=== PATIENT | male | born 1965 | race Caucasian/White ===

== ENCOUNTER 2020-08-15 22:59 | Inpatient (IN) | payer MEDICARE, MEDICAID ==
[~2020-08-15] VITALS: Ht 177.8 cm; Wt 69.9 kg
--- NOTE | 2020-08-15 23:20 | NUR ---
ED Nurse Note:Patient brought in by EMS new onset of bradycardia, patient is moves all extremities, no verbal. follows commands, besides heart rate vitals stable
--- NOTE | 2020-08-15 23:25 | Emergency Room Report ---
History of Present Illness General Chief Complaint: General Complaint Source: Medical Record, EMS Present Illness HPI This is a 54-year-old male with a history respiratory failure with tracheostomy. Also has a feeding tube. He is a care home patient with paraplegia. He presents with chief complaint of low heart rate. According to care home note, all day his heart rate been running 45-55. He also had one episode of oxygenation dropping down to 90%. It responded with suctioning and bagging. Unable to get any other history from this patient. Now he is heart rate is in the low 60s. He is not taking a beta kristin. 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 COVID-19 Screening: Negative COVID-19 COVID-19 Testing Source: nasal Patient History Past Medical History: see triage record, old chart reviewed Past Surgical History: other Pertinent Family History: none Social History: Denies: smoking Immunizations: UTD Reviewed Nursing Documentation: PMH: Agreed; PSxH: Agreed Nursing Documentation-PMH Hx Gastrointestinal Problems: Yes - BPH / g-tUBE History Of Psychiatric Problem: Yes - SCHIZOAFFECTIVE D.O / PARANOID SCHIZOPHRENIA / BIPOLAR Hx Cerebrovascular Accident: Yes - PARAPLEGIA Review of Systems All Other Systems: limited - Patient is nonverbal Physical Exam Vital Signs Date Time Temp Pulse Resp B/P (MAP) Pulse Ox O2 Delivery O2 Flow Rate FiO2 08/15/20 23:07 98.1 58 16 111/68 (82) 99 Room Air Vitals unremarkable Sp02 EP Interpretation: reviewed, normal General Appearance: no apparent distress, alert, Chronically Ill Head: normocephalic, atraumatic Eyes: bilateral eye PERRL, bilateral eye EOMI ENT: hearing grossly normal, normal pharynx Neck: full range of motion, supple, no meningismus Respiratory: chest non-tender, lungs clear, normal breath sounds Cardiovascular #1: regular rate, rhythm, no murmur Gastrointestinal: normal bowel sounds, non tender, no mass, no organomegaly, no bruit, non-distended Musculoskeletal: back normal, other - contracted Psychiatric: mood/affect normal Medical Decision Making Diagnostic Impression: Primary Impression: Bradycardia Additional Impression: Hyponatremia ER Course This patient presents with bradycardia. Since he has been here his heart rate has been 55-65. I spoke with Dr. Aime Wylie, who said that his heart rate dropped down to 36 while he was awake. Will admit for monitoring. No evidence of ACS, PE, dissection Tamiflu. EKG Diagnostic Results Troponin ordered: Yes Rate: normal, bradycardiac ST Segments: no acute changes Rhythm Strip Diag. Results EP Interpretation: yes Rate: 63 Rhythm: NSR, no PVC's, no ectopy Chest X-Ray Diagnostic Results Chest X-Ray Diagnostic Results : Chest X-Ray Ordered: Yes # of Views/Limited/Complete: 1 View Indication: Other EP Interpretation: Yes Interpretation: no effusion, no pneumothorax, other - Atelectasis Impression: Other - Atelectasis Electronically Signed by: Chris Wood MD Last Vital Signs Date Time Temp Pulse Resp B/P (MAP) Pulse Ox O2 Delivery O2 Flow Rate FiO2 08/15/20 23:07 98.1 58 16 111/68 (82) 99 Room Air Status: improved Disposition: SHORT-TERM HOSP Condition: Serious Chris Wood MD Aug 15, 2020 23:25
--- NOTE | 2020-08-15 23:30 | NUR ---
Blood Specimen and Blood cultures sent to lab
[2020-08-15] MEDS ORDERED: ACETAMINOP160 MG/5 M ORAL (23:35)
[2020-08-15] MEDS ORDERED: ATIVAN2 MG/1 ML IV (23:38)
[2020-08-15] MEDS ORDERED: CENTRUM MU9 MG/15 ML GT (23:39)
[2020-08-15] MEDS ORDERED: CHLORHEXIDINE118 M1 PO (23:40)
[2020-08-15] MEDS ORDERED: COLACE100 MG GT (23:41)
[2020-08-15] MEDS ORDERED: DULCOLAX10 MG RC (23:41)
[2020-08-15] MEDS ORDERED: FLEET ENEMA133 ML RECTAL (23:42)
[2020-08-15] MEDS ORDERED: FLORINEF0.1 MG GT (23:43)
[2020-08-15] MEDS ORDERED: LAMICTAL150 MG ORAL (23:44)
[2020-08-15] MEDS ORDERED: IBUPROFEN600 M1 GT (23:44)
[2020-08-15] MEDS ORDERED: KEPPRA500 M3 ORAL (23:45)
--- NOTE | 2020-08-15 23:45 | NUR ---
ED Nurse Note: Attempted to staight cath patient for urine, pt became violent would not allow me to complete procedure notified
[2020-08-15] MEDS ORDERED: MILK OF MA400 MG/51 GT (23:46)
--- NOTE | 2020-08-15 23:46 | Diagnostic Imaging Report ---
EXAM: XR Chest, 1 View CLINICAL HISTORY: SOB TECHNIQUE: Frontal view of the chest. COMPARISON: No relevant prior studies available. FINDINGS: Lungs: Reduced lung volumes. Patchy atelectasis in the left lung base. Pleural space: Unremarkable. No pneumothorax. Heart: Unremarkable. No cardiomegaly. Mediastinum: Unremarkable. Bones/joints: No acute fracture. Tubes, lines and devices: Tracheostomy. IMPRESSION: Reduced lung volumes. Patchy atelectasis in the left lung base.
[2020-08-15] MEDS ORDERED: POTASSIUM CHLO20 ME1 ORAL (23:47)
[2020-08-15] MEDS ORDERED: MIRALAX17 G2 ORAL (23:47)
[2020-08-15] MEDS ORDERED: PROVENTIL HFA6.7 G1 IH (23:48)
[2020-08-15] MEDS ORDERED: SINEMET 25-1001 EAC1 GT (23:49)
[2020-08-15] MEDS ORDERED: SODIUM CHLORIDE3 ML IH (23:50)
[2020-08-15] MEDS ORDERED: UTI-STAT L3875 MG/31 GT (23:51)
[2020-08-15] MEDS ORDERED: OSTERA TABLET1 EACH PO (23:52)
[2020-08-16 00:16] LABS: ANION GAP 4 mmol/L (5-15); BASOPHILS % (AUTO) 0.8 % (0.0-2.0); BLOOD UREA NITROGEN 13 mg/dL (7-18); CALCIUM 9.4 MG/DL (8.5-10.1); CARBON DIOXIDE 31 MMOL/L (21-32); CHLORIDE 93 MMOL/L (98-107); CREATININE 0.8 MG/DL (0.55-1.30); EOSINOPHILS % (AUTO) 5.8 % (0.0-3.0); HEMOGLOBIN 13.4 G/DL (14.2-18.0); LYMPHOCYTES % (AUTO) 21.9 % (20.0-45.0); MEAN CORPUSCULAR VOLUME 94 FL (80-99); MONOCYTES % (AUTO) 5.3 % (1.0-10.0); NEUTROPHILS % (AUTO) 66.3 % (45.0-75.0); PLATELET COUNT 244 K/UL (150-450); POTASSIUM 4.5 MMOL/L (3.5-5.1); RED BLOOD COUNT 4.13 M/UL (4.70-6.10); RED CELL DISTRIBUTION WIDTH 13.2 % (11.6-14.8); SODIUM 128 MMOL/L (136-145); WHITE BLOOD COUNT 8.9 K/UL (4.8-10.8)
[2020-08-16 00:27] LABS: ALANINE AMINOTRANSFERASE 16 U/L (12-78); ALBUMIN/GLOBULIN RATIO 0.9 (1.0-2.7); ALKALINE PHOSPHATASE 125 U/L (46-116); ASPARTATE AMINO TRANSFERASE 22 U/L (15-37); BILIRUBIN,TOTAL 0.4 MG/DL (0.2-1.0)
[2020-08-16 00:52] VITALS: BP 119/77
--- NOTE | 2020-08-16 01:30 | NUR ---
TRANSFER TO FLOOR: Patient transferred to Telemetry as ordered, per MD. Report given to Joshua. Patient had no belongings
[2020-08-16 04:00] VITALS: BP 130/77
--- NOTE | 2020-08-16 04:00 | NUR ---
NURSE NOTES: Pt arrived via gurney from ED. Got report from Adriana CÁRDENAS. Pt is here for bradycardia and hyponatemia. Initial assessment done. Pt is nonverbal follows commands. No s/s of distress or discomfort noted. Pt has a capped Trach and gtube. Incontinent. No skin issues noted. Pt is a functional paraplegic. VS: T:97.2 HR:58 R:16 BP:130/77 O2:95% on room air. nuclear monitoring technician placed on pt running Sinus Bradycardia on the monitor 58. Pt has R AC 20g w/ NS@100ml/hr. Pt is from [facility]. Orders given and placed by Dr. Wylie. Bed in low and locked position, call light within reach, bedside table within reach. Continue to monitor.
[2020-08-16] MEDS ORDERED: Varibar Pudding 230ml MC PRN (06:30)
[2020-08-16] MEDS ORDERED: Varibar Thin Liquid powder 148gm MC PRN (06:30)
[2020-08-16] MEDS ORDERED: Varibar Nectar 240ml MC PRN (06:30)
[2020-08-16] MEDS ORDERED: Varibar Honey 250ml MC PRN (06:30)
--- NOTE | 2020-08-16 07:30 | NUR ---
NURSE HAND-OFF REPORT: Important Events on Shift:[] Patient Status: [STABLE] Diet: [NPO/TUBE FEEDING] Pending Orders: [] Pending Results/Labs:[] Pending MD notification:[] Latest Vital Signs: Temperature 97.2 , Pulse 58 , B/P 130 /77 , Respiratory Rate 16 , O2 SAT 95 , Room Air, O2 Flow Rate . Vital Sign Comment: [] EKG Rhythm: Sinus Bradycardia Rhythm change?: N MD Notified?: - MD Response: Latest Palm Fall Score: 55 Fall Risk: High Risk Safety Measures: Call light , Bed Alarm , Side Rails Side Rails x3, Bed position . Fall Precautions: Report given to [BRINDA CÁRDENAS].
--- NOTE | 2020-08-16 07:52 | NUR ---
NURSE NOTES: Patient received from MELIA Lewis. Patient seen in bed in low fowlers position with no acute signs of distress noted. The patient is nonverbal and on room air with oxygen saturation within normal limits. The patient has a Gtube that is clean patent and intact. The patient has seizure precautions in place with side rails padded. the patient has a R AC 20G that is clean, patent intact and running NS at 100cc/hr. Ther patients bed is in lowest position, locked, side rails x3 and call light within reach.
[2020-08-16 08:00] VITALS: BP 114/69
--- NOTE | 2020-08-16 08:07 | NUR ---
CASE MANAGEMENT:REVIEW 54 YR OLD MALE BIBA FROM [facility] CC; BRADYCARDIA PMH: TRACH/GTUBE SI: BRADYCARDIA. HYPONATREMIA 98.1 58 16 111/68 99% ON RA NA-128 IS: IVF NS@100/HR CHEST XRAY : TO TELEMETRY UNIT DCP: [facility]
[2020-08-16] MEDS: Ascorbic Acid 500mg tab GT SCH ×2 (09:30→17:07)
[2020-08-16] MEDS: levETIRAcetam 500mg/5ml Liquid GT SCH ×2 (09:30→20:28)
[2020-08-16] MEDS: Zinc Sulfate 220mg GT SCH (09:30)
[2020-08-16] MEDS: Heparin 5000 units/ml inj SUBQ SCH ×2 (09:32→20:28)
--- NOTE | 2020-08-16 09:55 | Consultation ---
History of Present Illness General Date patient seen: Aug 16, 2020 Reason for Hospitalization: General Complaint Present Illness HPI 54-year-old male with a history respiratory failure with tracheostomy. Also has a feeding tube. He is a long term patient with paraplegia. He presents with chief complaint of low heart rate. According to long term note, all day his heart rate been running 45-55. He also had one episode of oxygenation dropping down to 90%. It responded with suctioning and bagging. Unable to get any other history from this patient. Now he is heart rate is in the low 60s. He is not taking a beta kristin. on admission noted to have abnormal labs, decubitus skin ulcers, and trach concerns. surgery called to evaluate Allergies: Coded Allergies: No Known Allergies (Unverified , 08/15/20) COVID-19 Screening Contact w/high risk pt: No Experienced COVID-19 symptoms?: No Medication History Scheduled Albuterol Sulfate (Proventil Hfa), 6.7 GM IH Q4HR, (Reported) Carbidopa/Levodopa 25-100 Mg* (Sinemet 25-100 Mg Tablet*), 1 TAB ORAL THREE TIMES A DAY, (Reported) Cran/Vitc/Mannose/Inulin/Brom (Uti-Stat Liquid), 30 ML PO TWICE A DAY, (Reported) Docusate Sodium* (Colace*), 100 MG ORAL DAILY, (Reported) Fludrocortisone Acetate (Fludrocortisone Acetate), 0.1 MG ORAL DAILY, (Reported) Lamotrigine* (Lamictal*), 200 MG ORAL TWICE A DAY, (Reported) Levetiracetam (Levetiracetam), 100 MG ORAL TWICE A DAY, (Reported) Magnesium Hydroxide* (Milk Of Magnesia*), 30 ML ORAL DAILY, (Reported) Multivits W-Min/Ferrous Gluc (Centrum Multivit-Mineral Liq), 15 ML GT QPM, (Reported) Na Phos,M-B/Na Phos,Di-Ba* (Fleet Enema*), 133 ML RECTAL DAILY, (Reported) Polyethylene Glycol 3350* (Miralax*), 0.5 MG ORAL DAILY, (Reported) Potassium Chloride* (K-Dur*), 15 ML ORAL DAILY, (Reported) Sodium Chloride for inhalation* (Sodium Chloride Inhalation*), 1 GM IH TWICE A DAY, (Reported) Scheduled PRN Acetaminophen 160MG/5ML* (Acetaminophen*), 20 ML ORAL Q6HR PRN for Fever/Headache/Mild Pain, (Reported) Ibuprofen* (Motrin*), 600 MG ORAL Q6H PRN for FOR PAIN, (Reported) Lorazepam* (Ativan*), 2 MG IV Q2H PRN for sezure, (Reported) Miscellaneous Medications Bisacodyl (Dulcolax), 10 MG RC, (Reported) Chlorhexidine Gluconate (Chlorhexidine Gluconate), 15 ML TP, (Reported) Vit D3 & K/Berberine Hcl/Hops (Ostera Tablet), 1 EACH PO, (Reported) Patient History Limited by: medical condition History Provided By: Medical Record, PMD Healthcare decision maker Resuscitation status Advanced Directive on File Past Medical/Surgical History Past Medical/Surgical History: (1) Bradycardia (2) Hyponatremia (3) Elevated alkaline phosphatase level Review of Systems Review of Symptoms General ROS: no weight loss or fever Psychological ROS: no depression or mood changes, no memory loss Ophthalmic ROS: no visual changes or eye irritation ENT ROS: no nasal congestion, hearing loss, dizziness Allergy and Immunology ROS: no allergic symptoms or urticaria Hematological and Lymphatic ROS: no swollen glands, unusual bleeding or bruising Endocrine ROS: no polyuria, polydipsia, weight changes, temperature intolerance Respiratory ROS: no cough, shortness of breath, or wheezing Cardiovascular ROS: no chest pain or dyspnea on exertion Gastrointestinal ROS: denies abdominal pain, bright red blood in stool. Musculoskeletal ROS: no myalgias or arthralgias Neurological ROS: no TIA or stroke symptoms Dermatological ROS: no new or changing skin lesions, rashes or pruritis limited Physical Exam Physical Exam General appearance: alert, cooperative, no distress, appears stated age Head: Normocephalic, without obvious abnormality, atraumatic Eyes: conjunctivae/corneas clear. PERRL, EOM's intact. Fundi benign Throat: Lips, mucosa, and tongue normal. Teeth and gums normal Neck: supple, symmetrical, trachea midline, no adenopathy, thyroid: not enlarged, symmetric, no tenderness/mass/nodules, no carotid bruit and no JVD trach Lungs: clear to auscultation bilaterally Heart: regular rate and rhythm, S1, S2 normal, no murmur, click, rub or gallop Abdomen: soft, non-tender. Bowel sounds normal. No masses, no organomegaly Extremities: extremities normal, atraumatic, no cyanosis or edema Pulses: 2+ and symmetric Skin: Skin color, texture, turgor normal. No rashes or lesions Neurologic: Grossly normal Last 24 Hour Vital Signs Date Time Temp Pulse Resp B/P (MAP) Pulse Ox O2 Delivery O2 Flow Rate FiO2 08/16/20 04:00 97.2 58 16 130/77 (94) 95 08/16/20 04:00 56 08/16/20 03:37 Room Air 08/16/20 00:52 58 16 Room Air 08/16/20 00:52 98.1 58 15 119/77 99 Room Air 08/15/20 23:07 98.1 58 16 111/68 (82) 99 Room Air Intake and Output0 08/15/20 08/16/20 19:00 07:00 Intake Total 0 ml Balance 0 ml Intake Oral 0 ml # Voids 1 Laboratory Tests Test 08/15/20 23:39 White Blood Count 8.9 K/UL (4.8-10.8) Red Blood Count 4.13 M/UL (4.70-6.10) L Hemoglobin 13.4 G/DL (14.2-18.0) L Hematocrit 39.0 % (42.0-52.0) L Mean Corpuscular Volume 94 FL (80-99) Mean Corpuscular Hemoglobin 32.5 PG (27.0-31.0) H Mean Corpuscular Hemoglobin Concent 34.4 G/DL (32.0-36.0) Red Cell Distribution Width 13.2 % (11.6-14.8) Platelet Count 244 K/UL (150-450) Mean Platelet Volume 7.8 FL (6.5-10.1) Neutrophils (%) (Auto) 66.3 % (45.0-75.0) Lymphocytes (%) (Auto) 21.9 % (20.0-45.0) Monocytes (%) (Auto) 5.3 % (1.0-10.0) Eosinophils (%) (Auto) 5.8 % (0.0-3.0) H Basophils (%) (Auto) 0.8 % (0.0-2.0) Sodium Level 128 MMOL/L (136-145) L Potassium Level 4.5 MMOL/L (3.5-5.1) Chloride Level 93 MMOL/L (98-107) L Carbon Dioxide Level 31 MMOL/L (21-32) Anion Gap 4 mmol/L (5-15) L Blood Urea Nitrogen 13 mg/dL (7-18) Creatinine 0.8 MG/DL (0.55-1.30) Estimat Glomerular Filtration Rate > 60 mL/min (>60) Glucose Level 98 MG/DL (74-106) Calcium Level 9.4 MG/DL (8.5-10.1) Total Bilirubin 0.4 MG/DL (0.2-1.0) Aspartate Amino Transf (AST/SGOT) 22 U/L (15-37) Alanine Aminotransferase (ALT/SGPT) 16 U/L (12-78) Alkaline Phosphatase 125 U/L (46-116) H Troponin I 0.000 ng/mL (0.000-0.056) Pro-B-Type Natriuretic Peptide 63 pg/mL (0-125) Total Protein 8.7 G/DL (6.4-8.2) H Albumin 4.0 G/DL (3.4-5.0) Globulin 4.7 g/dL Albumin/Globulin Ratio 0.9 (1.0-2.7) L Height (Feet): 5 Height (Inches): 10.00 Weight (Pounds): 154 Medications Current Medications Medications (Trade) Dose Ordered Sig/Myesha Route PRN Reason Start Time Stop Time Status Last Admin Dose Admin Acetaminophen (Tylenol) 500 mg EVERY 4 HOURS PRN GT Temp >100.5 08/16/20 05:30 09/15/20 05:29 Ascorbic Acid (Vitamin C) 500 mg TWICE A DAY GT 08/16/20 09:00 09/15/20 08:59 08/16/20 09:30 Barium Sulfate (Varibar Honey) 250 ml NOW PRN MC RAD 08/16/20 06:30 08/19/20 06:16 Barium Sulfate (Varibar [place]) 240 ml NOW PRN MC RAD 08/16/20 06:30 08/19/20 06:16 Barium Sulfate (Varibar Pudding) 230 ml NOW PRN MC RAD 08/16/20 06:30 08/19/20 06:16 Barium Sulfate (Varibar Thin Liquid powder) 148 gm NOW PRN MC RAD 08/16/20 06:30 08/19/20 06:16 Clonidine HCl (Catapres Tab) 0.1 mg Q4H PRN GT For High Blood Pressure 08/16/20 05:30 11/14/20 05:29 Donepezil HCl (Aricept) 10 mg QHS GT 08/16/20 21:00 09/15/20 20:59 Famotidine (Pepcid) 20 mg BID GT 08/16/20 09:00 11/14/20 08:59 08/16/20 09:30 Fish Oil (Fish Oil) 1,000 mg BID ORAL 08/16/20 09:00 09/15/20 08:59 08/16/20 09:30 Heparin Sodium (Porcine) (Heparin 5000 units/ml) 5,000 units EVERY 12 HOURS SUBQ 08/16/20 09:00 09/30/20 08:59 08/16/20 09:32 Levetiracetam (Keppra) 1,000 mg Q12HR GT 08/16/20 09:00 09/30/20 08:59 08/16/20 09:30 Multivitamins (Multivitamins) 1 tab DAILY GT 08/16/20 09:00 09/15/20 08:59 08/16/20 09:29 Sodium Chloride 1,000 ml @ 100 mls/hr Q10H IV 08/16/20 04:00 09/15/20 03:59 08/16/20 04:48 Zinc Sulfate (Zinc Sulfate) 220 mg DAILY GT 08/16/20 09:00 11/14/20 08:59 08/16/20 09:30 Assessment/Plan Problem List: (1) Trachea displaced Assessment & Plan: Lungs: Reduced lung volumes. Patchy atelectasis in the l eft lung base. Pleural space: Unremarkable. No pneumothorax. Heart: Unremarkable. No cardiomegaly. Mediastinum: Unremarkable. Bones/joints: No acute fracture. Tubes, lines and devices: Tracheostomy. IMPRESSION: Reduced lung volumes. Patchy atelectasis in the left lung base. ICD Codes: J39.8 - Other specified diseases of upper respiratory tract SNOMED: 88863304 (2) Bradycardia ICD Codes: R00.1 - Bradycardia, unspecified SNOMED: 87029672 (3) Hyponatremia ICD Codes: E87.1 - Hypo-osmolality and hyponatremia SNOMED: 54931385 (4) Elevated alkaline phosphatase level Assessment & Plan: abd us noted labs okay exam benign okay for diet trend labs no acute surgical intervention planned Liver: The liver measures 17 cm. No intrahepatic bile duct dilation. Gallbladder: No definite cholelithiasis. Suspect a mild bladder sludge. No gallbladder wall thickening or pericholecystic fluid. Common bile duct: Unremarkable as visualized. No stones. No dilation . Pancreas: Unremarkable as visualized. Kidneys: The right kidney measures 12.1 cm. The left kidney measures 8.8 cm. No stones. No hydronephrosis. Spleen: Nonvisualized spleen. Aorta: The aorta is measured at 2.3 cm. This is slightly over measured by the technologist. Inferior vena cava: Unremarkable. IMPRESSION: Mild gallbladder sludge. No ultrasound evidence of acute cholecystitis. Evaluation limited due to patient limitations. Nonvisualized spleen. ICD Codes: R74.8 - Abnormal levels of other serum enzymes SNOMED: 384529034 Franky Carrizales Aug 16, 2020 09:55
[2020-08-16 10:29] LABS: BASOPHILS % (AUTO) 1.4 % (0.0-2.0); HEMOGLOBIN 13.1 G/DL (14.2-18.0); LYMPHOCYTES % (AUTO) 31.3 % (20.0-45.0); MEAN CORPUSCULAR VOLUME 93 FL (80-99); NEUTROPHILS % (AUTO) 55.3 % (45.0-75.0); PLATELET COUNT 185 K/UL (150-450); RED BLOOD COUNT 4.18 M/UL (4.70-6.10); RED CELL DISTRIBUTION WIDTH 11.8 % (11.6-14.8); WHITE BLOOD COUNT 8.2 K/UL (4.8-10.8)
[2020-08-16 10:35] LABS: ANION GAP 8 mmol/L (5-15); BLOOD UREA NITROGEN 11 mg/dL (7-18); CALCIUM 8.6 MG/DL (8.5-10.1); CARBON DIOXIDE 28 MMOL/L (21-32); CHLORIDE 96 MMOL/L (98-107); CREATININE 0.8 MG/DL (0.55-1.30); SODIUM 131 MMOL/L (136-145)
--- NOTE | 2020-08-16 10:45 | Diagnostic Imaging Report ---
EXAM: US Abdomen Complete CLINICAL HISTORY: ABN LABS TECHNIQUE: Real-time ultrasound of the abdomen with image documentation. COMPARISON: No relevant prior studies available. FINDINGS: Liver: The liver measures 17 cm. No intrahepatic bile duct dilation. Gallbladder: No definite cholelithiasis. Suspect a mild bladder sludge. No gallbladder wall thickening or pericholecystic fluid. Common bile duct: Unremarkable as visualized. No stones. No dilation . Pancreas: Unremarkable as visualized. Kidneys: The right kidney measures 12.1 cm. The left kidney measures 8.8 cm. No stones. No hydronephrosis. Spleen: Nonvisualized spleen. Aorta: The aorta is measured at 2.3 cm. This is slightly over measured by the technologist. Inferior vena cava: Unremarkable. IMPRESSION: Mild gallbladder sludge. No ultrasound evidence of acute cholecystitis. Evaluation limited due to patient limitations. Nonvisualized spleen.
[2020-08-16 12:00] VITALS: BP 134/78
--- NOTE | 2020-08-16 12:20 | NUR ---
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 ELIGIBILITY SPECIALIST, NPO at this time CURRENT TF: npo PO DIET RECOMMENDATIONS: IF SAFE FOR ORAL DIET -> liberalized regular/ texture per BROOM HANDLE DIPPER ENTERAL NUTRITION RECOMMENDATIONS: For continuous TF-> Osmolite 1.5 @ 50ml/hr x 24 hrs to provide 1200ml, 1800kcal, 94g prot, 914ml free water * For continuous TF, rec Osmolite 1.5 @ goal rate of 50ml/hr x 24 hrs -> initiate @ 20ml/hr x 6hrs, advance 10ml q 4-6 hrs as tolerated to goal -> HOB over 30 degrees/ H2O flush 250ml q 6hrs ------ * Monitor BROOM HANDLE DIPPER eval and rec, will provide nocturnal TF rec if appropriate ADDITIONAL RECOMMENDATIONS: * Per SNF: HT=65" and UC=262gog (08/05/20) * F/up w/ BROOM HANDLE DIPPER eval and rec: pt on pureed moist texture w/ HTL TID MEDICAID ELIGIBILITY SPECIALIST -> if not safe for oral diet, rec continuous TF rec as above * Monitor lytes, replete as needed * Rec WC eval: pt admitted w/ vit C + ZnSO4
--- NOTE | 2020-08-16 13:32 | Consultation ---
Consult Note Consult Note I am asked to evaluate the patient at the request of Dr. Wylie for hyponatremia fluid and electrolytes management This is a 54-year-old male with a history respiratory failure with tracheostomy. Also has a feeding tube. He is a long-term patient with paraplegia. He presents with chief complaint of low heart rate. According to long-term note, all day his heart rate been running 45-55. He also had one episode of ox ygenation dropping down to 90%. It responded with suctioning and bagging. Unable to get any other history from this patient. Now he is heart rate is in the low 60s. He is not taking a beta kristin. 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 Presently, blood pressure 114/69, heart rate 56, respiratory rate 18, temperature afebrile, oxygen saturation on room air 96%. HEAD AND NECK: Trach site with no bleeding. Thin secretions. LUNGS: Bilateral breath sounds. Few rhonchi. CARDIAC: Regular rhythm. Slow rate. Normal S1, S2. No murmur. ABDOMEN: Soft. No focal tenderness. G-tube intact. EXTREMITIES: No edema. Muscle atrophy noted. LABORATORY DATA: Sodium 131, potassium 5, bicarb 28, BUN 11, creatinine 0.8. Magnesium 2.2. White count 8.2, hemoglobin 13.1. . Assessment/Plan Hyponatremia: Etiology work-up ordered and in process Bradycardia Vent dependent PEG dependent BPH Urine studies, urine spot sodium, urine osmolality phototypesetting equipment monitor Check TSH, uric acid, serum osmolality, lipid panel Further comments after above results Fouladian,Chase MD Aug 16, 2020 13:32
[2020-08-16 16:00] VITALS: BP 116/79
--- NOTE | 2020-08-16 19:00 | NUR ---
NURSE HAND-OFF REPORT: Important Events on Shift:[Bilateral soft restraints, abd US] Patient Status: [Full code] Diet: [NPO] Pending Orders: [N/A] Pending Results/Labs:[N/A] Pending MD notification:[N/A] Latest Vital Signs: Temperature 96.8 , Pulse 54 , B/P 116 /79 , Respiratory Rate 18 , O2 SAT 97 , Room Air, O2 Flow Rate . Vital Sign Comment: [] EKG Rhythm: Sinus Bradycardia Rhythm change?: Y MD Notified?: N - MD Response: Latest Palm Fall Score: 55 Fall Risk: High Risk Safety Measures: Call light Within Reach, Bed Alarm Zone 1, Side Rails Side Rails x3, Bed position Low and Locked. Fall Precautions: Yellow Socks Patient Fall Education Report given to [MELIA Cortez].
--- NOTE | 2020-08-16 19:53 | NUR ---
NURSE NOTES: Received patient in bed, awake, alert oriented x 1 to his name, non verbal, patient is NPO, patient has a condom catheter, draining well. IV site is clean dry and intact, call light is within reach, bed is lowered locked, alarm is on, will continue to monitor for comfort and safety.
[2020-08-16 20:00] VITALS: BP 128/82
[2020-08-16] MEDS: Donepezil 10mg tab GT SCH (20:28)
--- NOTE | 2020-08-16 21:05 | History & Physical ---
History of Present Illness General Reason for Hospitalization: General Complaint Present Illness Allergies: Coded Allergies: No Known Allergies (Unverified , 08/15/20) COVID-19 Screening Contact w/high risk pt: No Experienced COVID-19 symptoms?: No Medication History Scheduled Albuterol Sulfate (Proventil Hfa), 6.7 GM IH Q4HR, (Reported) Carbidopa/Levodopa 25-100 Mg* (Sinemet 25-100 Mg Tablet*), 1 TAB ORAL THREE TIMES A DAY, (Reported) Cran/Vitc/Mannose/Inulin/Brom (Uti-Stat Liquid), 30 ML PO TWICE A DAY, (Reported) Docusate Sodium* (Colace*), 100 MG ORAL DAILY, (Reported) Fludrocortisone Acetate (Fludrocortisone Acetate), 0.1 MG ORAL DAILY, (Reported) Lamotrigine* (Lamictal*), 200 MG ORAL TWICE A DAY, (Reported) Levetiracetam (Levetiracetam), 100 MG ORAL TWICE A DAY, (Reported) Magnesium Hydroxide* (Milk Of Magnesia*), 30 ML ORAL DAILY, (Reported) Multivits W-Min/Ferrous Gluc (Centrum Multivit-Mineral Liq), 15 ML GT QPM, (Reported) Na Phos,M-B/Na Phos,Di-Ba* (Fleet Enema*), 133 ML RECTAL DAILY, (Reported) Polyethylene Glycol 3350* (Miralax*), 0.5 MG ORAL DAILY, (Reported) Potassium Chloride* (K-Dur*), 15 ML ORAL DAILY, (Reported) Sodium Chloride for inhalation* (Sodium Chloride Inhalation*), 1 GM IH TWICE A DAY, (Reported) Scheduled PRN Acetaminophen 160MG/5ML* (Acetaminophen*), 20 ML ORAL Q6HR PRN for Fever/Headache/Mild Pain, (Reported) Ibuprofen* (Motrin*), 600 MG ORAL Q6H PRN for FOR PAIN, (Reported) Lorazepam* (Ativan*), 2 MG IV Q2H PRN for sezure, (Reported) Miscellaneous Medications Bisacodyl (Dulcolax), 10 MG RC, (Reported) Chlorhexidine Gluconate (Chlorhexidine Gluconate), 15 ML TP, (Reported) Vit D3 & K/Berberine Hcl/Hops (Ostera Tablet), 1 EACH PO, (Reported) Patient History Healthcare decision maker Resuscitation status Advanced Directive on File Review of Systems Review of Symptoms General ROS: no weight loss or fever Psychological ROS: no depression or mood changes, no memory loss Ophthalmic ROS: no visual changes or eye irritation ENT ROS: no nasal congestion, hearing loss, dizziness Allergy and Immunology ROS: no allergic symptoms or urticaria Hematological and Lymphatic ROS: no swollen glands, unusual bleeding or bruising Endocrine ROS: no polyuria, polydipsia, weight changes, temperature intolerance Respiratory ROS: no cough, shortness of breath, or wheezing Cardiovascular ROS: no chest pain or dyspnea on exertion Gastrointestinal ROS: denies abdominal pain, bright red blood in stool. Musculoskeletal ROS: no myalgias or arthralgias Neurological ROS: no TIA or stroke symptoms Dermatological ROS: no new or changing skin lesions, rashes or pruritis Physical Exam Physical Exam General appearance: alert, cooperative, no distress, appears stated age Head: Normocephalic, without obvious abnormality, atraumatic Eyes: conjunctivae/corneas clear. PERRL, EOM's intact. Fundi benign Throat: Lips, mucosa, and tongue normal. Teeth and gums normal Neck: supple, symmetrical, trachea midline, no adenopathy, thyroid: not enlarged, symmetric, no tenderness/mass/nodules, no carotid bruit and no JVD Lungs: clear to auscultation bilaterally Heart: regular rate and rhythm, S1, S2 normal, no murmur, click, rub or gallop Abdomen: soft, non-tender. Bowel sounds normal. No masses, no organomegaly Extremities: extremities normal, atraumatic, no cyanosis or edema Pulses: 2+ and symmetric Skin: Skin color, texture, turgor normal. No rashes or lesions Neurologic: Grossly normal Last 24 Hour Vital Signs Date Time Temp Pulse Resp B/P (MAP) Pulse Ox O2 Delivery O2 Flow Rate FiO2 08/16/20 20:00 97.8 57 20 128/82 (97) 98 08/16/20 16:00 96.8 55 18 116/79 (91) 97 08/16/20 16:00 54 08/16/20 12:00 97.0 55 20 134/78 (96) 98 08/16/20 12:00 68 08/16/20 09:00 Room Air 08/16/20 08:00 56 08/16/20 08:00 96.8 65 18 114/69 (84) 96 08/16/20 04:00 97.2 58 16 130/77 (94) 95 08/16/20 04:00 56 08/16/20 03:37 Room Air 08/16/20 00:52 58 16 Room Air 08/16/20 00:52 98.1 58 15 119/77 99 Room Air 08/15/20 23:07 98.1 58 16 111/68 (82) 99 Room Air Intake and Output 08/15/20 08/16/20 19:00 07:00 Intake Total 100 ml Balance 100 ml Intake Oral 0 ml IV Total 100 ml # Voids 1 Laboratory Tests Test 08/15/20 23:39 08/16/20 10:00 White Blood Count 8.9 K/UL (4.8-10.8) 8.2 K/UL (4.8-10.8) Red Blood Count 4.13 M/UL (4.70-6.10) L 4.18 M/UL (4.70-6.10) L Hemoglobin 13.4 G/DL (14.2-18.0) L 13.1 G/DL (14.2-18.0) L Hematocrit 39.0 % (42.0-52.0) L 39.0 % (42.0-52.0) L Mean Corpuscular Volume 94 FL (80-99) 93 FL (80-99) Mean Corpuscular Hemoglobin 32.5 PG (27.0-31.0) H 31.3 PG (27.0-31.0) H Mean Corpuscular Hemoglobin Concent 34.4 G/DL (32.0-36.0) 33.5 G/DL (32.0-36.0) Red Cell Distribution Width 13.2 % (11.6-14.8) 11.8 % (11.6-14.8) Platelet Count 244 K/UL (150-450) 185 K/UL (150-450) Mean Platelet Volume 7.8 FL (6.5-10.1) 8.9 FL (6.5-10.1) Neutrophils (%) (Auto) 66.3 % (45.0-75.0) 55.3 % (45.0-75.0) Lymphocytes (%) (Auto) 21.9 % (20.0-45.0) 31.3 % (20.0-45.0) Monocytes (%) (Auto) 5.3 % (1.0-10.0) 6.0 % (1.0-10.0) Eosinophils (%) (Auto) 5.8 % (0.0-3.0) H 6.0 % (0.0-3.0) H Basophils (%) (Auto) 0.8 % (0.0-2.0) 1.4 % (0.0-2.0) Sodium Level 128 MMOL/L (136-145) L 131 MMOL/L (136-145) L Potassium Level 4.5 MMOL/L (3.5-5.1) 5.0 MMOL/L (3.5-5.1) Chloride Level 93 MMOL/L (98-107) L 96 MMOL/L (98-107) L Carbon Dioxide Level 31 MMOL/L (21-32) 28 MMOL/L (21-32) Anion Gap 4 mmol/L (5-15) L 8 mmol/L (5-15) Blood Urea Nitrogen 13 mg/dL (7-18) 11 mg/dL (7-18) Creatinine 0.8 MG/DL (0.55-1.30) 0.8 MG/DL (0.55-1.30) Estimat Glomerular Filtration Rate > 60 mL/min (>60) > 60 mL/min (>60) Glucose Level 98 MG/DL (74-106) 84 MG/DL (74-106) Calcium Level 9.4 MG/DL (8.5-10.1) 8.6 MG/DL (8.5-10.1) Total Bilirubin 0.4 MG/DL (0.2-1.0) Aspartate Amino Transf (AST/SGOT) 22 U/L (15-37) Alanine Aminotransferase (ALT/SGPT) 16 U/L (12-78) Alkaline Phosphatase 125 U/L (46-116) H Troponin I 0.000 ng/mL (0.000-0.056) Pro-B-Type Natriuretic Peptide 63 pg/mL (0-125) Total Protein 8.7 G/DL (6.4-8.2) H Albumin 4.0 G/DL (3.4-5.0) Globulin 4.7 g/dL Albumin/Globulin Ratio 0.9 (1.0-2.7) L Magnesium Level 2.2 MG/DL (1.8-2.4) Height (Feet): 5 Height (Inches): 10.00 Weight (Pounds): 154 Medications Current Medications Medications (Trade) Dose Ordered Sig/Myesha Route PRN Reason Start Time Stop Time Status Last Admin Dose Admin Acetaminophen (Tylenol) 500 mg EVERY 4 HOURS PRN GT Temp >100.5 08/16/20 05:30 09/15/20 05:29 Ascorbic Acid (Vitamin C) 500 mg TWICE A DAY GT 08/16/20 09:00 09/15/20 08:59 08/16/20 17:07 Barium Sulfate (Varibar Honey) 250 ml NOW PRN MC RAD 08/16/20 06:30 08/19/20 06:16 Barium Sulfate (Varibar [place]) 240 ml NOW PRN MC RAD 08/16/20 06:30 08/19/20 06:16 Barium Sulfate (Varibar Pudding) 230 ml NOW PRN MC RAD 08/16/20 06:30 08/19/20 06:16 Barium Sulfate (Varibar Thin Liquid powder) 148 gm NOW PRN MC RAD 08/16/20 06:30 08/19/20 06:16 Clonidine HCl (Catapres Tab) 0.1 mg Q4H PRN GT For High Blood Pressure 08/16/20 05:30 11/14/20 05:29 Donepezil HCl (Aricept) 10 mg QHS GT 08/16/20 21:00 09/15/20 20:59 08/16/20 20:28 Famotidine (Pepcid) 20 mg BID GT 08/16/20 09:00 11/14/20 08:59 08/16/20 17:07 Fish Oil (Fish Oil) 1,000 mg BID ORAL 08/16/20 09:00 09/15/20 08:59 08/16/20 17:07 Heparin Sodium (Porcine) (Heparin 5000 units/ml) 5,000 units EVERY 12 HOURS SUBQ 08/16/20 09:00 09/30/20 08:59 08/16/20 20:28 Levetiracetam (Keppra) 1,000 mg Q12HR GT 08/16/20 09:00 09/30/20 08:59 08/16/20 20:28 Multivitamins (Multivitamins) 1 tab DAILY GT 08/16/20 09:00 09/15/20 08:59 08/16/20 09:29 Sodium Chloride 1,000 ml @ 100 mls/hr Q10H IV 08/16/20 04:00 09/15/20 03:59 08/16/20 04:48 Zinc Sulfate (Zinc Sulfate) 220 mg DAILY GT 08/16/20 09:00 11/14/20 08:59 08/16/20 09:30 Assessment/Plan Assessment/Plan: INTERNAL MED H&P Covering for Dr. Wylie DOS: 08/16/2020 HPI This is a 54-year-old male with a history respiratory failure with tracheostomy. Also has a feeding tube. He is a residential patient with paraplegia. He presents with chief complaint of low heart rate. According to residential note, all day his heart rate been running 45-55. He also had one episode of oxygenation dropping down to 90%. It responded with suctioning and bagging. Unable to get any other history from this patient. Now he is heart rate is in the low 60s. He is not taking a beta kristin. 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 COVID-19 Screening: Negative COVID-19 COVID-19 Testing Source: nasal Patient History Past Medical History: see triage record, old chart reviewed Past Surgical History: other Pertinent Family History: none Social History: Denies: smoking Immunizations: UTD Reviewed Nursing Documentation: PMH: Agreed; PSxH: Agreed Nursing Documentation-PMH Hx Gastrointestinal Problems: Yes - BPH / g-tUBE History Of Psychiatric Problem: Yes - SCHIZOAFFECTIVE D.O / PARANOID SCHIZOPHRENIA / BIPOLAR Hx Cerebrovascular Accident: Yes - PARAPLEGIA Review of Systems All Other Systems: limited - Patient is nonverbal Physical Exam Vitals: noted General: no apparent distress, alert, Chronically Ill Head: normocephalic, atraumatic Eyes: bilateral eye PERRL, bilateral eye EOMI ENT: hearing grossly normal, normal pharynx Neck: full range of motion, supple, no meningismus Respiratory: chest non-tender, lungs clear, normal breath sounds Cardiovascular: regular rate, rhythm, no murmur Gastrointestinal: normal bowel sounds Musculoskeletal: back normal, other - contracted Psychiatric: mood/affect normal Labs: noted Imaging: reviewed Assessment and recs # Bradycardia -- meds reviewed --> ekg, tele monitoring --> as per cards recs --> meds noted --> atropine prn basis # Hyponatremia --> per renal care # Atelectasis # Resp failure/trach # Paraplegia # Dysphagia s/p peg # Dehydration DW Rn [facility] Hospital declaration INPATIENT level of care is warranted for this patient because patient is a 89 year old with who presents with suspicion of . I have a high level of concern because . Patient is at high risk for . Plan of care/treatment inc lude . Patient care is expected to be greater than 2 midnights. OBSERVATION level of care is warranted for this patient. Patient is a 89 year old with who presents with . Patient will be admitted for 1 midnight, but if additional night(s) is/are necessary, patient will be converted to inpatient status for the entire hospitalization Disposition: Once the patient is stable to leave the hospital, I anticipate the patient will likely be discharged to the following environment: Estimated discharge date: I spent 70 minutes on this patient's case, and minutes was dedicated to counseling and/or care coordination. MIPS (Merit-based Incentive Payment System) Applicable CPT: 97750, 75288 CHECK ALL THAT ARE MET: Measure #5 (CHF): All ages. Prescribe KEVIN/ARB upon discharge for patients with left ventricular systolic dysfunction. If not, the reason is clearly documented in the medical chart. Measure #8 (CHF): All ages. Prescribe a beta kristin upon discharge for patients with left ventricular systolic dysfunction. If not, the reason is clearly documented in the medical chart. Measure #47 Advance care plan or surrogate decision maker documented in the medical record. Measure #130 The provider has documented, updated, or reviewed the patients current medication list and has documented it in the patients note. Measure #374 (All): Send report to referring provider. Measure #407(Sepsis due to MSSA bacteremia): Age 18+ Patient treated with a beta-lactam antibiotic (Nafcillin, Oxacillin or Cefazolin) as definitive therapy. MEDICAL COMPLEXITY High complexity medical decision making (need 2/3 categories) Problem - need 4 points Acute/new problem with new plan for workup (4 points, 1 max) Acute/new problem without additional workup (3 points, 1 max) Unstable chronic problem actively being managed (2 point each, 2 max) Stable chronic problem actively being managed (1 point each, 2 max) Self-limited/transient process (constipation, muscle ache, etc) (1 point each, 2 max) Data - need 4 points Reviewed labs/imaging studies (1 points, 2 max) Independent review of imaging (EKG, xrays, etc) (2 points, 2 max) Discussed case with consult/other MD/RN (2 points, 2 max) High Risk - qualify if have one of the following: Severe exacerbation of acute problem, acute mental status change, IV narcotics, monitoring drug levels (vancomycin, INR, tacrolimus etc) Matthew Batista MD Aug 16, 2020 21:05
[2020-08-17] VITALS: BP 125/69
[2020-08-17 04:04] VITALS: BP 128/68
--- NOTE | 2020-08-17 06:23 | Hematology/Onc Progress Note ---
Assessment/Plan Assessment/Plan Assessment and recs # Bradycardia -- meds reviewed --> ekg, tele monitoring --> as per cards recs --> meds noted --> atropine prn basis # Hyponatremia --> per renal care # Atelectasis # Resp failure/trach -> surg aware # Paraplegia # Dysphagia s/p peg # Dehydration DW Rn Subjective HEENT: Denies: no symptoms, eye pain, blurred vision, tearing, double vision, ear pain, ear discharge, nose pain, nose congestion, throat pain, throat swelling, mouth pain, mouth swelling, other Cardiovascular: Denies: no symptoms, chest pain, edema, irregular heart rate, lightheadedness, palpitations, syncope, other Allergies: Coded Allergies: No Known Allergies (Unverified , 08/15/20) All Systems: reviewed and negative except above Subjective 08/17 nv, labs reviewed, meds noted, covering im Objective Objective Current Medications Medications (Trade) Dose Ordered Sig/Myesha Route PRN Reason Start Time Stop Time Status Last Admin Dose Admin Acetaminophen (Tylenol) 500 mg EVERY 4 HOURS PRN GT Temp >100.5 08/16/20 05:30 09/15/20 05:29 Ascorbic Acid (Vitamin C) 500 mg TWICE A DAY GT 08/16/20 09:00 09/15/20 08:59 08/16/20 17:07 Barium Sulfate (Varibar Honey) 250 ml NOW PRN MC RAD 08/16/20 06:30 08/19/20 06:16 Barium Sulfate (Varibar [place]) 240 ml NOW PRN MC RAD 08/16/20 06:30 08/19/20 06:16 Barium Sulfate (Varibar Pudding) 230 ml NOW PRN RAD 08/16/20 06:30 08/19/20 06:16 Barium Sulfate (Varibar Thin Liquid powder) 148 gm NOW PRN MC RAD 08/16/20 06:30 08/19/20 06:16 Clonidine HCl (Catapres Tab) 0.1 mg Q4H PRN GT For High Blood Pressure 08/16/20 05:30 11/14/20 05:29 Donepezil HCl (Aricept) 10 mg QHS GT 08/16/20 21:00 09/15/20 20:59 08/16/20 20:28 Famotidine (Pepcid) 20 mg BID GT 08/16/20 09:00 11/14/20 08:59 08/16/20 17:07 Fish Oil (Fish Oil) 1,000 mg BID ORAL 08/16/20 09:00 09/15/20 08:59 08/16/20 17:07 Heparin Sodium (Porcine) (Heparin 5000 units/ml) 5,000 units EVERY 12 HOURS SUBQ 08/16/20 09:00 09/30/20 08:59 08/16/20 20:28 Levetiracetam (Keppra) 1,000 mg Q12HR GT 08/16/20 09:00 09/30/20 08:59 08/16/20 20:28 Multivitamins (Multivitamins) 1 tab DAILY GT 08/16/20 09:00 09/15/20 08:59 08/16/20 09:29 Sodium Chloride 1,000 ml @ 100 mls/hr Q10H IV 08/16/20 04:00 09/15/20 03:59 08/16/20 23:23 Zinc Sulfate (Zinc Sulfate) 220 mg DAILY GT 08/16/20 09:00 11/14/20 08:59 08/16/20 09:30 Last 24 Hour Vital Signs Date Time Temp Pulse Resp B/P (MAP) Pulse Ox O2 Delivery O2 Flow Rate FiO2 08/17/20 04:04 98.4 55 20 128/68 (88) 97 08/17/20 04:00 64 08/17/20 00:00 97.7 58 20 125/69 (87) 95 08/16/20 21:14 Room Air 08/16/20 20:00 97.8 57 20 128/82 (97) 98 08/16/20 20:00 101 08/16/20 16:00 96.8 55 18 116/79 (91) 97 08/16/20 16:00 54 08/16/20 12:00 97.0 55 20 134/78 (96) 98 08/16/20 12:00 68 08/16/20 09:00 Room Air 08/16/20 08:00 56 08/16/20 08:00 96.8 65 18 114/69 (84) 96 08/16/20 04:00 97.2 58 16 130/77 (94) 95 08/16/20 04:00 56 08/16/20 03:37 Room Air 08/16/20 00:52 58 16 Room Air 08/16/20 00:52 98.1 58 15 119/77 99 Room Air 08/15/20 23:07 98.1 58 16 111/68 (82) 99 Room Air Intake and Output 08/16/20 08/17/20 19:00 07:00 Intake Total 900 ml Output Total 150 ml 1200 ml Balance 750 ml -1200 ml IV Total 900 ml Output Urine Total 150 ml 1200 ml Labs Test 08/15/20 23:39 08/16/20 10:00 White Blood Count 8.9 K/UL (4.8-10.8) 8.2 K/UL (4.8-10.8) Red Blood Count 4.13 M/UL (4.70-6.10) 4.18 M/UL (4.70-6.10) Hemoglobin 13.4 G/DL (14.2-18.0) 13.1 G/DL (14.2-18.0) Hematocrit 39.0 % (42.0-52.0) 39.0 % (42.0-52.0) Mean Corpuscular Volume 94 FL (80-99) 93 FL (80-99) Mean Corpuscular Hemoglobin 32.5 PG (27.0-31.0) 31.3 PG (27.0-31.0) Mean Corpuscular Hemoglobin Concent 34.4 G/DL (32.0-36.0) 33.5 G/DL (32.0-36.0) Red Cell Distribution Width 13.2 % (11.6-14.8) 11.8 % (11.6-14.8) Platelet Count 244 K/UL (150-450) 185 K/UL (150-450) Mean Platelet Volume 7.8 FL (6.5-10.1) 8.9 FL (6.5-10.1) Neutrophils (%) (Auto) 66.3 % (45.0-75.0) 55.3 % (45.0-75.0) Lymphocytes (%) (Auto) 21.9 % (20.0-45.0) 31.3 % (20.0-45.0) Monocytes (%) (Auto) 5.3 % (1.0-10.0) 6.0 % (1.0-10.0) Eosinophils (%) (Auto) 5.8 % (0.0-3.0) 6.0 % (0.0-3.0) Basophils (%) (Auto) 0.8 % (0.0-2.0) 1.4 % (0.0-2.0) Sodium Level 128 MMOL/L (136-145) 131 MMOL/L (136-145) Potassium Level 4.5 MMOL/L (3.5-5.1) 5.0 MMOL/L (3.5-5.1) Chloride Level 93 MMOL/L (98-107) 96 MMOL/L (98-107) Carbon Dioxide Level 31 MMOL/L (21-32) 28 MMOL/L (21-32) Anion Gap 4 mmol/L (5-15) 8 mmol/L (5-15) Blood Urea Nitrogen 13 mg/dL (7-18) 11 mg/dL (7-18) Creatinine 0.8 MG/DL (0.55-1.30) 0.8 MG/DL (0.55-1.30) Estimat Glomerular Filtration Rate > 60 mL/min (>60) > 60 mL/min (>60) Glucose Level 98 MG/DL (74-106) 84 MG/DL (74-106) Calcium Level 9.4 MG/DL (8.5-10.1) 8.6 MG/DL (8.5-10.1) Total Bilirubin 0.4 MG/DL (0.2-1.0) Aspartate Amino Transf (AST/SGOT) 22 U/L (15-37) Alanine Aminotransferase (ALT/SGPT) 16 U/L (12-78) Alkaline Phosphatase 125 U/L (46-116) Troponin I 0.000 ng/mL (0.000-0.056) Pro-B-Type Natriuretic Peptide 63 pg/mL (0-125) Total Protein 8.7 G/DL (6.4-8.2) Albumin 4.0 G/DL (3.4-5.0) Globulin 4.7 g/dL Albumin/Globulin Ratio 0.9 (1.0-2.7) Magnesium Level 2.2 MG/DL (1.8-2.4) Height (Feet): 5 Height (Inches): 10.00 Weight (Pounds): 154 Objective Physical Exam Vitals: noted General: no apparent distress, alert, Chronically Ill HEENT: bilateral eye PERRL, bilateral eye EOMI Respiratory: chest non-tender, lungs clear, normal breath sounds Cardiovascular: regular rate, rhythm, no murmur Gastrointestinal: normal bowel sounds Musculoskeletal: back normal, other - contracted Psychiatric: mood/affect normal Matthew Batista MD Aug 17, 2020 06:23
[2020-08-17 06:42] LABS: APPEARANCE,URINE CLEAR; BILIRUBIN, URINE NEGATIVE (NEGATIVE); COLOR,URINE PALE YELLOW; GLUCOSE, URINE (UA) NEGATIVE (NEGATIVE); KETONES,URINE NEGATIVE (NEGATIVE); LEUKOCYTE ESTERASE ,URINE NEGATIVE (NEGATIVE); NITRITE,URINE NEGATIVE (NEGATIVE); PH,URINE 7 (4.5-8.0); PROTEIN,URINE NEGATIVE (NEGATIVE); UROBILINOGEN,URINE NORMAL MG/DL (0.0-1.0)
--- NOTE | 2020-08-17 06:58 | NUR ---
NURSE HAND-OFF REPORT: Important Events on Shift: uneventful Patient Status: full code Diet: NPO Pending Orders: Pending Results/Labs: Pending MD notification: Latest Vital Signs: Temperature 98.4 , Pulse 55 , B/P 128 /68 , Respiratory Rate 20 , O2 SAT 97 , Room Air, O2 Flow Rate . Vital Sign Comment: EKG Rhythm: Sinus Rhythm Rhythm change?: N MD Notified?: N - MD Response: Latest Palm Fall Score: 55 Fall Risk: High Risk Safety Measures: Call light Within Reach, Bed Alarm Zone 1, Side Rails Side Rails x3, Bed position Low and Locked. Fall Precautions: Yellow Socks Patient Fall Education Report given to MELIA Norris
--- NOTE | 2020-08-17 07:39 | NUR ---
NURSE NOTES: Patient received from MELIA Cortez. Patient seen in bed in semi fowlers position, patient is AAOx1 to own name. Patient is under no acute signs of distress. The patient is on room air with oxygen saturation within normal limits. The patient has a R AC 20G IV that is running NS@ 100cc/hr and is clean, patent and intact. the patient has a condom catheter that is draining well and intact with no kinks. the patients side rails are padded for seizure precautions. The patients bed is in lowest position, locked, side rails x3, bed alarm in zone 1 and call light within reach.
[2020-08-17 08:00] VITALS: BP 118/81
[2020-08-17] MEDS: levETIRAcetam 500mg/5ml Liquid GT SCH ×2 (08:47→21:03)
[2020-08-17] MEDS: Zinc Sulfate 220mg GT SCH (08:48)
[2020-08-17] MEDS: Ascorbic Acid 500mg tab GT SCH ×2 (08:48→17:18)
[2020-08-17] MEDS: Heparin 5000 units/ml inj SUBQ SCH ×2 (08:49→21:05)
[2020-08-17 11:12] LABS: PHOSPHORUS 3.6 MG/DL (2.5-4.9)
[2020-08-17 11:21] LABS: BASOPHILS % (AUTO) 1.1 % (0.0-2.0); EOSINOPHILS % (AUTO) 3.9 % (0.0-3.0); HEMATOCRIT 38.2 % (42.0-52.0); HEMOGLOBIN 12.8 G/DL (14.2-18.0); LYMPHOCYTES % (AUTO) 25.7 % (20.0-45.0); MEAN CORPUSCULAR VOLUME 92 FL (80-99); MONOCYTES % (AUTO) 6.6 % (1.0-10.0); NEUTROPHILS % (AUTO) 62.7 % (45.0-75.0); PLATELET COUNT 213 K/UL (150-450); RED BLOOD COUNT 4.13 M/UL (4.70-6.10); RED CELL DISTRIBUTION WIDTH 11.6 % (11.6-14.8); WHITE BLOOD COUNT 8.7 K/UL (4.8-10.8)
[2020-08-17 11:23] LABS: ALANINE AMINOTRANSFERASE 25 U/L (12-78); ALBUMIN 3.7 G/DL (3.4-5.0); ALBUMIN/GLOBULIN RATIO 0.9 (1.0-2.7); ALKALINE PHOSPHATASE 114 U/L (46-116); AMYLASE 45 U/L (25-115); ANION GAP 8 mmol/L (5-15); ASPARTATE AMINO TRANSFERASE 21 U/L (15-37); BILIRUBIN,TOTAL 0.7 MG/DL (0.2-1.0); BLOOD UREA NITROGEN 8 mg/dL (7-18); CALCIUM 8.6 MG/DL (8.5-10.1); CARBON DIOXIDE 29 MMOL/L (21-32); CHLORIDE 95 MMOL/L (98-107); CHOLESTEROL 190 MG/DL (< 200); CREATININE 0.8 MG/DL (0.55-1.30); HDL CHOLESTEROL 48 MG/DL (40-60); POTASSIUM 4.1 MMOL/L (3.5-5.1); SODIUM 131 MMOL/L (136-145); TRIGLYCERIDES 117 MG/DL (30-150)
[2020-08-17 12:00] VITALS: BP 119/91
--- NOTE | 2020-08-17 12:54 | Surgery Progress Note ---
Surgery Progress Note Subjective Symptoms: improved, tolerating diet, passing flatus Objective Last 24 Hour Vital Signs Date Time Temp Pulse Resp B/P (MAP) Pulse Ox O2 Delivery O2 Flow Rate FiO2 08/17/20 12:00 60 08/17/20 12:00 98.1 87 20 119/91 (100) 94 08/17/20 09:00 Room Air 08/17/20 08:00 96.4 68 19 118/81 (93) 95 08/17/20 08:00 56 08/17/20 04:04 98.4 55 20 128/68 (88) 97 08/17/20 04:00 64 08/17/20 00:00 97.7 58 20 125/69 (87) 95 08/16/20 21:14 Room Air 08/16/20 20:00 97.8 57 20 128/82 (97) 98 08/16/20 20:00 101 08/16/20 16:00 96.8 55 18 116/79 (91) 97 08/16/20 16:00 54 I&O Intake and Output 08/16/20 08/17/20 19:00 07:00 Intake Total 900 ml Output Total 150 ml 1200 ml Balance 750 ml -1200 ml IV Total 900 ml Output Urine Total 150 ml 1200 ml Dressing: saturated Cardiovascular: RSR Respiratory: decreased breath sounds Abdomen: soft, non-tender, present bowel sounds, non-distended Extremities: no tenderness, no cyanosis Laboratory Tests Test 08/17/20 06:30 08/17/20 10:40 Urine Color Pale yellow Urine Appearance Clear Urine pH 7 (4.5-8.0) Urine Specific [place] 1.010 (1.005-1.035) Urine Protein Negative (NEGATIVE) Urine Glucose (UA) Negative (NEGATIVE) Urine Ketones Negative (NEGATIVE) Urine Blood Negative (NEGATIVE) Urine Nitrite Negative (NEGATIVE) Urine Bilirubin Negative (NEGATIVE) Urine Urobilinogen Normal MG/DL (0.0-1.0) Urine Leukocyte Esterase Negative (NEGATIVE) Urine RBC 0 /HPF (0 - 0) Urine WBC 0 /HPF (0 - 0) Urine Squamous Epithelial Cells Occasional /LPF Urine Bacteria Occasional /HPF (NONE) Urine Osmolality 656 mOsm/kg (429-449) H Urine Random Sodium 132 mmol/L (20-110) H White Blood Count 8.7 K/UL (4.8-10.8) Red Blood Count 4.13 M/UL (4.70-6.10) L Hemoglobin 12.8 G/DL (14.2-18.0) L Hematocrit 38.2 % (42.0-52.0) L Mean Corpuscular Volume 92 FL (80-99) Mean Corpuscular Hemoglobin 31.0 PG (27.0-31.0) Mean Corpuscular Hemoglobin Concent 33.6 G/DL (32.0-36.0) Red Cell Distribution Width 11.6 % (11.6-14.8) Platelet Count 213 K/UL (150-450) Mean Platelet Volume 7.5 FL (6.5-10.1) Neutrophils (%) (Auto) 62.7 % (45.0-75.0) Lymphocytes (%) (Auto) 25.7 % (20.0-45.0) Monocytes (%) (Auto) 6.6 % (1.0-10.0) Eosinophils (%) (Auto) 3.9 % (0.0-3.0) H Basophils (%) (Auto) 1.1 % (0.0-2.0) Prothrombin Time 11.3 SEC (9.30-11.50) Prothromb Time International Ratio 1.0 (0.9-1.1) Activated Partial Thromboplast Time 30 SEC (23-33) Sodium Level 131 MMOL/L (136-145) L Potassium Level 4.1 MMOL/L (3.5-5.1) Chloride Level 95 MMOL/L (98-107) L Carbon Dioxide Level 29 MMOL/L (21-32) Anion Gap 8 mmol/L (5-15) Blood Urea Nitrogen 8 mg/dL (7-18) Creatinine 0.8 MG/DL (0.55-1.30) Estimat Glomerular Filtration Rate > 60 mL/min (>60) Glucose Level 81 MG/DL (74-106) Osmolality 271 mOsm/kg (297-317) L Lactic Acid Level 1.30 mmol/L (0.4-2.0) Uric Acid 3.7 MG/DL (2.6-7.2) Calcium Level 8.6 MG/DL (8.5-10.1) Phosphorus Level 3.6 MG/DL (2.5-4.9) Magnesium Level 2.0 MG/DL (1.8-2.4) Total Bilirubin 0.7 MG/DL (0.2-1.0) Aspartate Amino Transf (AST/SGOT) 21 U/L (15-37) Alanine Aminotransferase (ALT/SGPT) 25 U/L (12-78) Alkaline Phosphatase 114 U/L (46-116) C-Reactive Protein, Quantitative 1.5 mg/dL (0.00-0.90) H Total Protein 7.9 G/DL (6.4-8.2) Albumin 3.7 G/DL (3.4-5.0) Globulin 4.2 g/dL Albumin/Globulin Ratio 0.9 (1.0-2.7) L Triglycerides Level 117 MG/DL (30-150) Cholesterol Level 190 MG/DL (< 200) LDL Cholesterol 120 mg/dL (<100) H HDL Cholesterol 48 MG/DL (40-60) Cholesterol/HDL Ratio 4.0 (3.3-4.4) Amylase Level 45 U/L (25-115) Lipase 157 U/L (73-393) Thyroid Stimulating Hormone (TSH) 3.767 uiU/mL (0.358-3.740) Plan Problems: (1) Trachea displaced Assessment & Plan: repositioned monitor (2) Bradycardia (3) Hyponatremia (4) Elevated alkaline phosphatase level Assessment & Plan: abd us noted labs okay exam benign okay for diet trend labs no acute surgical intervention planned Liver: The liver measures 17 cm. No intrahepatic bile duct dilation. Gallbladder: No definite cholelithiasis. Suspect a mild bladder sludge. No gallbladder wall thickening or pericholecystic fluid. Common bile duct: Unremarkable as visualized. No stones. No dilation . Pancreas: Unremarkable as visualized. Kidneys: The right kidney measures 12.1 cm. The left kidney measures 8.8 cm. No stones. No hydronephrosis. Spleen: Nonvisualized spleen. Aorta: The aorta is measured at 2.3 cm. This is slightly over measured by the technologist. Inferior vena cava: Unremarkable. IMPRESSION: Mild gallbladder sludge. No ultrasound evidence of acute cholecystitis. Evaluation limited due to patient limitations. Nonvisualized spleen. Franky Carrizales Aug 17, 2020 12:54
--- NOTE | 2020-08-17 14:22 | Nephrology Progress Note ---
Assessment/Plan Problem List: (1) Hyponatremia (2) Bradycardia (3) Trachea displaced Assessment Hyponatremia: Etiology work-up ordered and in process Bradycardia Vent dependent PEG dependent BPH Plan August 17: Trial of 3% saline and Lasix. Monitor serum sodium and electrolytes. Continue per consultants. Urine studies, urine spot sodium, urine osmolality security monitor Check TSH, uric acid, serum osmolality, lipid panel Further comments after above results Subjective ROS Limited/Unobtainable: Yes Objective Objective Last 24 Hour Vital Signs Date Time Temp Pulse Resp B/P (MAP) Pulse Ox O2 Delivery O2 Flow Rate FiO2 08/17/20 12:00 60 08/17/20 12:00 98.1 87 20 119/91 (100) 94 08/17/20 09:00 Room Air 08/17/20 08:00 96.4 68 19 118/81 (93) 95 08/17/20 08:00 56 08/17/20 04:04 98.4 55 20 128/68 (88) 97 08/17/20 04:00 64 08/17/20 00:00 97.7 58 20 125/69 (87) 95 08/16/20 21:14 Room Air 08/16/20 20:00 97.8 57 20 128/82 (97) 98 08/16/20 20:00 101 08/16/20 16:00 96.8 55 18 116/79 (91) 97 08/16/20 16:00 54 Intake and Output 08/16/20 08/17/20 19:00 07:00 Intake Total 900 ml Output Total 150 ml 1200 ml Balance 750 ml -1200 ml IV Total 900 ml Output Urine Total 150 ml 1200 ml Current Medications Medications (Trade) Dose Ordered Sig/Myesha Route PRN Reason Start Time Stop Time Status Last Admin Dose Admin Acetaminophen (Tylenol) 500 mg EVERY 4 HOURS PRN GT Temp >100.5 08/16/20 05:30 09/15/20 05:29 Ascorbic Acid (Vitamin C) 500 mg TWICE A DAY GT 08/16/20 09:00 09/15/20 08:59 08/17/20 08:48 Barium Sulfate (Varibar Honey) 250 ml NOW PRN MC RAD 08/16/20 06:30 08/19/20 06:16 Barium Sulfate (Varibar [place]) 240 ml NOW PRN MC RAD 08/16/20 06:30 08/19/20 06:16 Barium Sulfate (Varibar Pudding) 230 ml NOW PRN RAD 08/16/20 06:30 08/19/20 06:16 Barium Sulfate (Varibar Thin Liquid powder) 148 gm NOW PRN RAD 08/16/20 06:30 08/19/20 06:16 Clonidine HCl (Catapres Tab) 0.1 mg Q4H PRN GT For High Blood Pressure 08/16/20 05:30 11/14/20 05:29 Donepezil HCl (Aricept) 10 mg QHS GT 08/16/20 21:00 09/15/20 20:59 08/16/20 20:28 Famotidine (Pepcid) 20 mg BID GT 08/16/20 09:00 11/14/20 08:59 08/17/20 08:47 Fish Oil (Fish Oil) 1,000 mg BID ORAL 08/16/20 09:00 09/15/20 08:59 08/17/20 08:48 Heparin Sodium (Porcine) (Heparin 5000 units/ml) 5,000 units EVERY 12 HOURS SUBQ 08/16/20 09:00 09/30/20 08:59 08/17/20 08:49 Levetiracetam (Keppra) 1,000 mg Q12HR GT 08/16/20 09:00 09/30/20 08:59 08/17/20 08:47 Multivitamins (Multivitamins) 1 tab DAILY GT 08/16/20 09:00 09/15/20 08:59 08/17/20 08:47 Zinc Sulfate (Zinc Sulfate) 220 mg DAILY GT 08/16/20 09:00 11/14/20 08:59 08/17/20 08:48 Laboratory Tests 08/17/20 06:30: Urine Color Pale yellow, Urine Appearance Clear, Urine pH 7, Urine Specific [place] 1.010, Urine Protein Negative, Urine Glucose (UA) Negative, Urine Ketones Negative, Urine Blood Negative, Urine Nitrite Negative, Urine Bilirubin Negative, Urine Urobilinogen Normal, Urine Leukocyte Esterase Negative, Urine RBC 0, Urine WBC 0, Urine Squamous Epithelial Cells Occasional, Urine Bacteria Occasional, Urine Osmolality 656H, Urine Random Sodium 132H 08/17/20 10:40: White Blood Count 8.7, Red Blood Count 4.13L, Hemoglobin 12.8L, Hematocrit 38.2L , Mean Corpuscular Volume 92, Mean Corpuscular Hemoglobin 31.0, Mean Corpuscular Hemoglobin Concent 33.6, Red Cell Distribution Width 11.6, Platelet Count 213, Mean Platelet Volume 7.5, Neutrophils (%) (Auto) 62.7, Lymphocytes (%) (Auto) 25.7, Monocytes (%) (Auto) 6.6, Eosinophils (%) (Auto) 3.9H, Basophils (%) (Auto) 1.1, Prothrombin Time 11.3, Prothromb Time International Ratio 1.0, Activated Partial Thromboplast Time 30, Sodium Level 131L, Potassium Level 4.1, Chloride Level 95L, Carbon Dioxide Level 29, Anion Gap 8, Blood Urea Nitrogen 8, Creatinine 0.8, Estimat Glomerular Filtration Rate > 60, Glucose Level 81, Osmolality 271L, Lactic Acid Level 1.30, Uric Acid 3.7, Calcium Level 8.6, Phosphorus Level 3.6, Magnesium Level 2.0, Total Bilirubin 0.7, Aspartate Amino Transf (AST/SGOT) 21, Alanine Aminotransferase (ALT/SGPT) 25, Alkaline Phosphatase 114, C-Reactive Protein, Quantitative 1.5H, Total Protein 7.9, Albumin 3.7, Globulin 4.2, Albumin/Globulin Ratio 0.9L, Triglycerides Level 117, Cholesterol Level 190, LDL Cholesterol 120H, HDL Cholesterol 48, Cholesterol/HDL Ratio 4.0, Amylase Level 45, Lipase 157, Thyroid Stimulating Hormone (TSH) 3.767H Height (Feet): 5 Height (Inches): 10.00 Weight (Pounds): 154 General Appearance: no apparent distress Neck: other - Trach in place Cardiovascular: arrhythmia, other - Variable Respiratory/Chest: decreased breath sounds Abdomen: distended Chase Haynes MD Aug 17, 2020 14:22
[2020-08-17] MEDS ORDERED: NaCl 3% 500ml 500 ML IV SCH (15:00)
[2020-08-17 16:00] VITALS: BP 120/94
--- NOTE | 2020-08-17 19:31 | NUR ---
NURSE HAND-OFF REPORT: Important Events on Shift:[Initiated tube feeding] Patient Status: [full code] Diet: [Osmolite 1.5 at 50cc goal] Pending Orders: [N/A] Pending Results/Labs:[N/A] Pending MD notification:[N/A] Latest Vital Signs: Temperature 98.7 , Pulse 59 , B/P 120 /94 , Respiratory Rate 21 , O2 SAT 95 , Room Air, O2 Flow Rate . Vital Sign Comment: [] EKG Rhythm: Sinus Bradycardia Rhythm change?: N MD Notified?: N - MD Response: Latest Palm Fall Score: 55 Fall Risk: High Risk Safety Measures: Call light Within Reach, Bed Alarm Zone 1, Side Rails Side Rails x3, Bed position Low and Locked. Fall Precautions: Yellow Socks Patient Fall Education Report given to [MELIA Castillo].
--- NOTE | 2020-08-17 19:35 | NUR ---
NURSE NOTES: Patient received from MELIA Norris. Patient is A/O x 1. Patient is on room air with no signs of acute respiratory distress noted. Patient has a GT with an osmolyte 1.5 running at 25 ml/hr with no signs of residual noted. Patient has a condom catheter on. Patient has a right 20 gauge on his AC. Bilateral restraints noted, no signs of injury. Bed is in the lowest position and locked, call light within reach. Will continue to monitor.
[2020-08-17 20:00] VITALS: BP 128/65
[2020-08-17] MEDS: Donepezil 10mg tab GT SCH (21:03)
[2020-08-18 04:00] VITALS: BP 136/76
--- NOTE | 2020-08-18 06:22 | Hematology/Onc Progress Note ---
Assessment/Plan Assessment/Plan Assessment and recs # Bradycardia -- meds reviewed --> ekg, tele monitoring --> as per cards recs --> meds noted --> atropine prn basis # Hyponatremia --> per renal care # Atelectasis # Resp failure/trach -> surg aware # Paraplegia # Dysphagia s/p peg # Dehydration DW Rn Subjective Allergies: Coded Allergies: No Known Allergies (Unverified , 08/15/20) All Systems: reviewed and negative except above Subjective 08/17 nv, labs reviewed, meds noted, covering im 08/18 nv, with gt, osmolite, no bleeding, labs reviewed Objective Objective Current Medications Medications (Trade) Dose Ordered Sig/Myesha Route PRN Reason Start Time Stop Time Status Last Admin Dose Admin Acetaminophen (Tylenol) 500 mg EVERY 4 HOURS PRN GT Temp >100.5 08/16/20 05:30 09/15/20 05:29 Ascorbic Acid (Vitamin C) 500 mg TWICE A DAY GT 08/16/20 09:00 09/15/20 08:59 08/17/20 17:18 Barium Sulfate (Varibar Honey) 250 ml NOW PRN MC RAD 08/16/20 06:30 08/19/20 06:16 Barium Sulfate (Varibar [place]) 240 ml NOW PRN MC RAD 08/16/20 06:30 08/19/20 06:16 Barium Sulfate (Varibar Pudding) 230 ml NOW PRN MC RAD 08/16/20 06:30 08/19/20 06:16 Barium Sulfate (Varibar Thin Liquid powder) 148 gm NOW PRN MC RAD 08/16/20 06:30 08/19/20 06:16 Clonidine HCl (Catapres Tab) 0.1 mg Q4H PRN GT For High Blood Pressure 08/16/20 05:30 11/14/20 05:29 Donepezil HCl (Aricept) 10 mg QHS GT 08/16/20 21:00 09/15/20 20:59 08/17/20 21:03 Famotidine (Pepcid) 20 mg BID GT 08/16/20 09:00 11/14/20 08:59 08/17/20 17:18 Fish Oil (Fish Oil) 1,000 mg BID ORAL 08/16/20 09:00 09/15/20 08:59 08/17/20 17:18 Furosemide (Lasix) 20 mg EVERY 12 HOURS IV 08/17/20 21:00 08/18/20 21:01 08/17/20 21:03 Heparin Sodium (Porcine) (Heparin 5000 units/ml) 5,000 units EVERY 12 HOURS SUBQ 08/16/20 09:00 09/30/20 08:59 08/17/20 21:05 Levetiracetam (Keppra) 1,000 mg Q12HR GT 08/16/20 09:00 09/30/20 08:59 08/17/20 21:03 Multivitamins (Multivitamins) 1 tab DAILY GT 08/16/20 09:00 09/15/20 08:59 08/17/20 08:47 Sodium Chloride 500 ml @ 30 mls/hr ONCE IV 08/17/20 15:00 08/18/20 07:39 08/17/20 14:41 Zinc Sulfate (Zinc Sulfate) 220 mg DAILY GT 08/16/20 09:00 11/14/20 08:59 08/17/20 08:48 Last 24 Hour Vital Signs Date Time Temp Pulse Resp B/P (MAP) Pulse Ox O2 Delivery O2 Flow Rate FiO2 08/18/20 04:00 96.4 76 20 136/76 (96) 97 08/18/20 04:00 65 08/17/20 21:00 Room Air 08/17/20 20:00 69 08/17/20 20:00 98.0 70 20 128/65 (86) 97 08/17/20 16:00 59 08/17/20 16:00 98.7 78 21 120/94 (103) 95 08/17/20 12:00 60 08/17/20 12:00 98.1 87 20 119/91 (100) 94 08/17/20 09:00 Room Air 08/17/20 08:00 96.4 68 19 118/81 (93) 95 08/17/20 08:00 56 08/17/20 04:04 98.4 55 20 128/68 (88) 97 08/17/20 04:00 64 08/17/20 00:00 97.7 58 20 125/69 (87) 95 08/16/20 21:14 Room Air 08/16/20 20:00 97.8 57 20 128/82 (97) 98 2/20/21 20:00 101 08/16/20 16:00 96.8 55 18 116/79 (91) 97 08/16/20 16:00 54 08/16/20 12:00 97.0 55 20 134/78 (96) 98 08/16/20 12:00 68 08/16/20 09:00 Room Air 08/16/20 08:00 56 08/16/20 08:00 96.8 65 18 114/69 (84) 96 Intake and Output 08/17/20 08/18/20 19:00 07:00 Intake Total 175 ml Balance 175 ml Free Water 150 ml Tube Feeding 25 ml # Voids 3 Labs Test 08/15/20 23:39 08/16/20 10:00 08/17/20 06:30 08/17/20 10:40 White Blood Count 8.9 K/UL (4.8-10.8) 8.2 K/UL (4.8-10.8) 8.7 K/UL (4.8-10.8) Red Blood Count 4.13 M/UL (4.70-6.10) 4.18 M/UL (4.70-6.10) 4.13 M/UL (4.70-6.10) Hemoglobin 13.4 G/DL (14.2-18.0) 13.1 G/DL (14.2-18.0) 12.8 G/DL (14.2-18.0) Hematocrit 39.0 % (42.0-52.0) 39.0 % (42.0-52.0) 38.2 % (42.0-52.0) Mean Corpuscular Volume 94 FL (80-99) 93 FL (80-99) 92 FL (80-99) Mean Corpuscular Hemoglobin 32.5 PG (27.0-31.0) 31.3 PG (27.0-31.0) 31.0 PG (27.0-31.0) Mean Corpuscular Hemoglobin Concent 34.4 G/DL (32.0-36.0) 33.5 G/DL (32.0-36.0) 33.6 G/DL (32.0-36.0) Red Cell Distribution Width 13.2 % (11.6-14.8) 11.8 % (11.6-14.8) 11.6 % (11.6-14.8) Platelet Count 244 K/UL (150-450) 185 K/UL (150-450) 213 K/UL (150-450) Mean Platelet Volume 7.8 FL (6.5-10.1) 8.9 FL (6.5-10.1) 7.5 FL (6.5-10.1) Neutrophils (%) (Auto) 66.3 % (45.0-75.0) 55.3 % (45.0-75.0) 62.7 % (45.0-75.0) Lymphocytes (%) (Auto) 21.9 % (20.0-45.0) 31.3 % (20.0-45.0) 25.7 % (20.0-45.0) Monocytes (%) (Auto) 5.3 % (1.0-10.0) 6.0 % (1.0-10.0) 6.6 % (1.0-10.0) Eosinophils (%) (Auto) 5.8 % (0.0-3.0) 6.0 % (0.0-3.0) 3.9 % (0.0-3.0) Basophils (%) (Auto) 0.8 % (0.0-2.0) 1.4 % (0.0-2.0) 1.1 % (0.0-2.0) Sodium Level 128 MMOL/L (136-145) 131 MMOL/L (136-145) 131 MMOL/L (136-145) Potassium Level 4.5 MMOL/L (3.5-5.1) 5.0 MMOL/L (3.5-5.1) 4.1 MMOL/L (3.5-5.1) Chloride Level 93 MMOL/L (98-107) 96 MMOL/L (98-107) 95 MMOL/L (98-107) Carbon Dioxide Level 31 MMOL/L (21-32) 28 MMOL/L (21-32) 29 MMOL/L (21-32) Anion Gap 4 mmol/L (5-15) 8 mmol/L (5-15) 8 mmol/L (5-15) Blood Urea Nitrogen 13 mg/dL (7-18) 11 mg/dL (7-18) 8 mg/dL (7-18) Creatinine 0.8 MG/DL (0.55-1.30) 0.8 MG/DL (0.55-1.30) 0.8 MG/DL (0.55-1.30) Estimat Glomerular Filtration Rate > 60 mL/min (>60) > 60 mL/min (>60) > 60 mL/min (>60) Glucose Level 98 MG/DL (74-106) 84 MG/DL (74-106) 81 MG/DL (74-106) Calcium Level 9.4 MG/DL (8.5-10.1) 8.6 MG/DL (8.5-10.1) 8.6 MG/DL (8.5-10.1) Total Bilirubin 0.4 MG/DL (0.2-1.0) 0.7 MG/DL (0.2-1.0) Aspartate Amino Transf (AST/SGOT) 22 U/L (15-37) 21 U/L (15-37) Alanine Aminotransferase (ALT/SGPT) 16 U/L (12-78) 25 U/L (12-78) Alkaline Phosphatase 125 U/L (46-116) 114 U/L (46-116) Troponin I 0.000 ng/mL (0.000-0.056) Pro-B-Type Natriuretic Peptide 63 pg/mL (0-125) Total Protein 8.7 G/DL (6.4-8.2) 7.9 G/DL (6.4-8.2) Albumin 4.0 G/DL (3.4-5.0) 3.7 G/DL (3.4-5.0) Globulin 4.7 g/dL 4.2 g/dL Albumin/Globulin Ratio 0.9 (1.0-2.7) 0.9 (1.0-2.7) Magnesium Level 2.2 MG/DL (1.8-2.4) 2.0 MG/DL (1.8-2.4) Urine Color Pale yellow Urine Appearance Clear Urine pH 7 (4.5-8.0) Urine Specific [place] 1.010 (1.005-1.035) Urine Protein Negative (NEGATIVE) Urine Glucose (UA) Negative (NEGATIVE) Urine Ketones Negative (NEGATIVE) Urine Blood Negative (NEGATIVE) Urine Nitrite Negative (NEGATIVE) Urine Bilirubin Negative (NEGATIVE) Urine Urobilinogen Normal MG/DL (0.0-1.0) Urine Leukocyte Esterase Negative (NEGATIVE) Urine RBC 0 /HPF (0 - 0) Urine WBC 0 /HPF (0 - 0) Urine Squamous Epithelial Cells Occasional /LPF Urine Bacteria Occasional /HPF (NONE) Urine Osmolality 656 mOsm/kg (429-449) Urine Random Sodium 132 mmol/L (20-110) Prothrombin Time 11.3 SEC (9.30-11.50) Prothromb Time International Ratio 1.0 (0.9-1.1) Activated Partial Thromboplast Time 30 SEC (23-33) Osmolality 271 mOsm/kg (297-317) Lactic Acid Level 1.30 mmol/L (0.4-2.0) Uric Acid 3.7 MG/DL (2.6-7.2) Phosphorus Level 3.6 MG/DL (2.5-4.9) C-Reactive Protein, Quantitative 1.5 mg/dL (0.00-0.90) Triglycerides Level 117 MG/DL (30-150) Cholesterol Level 190 MG/DL (< 200) LDL Cholesterol 120 mg/dL (<100) HDL Cholesterol 48 MG/DL (40-60) Cholesterol/HDL Ratio 4.0 (3.3-4.4) Amylase Level 45 U/L (25-115) Lipase 157 U/L (73-393) Thyroid Stimulating Hormone (TSH) 3.767 uiU/mL (0.358-3.740) Height (Feet): 5 Height (Inches): 10.00 Weight (Pounds): 154 Objective Physical Exam Vitals: noted General: no apparent distress, alert, Chronically Ill HEENT: bilateral eye PERRL, bilateral eye EOMI Respiratory: chest non-tender, lungs clear, normal breath sounds Cardiovascular: regular rate, rhythm, no murmur Gastrointestinal: normal bowel sounds ++gt Musculoskeletal: back normal, other - contracted Psychiatric: mood/affect normal Matthew Batista MD Aug 18, 2020 06:22
--- NOTE | 2020-08-18 07:41 | NUR ---
NURSE NOTES: Patient received from MELIA Castillo. Patient seen in bed in semifowlers position with no acute signs of distress. the patient has a R Ac 20G Iv that is infusing 3%NS at 30cc/hr and IV is clean, patent and intact. The patient has a Gtube that is currently receiving osmolite 1.5 at 35cc/hr and will be increased to reach the goal of 50cc/hr per protocol. The patient is on room air with oxygen saturation within normal limits. The patients bed is in lowest position, locked, side rails x3, bed alarm in zone 1 and call light within reach.
--- NOTE | 2020-08-18 07:42 | NUR ---
NURSE HAND-OFF REPORT: Important Events on Shift:[Increased feeding from 25 to 35 ml/hr. Patient refused vital signs, educated him the importance of it.] Patient Status: [Stable] Diet: [Osmolyte 1.5 @ 35 ml/hr] Pending Orders: [] Pending Results/Labs:[] Pending MD notification:[] Latest Vital Signs: Temperature 96.4 , Pulse 76 , B/P 136 /76 , Respiratory Rate 20 , O2 SAT 97 , Room Air, O2 Flow Rate . Vital Sign Comment: [] EKG Rhythm: Sinus Rhythm Rhythm change?: N MD Notified?: N - MD Response: Latest Palm Fall Score: 55 Fall Risk: High Risk Safety Measures: Call light Within Reach, Bed Alarm Zone 1, Side Rails Side Rails x3, Bed position Low and Locked. Fall Precautions: Yellow Socks Patient Fall Education Report given to [MELIA Norris].
[2020-08-18 07:59] LABS: BASOPHILS % (AUTO) 0.8 % (0.0-2.0); HEMATOCRIT 40.1 % (42.0-52.0); HEMOGLOBIN 13.8 G/DL (14.2-18.0); LYMPHOCYTES % (AUTO) 20.2 % (20.0-45.0); MEAN CORPUSCULAR VOLUME 92 FL (80-99); MONOCYTES % (AUTO) 6.7 % (1.0-10.0); NEUTROPHILS % (AUTO) 69.3 % (45.0-75.0); PLATELET COUNT 238 K/UL (150-450); RED BLOOD COUNT 4.37 M/UL (4.70-6.10)
[2020-08-18 08:00] VITALS: BP 132/64
[2020-08-18 08:27] LABS: ALANINE AMINOTRANSFERASE 30 U/L (12-78); ALBUMIN/GLOBULIN RATIO 0.9 (1.0-2.7); ALKALINE PHOSPHATASE 130 U/L (46-116); ANION GAP 8 mmol/L (5-15); ASPARTATE AMINO TRANSFERASE 25 U/L (15-37); BILIRUBIN,TOTAL 0.6 MG/DL (0.2-1.0); BLOOD UREA NITROGEN 10 mg/dL (7-18); CALCIUM 8.9 MG/DL (8.5-10.1); CARBON DIOXIDE 28 MMOL/L (21-32); CHLORIDE 97 MMOL/L (98-107); CREATININE 0.8 MG/DL (0.55-1.30); PHOSPHORUS 3.7 MG/DL (2.5-4.9); POTASSIUM 3.1 MMOL/L (3.5-5.1); SODIUM 133 MMOL/L (136-145)
[2020-08-18] MEDS: levETIRAcetam 500mg/5ml Liquid GT SCH ×2 (09:02→21:24)
[2020-08-18] MEDS: Zinc Sulfate 220mg GT SCH (09:02)
[2020-08-18] MEDS: Ascorbic Acid 500mg tab GT SCH ×2 (09:02→17:14)
[2020-08-18] MEDS: Heparin 5000 units/ml inj SUBQ SCH ×2 (09:04→21:25)
--- NOTE | 2020-08-18 10:31 | Nephrology Progress Note ---
Assessment/Plan Problem List: (1) Hyponatremia (2) Bradycardia (3) Trachea displaced Assessment Hyponatremia: Etiology work-up ordered and in process Bradycardia Vent dependent PEG dependent BPH Plan August 18: Labs reviewed. Serum sodium slightly higher. Potassium supplement given. Lasix and 3% saline to be continued aim to keep output more than intake. August 17: Trial of 3% saline and Lasix. Monitor serum sodium and deep ctrolytes. Continue per consultants. Urine studies, urine spot sodium, urine osmolality compliance monitor Check TSH, uric acid, serum osmolality, lipid panel Further comments after above results Subjective ROS Limited/Unobtainable: No Constitutional: Reports: malaise Objective Objective Last 24 Hour Vital Signs Date Time Temp Pulse Resp B/P (MAP) Pulse Ox O2 Delivery O2 Flow Rate FiO2 08/18/20 09:00 Room Air 08/18/20 08:00 66 08/18/20 08:00 97.5 63 20 132/64 (86) 97 08/18/20 04:00 96.4 76 20 136/76 (96) 97 08/18/20 04:00 65 08/17/20 21:00 Room Air 08/17/20 20:00 69 08/17/20 20:00 98.0 70 20 128/65 (86) 97 08/17/20 16:00 59 08/17/20 16:00 98.7 78 21 120/94 (103) 95 08/17/20 12:00 60 08/17/20 12:00 98.1 87 20 119/91 (100) 94 Intake and Output 08/17/20 08/18/20 19:00 07:00 Intake Total 200 ml 665 ml Balance 200 ml 665 ml Free Water 150 ml 300 ml Tube Feeding 50 ml 365 ml # Voids 3 Current Medications Medications (Trade) Dose Ordered Sig/Myesha Route PRN Reason Start Time Stop Time Status Last Admin Dose Admin Acetaminophen (Tylenol) 500 mg EVERY 4 HOURS PRN GT Temp >100.5 08/16/20 05:30 09/15/20 05:29 Ascorbic Acid (Vitamin C) 500 mg TWICE A DAY GT 08/16/20 09:00 09/15/20 08:59 08/18/20 09:02 Barium Sulfate (Varibar Honey) 250 ml NOW PRN MC RAD 08/16/20 06:30 08/19/20 06:16 Barium Sulfate (Varibar [place]) 240 ml NOW PRN MC RAD 08/16/20 06:30 08/19/20 06:16 Barium Sulfate (Varibar Pudding) 230 ml NOW PRN RAD 08/16/20 06:30 08/19/20 06:16 Barium Sulfate (Varibar Thin Liquid powder) 148 gm NOW PRN MC RAD 08/16/20 06:30 08/19/20 06:16 Clonidine HCl (Catapres Tab) 0.1 mg Q4H PRN GT For High Blood Pressure 08/16/20 05:30 11/14/20 05:29 Donepezil HCl (Aricept) 10 mg QHS GT 08/16/20 21:00 09/15/20 20:59 08/17/20 21:03 Famotidine (Pepcid) 20 mg BID GT 08/16/20 09:00 11/14/20 08:59 08/18/20 09:02 Fish Oil (Fish Oil) 1,000 mg BID ORAL 08/16/20 09:00 09/15/20 08:59 08/18/20 09:02 Furosemide (Lasix) 20 mg EVERY 8 HOURS IV 08/18/20 14:00 09/17/20 13:59 UNV Heparin Sodium (Porcine) (Heparin 5000 units/ml) 5,000 units EVERY 12 HOURS SUBQ 08/16/20 09:00 09/30/20 08:59 08/18/20 09:04 Levetiracetam (Keppra) 1,000 mg Q12HR GT 08/16/20 09:00 09/30/20 08:59 08/18/20 09:02 Multivitamins (Multivitamins) 1 tab DAILY GT 08/16/20 09:00 09/15/20 08:59 08/18/20 09:02 Potassium Chloride (K-Dur) 40 meq TWICE A DAY GT 08/18/20 10:30 11/16/20 10:29 UNV Sodium Chloride 500 ml @ 30 mls/hr ONCE ONCE IV 08/18/20 10:30 08/19/20 03:09 UNV Zinc Sulfate (Zinc Sulfate) 220 mg DAILY GT 08/16/20 09:00 11/14/20 08:59 08/18/20 09:02 Laboratory Tests 08/17/20 10:40: White Blood Count 8.7, Red Blood Count 4.13L, Hemoglobin 12.8L, Hematocrit 38.2L , Mean Corpuscular Volume 92, Mean Corpuscular Hemoglobin 31.0, Mean Corpuscular Hemoglobin Concent 33.6, Red Cell Distribution Width 11.6, Platelet Count 213, Mean Platelet Volume 7.5, Neutrophils (%) (Auto) 62.7, Lymphocytes (%) (Auto) 25.7, Monocytes (%) (Auto) 6.6, Eosinophils (%) (Auto) 3.9H, Basophils (%) (Auto) 1.1, Prothrombin Time 11.3, Prothromb Time International Ratio 1.0, Activated Partial Thromboplast Time 30, Sodium Level 131L, Potassium Level 4.1, Chloride Level 95L, Carbon Dioxide Level 29, Anion Gap 8, Blood Urea Nitrogen 8, Creatinine 0.8, Estimat Glomerular Filtration Rate > 60, Glucose Level 81, Osmolality 271L, Lactic Acid Level 1.30, Uric Acid 3.7, Calcium Level 8.6, Phosphorus Level 3.6, Magnesium Level 2.0, Total Bilirubin 0.7, Aspartate Amino Transf (AST/SGOT) 21, Alanine Aminotransferase (ALT/SGPT) 25, Alkaline Phosphatase 114, C-Reactive Protein, Quantitative 1.5H, Total Protein 7.9, Albumin 3.7, Globulin 4.2, Albumin/Globulin Ratio 0.9L, Triglycerides Level 117, Cholesterol Level 190, LDL Cholesterol 120H, HDL Cholesterol 48, Cholesterol/HDL Ratio 4.0, Amylase Level 45, Lipase 157, Thyroid Stimulating Hormone (TSH) 3.767H 08/18/20 06:57: White Blood Count 8.0, Red Blood Count 4.37L, Hemoglobin 13.8L, Hematocrit 40.1L , Mean Corpuscular Volume 92, Mean Corpuscular Hemoglobin 31.5H, Mean Corpuscular Hemoglobin Concent 34.4, Red Cell Distribution Width 12.0, Platelet Count 238, Mean Platelet Volume 8.3, Neutrophils (%) (Auto) 69.3, Lymphocytes (%) (Auto) 20.2, Monocytes (%) (Auto) 6.7, Eosinophils (%) (Auto) 3.0, Basophils (%) (Auto) 0.8, Sodium Level 133L, Potassium Level 3.1L, Chloride Level 97L, Carbon Dioxide Level 28, Anion Gap 8, Blood Urea Nitrogen 10, Creatinine 0.8, Estimat Glomerular Filtration Rate > 60, Glucose Level 98, Uric Acid 3.5, Calcium Level 8.9, Phosphorus Level 3.7, Magnesium Level 2.2, Total Bilirubin 0.6, Aspartate Amino Transf (AST/SGOT) 25, Alanine Aminotransferase (ALT/SGPT) 30, Alkaline Phosphatase 130H, Total Protein 8.7H, Albumin 4.0, Globulin 4.7, Albumin/Globulin Ratio 0.9L Height (Feet): 5 Height (Inches): 10.00 Weight (Pounds): 154 General Appearance: no apparent distress Cardiovascular: tachycardia Respiratory/Chest: decreased breath sounds Abdomen: distended Chase Haynes MD Aug 18, 2020 10:31
--- NOTE | 2020-08-18 10:38 | Surgery Progress Note ---
Surgery Progress Note Subjective Additional Comments labs okay exam stable no n/v comfortable appearing Objective Last 24 Hour Vital Signs Date Time Temp Pulse Resp B/P (MAP) Pulse Ox O2 Delivery O2 Flow Rate FiO2 08/18/20 09:00 Room Air 08/18/20 08:00 66 08/18/20 08:00 97.5 63 20 132/64 (86) 97 08/18/20 04:00 96.4 76 20 136/76 (96) 97 08/18/20 04:00 65 08/17/20 21:00 Room Air 08/17/20 20:00 69 08/17/20 20:00 98.0 70 20 128/65 (86) 97 08/17/20 16:00 59 08/17/20 16:00 98.7 78 21 120/94 (103) 95 08/17/20 12:00 60 08/17/20 12:00 98.1 87 20 119/91 (100) 94 I&O Intake and Output 08/17/20 08/18/20 19:00 07:00 Intake Total 200 ml 665 ml Balance 200 ml 665 ml Free Water 150 ml 300 ml Tube Feeding 50 ml 365 ml # Voids 3 Dressing: saturated Cardiovascular: RSR Respiratory: decreased breath sounds Abdomen: soft, non-tender, present bowel sounds Extremities: no edema, no tenderness, no cyanosis Laboratory Tests Test 08/17/20 10:40 08/18/20 06:57 White Blood Count 8.7 K/UL (4.8-10.8) 8.0 K/UL (4.8-10.8) Red Blood Count 4.13 M/UL (4.70-6.10) L 4.37 M/UL (4.70-6.10) L Hemoglobin 12.8 G/DL (14.2-18.0) L 13.8 G/DL (14.2-18.0) L Hematocrit 38.2 % (42.0-52.0) L 40.1 % (42.0-52.0) L Mean Corpuscular Volume 92 FL (80-99) 92 FL (80-99) Mean Corpuscular Hemoglobin 31.0 PG (27.0-31.0) 31.5 PG (27.0-31.0) H Mean Corpuscular Hemoglobin Concent 33.6 G/DL (32.0-36.0) 34.4 G/DL (32.0-36.0) Red Cell Distribution Width 11.6 % (11.6-14.8) 12.0 % (11.6-14.8) Platelet Count 213 K/UL (150-450) 238 K/UL (150-450) Mean Platelet Volume 7.5 FL (6.5-10.1) 8.3 FL (6.5-10.1) Neutrophils (%) (Auto) 62.7 % (45.0-75.0) 69.3 % (45.0-75.0) Lymphocytes (%) (Auto) 25.7 % (20.0-45.0) 20.2 % (20.0-45.0) Monocytes (%) (Auto) 6.6 % (1.0-10.0) 6.7 % (1.0-10.0) Eosinophils (%) (Auto) 3.9 % (0.0-3.0) H 3.0 % (0.0-3.0) Basophils (%) (Auto) 1.1 % (0.0-2.0) 0.8 % (0.0-2.0) Prothrombin Time 11.3 SEC (9.30-11.50) Prothromb Time International Ratio 1.0 (0.9-1.1) Activated Partial Thromboplast Time 30 SEC (23-33) Sodium Level 131 MMOL/L (136-145) L 133 MMOL/L (136-145) L Potassium Level 4.1 MMOL/L (3.5-5.1) 3.1 MMOL/L (3.5-5.1) L Chloride Level 95 MMOL/L (98-107) L 97 MMOL/L (98-107) L Carbon Dioxide Level 29 MMOL/L (21-32) 28 MMOL/L (21-32) Anion Gap 8 mmol/L (5-15) 8 mmol/L (5-15) Blood Urea Nitrogen 8 mg/dL (7-18) 10 mg/dL (7-18) Creatinine 0.8 MG/DL (0.55-1.30) 0.8 MG/DL (0.55-1.30) Estimat Glomerular Filtration Rate > 60 mL/min (>60) > 60 mL/min (>60) Glucose Level 81 MG/DL (74-106) 98 MG/DL (74-106) Osmolality 271 mOsm/kg (297-317) L Lactic Acid Level 1.30 mmol/L (0.4-2.0) Uric Acid 3.7 MG/DL (2.6-7.2) 3.5 MG/DL (2.6-7.2) Calcium Level 8.6 MG/DL (8.5-10.1) 8.9 MG/DL (8.5-10.1) Phosphorus Level 3.6 MG/DL (2.5-4.9) 3.7 MG/DL (2.5-4.9) Magnesium Level 2.0 MG/DL (1.8-2.4) 2.2 MG/DL (1.8-2.4) Total Bilirubin 0.7 MG/DL (0.2-1.0) 0.6 MG/DL (0.2-1.0) Aspartate Amino Transf (AST/SGOT) 21 U/L (15-37) 25 U/L (15-37) Alanine Aminotransferase (ALT/SGPT) 25 U/L (12-78) 30 U/L (12-78) Alkaline Phosphatase 114 U/L (46-116) 130 U/L (46-116) H C-Reactive Protein, Quantitative 1.5 mg/dL (0.00-0.90) H Total Protein 7.9 G/DL (6.4-8.2) 8.7 G/DL (6.4-8.2) H Albumin 3.7 G/DL (3.4-5.0) 4.0 G/DL (3.4-5.0) Globulin 4.2 g/dL 4.7 g/dL Albumin/Globulin Ratio 0.9 (1.0-2.7) L 0.9 (1.0-2.7) L Triglycerides Level 117 MG/DL (30-150) Cholesterol Level 190 MG/DL (< 200) LDL Cholesterol 120 mg/dL (<100) H HDL Cholesterol 48 MG/DL (40-60) Cholesterol/HDL Ratio 4.0 (3.3-4.4) Amylase Level 45 U/L (25-115) Lipase 157 U/L (73-393) Thyroid Stimulating Hormone (TSH) 3.767 uiU/mL (0.358-3.740) Plan Problems: (1) Trachea displaced Assessment & Plan: Lungs: Reduced lung volumes. Patchy atelectasis in the left lung base. Pleural space: Unremarkable. No pneumothorax. Heart: Unremarkable. No cardiomegaly. Mediastinum: Unremarkable. Bones/joints: No acute fracture. Tubes, lines and devices: Tracheostomy. IMPRESSION: Reduced lung volumes. Patchy atelectasis in the left lung base. (2) Bradycardia (3) Hyponatremia (4) Elevated alkaline phosphatase level Assessment & Plan: abd us noted labs okay exam benign okay for diet trend labs no acute surgical intervention planned Liver: The liver measures 17 cm. No intrahepatic bile duct dilation. Gallbladder: No definite cholelithiasis. Suspect a mild bladder sludge. No gallbladder wall thickening or pericholecystic fluid. Common bile duct: Unremarkable as visualized. No stones. No dilation . Pancreas: Unremarkable as visualized. Kidneys: The right kidney measures 12.1 cm. The left kidney measures 8.8 cm. No stones. No hydronephrosis. Spleen: Nonvisualized spleen. Aorta: The aorta is measured at 2.3 cm. This is slightly over measured by the technologist. Inferior vena cava: Unremarkable. IMPRESSION: Mild gallbladder sludge. No ultrasound evidence of acute cholecystitis. Evaluation limited due to patient limitations. Nonvisualized spleen. Franky Carrizales Aug 18, 2020 10:38
[2020-08-18 12:00] VITALS: BP 115/74
[2020-08-18] MEDS ORDERED: NaCl 3% 500ml 500 ML IV ONE (12:00)
--- NOTE | 2020-08-18 14:33 | NUR ---
NURSE NOTES: Patients 1400 Lasix held due to low potassium of 3.1. 0900 dose of Lasix given before MD order changed from BID to TID. 1400 dose of Lasix would be given before 8 hours as now ordered by MD. MD aware of hypokalemia and Kdur ordered for replacement.
[2020-08-18 16:00] VITALS: BP 111/75
--- NOTE | 2020-08-18 16:37 | NUR ---
Speech Pathology Note (Bedside Dysphagia Evaluation) Residency: [facility] Original Admission: 05/24/2007 Current Admission: 01/31/2019 Brief note: Mr. Gonzalez is a 54 year old male who presents with tracheostomy, gastrostomy tube feeding insetting of paraplegia admitted [facility] for episode of bradycardia 30's on 08/15/2020. Pt reportedly was on both PO diet (Pureed and honey thick liquid) and bolus deeding via gastrostomy tube. The labs are grossly unremarkable on arrival, as well as on current labs. The vital signs are stable. Findings of swallow evaluation: Mr. Gonzalez is alert. He presents with restraints bilaterally. He presents with tracheostomy Portex 8 it is capped. He has gastrostomy tube and feeding is ongoing 85cc/hr. He was able to squeeze both hands and able to spontaneously wiggle his feet bilaterally. He was able to state his name. His speech is adequately clear and voice is intact. He was somewhat non-compliance for swallow evaluation. When I asked to try pureed (apple sauce), He declined by stating "I don't need that." He refused to take any PO at this time. He has G tube for now for nutrition, hydration and medication. I discussed with RN at his bedside that he will resume NPO status with gastrostomy feeding at this time. Interpretation: 1. Probable Oropharyngeal Dysphagia 2. Aspiration risk with paraplegia 3. History of Trach and PEG at some point 4. History of craniotomy based on scar Plan: 1. NPO, G tube feeding -Repeat Bedside Dysphagia evaluation at [facility] 2. Aspiration precaution for now Marnie Patino
--- NOTE | 2020-08-18 18:56 | NUR ---
NURSE HAND-OFF REPORT: Important Events on Shift:[3%NS ORDERED, 40 MEQ POTTASSIUM BID ORDERED, OSMOLITE 45CC/HR TO GOAL OF 50CC ] Patient Status: [FULL CODE] Diet: [OSMOLITE 1.5 CONTINUOUS 45CC/ HR] Pending Orders: [N/A] Pending Results/Labs:[N/A] Pending MD notification:[N/A] Latest Vital Signs: Temperature 96.8 , Pulse 79 , B/P 111 /75 , Respiratory Rate 20 , O2 SAT 94 , Room Air, O2 Flow Rate . Vital Sign Comment: [] EKG Rhythm: Sinus Rhythm Rhythm change?: N MD Notified?: N - MD Response: Latest Palm Fall Score: 55 Fall Risk: High Risk Safety Measures: Call light Within Reach, Bed Alarm Zone 1, Side Rails Side Rails x3, Bed position Low and Locked. Fall Precautions: Yellow Socks Patient Fall Education Report given to [MELIA PINA].
--- NOTE | 2020-08-18 19:20 | NUR ---
NURSE NOTES: Received pt and report from MELIA Norris. Observed pt resting in bed with both eyes open. Pt is A/Ox1. secured entrance monitor is in placed; pt is NSR. IV site intact, asymptomatic, and patent; running NaCl 3% @30ml/hr. Pt has a G-tube; running Osmolite 1.5 @45ml/hr (goal 50ml/hr). Pt tolerating feeding well; no residual noted. Aspiration precaution noted; HOB at 30 degrees, suction and oxygen at bedside. Sz precaution noted; side rails are padded. Bed is in the lowest position and locked. Call light and bedside table is within reach. No signs/symptoms of acute distress noted. Will continue plan of care.
[2020-08-18 20:00] VITALS: BP 109/61
[2020-08-18] MEDS: Donepezil 10mg tab GT SCH (21:24)
--- NOTE | 2020-08-18 23:25 | General Progress Note ---
Subjective Constitutional: Reports: no symptoms HEENT: Reports: no symptoms Cardiovascular: Reports: no symptoms Respiratory: Reports: no symptoms Gastrointestinal/Abdominal: Reports: no symptoms Genitourinary: Reports: no symptoms Neurologic/Psychiatric: Reports: no symptoms Endocrine: Reports: no symptoms Hematologic/Lymphatic: Reports: no symptoms Allergies: Coded Allergies: No Known Allergies (Unverified , 08/15/20) Objective Last 24 Hour Vital Signs Date Time Temp Pulse Resp B/P (MAP) Pulse Ox O2 Delivery O2 Flow Rate FiO2 08/18/20 21:00 Room Air 08/18/20 20:00 98.2 76 19 109/61 (77) 95 08/18/20 20:00 77 08/18/20 16:00 96.8 78 20 111/75 (87) 94 08/18/20 16:00 79 08/18/20 12:00 72 08/18/20 12:00 96.1 69 20 115/74 (88) 95 08/18/20 09:00 Room Air 08/18/20 08:00 66 08/18/20 08:00 97.5 63 20 132/64 (86) 97 08/18/20 04:00 96.4 76 20 136/76 (96) 97 08/18/20 04:00 65 Intake and Output 08/17/20 08/18/20 19:00 07:00 Intake Total 200 ml 665 ml Balance 200 ml 665 ml Free Water 150 ml 300 ml Tube Feeding 50 ml 365 ml # Voids 3 Laboratory Tests 08/18/20 06:57: White Blood Count 8.0, Red Blood Count 4.37L, Hemoglobin 13.8L, Hematocrit 40.1L , Mean Corpuscular Volume 92, Mean Corpuscular Hemoglobin 31.5H, Mean Corpuscular Hemoglobin Concent 34.4, Red Cell Distribution Width 12.0, Platelet Count 238, Mean Platelet Volume 8.3, Neutrophils (%) (Auto) 69.3, Lymphocytes (%) (Auto) 20.2, Monocytes (%) (Auto) 6.7, Eosinophils (%) (Auto) 3.0, Basophils (%) (Auto) 0.8, Sodium Level 133L, Potassium Level 3.1L, Chloride Level 97L, Carbon Dioxide Level 28, Anion Gap 8, Blood Urea Nitrogen 10, Creatinine 0.8, Estimat Glomerular Filtration Rate > 60, Glucose Level 98, Uric Acid 3.5, Calcium Level 8.9, Phosphorus Level 3.7, Magnesium Level 2.2, Total Bilirubin 0.6, Aspartate Amino Transf (AST/SGOT) 25, Alanine Aminotransferase (ALT/SGPT) 3 0, Alkaline Phosphatase 130H, Total Protein 8.7H, Albumin 4.0, Globulin 4.7, Albumin/Globulin Ratio 0.9L Height (Feet): 5 Height (Inches): 10.00 Weight (Pounds): 154 General Appearance: no apparent distress, alert, confused EENT: normal ENT inspection Neck: normal alignment, supple Cardiovascular: normal rate, regular rhythm, no gallop/murmur, no JVD Respiratory/Chest: lungs clear, normal breath sounds, no respiratory distress, respiratory distress Abdomen: normal bowel sounds, non tender, soft, no organomegaly, no mass Neurologic: alert, unresponsive, aphasia Assessment/Plan Status Narrative Awake alert afebrile hemodynamically stable contact normal attention span no verbal response physical examination blood pressure 112/76 his pulse was 64 respiration of 20 temperature 97.9 Aime Wylie MD Aug 18, 2020 23:25
--- NOTE | 2020-08-18 23:51 | NUR ---
NURSE NOTES: Observed pt attempting to pull on IV line. Pt currently receiving IV NaCl 3% @30ml/hr. Reordered bilateral soft wrist restraints per Dr. Wylie. Skin is intact, pulses and sensations present, no swelling noted. Will continue to monitor pt closely.
[2020-08-19] VITALS (7 sets, daily range): BP systolic 99–135; BP diastolic 59–93
--- NOTE | 2020-08-19 01:15 | NUR ---
NURSE NOTES: Observed pt resting in bed with both eyes open. Pt asked to lower the HOB. Educated pt that he is on G-tube feeding and he is at risk of aspiration if RN lowers HOB bed. Told pt that HOB must be at least 30 degrees. Reinforcement needed. No signs/symptoms of acute distress noted. Will continue plan of care.
--- NOTE | 2020-08-19 01:54 | Cardiology Progress Note ---
Subjective DATE OF SERVICE: Aug 17, 2020 Low heart rates noted; sinus bradycardia. No pauses. Temp down to 96.4 earlier No hypotensive episodes. Objective Last 24 Hour Vital Signs reviewed HEENT: Thin Trach secretions RHYTHM: NSR, SB LUNGS: lungs clear bilaterally CARDIAC: regular rhythm, normal S1 and S2, bradycardia ABDOMEN: normal bowel sounds, non tender, soft, G-Tube intact EXTREMITIES: normal range of motion, non-tender, no calf tenderness, No edema Laboratory Tests Test 08/18/20 06:57 White Blood Count 8.0 K/UL (4.8-10.8) Red Blood Count 4.37 M/UL (4.70-6.10) L Hemoglobin 13.8 G/DL (14.2-18.0) L Hematocrit 40.1 % (42.0-52.0) L Mean Corpuscular Volume 92 FL (80-99) Mean Corpuscular Hemoglobin 31.5 PG (27.0-31.0) H Mean Corpuscular Hemoglobin Concent 34.4 G/DL (32.0-36.0) Red Cell Distribution Width 12.0 % (11.6-14.8) Platelet Count 238 K/UL (150-450) Mean Platelet Volume 8.3 FL (6.5-10.1) Neutrophils (%) (Auto) 69.3 % (45.0-75.0) Lymphocytes (%) (Auto) 20.2 % (20.0-45.0) Monocytes (%) (Auto) 6.7 % (1.0-10.0) Eosinophils (%) (Auto) 3.0 % (0.0-3.0) Basophils (%) (Auto) 0.8 % (0.0-2.0) Sodium Level 133 MMOL/L (136-145) L Potassium Level 3.1 MMOL/L (3.5-5.1) L Chloride Level 97 MMOL/L (98-107) L Carbon Dioxide Level 28 MMOL/L (21-32) Anion Gap 8 mmol/L (5-15) Blood Urea Nitrogen 10 mg/dL (7-18) Creatinine 0.8 MG/DL (0.55-1.30) Estimat Glomerular Filtration Rate > 60 mL/min (>60) Glucose Level 98 MG/DL (74-106) Uric Acid 3.5 MG/DL (2.6-7.2) Calcium Level 8.9 MG/DL (8.5-10.1) Phosphorus Level 3.7 MG/DL (2.5-4.9) Magnesium Level 2.2 MG/DL (1.8-2.4) Total Bilirubin 0.6 MG/DL (0.2-1.0) Aspartate Amino Transf (AST/SGOT) 25 U/L (15-37) Alanine Aminotransferase (ALT/SGPT) 30 U/L (12-78) Alkaline Phosphatase 130 U/L (46-116) H Total Protein 8.7 G/DL (6.4-8.2) H Albumin 4.0 G/DL (3.4-5.0) Globulin 4.7 g/dL Albumin/Globulin Ratio 0.9 (1.0-2.7) L Assessment/Plan Assessment/Plan Bradycardia Trach displacement Hypovolemia, mild Hyponatremia Mild hypothermia Warming measures if temp drops Resp rx Cardiac monitoring Check ABG Atropine at bedside Check thyroid fxn Saline hydration Reassess antiSz regimen Sin Zuniga MD Aug 19, 2020 01:54
--- NOTE | 2020-08-19 01:56 | Cardiology Progress Note ---
Subjective DATE OF SERVICE: Aug 18, 2020 No recurring bradycardic episodes 24hr telemetry reviewed Objective Last 24 Hour Vital Signs Date Time Temp Pulse Resp B/P (MAP) Pulse Ox O2 Delivery O2 Flow Rate FiO2 08/19/20 00:00 77 08/19/20 00:00 97.5 75 17 116/73 (87) 94 08/18/20 21:00 Room Air 08/18/20 20:00 98.2 76 19 109/61 (77) 95 08/18/20 20:00 77 08/18/20 16:00 96.8 78 20 111/75 (87) 94 08/18/20 16:00 79 08/18/20 12:00 72 08/18/20 12:00 96.1 69 20 115/74 (88) 95 08/18/20 09:00 Room Air 08/18/20 08:00 66 08/18/20 08:00 97.5 63 20 132/64 (86) 97 08/18/20 04:00 96.4 76 20 136/76 (96) 97 08/18/20 04:00 65 HEENT: Thin Trach secretions RHYTHM: NSR LUNGS: lungs clear bilaterally CARDIAC: normal rate, regular rhythm, normal S1 and S2 ABDOMEN: normal bowel sounds, non tender, soft, G-Tube intact EXTREMITIES: other - Non communicative Laboratory Tests Test 08/18/20 06:57 White Blood Count 8.0 K/UL (4.8-10.8) Red Blood Count 4.37 M/UL (4.70-6.10) L Hemoglobin 13.8 G/DL (14.2-18.0) L Hematocrit 40.1 % (42.0-52.0) L Mean Corpuscular Volume 92 FL (80-99) Mean Corpuscular Hemoglobin 31.5 PG (27.0-31.0) H Mean Corpuscular Hemoglobin Concent 34.4 G/DL (32.0-36.0) Red Cell Distribution Width 12.0 % (11.6-14.8) Platelet Count 238 K/UL (150-450) Mean Platelet Volume 8.3 FL (6.5-10.1) Neutrophils (%) (Auto) 69.3 % (45.0-75.0) Lymphocytes (%) (Auto) 20.2 % (20.0-45.0) Monocytes (%) (Auto) 6.7 % (1.0-10.0) Eosinophils (%) (Auto) 3.0 % (0.0-3.0) Basophils (%) (Auto) 0.8 % (0.0-2.0) Sodium Level 133 MMOL/L (136-145) L Potassium Level 3.1 MMOL/L (3.5-5.1) L Chloride Level 97 MMOL/L (98-107) L Carbon Dioxide Level 28 MMOL/L (21-32) Anion Gap 8 mmol/L (5-15) Blood Urea Nitrogen 10 mg/dL (7-18) Creatinine 0.8 MG/DL (0.55-1.30) Estimat Glomerular Filtration Rate > 60 mL/min (>60) Glucose Level 98 MG/DL (74-106) Uric Acid 3.5 MG/DL (2.6-7.2) Calcium Level 8.9 MG/DL (8.5-10.1) Phosphorus Level 3.7 MG/DL (2.5-4.9) Magnesium Level 2.2 MG/DL (1.8-2.4) Total Bilirubin 0.6 MG/DL (0.2-1.0) Aspartate Amino Transf (AST/SGOT) 25 U/L (15-37) Alanine Aminotransferase (ALT/SGPT) 30 U/L (12-78) Alkaline Phosphatase 130 U/L (46-116) H Total Protein 8.7 G/DL (6.4-8.2) H Albumin 4.0 G/DL (3.4-5.0) Globulin 4.7 g/dL Albumin/Globulin Ratio 0.9 (1.0-2.7) L Assessment/Plan Assessment/Plan Sinus bradycardia resolved Hypertension Hyponatremia Hypokalemia Dementia Borderline TSH level Telemetry Saline with diuresis per renal Replace K+ Check Mg++ Consider low dose thyroid replacement Sin Zuniga MD Aug 19, 2020 01:56
--- NOTE | 2020-08-19 06:11 | NUR ---
NURSE NOTES: Pt refused 0600 Lasix IVP. Pt became combative and shouted, "Leave me alone lady!" RN educated pt on the importance of receiving Lasix ordered by MD and the benefits and risks of refusing. Pt continued to shout, "I said leave me alone!" Will continue to monitor pt closely.
--- NOTE | 2020-08-19 06:26 | Hematology/Onc Progress Note ---
Assessment/Plan Assessment/Plan Assessment and recs # Anemia likely related to chronic disease --> hgb currently stable --> anemia panel prn # Bradycardia -- meds reviewed --> ekg, tele monitoring --> as per cards recs --> meds noted --> atropine prn basis # Hyponatremia --> per renal care # Atelectasis # Resp failure/trach -> surg aware # Paraplegia # Dysphagia s/p peg # Dehydration DW Rn Subjective Constitutional: Denies: no symptoms, chills, fever, malaise, weakness, other HEENT: Denies: no symptoms, eye pain, blurred vision, tearing, double vision, ear pain, ear discharge, nose pain, nose congestion, throat pain, throat swelling, mouth pain, mouth swelling, other Cardiovascular: Denies: no symptoms, chest pain, edema, irregular heart rate, lightheadedness, palpitations, syncope, other Respiratory: Denies: no symptoms, cough, shortness of breath, SOB with excertion, SOB at rest, sputum, wheezing, other Neurologic/Psychiatric: Denies: no symptoms, anxiety, depressed, emotional problems, headache, numbness, paresthesia, pre-existing deficit, seizure, tingling, tremors, weakness, other Endocrine: Denies: no symptoms, excessive sweating, flushing, intolerance to cold, intolerance to heat, increased hunger, increased thirst, increased urine, unexplained weight gain, unexplained weight loss, other Allergies: Coded Allergies: No Known Allergies (Unverified , 08/15/20) Subjective 08/17 nv, labs reviewed, meds noted, covering im 08/18 nv, with gt, osmolite, no bleeding, labs reviewed 08/19 refusing medications, combative, no bleeding Objective Objective Current Medications Medications (Trade) Dose Ordered Sig/Myesha Route PRN Reason Start Time Stop Time Status Last Admin Dose Admin Acetaminophen (Tylenol) 500 mg EVERY 4 HOURS PRN GT Temp >100.5 08/16/20 05:30 09/15/20 05:29 Ascorbic Acid (Vitamin C) 500 mg TWICE A DAY GT 08/16/20 09:00 09/15/20 08:59 08/18/20 17:14 Clonidine HCl (Catapres Tab) 0.1 mg Q4H PRN GT For High Blood Pressure 08/16/20 05:30 11/14/20 05:29 Donepezil HCl (Aricept) 10 mg QHS GT 08/16/20 21:00 09/15/20 20:59 08/18/20 21:24 Famotidine (Pepcid) 20 mg BID GT 08/16/20 09:00 11/14/20 08:59 08/18/20 17:14 Fish Oil (Fish Oil) 1,000 mg BID ORAL 08/16/20 09:00 09/15/20 08:59 08/18/20 17:13 Furosemide (Lasix) 20 mg EVERY 8 HOURS IV 08/18/20 14:00 09/17/20 13:59 08/18/20 21:24 Heparin Sodium (Porcine) (Heparin 5000 units/ml) 5,000 units EVERY 12 HOURS SUBQ 08/16/20 09:00 09/30/20 08:59 08/18/20 21:25 Levetiracetam (Keppra) 1,000 mg Q12HR GT 08/16/20 09:00 09/30/20 08:59 08/18/20 21:24 Multivitamins (Multivitamins) 1 tab DAILY GT 08/16/20 09:00 09/15/20 08:59 08/18/20 09:02 Potassium Chloride (K-Dur) 40 meq TWICE A DAY GT 08/18/20 10:30 11/16/20 10:29 08/18/20 17:14 Zinc Sulfate (Zinc Sulfate) 220 mg DAILY GT 08/16/20 09:00 11/14/20 08:59 08/18/20 09:02 Last 24 Hour Vital Signs Date Time Temp Pulse Resp B/P (MAP) Pulse Ox O2 Delivery O2 Flow Rate FiO2 08/19/20 04:00 97.5 96 17 114/67 (83) 95 08/19/20 04:00 87 08/19/20 00:00 77 08/19/20 00:00 97.5 75 17 116/73 (87) 94 08/18/20 21:00 Room Air 08/18/20 20:00 98.2 76 19 109/61 (77) 95 08/18/20 20:00 77 08/18/20 16:00 96.8 78 20 111/75 (87) 94 08/18/20 16:00 79 08/18/20 12:00 72 08/18/20 12:00 96.1 69 20 115/74 (88) 95 08/18/20 09:00 Room Air 08/18/20 08:00 66 08/18/20 08:00 97.5 63 20 132/64 (86) 97 08/18/20 04:00 96.4 76 20 136/76 (96) 97 08/18/20 04:00 65 08/17/20 21:00 Room Air 08/17/20 20:00 69 08/17/20 20:00 98.0 70 20 128/65 (86) 97 08/17/20 16:00 59 08/17/20 16:00 98.7 78 21 120/94 (103) 95 08/17/20 12:00 60 08/17/20 12:00 98.1 87 20 119/91 (100) 94 08/17/20 09:00 Room Air 08/17/20 08:00 96.4 68 19 118/81 (93) 95 08/17/20 08:00 56 Intake and Output 08/18/20 08/19/20 19:00 07:00 Intake Total 240 ml 725 ml Output Total 850 ml Balance -610 ml 725 ml Free Water 150 ml IV Total 195 ml 240 ml Tube Feeding 45 ml 335 ml Output Urine Total 850 ml # Voids 1 4 # Bowel Movements 1 2 Labs Test 08/16/20 10:00 08/17/20 06:30 08/17/20 10:40 08/18/20 06:57 White Blood Count 8.2 K/UL (4.8-10.8) 8.7 K/UL (4.8-10.8) 8.0 K/UL (4.8-10.8) Red Blood Count 4.18 M/UL (4.70-6.10) 4.13 M/UL (4.70-6.10) 4.37 M/UL (4.70-6.10) Hemoglobin 13.1 G/DL (14.2-18.0) 12.8 G/DL (14.2-18.0) 13.8 G/DL (14.2-18.0) Hematocrit 39.0 % (42.0-52.0) 38.2 % (42.0-52.0) 40.1 % (42.0-52.0) Mean Corpuscular Volume 93 FL (80-99) 92 FL (80-99) 92 FL (80-99) Mean Corpuscular Hemoglobin 31.3 PG (27.0-31.0) 31.0 PG (27.0-31.0) 31.5 PG (27.0-31.0) Mean Corpuscular Hemoglobin Concent 33.5 G/DL (32.0-36.0) 33.6 G/DL (32.0-36.0) 34.4 G/DL (32.0-36.0) Red Cell Distribution Width 11.8 % (11.6-14.8) 11.6 % (11.6-14.8) 12.0 % (11.6-14.8) Platelet Count 185 K/UL (150-450) 213 K/UL (150-450) 238 K/UL (150-450) Mean Platelet Volume 8.9 FL (6.5-10.1) 7.5 FL (6.5-10.1) 8.3 FL (6.5-10.1) Neutrophils (%) (Auto) 55.3 % (45.0-75.0) 62.7 % (45.0-75.0) 69.3 % (45.0-75.0) Lymphocytes (%) (Auto) 31.3 % (20.0-45.0) 25.7 % (20.0-45.0) 20.2 % (20.0-45.0) Monocytes (%) (Auto) 6.0 % (1.0-10.0) 6.6 % (1.0-10.0) 6.7 % (1.0-10.0) Eosinophils (%) (Auto) 6.0 % (0.0-3.0) 3.9 % (0.0-3.0) 3.0 % (0.0-3.0) Basophils (%) (Auto) 1.4 % (0.0-2.0) 1.1 % (0.0-2.0) 0.8 % (0.0-2.0) Sodium Level 131 MMOL/L (136-145) 131 MMOL/L (136-145) 133 MMOL/L (136-145) Potassium Level 5.0 MMOL/L (3.5-5.1) 4.1 MMOL/L (3.5-5.1) 3.1 MMOL/L (3.5-5.1) Chloride Level 96 MMOL/L (98-107) 95 MMOL/L (98-107) 97 MMOL/L (98-107) Carbon Dioxide Level 28 MMOL/L (21-32) 29 MMOL/L (21-32) 28 MMOL/L (21-32) Anion Gap 8 mmol/L (5-15) 8 mmol/L (5-15) 8 mmol/L (5-15) Blood Urea Nitrogen 11 mg/dL (7-18) 8 mg/dL (7-18) 10 mg/dL (7-18) Creatinine 0.8 MG/DL (0.55-1.30) 0.8 MG/DL (0.55-1.30) 0.8 MG/DL (0.55-1.30) Estimat Glomerular Filtration Rate > 60 mL/min (>60) > 60 mL/min (>60) > 60 mL/min (>60) Glucose Level 84 MG/DL (74-106) 81 MG/DL (74-106) 98 MG/DL (74-106) Calcium Level 8.6 MG/DL (8.5-10.1) 8.6 MG/DL (8.5-10.1) 8.9 MG/DL (8.5-10.1) Magnesium Level 2.2 MG/DL (1.8-2.4) 2.0 MG/DL (1.8-2.4) 2.2 MG/DL (1.8-2.4) Urine Color Pale yellow Urine Appearance Clear Urine pH 7 (4.5-8.0) Urine Specific [place] 1.010 (1.005-1.035) Urine Protein Negative (NEGATIVE) Urine Glucose (UA) Negative (NEGATIVE) Urine Ketones Negative (NEGATIVE) Urine Blood Negative (NEGATIVE) Urine Nitrite Negative (NEGATIVE) Urine Bilirubin Negative (NEGATIVE) Urine Urobilinogen Normal MG/DL (0.0-1.0) Urine Leukocyte Esterase Negative (NEGATIVE) Urine RBC 0 /HPF (0 - 0) Urine WBC 0 /HPF (0 - 0) Urine Squamous Epithelial Cells Occasional /LPF Urine Bacteria Occasional /HPF (NONE) Urine Osmolality 656 mOsm/kg (429-449) Urine Random Sodium 132 mmol/L (20-110) Prothrombin Time 11.3 SEC (9.30-11.50) Prothromb Time International Ratio 1.0 (0.9-1.1) Activated Partial Thromboplast Time 30 SEC (23-33) Osmolality 271 mOsm/kg (297-317) Lactic Acid Level 1.30 mmol/L (0.4-2.0) Uric Acid 3.7 MG/DL (2.6-7.2) 3.5 MG/DL (2.6-7.2) Phosphorus Level 3.6 MG/DL (2.5-4.9) 3.7 MG/DL (2.5-4.9) Total Bilirubin 0.7 MG/DL (0.2-1.0) 0.6 MG/DL (0.2-1.0) Aspartate Amino Transf (AST/SGOT) 21 U/L (15-37) 25 U/L (15-37) Alanine Aminotransferase (ALT/SGPT) 25 U/L (12-78) 30 U/L (12-78) Alkaline Phosphatase 114 U/L (46-116) 130 U/L (46-116) C-Reactive Protein, Quantitative 1.5 mg/dL (0.00-0.90) Total Protein 7.9 G/DL (6.4-8.2) 8.7 G/DL (6.4-8.2) Albumin 3.7 G/DL (3.4-5.0) 4.0 G/DL (3.4-5.0) Globulin 4.2 g/dL 4.7 g/dL Albumin/Globulin Ratio 0.9 (1.0-2.7) 0.9 (1.0-2.7) Triglycerides Level 117 MG/DL (30-150) Cholesterol Level 190 MG/DL (< 200) LDL Cholesterol 120 mg/dL (<100) HDL Cholesterol 48 MG/DL (40-60) Cholesterol/HDL Ratio 4.0 (3.3-4.4) Amylase Level 45 U/L (25-115) Lipase 157 U/L (73-393) Thyroid Stimulating Hormone (TSH) 3.767 uiU/mL (0.358-3.740) Height (Feet): 5 Height (Inches): 10.00 Weight (Pounds): 154 Objective Physical Exam Vitals: noted General: no apparent distress, alert, Chronically Ill HEENT: bilateral eye PERRL, bilateral eye EOMI Respiratory: chest non-tender, lungs clear, normal breath sounds Cardiovascular: regular rate, rhythm, no murmur Gastrointestinal: normal bowel sounds ++gt Musculoskeletal: back normal, other - contracted Psychiatric: mood/affect normal Matthew Batista MD Aug 19, 2020 06:26
--- NOTE | 2020-08-19 07:30 | NUR ---
NURSE NOTES: Received pt from RN Risa, pt is awake and anxious, pt is in RA, no SOB or acute respiratory distress noted, pt is on continues heart monitoring. Pt has intact iv access RAC 20G SL. Pt has g tube in place is working well. all needs attended, bed is locked and is in the lowest position, call light within easy reach. will continue to monitor.
--- NOTE | 2020-08-19 07:47 | NUR ---
NURSE HAND-OFF REPORT: Important Events on Shift: No significant changes during fast food shift lead. Pt continues to be combative and aggressive with dayshift RN and HAY BALER. Patient Status: Stable Diet: Osmolite 1.5 @50ml/hr Pending Orders: N Pending Results/Labs: AM Labs Pending MD notification: N Latest Vital Signs: Temperature 97.5 , Pulse 87 , B/P 114 /67 , Respiratory Rate 17 , O2 SAT 95 , Room Air, O2 Flow Rate . EKG Rhythm: Sinus Rhythm Rhythm change?: N Latest Palm Fall Score: 70 Fall Risk: High Risk Safety Measures: Call light Within Reach, Bed Alarm Zone 1, Side Rails Side Rails x3, Bed position Low and Locked. Fall Precautions: Yellow Socks Yellow Gown Door Sign Patient Fall Education Report given to MELIA Teran..
[2020-08-19] MEDS: Zinc Sulfate 220mg GT SCH (09:10)
[2020-08-19] MEDS: levETIRAcetam 500mg/5ml Liquid GT SCH ×2 (09:10→21:28)
[2020-08-19] MEDS: Ascorbic Acid 500mg tab GT SCH ×2 (09:10→17:31)
[2020-08-19] MEDS: Heparin 5000 units/ml inj SUBQ SCH ×2 (09:12→21:30)
--- NOTE | 2020-08-19 09:44 | NUR ---
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 CURRENT TF:Osmolite 1.5 @ 50ml/hr x 24 hrs PO DIET RECOMMENDATIONS: IF SAFE FOR ORAL DIET -> liberalized regular/ texture per ARTS MANAGER ENTERAL NUTRITION RECOMMENDATIONS: For continuous TF-> Osmolite 1.5 @ 50ml/hr x 24 hrs to provide 1200ml, 1800kcal, 94g prot, 914ml free water * For continuous TF, rec continue Osmolite 1.5 @ 50ml/hr x 24 hrs -> HOB over 30 degrees/ H2O flush 250ml q 6hrs ------ * Monitor ARTS MANAGER eval and rec, will provide nocturnal TF rec if appropriate ADDITIONAL RECOMMENDATIONS: * Per SNF: HT=65" and OU=814llp (08/05/20) * Monitor ARTS MANAGER rec: pt on pureed moist texture w/ HTL TID TRANSMISSION CALIBRATION ENGINEER -> if not safe for oral diet, rec continuous TF rec as above * Monitor lytes, replete as needed * DC Vit C + ZnSO4 if without wounds
[2020-08-19 10:15] LABS: HEMOGLOBIN 13.7 G/DL (14.2-18.0); MEAN CORPUSCULAR VOLUME 93 FL (80-99); PLATELET COUNT 236 K/UL (150-450); RED BLOOD COUNT 4.29 M/UL (4.70-6.10); RED CELL DISTRIBUTION WIDTH 12.1 % (11.6-14.8); WHITE BLOOD COUNT 20.6 K/UL (4.8-10.8)
[2020-08-19 10:25] LABS: ANION GAP 11 mmol/L (5-15); BLOOD UREA NITROGEN 15 mg/dL (7-18); CALCIUM 9.1 MG/DL (8.5-10.1); CARBON DIOXIDE 25 MMOL/L (21-32); CHLORIDE 104 MMOL/L (98-107); POTASSIUM 3.5 MMOL/L (3.5-5.1); SODIUM 140 MMOL/L (136-145)
--- NOTE | 2020-08-19 10:29 | NUR ---
NURSE NOTES: Dr Zuniga called back regarding tachycardia, ordered ECG, ECG done and sent to Dr Zuniga, waiting to call back. will continue to close monitoring.
--- NOTE | 2020-08-19 11:06 | NUR ---
NURSE NOTES: Dr Zuniga called back and ordered metoprolol 50mg once, noted and carried out. will continue to monitor.
[2020-08-19] MEDS ORDERED: Metoprolol Tartrate 50mg tab GT SCH (11:07)
--- NOTE | 2020-08-19 11:44 | NUR ---
NURSE NOTES: RN called Dr Wylie and left massage at 0900 regarding WBC 8.6 and fever, no call back yet, Dr Carrizales visited pt and is aware, no new order received. will continue to monitor.
--- NOTE | 2020-08-19 12:14 | Nephrology Progress Note ---
Assessment/Plan Problem List: (1) Hyponatremia (2) Bradycardia (3) Trachea displaced Assessment Hyponatremia: Etiology work-up ordered and in process Bradycardia Vent dependent PEG dependent BPH Plan August 19: Labs reviewed. Electrolytes improved. Will discontinue Lasix. Continue to monitor electrolytes. August 18: Labs reviewed. Serum sodium slightly higher. Potassium supplement given. Lasix and 3% saline to be continued aim to keep output more than intake. August 17: Trial of 3% saline and Lasix. Monitor serum sodium and electrolytes. Continue per consultants. 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 Check TSH, uric acid, serum osmolality, lipid panel Further comments after above results Subjective ROS Limited/Unobtainable: Yes Objective Objective Last 24 Hour Vital Signs Date Time Temp Pulse Resp B/P (MAP) Pulse Ox O2 Delivery O2 Flow Rate FiO2 08/19/20 11:57 100.0 89 20 115/83 (94) 96 08/19/20 11:22 125 120/94 08/19/20 08:00 98.2 130 20 135/59 (84) 97 08/19/20 07:49 148 08/19/20 04:00 97.5 96 17 114/67 (83) 95 08/19/20 04:00 87 08/19/20 00:00 77 08/19/20 00:00 97.5 75 17 116/73 (87) 94 08/18/20 21:00 Room Air 08/18/20 20:00 98.2 76 19 109/61 (77) 95 08/18/20 20:00 77 08/18/20 16:00 96.8 78 20 111/75 (87) 94 08/18/20 16:00 79 Intake and Output 08/18/20 08/19/20 19:00 07:00 Intake Total 240 ml 725 ml Output Total 850 ml Balance -610 ml 725 ml Free Water 150 ml IV Total 195 ml 240 ml Tube Feeding 45 ml 335 ml Output Urine Total 850 ml # Voids 1 4 # Bowel Movements 1 2 Current Medications Medications (Trade) Dose Ordered Sig/Myesha Route PRN Reason Start Time Stop Time Status Last Admin Dose Admin Acetaminophen (Tylenol) 500 mg EVERY 4 HOURS PRN GT Temp >100.5 08/16/20 05:30 09/15/20 05:29 Ascorbic Acid (Vitamin C) 500 mg TWICE A DAY GT 08/16/20 09:00 09/15/20 08:59 08/19/20 09:10 Clonidine HCl (Catapres Tab) 0.1 mg Q4H PRN GT For High Blood Pressure 08/16/20 05:30 11/14/20 05:29 Donepezil HCl (Aricept) 10 mg QHS GT 08/16/20 21:00 09/15/20 20:59 08/18/20 21:24 Famotidine (Pepcid) 20 mg BID GT 08/16/20 09:00 11/14/20 08:59 08/19/20 09:10 Fish Oil (Fish Oil) 1,000 mg BID ORAL 08/16/20 09:00 09/15/20 08:59 08/19/20 09:09 Furosemide (Lasix) 20 mg EVERY 8 HOURS IV 08/18/20 14:00 09/17/20 13:59 08/18/20 21:24 Heparin Sodium (Porcine) (Heparin 5000 units/ml) 5,000 units EVERY 12 HOURS SUBQ 08/16/20 09:00 09/30/20 08:59 08/19/20 09:12 Levetiracetam (Keppra) 1,000 mg Q12HR GT 08/16/20 09:00 09/30/20 08:59 08/19/20 09:10 Metoprolol Tartrate (Lopressor) 50 mg ONCE GT 08/19/20 11:07 08/19/20 15:00 08/19/20 11:22 Multivitamins (Multivitamins) 1 tab DAILY GT 08/16/20 09:00 09/15/20 08:59 08/19/20 09:09 Potassium Chloride (K-Dur) 40 meq TWICE A DAY GT 08/18/20 10:30 11/16/20 10:29 08/19/20 09:10 Zinc Sulfate (Zinc Sulfate) 220 mg DAILY GT 08/16/20 09:00 11/14/20 08:59 08/19/20 09:10 Laboratory Tests 08/19/20 10:00: White Blood Count 20.6#H, Red Blood Count 4.29L, Hemoglobin 13.7L, Hematocrit 40.0L, Mean Corpuscular Volume 93, Mean Corpuscular Hemoglobin 32.0H, Mean Corpuscular Hemoglobin Concent 34.4, Red Cell Distribution Width 12.1, Platelet Count 236, Mean Platelet Volume 7.6, Neutrophils (%) (Auto) , Lymphocytes (%) (Auto) , Monocytes (%) (Auto) , Eosinophils (%) (Auto) , Basophils (%) (Auto) , Differential Total Cells Counted 100, Neutrophils % (Manual) 91H, Lymphocytes % (Manual) 2L, Monocytes % (Manual) 4, Eosinophils % (Manual) 0, Basophils % (Ma nual) 0, Band Neutrophils 3, Platelet Estimate Adequate, Platelet Morphology Normal, Red Blood Cell Morphology Normal, Sodium Level 140, Potassium Level 3.5, Chloride Level 104, Carbon Dioxide Level 25, Anion Gap 11, Blood Urea Nitrogen 15, Creatinine 1.0, Estimat Glomerular Filtration Rate > 60, Glucose Level 142H, Calcium Level 9.1 Height (Feet): 5 Height (Inches): 10.00 Weight (Pounds): 154 General Appearance: no apparent distress Cardiovascular: tachycardia Respiratory/Chest: decreased breath sounds Abdomen: soft Objective No change Chase Haynes MD Aug 19, 2020 12:14
[2020-08-19] MEDS: Acetaminophen 650mg/20.3ml GT PRN ×2 (16:17→23:41)
--- NOTE | 2020-08-19 17:00 | NUR ---
NURSE NOTES: Dr Wylie is aware about T 102, WBC 20.6 and other lab results and V/S, Waiting to call back. will continue to close monitoring.
--- NOTE | 2020-08-19 17:44 | Cardiology Report ---
APPROVED REPORT EKG Measurement Heart [id number] <Conclusion> * Pediatric ECG analysis * Sinus bradycardia with 1st degree AV block
--- NOTE | 2020-08-19 18:26 | NUR ---
NURSE NOTES: Dr Wylie called back and ordered ZOSYN 3.375 q6HR, noted and carried out.
--- NOTE | 2020-08-19 18:51 | Surgery Progress Note ---
Surgery Progress Note Subjective Additional Comments acute leukocytosis afebrile exam stable am labs repeat Objective Last 24 Hour Vital Signs Date Time Temp Pulse Resp B/P (MAP) Pulse Ox O2 Delivery O2 Flow Rate FiO2 08/19/20 16:47 99.7 08/19/20 16:00 102.3 92 20 125/93 (104) 95 08/19/20 16:00 100 08/19/20 11:58 91 08/19/20 11:57 100.0 89 20 115/83 (94) 96 08/19/20 11:22 125 120/94 08/19/20 09:00 Room Air 08/19/20 08:00 98.2 130 20 135/59 (84) 97 08/19/20 07:49 148 08/19/20 04:00 97.5 96 17 114/67 (83) 95 08/19/20 04:00 87 08/19/20 00:00 77 08/19/20 00:00 97.5 75 17 116/73 (87) 94 08/18/20 21:00 Room Air 08/18/20 20:00 98.2 76 19 109/61 (77) 95 08/18/20 20:00 77 I&O Intake and Output 08/18/20 08/19/20 19:00 07:00 Intake Total 240 ml 925 ml Output Total 850 ml Balance -610 ml 925 ml Free Water 300 ml IV Total 195 ml 240 ml Tube Feeding 45 ml 385 ml Output Urine Total 850 ml # Voids 1 4 # Bowel Movements 1 2 Cardiovascular: RSR Respiratory: decreased breath sounds Abdomen: soft, non-tender, present bowel sounds, non-distended Extremities: no tenderness, no cyanosis Laboratory Tests Test 08/19/20 10:00 White Blood Count 20.6 K/UL (4.8-10.8) #H Red Blood Count 4.29 M/UL (4.70-6.10) L Hemoglobin 13.7 G/DL (14.2-18.0) L Hematocrit 40.0 % (42.0-52.0) L Mean Corpuscular Volume 93 FL (80-99) Mean Corpuscular Hemoglobin 32.0 PG (27.0-31.0) H Mean Corpuscular Hemoglobin Concent 34.4 G/DL (32.0-36.0) Red Cell Distribution Width 12.1 % (11.6-14.8) Platelet Count 236 K/UL (150-450) Mean Platelet Volume 7.6 FL (6.5-10.1) Neutrophils (%) (Auto) % (45.0-75.0) Lymphocytes (%) (Auto) % (20.0-45.0) Monocytes (%) (Auto) % (1.0-10.0) Eosinophils (%) (Auto) % (0.0-3.0) Basophils (%) (Auto) % (0.0-2.0) Differential Total Cells Counted 100 Neutrophils % (Manual) 91 % (45-75) H Lymphocytes % (Manual) 2 % (20-45) L Monocytes % (Manual) 4 % (1-10) Eosinophils % (Manual) 0 % (0-3) Basophils % (Manual) 0 % (0-2) Band Neutrophils 3 % (0-8) Platelet Estimate Adequate Platelet Morphology Normal Red Blood Cell Morphology Normal Sodium Level 140 MMOL/L (136-145) Potassium Level 3.5 MMOL/L (3.5-5.1) Chloride Level 104 MMOL/L (98-107) Carbon Dioxide Level 25 MMOL/L (21-32) Anion Gap 11 mmol/L (5-15) Blood Urea Nitrogen 15 mg/dL (7-18) Creatinine 1.0 MG/DL (0.55-1.30) Estimat Glomerular Filtration Rate > 60 mL/min (>60) Glucose Level 142 MG/DL (74-106) H Calcium Level 9.1 MG/DL (8.5-10.1) Plan Problems: (1) Trachea displaced Assessment & Plan: Lungs: Reduced lung volumes. Patchy atelectasis in the left lung base. Pleural space: Unremarkable. No pneumothorax. Heart: Unremarkable. No cardiomegaly. Mediastinum: Unremarkable. Bones/joints: No acute fracture. Tubes, lines and devices: Tracheostomy. IMPRESSION: Reduced lung volumes. Patchy atelectasis in the left lung base. (2) Bradycardia (3) Hyponatremia (4) Elevated alkaline phosphatase level Assessment & Plan: abd us noted labs okay exam benign okay for diet trend labs no acute surgical intervention planned Liver: The liver measures 17 cm. No intrahepatic bile duct dilation. Gallbladder: No definite cholelithiasis. Suspect a mild bladder sludge. No gallbladder wall thickening or pericholecystic fluid. Common bile duct: Unremarkable as visualized. No stones. No dilation . Pancreas: Unremarkable as visualized. Kidneys: The right kidney measures 12.1 cm. The left kidney measures 8.8 cm. No stones. No hydronephrosis. Spleen: Nonvisualized spleen. Aorta: The aorta is measured at 2.3 cm. This is slightly over measured by the technologist. Inferior vena cava: Unremarkable. IMPRESSION: Mild gallbladder sludge. No ultrasound evidence of acute cholecystitis. Evaluation limited due to patient limitations. Nonvisualized spleen. 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 CURRENT TF:Osmolite 1.5 @ 50ml/hr x 24 hrs PO DIET RECOMMENDATIONS: IF SAFE FOR ORAL DIET -> liberalized regular/ texture per SHIP'S PILOT ENTERAL NUTRITION RECOMMENDATIONS: For continuous TF-> Osmolite 1.5 @ 50ml/hr x 24 hrs to provide 1200ml, 1800kcal, 94g prot, 914ml free water * For continuous TF, rec continue Osmolite 1.5 @ 50ml/hr x 24 hrs -> HOB over 30 degrees/ H2O flush 250ml q 6hrs ------ * Monitor SHIP'S PILOT eval and rec, will provide nocturnal TF rec if appropriate ADDITIONAL RECOMMENDATIONS: * Per SNF: HT=65" and GN=481rml (08/05/20) * Monitor SHIP'S PILOT rec: pt on pureed moist texture w/ HTL TID 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
--- NOTE | 2020-08-19 19:23 | General Progress Note ---
Subjective Constitutional: Reports: chills, fever, malaise HEENT: Reports: no symptoms Cardiovascular: Reports: no symptoms Respiratory: Reports: no symptoms Gastrointestinal/Abdominal: Reports: no symptoms Genitourinary: Reports: no symptoms Neurologic/Psychiatric: Reports: no symptoms Endocrine: Reports: no symptoms Hematologic/Lymphatic: Reports: no symptoms Allergies: Coded Allergies: No Known Allergies (Unverified , 08/15/20) Objective Last 24 Hour Vital Signs Date Time Temp Pulse Resp B/P (MAP) Pulse Ox O2 Delivery O2 Flow Rate FiO2 08/19/20 16:47 99.7 08/19/20 16:00 102.3 92 20 125/93 (104) 95 08/19/20 16:00 100 08/19/20 11:58 91 08/19/20 11:57 100.0 89 20 115/83 (94) 96 08/19/20 11:22 125 120/94 08/19/20 09:00 Room Air 08/19/20 08:00 98.2 130 20 135/59 (84) 97 08/19/20 07:49 148 08/19/20 04:00 97.5 96 17 114/67 (83) 95 08/19/20 04:00 87 08/19/20 00:00 77 08/19/20 00:00 97.5 75 17 116/73 (87) 94 08/18/20 21:00 Room Air 08/18/20 20:00 98.2 76 19 109/61 (77) 95 08/18/20 20:00 77 Intake and Output 08/18/20 08/19/20 19:00 07:00 Intake Total 240 ml 925 ml Output Total 850 ml Balance -610 ml 925 ml Free Water 300 ml IV Total 195 ml 240 ml Tube Feeding 45 ml 385 ml Output Urine Total 850 ml # Voids 1 4 # Bowel Movements 1 2 Laboratory Tests 08/19/20 10:00: White Blood Count 20.6#H, Red Blood Count 4.29L, Hemoglobin 13.7L, Hematocrit 40.0L, Mean Corpuscular Volume 93, Mean Corpuscular Hemoglobin 32.0H, Mean Corpuscular Hemoglobin Concent 34.4, Red Cell Distribution Width 12.1, Platelet Count 236, Mean Platelet Volume 7.6, Neutrophils (%) (Auto) , Lymphocytes (%) (Auto) , Monocytes (%) (Auto) , Eosinophils (%) (Auto) , Basophils (%) (Auto) , Differential Total Cells Counted 100, Neutrophils % (Manual) 91H, Lymphocytes % (Manual) 2L, Monocytes % (Manual) 4, Eosinophils % (Manual) 0, Basophils % (Manual) 0, Band Neutrophils 3, Platelet Estimate Adequate, Platelet Morphology Normal, Red Blood Cell Morphology Normal, Sodium Level 140, Potassium Level 3.5, Chloride Level 104, Carbon Dioxide Level 25, Anion Gap 11, Blood Urea Nitrogen 15, Creatinine 1.0, Estimat Glomerular Filtration Rate > 60, Glucose Level 142H, Calcium Level 9.1 Height (Feet): 5 Height (Inches): 10.00 Weight (Pounds): 154 General Appearance: alert, lethargic EENT: normal ENT inspection Neck: supple Cardiovascular: tachycardia Respiratory/Chest: lungs clear, normal breath sounds, no respiratory distress, no accessory muscle use Abdomen: normal bowel sounds, non tender, soft, no organomegaly, no mass Extremities: non-tender Assessment/Plan Status Narrative Awake alert nonverbal spiked fever to low today to 1-1.2 with tachycardia to 140 cooling measures been applied and patient started on piperacillin tazobactam 3.375 g IV piggyback every 6 patient was admitted for severe bradycardia was planned to be discharged today work-up to find the source of the infection has been initiated chest x-ray and urinalysis are pending during the infusion of Zosyn patient condition improved support semiretired the progress note of today's visit yesterday the [facility] dictation system of this hospital did not functional late last night laboratory tests will be done in a.m. chest x-ray will be done in a.m. Aime De Leon MD, MD Aug 19, 2020 19:22
--- NOTE | 2020-08-19 19:29 | NUR ---
NURSE HAND-OFF REPORT: Important Events on Shift:pt was tachycardia and had fever today, Dr Wylie is aware. Patient Status: Diet: Pending Orders: Pending Results/Labs: Pending MD notification: Latest Vital Signs: Temperature 99.7 , Pulse 100 , B/P 125 /93 , Respiratory Rate 20 , O2 SAT 95 , Room Air, O2 Flow Rate . Vital Sign Comment: EKG Rhythm: Sinus Rhythm Rhythm change?: N MD Notified?: Y -Dr Nadia JOSHI Response: Message left await call Latest Palm Fall Score: 70 Fall Risk: High Risk Safety Measures: Call light Within Reach, Bed Alarm Zone 1, Side Rails Side Rails x3, Bed position Low and Locked. Fall Precautions: Yellow Socks Yellow Gown Door Sign Patient Fall Education Report given to . pt is sleeping, HR 90, Endorsed plan of care, endorsed to monitor HR and fever.
--- NOTE | 2020-08-19 20:00 | NUR ---
Assumed care of pt. Received report from lyndsay CÁRDENAS. Pt is from [facility] and is her for occasional bradycardia and hyponatremia. Pt has extensive PMH. NKA, Full code, COVID (-) since 08/16/20. Pt is bed bound. Seizure, aspiration, and Fall precautions in place. pt has a G-tube running feeding @ 50cc/Hr. Pt is incontinent w/ a condom catheter in place draining to gravity. Skin intact. special precautions are taken w/ HR and temperature. Pt has Bilateral soft wrist restraints in place. order started at 08/18/19 [id number]. pt is in bed awake, AAOx1, in NAD. nonverbal, pt has a tracheostomy but is on RA. NSR and on RA. R AC 20g IV intact, no s/sx of infiltration. All needs met and attended. bed locked in lowest position w/ call light w/in reach. side rails up x2. WCTM.
[2020-08-19] MEDS: Donepezil 10mg tab GT SCH (21:00)
[2020-08-19] MEDS: Piperacillin/Tazobactam 3.375 GM in NS 110 ML IVPB SCH (22:18)
[2020-08-20 00:03] LABS: APPEARANCE,URINE CLEAR; BILIRUBIN, URINE NEGATIVE (NEGATIVE); GLUCOSE, URINE (UA) NEGATIVE (NEGATIVE); KETONES,URINE NEGATIVE (NEGATIVE); LEUKOCYTE ESTERASE ,URINE 1+ (NEGATIVE); NITRITE,URINE POSITIVE (NEGATIVE); PH,URINE 7 (4.5-8.0); PROTEIN,URINE 2+ (NEGATIVE); UROBILINOGEN,URINE NORMAL MG/DL (0.0-1.0)
[2020-08-20 00:05] LABS: COLOR,URINE YELLOW
[2020-08-20 00:18] VITALS: BP 108/61
--- NOTE | 2020-08-20 01:04 | NUR ---
NURSE NOTES: Pt is in bed resting w/ eyes closed. VSS are stable w/ WC=150 and Temp is trending down @ 101.6F. Tylenol previously given. Urine was collected and sent to lab. All needs met and attended. WCTM.
--- NOTE | 2020-08-20 01:29 | Cardiology Progress Note ---
Subjective DATE OF SERVICE: Aug 19, 2020 Developed rapid atrial fibrillation today. Febrile above 102F, with concomitant increase in WBC to 20K Objective Last 24 Hour Vital Signs Date Time Temp Pulse Resp B/P (MAP) Pulse Ox O2 Delivery O2 Flow Rate FiO2 08/20/20 00:21 113 08/20/20 00:18 102.3 117 22 108/61 (77) 98 08/19/20 22:30 102.3 92 24 104/63 (77) 98 08/19/20 21:00 Room Air 08/19/20 20:00 99.6 72 22 99/59 (72) 96 08/19/20 20:00 70 08/19/20 16:47 99.7 08/19/20 16:00 102.3 92 20 125/93 (104) 95 08/19/20 16:00 100 08/19/20 11:58 91 08/19/20 11:57 100.0 89 20 115/83 (94) 96 08/19/20 11:22 125 120/94 08/19/20 09:00 Room Air 08/19/20 08:00 98.2 130 20 135/59 (84) 97 08/19/20 07:49 148 08/19/20 04:00 97.5 96 17 114/67 (83) 95 08/19/20 04:00 87 HEENT: Thin Trach secretions RHYTHM: NSR, Afib LUNGS: bilateral rhonchi CARDIAC: normal rate, regular rhythm, normal S1 and S2, irregularly irregular, tachycardia ABDOMEN: normal bowel sounds, non tender, soft, G-Tube intact EXTREMITIES: No edema, other - Non-communicative Laboratory Tests Test 08/19/20 10:00 08/19/20 23:50 White Blood Count 20.6 K/UL (4.8-10.8) #H Red Blood Count 4.29 M/UL (4.70-6.10) L Hemoglobin 13.7 G/DL (14.2-18.0) L Hematocrit 40.0 % (42.0-52.0) L Mean Corpuscular Volume 93 FL (80-99) Mean Corpuscular Hemoglobin 32.0 PG (27.0-31.0) H Mean Corpuscular Hemoglobin Concent 34.4 G/DL (32.0-36.0) Red Cell Distribution Width 12.1 % (11.6-14.8) Platelet Count 236 K/UL (150-450) Mean Platelet Volume 7.6 FL (6.5-10.1) Neutrophils (%) (Auto) % (45.0-75.0) Lymphocytes (%) (Auto) % (20.0-45.0) Monocytes (%) (Auto) % (1.0-10.0) Eosinophils (%) (Auto) % (0.0-3.0) Basophils (%) (Auto) % (0.0-2.0) Differential Total Cells Counted 100 Neutrophils % (Manual) 91 % (45-75) H Lymphocytes % (Manual) 2 % (20-45) L Monocytes % (Manual) 4 % (1-10) Eosinophils % (Manual) 0 % (0-3) Basophils % (Manual) 0 % (0-2) Band Neutrophils 3 % (0-8) Platelet Estimate Adequate Platelet Morphology Normal Red Blood Cell Morphology Normal Sodium Level 140 MMOL/L (136-145) Potassium Level 3.5 MMOL/L (3.5-5.1) Chloride Level 104 MMOL/L (98-107) Carbon Dioxide Level 25 MMOL/L (21-32) Anion Gap 11 mmol/L (5-15) Blood Urea Nitrogen 15 mg/dL (7-18) Creatinine 1.0 MG/DL (0.55-1.30) Estimat Glomerular Filtration Rate > 60 mL/min (>60) Glucose Level 142 MG/DL (74-106) H Calcium Level 9.1 MG/DL (8.5-10.1) Urine Color Yellow Urine Appearance Clear Urine pH 7 (4.5-8.0) Urine Specific [place] 1.005 (1.005-1.035) Urine Protein 2+ (NEGATIVE) H Urine Glucose (UA) Negative (NEGATIVE) Urine Ketones Negative (NEGATIVE) Urine Blood Negative (NEGATIVE) Urine Nitrite Positive (NEGATIVE) H Urine Bilirubin Negative (NEGATIVE) Urine Urobilinogen Normal MG/DL (0.0-1.0) Urine Leukocyte Esterase 1+ (NEGATIVE) H Urine RBC 0-2 /HPF (0 - 0) H Urine WBC 0-2 /HPF (0 - 0) Urine Squamous Epithelial Cells None /LPF (NONE/OCC) Urine Bacteria None /HPF (NONE) Assessment/Plan Assessment/Plan Sepsis PAFibrillation with RVR Sinus bradycardia resolved Hypertension Hyponatremia Hypokalemia Dementia Borderline TSH level Empiric antimicrobials Anti-pyretics Beta kristin x 1, and reassess. Telemetry Saline with diuresis Replace K+ Check Mg++ Consider low dose thyroid replacement in future Sin Zuniga MD Aug 20, 2020 01:29
[2020-08-20 04:07] VITALS: BP 94/54
--- NOTE | 2020-08-20 05:25 | NUR ---
Pt is in bed resting w/ eyes closed, in NAD. NSR and on RA. Iv intact, no s/sx of infiltration. All needs met and attended. bed locked in lowest position w/ call light w/in reach. side rails up x2. WCTM.
[2020-08-20] MEDS: Piperacillin/Tazobactam 3.375 GM in NS 110 ML IVPB SCH ×3 (05:51→21:51)
--- NOTE | 2020-08-20 06:07 | Hematology/Onc Progress Note ---
Assessment/Plan Assessment/Plan Assessment and recs # Anemia likely related to chronic disease --> hgb currently stable --> anemia panel prn --> hgb 13.7 # Leukocytosis with a wbc 21 --> on abx zosyn --> smear is noted # Bradycardia -- meds reviewed --> ekg, tele monitoring --> as per cards recs --> meds noted --> atropine prn basis # Hyponatremia --> per renal care # Atelectasis # Resp failure/trach -> surg aware # Paraplegia # Dysphagia s/p peg # Dehydration DW Rn Subjective HEENT: Denies: no symptoms, eye pain, blurred vision, tearing, double vision, ear pain, ear discharge, nose pain, nose congestion, throat pain, throat swelling, mouth pain, mouth swelling, other Cardiovascular: Denies: no symptoms, chest pain, edema, irregular heart rate, lightheadedness, palpitations, syncope, other Respiratory: Denies: no symptoms, cough, shortness of breath, SOB with excertion, SOB at rest, sputum, wheezing, other Gastrointestinal/Abdominal: Denies: no symptoms, abdomen distended, abdominal pain, black stools, tarry stools, blood in stool, constipated, diarrhea, difficulty swallowing, nausea, poor appetite, poor fluid intake, rectal b leeding, vomiting, other Genitourinary: Denies: no symptoms, burning, discharge, frequency, flank pain, hematuria, incontinence, pain, urgency, other Endocrine: Denies: no symptoms, excessive sweating, flushing, intolerance to cold, intolerance to heat, increased hunger, increased thirst, increased urine, unexplained weight gain, unexplained weight loss, other Allergies: Coded Allergies: No Known Allergies (Unverified , 08/15/20) Subjective 08/17 nv, labs reviewed, meds noted, covering im 08/18 nv, with gt, osmolite, no bleeding, labs reviewed 08/19 refusing medications, combative, no bleeding 08/20 on zosyn, is continuing, wbc is higher at 23k Objective Objective Current Medications Medications (Trade) Dose Ordered Sig/Myesha Route PRN Reason Start Time Stop Time Status Last Admin Dose Admin Acetaminophen (Tylenol) 500 mg EVERY 4 HOURS PRN GT Temp >100.5 08/16/20 05:30 09/15/20 05:29 08/19/20 23:41 Clonidine HCl (Catapres Tab) 0.1 mg Q4H PRN GT For High Blood Pressure 08/16/20 05:30 11/14/20 05:29 Donepezil HCl (Aricept) 10 mg QHS GT 08/16/20 21:00 09/15/20 20:59 08/18/20 21:24 Famotidine (Pepcid) 20 mg BID GT 08/16/20 09:00 11/14/20 08:59 08/19/20 17:31 Fish Oil (Fish Oil) 1,000 mg BID ORAL 08/16/20 09:00 09/15/20 08:59 08/19/20 17:31 Heparin Sodium (Porcine) (Heparin 5000 units/ml) 5,000 units EVERY 12 HOURS SUBQ 08/16/20 09:00 09/30/20 08:59 08/19/20 21:30 Levetiracetam (Keppra) 1,000 mg Q12HR GT 08/16/20 09:00 09/30/20 08:59 08/19/20 21:28 Multivitamins (Multivitamins) 1 tab DAILY GT 08/16/20 09:00 09/15/20 08:59 08/19/20 09:09 Piperacillin Sod/ Tazobactam Sod 3.375 gm/Sodium Chloride 110 ml @ 27.5 mls/hr Q8HR IVPB 08/19/20 22:00 08/26/20 21:59 08/20/20 05:51 Potassium Chloride (K-Dur) 40 meq DAILY GT 08/20/20 09:00 11/16/20 10:29 Last 24 Hour Vital Signs Date Time Temp Pulse Resp B/P (MAP) Pulse Ox O2 Delivery O2 Flow Rate FiO2 08/20/20 04:07 99.4 74 20 94/54 (67) 98 08/20/20 04:07 73 08/20/20 00:21 113 08/20/20 00:20 101.6 08/20/20 00:18 102.3 117 22 108/61 (77) 98 08/19/20 22:30 102.3 92 24 104/63 (77) 98 08/19/20 21:00 Room Air 08/19/20 20:00 99.6 72 22 99/59 (72) 96 08/19/20 20:00 70 08/19/20 16:47 99.7 08/19/20 16:00 102.3 92 20 125/93 (104) 95 08/19/20 16:00 100 08/19/20 11:58 91 08/19/20 11:57 100.0 89 20 115/83 (94) 96 08/19/20 11:22 125 120/94 08/19/20 09:00 Room Air 08/19/20 08:00 98.2 130 20 135/59 (84) 97 08/19/20 07:49 148 08/19/20 04:00 97.5 96 17 114/67 (83) 95 08/19/20 04:00 87 08/19/20 00:00 77 08/19/20 00:00 97.5 75 17 116/73 (87) 94 08/18/20 21:00 Room Air 08/18/20 20:00 98.2 76 19 109/61 (77) 95 08/18/20 20:00 77 08/18/20 16:00 96.8 78 20 111/75 (87) 94 08/18/20 16:00 79 08/18/20 12:00 72 08/18/20 12:00 96.1 69 20 115/74 (88) 95 08/18/20 09:00 Room Air 08/18/20 08:00 66 08/18/20 08:00 97.5 63 20 132/64 (86) 97 Intake and Output 08/19/20 08/20/20 19:00 07:00 Intake Total 700 ml Balance 700 ml Free Water 150 ml Tube Feeding 550 ml # Voids 3 # Bowel Movements 1 1 Labs Test 08/17/20 06:30 08/17/20 10:40 08/18/20 06:57 08/19/20 10:00 Urine Color Pale yellow Urine Appearance Clear Urine pH 7 (4.5-8.0) Urine Specific [place] 1.010 (1.005-1.035) Urine Protein Negative (NEGATIVE) Urine Glucose (UA) Negative (NEGATIVE) Urine Ketones Negative (NEGATIVE) Urine Blood Negative (NEGATIVE) Urine Nitrite Negative (NEGATIVE) Urine Bilirubin Negative (NEGATIVE) Urine Urobilinogen Normal MG/DL (0.0-1.0) Urine Leukocyte Esterase Negative (NEGATIVE) Urine RBC 0 /HPF (0 - 0) Urine WBC 0 /HPF (0 - 0) Urine Squamous Epithelial Cells Occasional /LPF Urine Bacteria Occasional /HPF (NONE) Urine Osmolality 656 mOsm/kg (429-449) Urine Random Sodium 132 mmol/L (20-110) White Blood Count 8.7 K/UL (4.8-10.8) 8.0 K/UL (4.8-10.8) 20.6 K/UL (4.8-10.8) Red Blood Count 4.13 M/UL (4.70-6.10) 4.37 M/UL (4.70-6.10) 4.29 M/UL (4.70-6.10) Hemoglobin 12.8 G/DL (14.2-18.0) 13.8 G/DL (14.2-18.0) 13.7 G/DL (14.2-18.0) Hematocrit 38.2 % (42.0-52.0) 40.1 % (42.0-52.0) 40.0 % (42.0-52.0) Mean Corpuscular Volume 92 FL (80-99) 92 FL (80-99) 93 FL (80-99) Mean Corpuscular Hemoglobin 31.0 PG (27.0-31.0) 31.5 PG (27.0-31.0) 32.0 PG (27.0-31.0) Mean Corpuscular Hemoglobin Concent 33.6 G/DL (32.0-36.0) 34.4 G/DL (32.0-36.0) 34.4 G/DL (32.0-36.0) Red Cell Distribution Width 11.6 % (11.6-14.8) 12.0 % (11.6-14.8) 12.1 % (11.6-14.8) Platelet Count 213 K/UL (150-450) 238 K/UL (150-450) 236 K/UL (150-450) Mean Platelet Volume 7.5 FL (6.5-10.1) 8.3 FL (6.5-10.1) 7.6 FL (6.5-10.1) Neutrophils (%) (Auto) 62.7 % (45.0-75.0) 69.3 % (45.0-75.0) % (45.0-75.0) Lymphocytes (%) (Auto) 25.7 % (20.0-45.0) 20.2 % (20.0-45.0) % (20.0-45.0) Monocytes (%) (Auto) 6.6 % (1.0-10.0) 6.7 % (1.0-10.0) % (1.0-10.0) Eosinophils (%) (Auto) 3.9 % (0.0-3.0) 3.0 % (0.0-3.0) % (0.0-3.0) Basophils (%) (Auto) 1.1 % (0.0-2.0) 0.8 % (0.0-2.0) % (0.0-2.0) Prothrombin Time 11.3 SEC (9.30-11.50) Prothromb Time International Ratio 1.0 (0.9-1.1) Activated Partial Thromboplast Time 30 SEC (23-33) Sodium Level 131 MMOL/L (136-145) 133 MMOL/L (136-145) 140 MMOL/L (136-145) Potassium Level 4.1 MMOL/L (3.5-5.1) 3.1 MMOL/L (3.5-5.1) 3.5 MMOL/L (3.5-5.1) Chloride Level 95 MMOL/L (98-107) 97 MMOL/L (98-107) 104 MMOL/L (98-107) Carbon Dioxide Level 29 MMOL/L (21-32) 28 MMOL/L (21-32) 25 MMOL/L (21-32) Anion Gap 8 mmol/L (5-15) 8 mmol/L (5-15) 11 mmol/L (5-15) Blood Urea Nitrogen 8 mg/dL (7-18) 10 mg/dL (7-18) 15 mg/dL (7-18) Creatinine 0.8 MG/DL (0.55-1.30) 0.8 MG/DL (0.55-1.30) 1.0 MG/DL (0.55-1.30) Estimat Glomerular Filtration Rate > 60 mL/min (>60) > 60 mL/min (>60) > 60 mL/min (>60) Glucose Level 81 MG/DL (74-106) 98 MG/DL (74-106) 142 MG/DL (74-106) Osmolality 271 mOsm/kg (297-317) Lactic Acid Level 1.30 mmol/L (0.4-2.0) Uric Acid 3.7 MG/DL (2.6-7.2) 3.5 MG/DL (2.6-7.2) Calcium Level 8.6 MG/DL (8.5-10.1) 8.9 MG/DL (8.5-10.1) 9.1 MG/DL (8.5-10.1) Phosphorus Level 3.6 MG/DL (2.5-4.9) 3.7 MG/DL (2.5-4.9) Magnesium Level 2.0 MG/DL (1.8-2.4) 2.2 MG/DL (1.8-2.4) Total Bilirubin 0.7 MG/DL (0.2-1.0) 0.6 MG/DL (0.2-1.0) Aspartate Amino Transf (AST/SGOT) 21 U/L (15-37) 25 U/L (15-37) Alanine Aminotransferase (ALT/SGPT) 25 U/L (12-78) 30 U/L (12-78) Alkaline Phosphatase 114 U/L (46-116) 130 U/L (46-116) C-Reactive Protein, Quantitative 1.5 mg/dL (0.00-0.90) Total Protein 7.9 G/DL (6.4-8.2) 8.7 G/DL (6.4-8.2) Albumin 3.7 G/DL (3.4-5.0) 4.0 G/DL (3.4-5.0) Globulin 4.2 g/dL 4.7 g/dL Albumin/Globulin Ratio 0.9 (1.0-2.7) 0.9 (1.0-2.7) Triglycerides Level 117 MG/DL (30-150) Cholesterol Level 190 MG/DL (< 200) LDL Cholesterol 120 mg/dL (<100) HDL Cholesterol 48 MG/DL (40-60) Cholesterol/HDL Ratio 4.0 (3.3-4.4) Amylase Level 45 U/L (25-115) Lipase 157 U/L (73-393) Thyroid Stimulating Hormone (TSH) 3.767 uiU/mL (0.358-3.740) Differential Total Cells Counted 100 Neutrophils % (Manual) 91 % (45-75) Lymphocytes % (Manual) 2 % (20-45) Monocytes % (Manual) 4 % (1-10) Eosinophils % (Manual) 0 % (0-3) Basophils % (Manual) 0 % (0-2) Band Neutrophils 3 % (0-8) Platelet Estimate Adequate Platelet Morphology Normal Red Blood Cell Morphology Normal Test 08/19/20 23:50 Urine Color Yellow Urine Appearance Clear Urine pH 7 (4.5-8.0) Urine Specific [place] 1.005 (1.005-1.035) Urine Protein 2+ (NEGATIVE) Urine Glucose (UA) Negative (NEGATIVE) Urine Ketones Negative (NEGATIVE) Urine Blood Negative (NEGATIVE) Urine Nitrite Positive (NEGATIVE) Urine Bilirubin Negative (NEGATIVE) Urine Urobilinogen Normal MG/DL (0.0-1.0) Urine Leukocyte Esterase 1+ (NEGATIVE) Urine RBC 0-2 /HPF (0 - 0) Urine WBC 0-2 /HPF (0 - 0) Urine Squamous Epithelial Cells None /LPF (NONE/OCC) Urine Bacteria None /HPF (NONE) Height (Feet): 5 Height (Inches): 10.00 Weight (Pounds): 154 Objective Physical Exam Vitals: noted General: no apparent distress, alert, Chronically Ill HEENT: bilateral eye PERRL, bilateral eye EOMI Respiratory: chest non-tender, lungs clear, normal breath sounds Cardiovascular: regular rate, rhythm, no murmur Gastrointestinal: normal bowel sounds ++gt Musculoskeletal: back normal, other - contracted Psychiatric: mood/affect normal Matthew Batista MD Aug 20, 2020 06:07
--- NOTE | 2020-08-20 06:51 | NUR ---
NURSE NOTES: Pt's R AC 20g was DC and a new R FA 20g Iv started.
--- NOTE | 2020-08-20 07:30 | NUR ---
NURSE NOTES: Received pt from MELIA Martins, pt is awake and anxious, pt is in RA, no SOB or acute respiratory distress noted, pt is on continues heart monitoring. Pt has intact iv access RFA 20G Zosyn is running. Pt has g tube in place is working well. all needs attended, bed is locked and is in the lowest position, call light within easy reach. will continue to monitor.
[2020-08-20 07:32] LABS: HEMOGLOBIN 13.8 G/DL (14.2-18.0); MEAN CORPUSCULAR VOLUME 95 FL (80-99); PLATELET COUNT 212 K/UL (150-450); RED BLOOD COUNT 4.42 M/UL (4.70-6.10); RED CELL DISTRIBUTION WIDTH 12.9 % (11.6-14.8); WHITE BLOOD COUNT 16.4 K/UL (4.8-10.8)
[2020-08-20 07:42] LABS: CREATININE 1.7 MG/DL (0.55-1.30); POTASSIUM 3.6 MMOL/L (3.5-5.1)
[2020-08-20 08:00] VITALS: BP 94/50
[2020-08-20] MEDS: levETIRAcetam 500mg/5ml Liquid GT SCH ×2 (08:15→21:49)
[2020-08-20] MEDS: Acetaminophen 650mg/20.3ml GT PRN ×2 (08:15→16:37)
[2020-08-20] MEDS: Heparin 5000 units/ml inj SUBQ SCH ×2 (08:17→21:50)
--- NOTE | 2020-08-20 09:37 | Diagnostic Imaging Report ---
Indication: Reason For Exam: SOB Technique: XRAY Chest 1v Comparison: 08/15/2020. Findings: Poor inspiration. Heart is normal in size. Tracheostomy is again noted. Linear density is noted in the left lung base. Lungs are otherwise clear. No pleural fluid. Impression: Left basilar atelectasis or scarring. Tracheostomy tube. No significant change from previous study.
--- NOTE | 2020-08-20 10:40 | NUR ---
RADIOLOGY DEPT. CHEST X-RAY DONE.-P.DYE
[2020-08-20 11:55] VITALS: BP 91/45
[2020-08-20] MEDS ORDERED: PRAMIPEXOLE DI0.5 MG GT (12:48)
[2020-08-20] MEDS ORDERED: LAMOTRIGINE200 MG GT (12:48)
[2020-08-20] MEDS ORDERED: LEVETIRACE500 MG/51 GT (12:48)
--- NOTE | 2020-08-20 12:59 | Surgery Progress Note ---
Surgery Progress Note Subjective Additional Comments wbc trending down trach stable lungs okay cxr noted Objective Last 24 Hour Vital Signs Date Time Temp Pulse Resp B/P (MAP) Pulse Ox O2 Delivery O2 Flow Rate FiO2 08/20/20 11:55 99.7 93 18 91/45 (60) 98 08/20/20 11:34 87 08/20/20 09:00 Room Air 08/20/20 08:45 100.6 08/20/20 08:05 116 08/20/20 08:00 100.8 116 20 94/50 (65) 96 08/20/20 04:07 99.4 74 20 94/54 (67) 98 08/20/20 04:07 73 08/20/20 00:21 113 08/20/20 00:20 101.6 08/20/20 00:18 102.3 117 22 108/61 (77) 98 08/19/20 22:30 102.3 92 24 104/63 (77) 98 08/19/20 21:00 Room Air 08/19/20 20:00 99.6 72 22 99/59 (72) 96 08/19/20 20:00 70 08/19/20 16:47 99.7 08/19/20 16:00 102.3 92 20 125/93 (104) 95 08/19/20 16:00 100 I&O Intake and Output 08/19/20 08/20/20 19:00 07:00 Intake Total 700 ml 27.5 ml Balance 700 ml 27.5 ml Free Water 150 ml IV Total 27.5 ml Tube Feeding 550 ml # Voids 3 3 # Bowel Movements 1 3 Dressing: saturated Cardiovascular: RSR Respiratory: decreased breath sounds Abdomen: soft, non-tender, present bowel sounds Extremities: no tenderness, no cyanosis Laboratory Tests Test 08/19/20 23:50 08/20/20 06:13 Urine Color Yellow Urine Appearance Clear Urine pH 7 (4.5-8.0) Urine Specific [place] 1.005 (1.005-1.035) Urine Protein 2+ (NEGATIVE) H Urine Glucose (UA) Negative (NEGATIVE) Urine Ketones Negative (NEGATIVE) Urine Blood Negative (NEGATIVE) Urine Nitrite Positive (NEGATIVE) H Urine Bilirubin Negative (NEGATIVE) Urine Urobilinogen Normal MG/DL (0.0-1.0) Urine Leukocyte Esterase 1+ (NEGATIVE) H Urine RBC 0-2 /HPF (0 - 0) H Urine WBC 0-2 /HPF (0 - 0) Urine Squamous Epithelial Cells None /LPF (NONE/OCC) Urine Bacteria None /HPF (NONE) White Blood Count 16.4 K/UL (4.8-10.8) H Red Blood Count 4.42 M/UL (4.70-6.10) L Hemoglobin 13.8 G/DL (14.2-18.0) L Hematocrit 42.0 % (42.0-52.0) Mean Corpuscular Volume 95 FL (80-99) Mean Corpuscular Hemoglobin 31.3 PG (27.0-31.0) H Mean Corpuscular Hemoglobin Concent 32.9 G/DL (32.0-36.0) Red Cell Distribution Width 12.9 % (11.6-14.8) Platelet Count 212 K/UL (150-450) Mean Platelet Volume 8.1 FL (6.5-10.1) Neutrophils (%) (Auto) % (45.0-75.0) Lymphocytes (%) (Auto) % (20.0-45.0) Monocytes (%) (Auto) % (1.0-10.0) Eosinophils (%) (Auto) % (0.0-3.0) Basophils (%) (Auto) % (0.0-2.0) Differential Total Cells Counted 100 Neutrophils % (Manual) 94 % (45-75) H Lymphocytes % (Manual) 3 % (20-45) L Monocytes % (Manual) 3 % (1-10) Eosinophils % (Manual) 0 % (0-3) Basophils % (Manual) 0 % (0-2) Band Neutrophils 0 % (0-8) Platelet Estimate Adequate Platelet Morphology Normal Red Blood Cell Morphology Normal Sodium Level 137 MMOL/L (136-145) Potassium Level 3.6 MMOL/L (3.5-5.1) Chloride Level 101 MMOL/L (98-107) Carbon Dioxide Level 27 MMOL/L (21-32) Anion Gap 9 mmol/L (5-15) Blood Urea Nitrogen 31 mg/dL (7-18) H Creatinine 1.7 MG/DL (0.55-1.30) #H Estimat Glomerular Filtration Rate 41.9 mL/min (>60) Glucose Level 107 MG/DL (74-106) H Calcium Level 9.0 MG/DL (8.5-10.1) Plan Problems: (1) Trachea displaced Assessment & Plan: Lungs: Reduced lung volumes. Patchy atelectasis in the left lung base. Pleural space: Unremarkable. No pneumothorax. Heart: Unremarkable. No cardiomegaly. Mediastinum: Unremarkable. Bones/joints: No acute fracture. Tubes, lines and devices: Tracheostomy. IMPRESSION: Reduced lung volumes. Patchy atelectasis in the left lung base. (2) Bradycardia (3) Hyponatremia (4) Elevated alkaline phosphatase level Assessment & Plan: abd us noted labs okay exam benign okay for diet trend labs no acute surgical intervention planned Liver: The liver measures 17 cm. No intrahepatic bile duct dilation. Gallbladder: No definite cholelithiasis. Suspect a mild bladder sludge. No gallbladder wall thickening or pericholecystic fluid. Common bile duct: Unremarkable as visualized. No stones. No dilation . Pancreas: Unremarkable as visualized. Kidneys: The right kidney measures 12.1 cm. The left kidney measures 8.8 cm. No stones. No hydronephrosis. Spleen: Nonvisualized spleen. Aorta: The aorta is measured at 2.3 cm. This is slightly over measured by the technologist. Inferior vena cava: Unremarkable. IMPRESSION: Mild gallbladder sludge. No ultrasound evidence of acute cholecystitis. Evaluation limited due to patient limitations. Nonvisualized spleen. DAILY ESTIMATED NEEDS: Needs based on pulmonary, 70kg 25-30 kcals/kg 1006-1950 total kcals 1-1.5 g protein/kg 70-105 g total protein 25-30 mL/kg 5220-8771 total fluid mLs NUTRITION DIAGNOSIS: Swallowing difficulty R/T respiratory status and dysphagia as evidenced by h/o trach and GT placement, pt on pureed texture diet w/ HTL and nocturnal GT feeds JOURNEY LINEMAN, NPO at this time CURRENT TF:Osmolite 1.5 @ 50ml/hr x 24 hrs PO DIET RECOMMENDATIONS: IF SAFE FOR ORAL DIET -> liberalized regular/ texture per AUTOMOBILE INSPECTOR ENTERAL NUTRITION RECOMMENDATIONS: For continuous TF-> Osmolite 1.5 @ 50ml/hr x 24 hrs to provide 1200ml, 1800kcal, 94g prot, 914ml free water * For continuous TF, rec continue Osmolite 1.5 @ 50ml/hr x 24 hrs -> HOB over 30 degrees/ H2O flush 250ml q 6hrs ------ * Monitor AUTOMOBILE INSPECTOR eval and rec, will provide nocturnal TF rec if appropriate ADDITIONAL RECOMMENDATIONS: * Per SNF: HT=65" and OV=255shv (08/05/20) * Monitor AUTOMOBILE INSPECTOR rec: pt on pureed moist texture w/ HTL TID JOURNEY LINEMAN -> if not safe for oral diet, rec continuous TF rec as above * Monitor lytes, replete as needed Franky Carrizales Aug 20, 2020 12:59
[2020-08-20] MEDS ORDERED: NACL GT (13:05)
[2020-08-20] MEDS ORDERED: POTASSIUM40 MEQ/11 GT (13:05)
[2020-08-20] MEDS ORDERED: VITAMIN D3125 MCG GT (13:05)
--- NOTE | 2020-08-20 14:39 | NUR ---
CASE MANAGEMENT: REVIEW 08/20/2020 SI: BRADYCARDIA. HYPONATREMIA VS: T 99.7 HR 93 RR 18 B/P 91/45 SATS 98% ON RA LABS: WBC 16.4 BUN 31 CR 1.7 GLU 107 IS: PEPCID GT BID KDUR GT QD KEPPRA GT Q12H ZOSYN IV Q8H ARICEPT GT QHS : TO TELEMETRY UNIT [facility]
--- NOTE | 2020-08-20 15:25 | Nephrology Progress Note ---
Assessment/Plan Problem List: (1) Hyponatremia (2) Bradycardia (3) Trachea displaced Assessment Hyponatremia: Etiology work-up ordered and in process Bradycardia Vent dependent PEG dependent BPH Plan August 20: Patient febrile. Serum creatinine keith to 1.7. Blood pressure 90 systolic. Will give albumin and saline bolus and will start on IV hydration. Continue to monitor renal parameters. Per orders. August 19: Labs reviewed. Electrolytes improved. Will discontinue Lasix. Continue to monitor electrolytes. August 18: Labs reviewed. Serum sodium slightly higher. Potassium supplement given. Lasix and 3% saline to be continued aim to keep output more than intake. August 17: Trial of 3% saline and Lasix. Monitor serum sodium and electrolytes. Continue per consultants. Urine studies, urine spot sodium, urine osmolality rehab spec Check TSH, uric acid, serum osmolality, lipid panel Further comments after above results Subjective ROS Limited/Unobtainable: No Constitutional: Reports: malaise, weakness Objective Objective Last 24 Hour Vital Signs Date Time Temp Pulse Resp B/P (MAP) Pulse Ox O2 Delivery O2 Flow Rate FiO2 08/20/20 11:55 99.7 93 18 91/45 (60) 98 08/20/20 11:34 87 08/20/20 09:00 Room Air 08/20/20 08:45 100.6 08/20/20 08:05 116 08/20/20 08:00 100.8 116 20 94/50 (65) 96 08/20/20 04:07 99.4 74 20 94/54 (67) 98 08/20/20 04:07 73 08/20/20 00:21 113 08/20/20 00:20 101.6 08/20/20 00:18 102.3 117 22 108/61 (77) 98 08/19/20 22:30 102.3 92 24 104/63 (77) 98 08/19/20 21:00 Room Air 08/19/20 20:00 99.6 72 22 99/59 (72) 96 08/19/20 20:00 70 08/19/20 16:47 99.7 08/19/20 16:00 102.3 92 20 125/93 (104) 95 08/19/20 16:00 100 Intake and Output 08/19/20 08/20/20 19:00 07:00 Intake Total 700 ml 27.5 ml Balance 700 ml 27.5 ml Free Water 150 ml IV Total 27.5 ml Tube Feeding 550 ml # Voids 3 3 # Bowel Movements 1 3 Current Medications Medications (Trade) Dose Ordered Sig/Myesha Route PRN Reason Start Time Stop Time Status Last Admin Dose Admin Acetaminophen (Tylenol) 500 mg EVERY 4 HOURS PRN GT Temp >100.5 08/16/20 05:30 09/15/20 05:29 08/20/20 08:15 Clonidine HCl (Catapres Tab) 0.1 mg Q4H PRN GT For High Blood Pressure 08/16/20 05:30 11/14/20 05:29 Donepezil HCl (Aricept) 10 mg QHS GT 08/16/20 21:00 09/15/20 20:59 08/18/20 21:24 Famotidine (Pepcid) 20 mg BID GT 08/16/20 09:00 11/14/20 08:59 08/20/20 08:15 Fish Oil (Fish Oil) 1,000 mg BID ORAL 08/16/20 09:00 09/15/20 08:59 08/20/20 09:05 Heparin Sodium (Porcine) (Heparin 5000 units/ml) 5,000 units EVERY 12 HOURS SUBQ 08/16/20 09:00 09/30/20 08:59 08/20/20 08:17 Levetiracetam (Keppra) 1,000 mg Q12HR GT 08/16/20 09:00 09/30/20 08:59 08/20/20 08:15 Multivitamins (Multivitamins) 1 tab DAILY GT 08/16/20 09:00 09/15/20 08:59 08/20/20 08:15 Piperacillin Sod/ Tazobactam Sod 3.375 gm/Sodium Chloride 110 ml @ 27.5 mls/hr Q8HR IVPB 08/19/20 22:00 08/26/20 21:59 08/20/20 13:52 Potassium Chloride (K-Dur) 40 meq DAILY GT 08/20/20 09:00 11/16/20 10:29 08/20/20 08:16 Laboratory Tests 08/19/20 23:50: Urine Color Yellow, Urine Appearance Clear, Urine pH 7, Urine Specific [place] 1.005, Urine Protein 2+H, Urine Glucose (UA) Negative, Urine Ketones Negative, Urine Blood Negative, Urine Nitrite PositiveH, Urine Bilirubin Negative, Urine Urobilinogen Normal, Urine Leukocyte Esterase 1+H, Urine RBC 0-2H, Urine WBC 0- 2, Urine Squamous Epithelial Cells None, Urine Bacteria None 08/20/20 06:13: White Blood Count 16.4H, Red Blood Count 4.42L, Hemoglobin 13.8L, Hematocrit 42.0, Mean Corpuscular Volume 95, Mean Corpuscular Hemoglobin 31.3H, Mean Corpuscular Hemoglobin Concent 32.9, Red Cell Distribution Width 12.9, Platelet Count 212, Mean Platelet Volume 8.1, Neutrophils (%) (Auto) , Lymphocytes (%) (Auto) , Monocytes (%) (Auto) , Eosinophils (%) (Auto) , Basophils (%) (Auto) , Differential Total Cells Counted 100, Neutrophils % (Manual) 94H, Lymphocytes % (Manual) 3L, Monocytes % (Manual) 3, Eosinophils % (Manual) 0, Basophils % (Manual) 0, Band Neutrophils 0, Platelet Estimate Adequate, Platelet Morphology Normal, Red Blood Cell Morphology Normal, Sodium Level 137, Potassium Level 3.6, Chloride Level 101, Carbon Dioxide Level 27, Anion Gap 9, Blood Urea Nitrogen 31H, Creatinine 1.7#H, Estimat Glomerular Filtration Rate 41.9, Glucose Level 107H, Calcium Level 9.0 Height (Feet): 5 Height (Inches): 10.00 Weight (Pounds): 154 General Appearance: no apparent distress Cardiovascular: tachycardia Respiratory/Chest: decreased breath sounds Abdomen: distended Objective No change Chase Haynes MD Aug 20, 2020 15:25
[2020-08-20 16:00] VITALS: BP 100/55
[2020-08-20] MEDS: D5NS 1,000 ML IV SCH (17:09)
--- NOTE | 2020-08-20 18:37 | NUR ---
NURSE NOTES: RN called Dr Wylie and left massage regarding MRSA Nares, Md called now and ordered Bactoban 2% daily apply both nares 14 days, noted and carried out.
--- NOTE | 2020-08-20 19:45 | NUR ---
NURSE NOTES: Assumed pt's care at 1900 from day shift nurse Afsson. Pt is aox1-2, responsive. No acute distress noted. Respirations even and unlabored. Feeding tube cont, tolerating well. Safety and comfort measures maintained, call light within reach.
--- NOTE | 2020-08-20 19:50 | NUR ---
NURSE HAND-OFF REPORT: Important Events on Shift:pt still have fever and is tachycardia. Patient Status: Diet: Pending Orders: Pending Results/Labs: Pending MD notification: Latest Vital Signs: Temperature 100.0 , Pulse 103 , B/P 100 /55 , Respiratory Rate 20 , O2 SAT 98 , Room Air, O2 Flow Rate . Vital Sign Comment: EKG Rhythm: Sinus Tachycardia Rhythm change?: N MD Notified?: Y -Dr Nadia JOSHI Response: Message left await call Latest Palm Fall Score: 70 Fall Risk: High Risk Safety Measures: Call light Within Reach, Bed Alarm Zone 1, Side Rails Side Rails x3, Bed position Low and Locked. Fall Precautions: Yellow Socks Yellow Gown Door Sign Patient Fall Education Report given to .pt is awake HR 88 endorsed plan of care, endorsed to monitor fever and tachycardia.
[2020-08-20 20:00] VITALS: BP 99/59
[2020-08-20] MEDS: Donepezil 5mg Tab GT SCH (21:54)
--- NOTE | 2020-08-20 22:58 | General Progress Note ---
Subjective Constitutional: Reports: no symptoms HEENT: Reports: no symptoms Cardiovascular: Reports: no symptoms Respiratory: Reports: no symptoms Gastrointestinal/Abdominal: Reports: no symptoms Genitourinary: Reports: no symptoms Neurologic/Psychiatric: Reports: no symptoms Endocrine: Reports: no symptoms Hematologic/Lymphatic: Reports: no symptoms Allergies: Coded Allergies: No Known Allergies (Unverified , 08/15/20) Objective Last 24 Hour Vital Signs Date Time Temp Pulse Resp B/P (MAP) Pulse Ox O2 Delivery O2 Flow Rate FiO2 08/20/20 17:07 100.0 08/20/20 16:00 100.6 103 20 100/55 (70) 98 08/20/20 15:22 103 08/20/20 11:55 99.7 93 18 91/45 (60) 98 08/20/20 11:34 87 08/20/20 09:00 Room Air 08/20/20 08:45 100.6 08/20/20 08:05 116 08/20/20 08:00 100.8 116 20 94/50 (65) 96 08/20/20 04:07 99.4 74 20 94/54 (67) 98 08/20/20 04:07 73 08/20/20 00:21 113 08/20/20 00:20 101.6 08/20/20 00:18 102.3 117 22 108/61 (77) 98 Intake and Output 08/19/20 08/20/20 19:00 07:00 Intake Total 700 ml 77.5 ml Balance 700 ml 77.5 ml Free Water 150 ml IV Total 27.5 ml Tube Feeding 550 ml 50 ml # Voids 3 3 # Bowel Movements 1 3 Laboratory Tests 08/19/20 23:50: Urine Color Yellow, Urine Appearance Clear, Urine pH 7, Urine Specific [place] 1.005, Urine Protein 2+H, Urine Glucose (UA) Negative, Urine Ketones Negative, Urine Blood Negative, Urine Nitrite PositiveH, Urine Bilirubin Negative, Urine Urobilinogen Normal, Urine Leukocyte Esterase 1+H, Urine RBC 0-2H, Urine WBC 0- 2, Urine Squamous Epithelial Cells None, Urine Bacteria None 08/20/20 06:13: White Blood Count 16.4H, Red Blood Count 4.42L, Hemoglobin 13.8L, Hematocrit 42.0, Mean Corpuscular Volume 95, Mean Corpuscular Hemoglobin 31.3H, Mean Corpuscular Hemoglobin Concent 32.9, Red Cell Distribution Width 12.9, Platelet Count 212, Mean Platelet Volume 8.1, Neutrophils (%) (Auto) , Lymphocytes (%) (Auto) , Monocytes (%) (Auto) , Eosinophils (%) (Auto) , Basophils (%) (Auto) , Differential Total Cells Counted 100, Neutrophils % (Manual) 94H, Lymphocytes % (Manual) 3L, Monocytes % (Manual) 3, Eosinophils % (Manual) 0, Basophils % (Manual) 0, Band Neutrophils 0, Platelet Estimate Adequate, Platelet Morphology Normal, Red Blood Cell Morphology Normal, Sodium Level 137, Potassium Level 3.6, Chloride Level 101, Carbon Dioxide Level 27, Anion Gap 9, Blood Urea Nitrogen 31H, Creatinine 1.7#H, Estimat Glomerular Filtration Rate 41.9, Glucose Level 107H, Calcium Level 9.0 Height (Feet): 5 Height (Inches): 10.00 Weight (Pounds): 154 General Appearance: WD/WN, alert EENT: normal ENT inspection Neck: supple Cardiovascular: normal rate, regular rhythm, no gallop/murmur, no JVD Respiratory/Chest: lungs clear, normal breath sounds, no respiratory distress, no accessory muscle use Abdomen: normal bowel sounds, non tender, soft, no organomegaly, no mass Extremities: non-tender, normal inspection Assessment/Plan Status Narrative Patient developed severe bradycardia yesterday has required the use of epinephrine however patient is more stable today stable his lungs are clear is no pleural effusion and he has no new report review of the available report revealed the patient has minimal leukocytosis is still remains tachycardic with low-grade fever better than in the previous few days laboratory tests will be done in a.Aime Sewell MD, MD Aug 20, 2020 22:58
--- NOTE | 2020-08-20 23:36 | Cardiology Progress Note ---
Subjective DATE OF SERVICE: Aug 20, 2020 Developed rapid atrial fibrillation yesterday. Now remains with sinus rhythm and sinus tachycardia. Febrile above 102F yesterday, with concomitant increase in WBC to 20K; both improved slightly today. Objective Last 24 Hour Vital Signs Date Time Temp Pulse Resp B/P (MAP) Pulse Ox O2 Delivery O2 Flow Rate FiO2 08/20/20 17:07 100.0 08/20/20 16:00 100.6 103 20 100/55 (70) 98 08/20/20 15:22 103 08/20/20 11:55 99.7 93 18 91/45 (60) 98 08/20/20 11:34 87 08/20/20 09:00 Room Air 08/20/20 08:45 100.6 08/20/20 08:05 116 08/20/20 08:00 100.8 116 20 94/50 (65) 96 08/20/20 04:07 99.4 74 20 94/54 (67) 98 08/20/20 04:07 73 08/20/20 00:21 113 08/20/20 00:20 101.6 08/20/20 00:18 102.3 117 22 108/61 (77) 98 HEENT: Thin Trach secretions RHYTHM: NSR, ST LUNGS: bilateral rhonchi CARDIAC: normal rate, regular rhythm, normal S1 and S2, irregularly irregular, tachycardia ABDOMEN: normal bowel sounds, non tender, soft, G-Tube intact EXTREMITIES: other - Non communicative Laboratory Tests Test 08/19/20 23:50 08/20/20 06:13 Urine Color Yellow Urine Appearance Clear Urine pH 7 (4.5-8.0) Urine Specific [place] 1.005 (1.005-1.035) Urine Protein 2+ (NEGATIVE) H Urine Glucose (UA) Negative (NEGATIVE) Urine Ketones Negative (NEGATIVE) Urine Blood Negative (NEGATIVE) Urine Nitrite Positive (NEGATIVE) H Urine Bilirubin Negative (NEGATIVE) Urine Urobilinogen Normal MG/DL (0.0-1.0) Urine Leukocyte Esterase 1+ (NEGATIVE) H Urine RBC 0-2 /HPF (0 - 0) H Urine WBC 0-2 /HPF (0 - 0) Urine Squamous Epithelial Cells None /LPF (NONE/OCC) Urine Bacteria None /HPF (NONE) White Blood Count 16.4 K/UL (4.8-10.8) H Red Blood Count 4.42 M/UL (4.70-6.10) L Hemoglobin 13.8 G/DL (14.2-18.0) L Hematocrit 42.0 % (42.0-52.0) Mean Corpuscular Volume 95 FL (80-99) Mean Corpuscular Hemoglobin 31.3 PG (27.0-31.0) H Mean Corpuscular Hemoglobin Concent 32.9 G/DL (32.0-36.0) Red Cell Distribution Width 12.9 % (11.6-14.8) Platelet Count 212 K/UL (150-450) Mean Platelet Volume 8.1 FL (6.5-10.1) Neutrophils (%) (Auto) % (45.0-75.0) Lymphocytes (%) (Auto) % (20.0-45.0) Monocytes (%) (Auto) % (1.0-10.0) Eosinophils (%) (Auto) % (0.0-3.0) Basophils (%) (Auto) % (0.0-2.0) Differential Total Cells Counted 100 Neutrophils % (Manual) 94 % (45-75) H Lymphocytes % (Manual) 3 % (20-45) L Monocytes % (Manual) 3 % (1-10) Eosinophils % (Manual) 0 % (0-3) Basophils % (Manual) 0 % (0-2) Band Neutrophils 0 % (0-8) Platelet Estimate Adequate Platelet Morphology Normal Red Blood Cell Morphology Normal Sodium Level 137 MMOL/L (136-145) Potassium Level 3.6 MMOL/L (3.5-5.1) Chloride Level 101 MMOL/L (98-107) Carbon Dioxide Level 27 MMOL/L (21-32) Anion Gap 9 mmol/L (5-15) Blood Urea Nitrogen 31 mg/dL (7-18) H Creatinine 1.7 MG/DL (0.55-1.30) #H Estimat Glomerular Filtration Rate 41.9 mL/min (>60) Glucose Level 107 MG/DL (74-106) H Calcium Level 9.0 MG/DL (8.5-10.1) Assessment/Plan Assessment/Plan Sepsis with shock PAFibrillation with RVR Sinus bradycardia resolved Hypertension Hyponatremia Hypokalemia Dementia Borderline TSH level Acute renal failure Empiric antimicrobials Anti-pyretics Hold additional Beta kristin rx at present Telemetry Saline hydration Replace K+ Monitor Mg++ Consider low dose thyroid replacement in future Sin Zuniga MD Aug 20, 2020 23:36
[2020-08-21] VITALS: BP 137/84
[2020-08-21] MEDS: Vancomycin 1 GM in D5W 275 ML IVPB SCH ×3 (00:05→21:00)
--- NOTE | 2020-08-21 00:29 | Consultation ---
DATE OF CONSULTATION: 08/16/2020 CARDIOLOGY CONSULTATION CONSULTING PHYSICIAN: Sin Zuniga MD REQUESTING PHYSICIAN: Aime Wylie MD REASON FOR CONSULTATION: Bradycardia. HISTORY OF PRESENT ILLNESS: This 54-year-old paraplegic with a tracheostomy and respiratory failure, was brought into the emergency room from his senior living facility with low heart rate. He was hypoxic on occasion. He was seen by surgeon and his trach site was repositioned. I have been asked to address his slow heart rate. Records are reviewed. The patient is unable to give reliable history. There is no prior history of underlying cardiac disease. PAST MEDICAL HISTORY: Includes paraplegia, respiratory failure with tracheostomy, seizure disorder, schizophrenia, prostatic hypertrophy, dysphagia with G-tube. SOCIAL HISTORY: Negative for smoking or alcohol abuse. ALLERGIES: None known. MEDICATIONS: Reviewed. REVIEW OF SYSTEMS: Unable to obtain review of systems. PHYSICAL EXAMINATION: VITAL SIGNS: Temperature afebrile, blood pressure 111/68, heart rate 58, respiratory rate 16 last night. Presently, blood pressure 114/69, heart rate 56, respiratory rate 18, temperature afebrile, oxygen saturation on room air 96%. HEAD AND NECK: Trach site with no bleeding. Thin secretions. LUNGS: Bilateral breath sounds. Few rhonchi. CARDIAC: Regular rhythm. Slow rate. Normal S1, S2. No murmur. ABDOMEN: Soft. No focal tenderness. G-tube intact. EXTREMITIES: No edema. Muscle atrophy noted. LABORATORY DATA: Sodium 131, potassium 5, bicarb 28, BUN 11, creatinine 0.8. Magnesium 2.2. White count 8.2, hemoglobin 13.1. IMPRESSION: Bradycardia, asymptomatic, possibly due to acute respiratory compromise; hyponatremia; hypochloremia; hypovolemia; and dehydration. Troponin is negative. PLAN: Continue cardiac monitoring. IV saline hydration. Reassess antiseizure medications. Atropine at bedside. DVT prophylaxis. Check thyroid panel. Sin Zuniga M.D. : Priscila JOB#: [id number] CC:
--- NOTE | 2020-08-21 02:30 | NUR ---
NURSE NOTES: Pt is alert, cont feeding as ordered. HOB elevated as tolerated. Remains afebrile at this time. Cont ABT IV zosyn, initiated ABT vanco per order for septic shock, tolerated well. Peg tube patent & in placed, No residual noted. Trach in placed, no bleeding, scant, thin secretion noted. Foul, liquid stool noted, sent specimen for stool for c-diff toxin. Safety and comfort measures, contact precautions for MRSA in nares maintained, call light within reach.
[2020-08-21 04:00] VITALS: BP 125/72
[2020-08-21] MEDS: D5NS 1,000 ML IV SCH ×2 (04:33→21:09)
[2020-08-21] MEDS: Piperacillin/Tazobactam 3.375 GM in NS 110 ML IVPB SCH ×3 (05:25→22:30)
[2020-08-21 06:19] LABS: HEMATOCRIT 33.4 % (42.0-52.0); HEMOGLOBIN 11.2 G/DL (14.2-18.0); MEAN CORPUSCULAR VOLUME 95 FL (80-99); PLATELET COUNT 140 K/UL (150-450); RED BLOOD COUNT 3.52 M/UL (4.70-6.10); RED CELL DISTRIBUTION WIDTH 12.9 % (11.6-14.8); WHITE BLOOD COUNT 8.6 K/UL (4.8-10.8)
--- NOTE | 2020-08-21 06:38 | Hematology/Onc Progress Note ---
Assessment/Plan Assessment/Plan Assessment and recs # Anemia likely related to chronic disease --> hgb currently stable --> anemia panel prn --> hgb 13.7-->11.2 # Leukocytosis with a wbc 21 --> on abx zosyn-->zosyn/vanc --> smear is noted # Thrombocytopenia -> r/o infection -> plt 140 --> trend as needed # Bradycardia -- meds reviewed --> ekg, tele monitoring --> as per cards recs --> meds noted --> atropine prn basis # Hyponatremia --> per renal care # Atelectasis # Resp failure/trach -> surg aware # Paraplegia # Dysphagia s/p peg # Dehydration DW Rn Subjective HEENT: Denies: no symptoms, eye pain, blurred vision, tearing, double vision, ear pain, ear discharge, nose pain, nose congestion, throat pain, throat swelling, mouth pain, mouth swelling, other Cardiovascular: Denies: no symptoms, chest pain, edema, irregular heart rate, lightheadedness, palpitations, syncope, other Gastrointestinal/Abdominal: Denies: no symptoms, abdomen distended, abdominal pain, black stools, tarry stools, blood in stool, constipated, diarrhea, difficulty swallowing, nausea, poor appetite, poor fluid intake, rectal bleeding, vomiting, other Genitourinary: Denies: no symptoms, burning, discharge, frequency, flank pain, hematuria, incontinence, pain, urgency, other Allergies: Coded Allergies: No Known Allergies (Unverified , 08/15/20) All Systems: reviewed and negative except above Subjective 08/17 nv, labs reviewed, meds noted, covering im 08/18 nv, with gt, osmolite, no bleeding, labs reviewed 08/19 refusing medications, combative, no bleeding 08/20 on zosyn, is continuing, wbc is higher at 23k 08/21 on vanc/zosyn, labs noted, no bleeding Objective Objective Current Medications Medications (Trade) Dose Ordered Sig/Myesha Route PRN Reason Start Time Stop Time Status Last Admin Dose Admin Acetaminophen (Tylenol) 500 mg EVERY 4 HOURS PRN GT Temp >100.5 08/16/20 05:30 09/15/20 05:29 08/20/20 16:37 Clonidine HCl (Catapres Tab) 0.1 mg Q4H PRN GT For High Blood Pressure 08/16/20 05:30 11/14/20 05:29 Dextrose/Sodium Chloride 1,000 ml @ 75 mls/hr [id number] IV 08/20/20 15:30 09/19/20 15:29 08/20/20 17:09 Donepezil HCl (Aricept) 10 mg QHS GT 08/20/20 22:00 09/19/20 21:59 08/20/20 21:54 Famotidine (Pepcid) 20 mg BID GT 08/16/20 09:00 11/14/20 08:59 08/20/20 17:09 Fish Oil (Fish Oil) 1,000 mg BID ORAL 08/16/20 09:00 09/15/20 08:59 08/20/20 17:09 Heparin Sodium (Porcine) (Heparin 5000 units/ml) 5,000 units EVERY 12 HOURS SUBQ 08/16/20 09:00 09/30/20 08:59 08/20/20 21:50 Levetiracetam (Keppra) 1,000 mg Q12HR GT 08/16/20 09:00 09/30/20 08:59 08/20/20 21:49 Multivitamins (Multivitamins) 1 tab DAILY GT 08/16/20 09:00 09/15/20 08:59 08/20/20 08:15 Mupirocin (Bactroban Oint) 1 applic DAILY TOPIC 08/21/20 09:00 08/27/20 09:01 Piperacillin Sod/ Tazobactam Sod 3.375 gm/Sodium Chloride 110 ml @ 27.5 mls/hr Q8HR IVPB 08/19/20 22:00 08/26/20 21:59 08/21/20 05:25 Potassium Chloride (K-Dur) 40 meq DAILY GT 08/20/20 09:00 11/16/20 10:29 08/20/20 08:16 Vancomycin HCl 1 gm/Dextrose 275 ml @ 184 mls/hr Q12HR IVPB 08/20/20 23:00 08/25/20 22:59 08/21/20 00:05 Last 24 Hour Vital Signs Date Time Temp Pulse Resp B/P (MAP) Pulse Ox O2 Delivery O2 Flow Rate FiO2 08/21/20 04:00 100 08/21/20 04:00 99.7 100 21 125/72 (89) 96 08/21/20 00:00 99.5 94 20 137/84 (101) 95 08/21/20 00:00 94 08/20/20 21:00 Room Air 08/20/20 20:15 87 08/20/20 20:00 99.6 72 20 99/59 (72) 96 08/20/20 17:07 100.0 08/20/20 16:00 100.6 103 20 100/55 (70) 98 08/20/20 15:22 103 08/20/20 11:55 99.7 93 18 91/45 (60) 98 08/20/20 11:34 87 08/20/20 09:00 Room Air 08/20/20 08:45 100.6 08/20/20 08:05 116 08/20/20 08:00 100.8 116 20 94/50 (65) 96 08/20/20 04:07 99.4 74 20 94/54 (67) 98 08/20/20 04:07 73 08/20/20 00:21 113 08/20/20 00:20 101.6 08/20/20 00:18 102.3 117 22 108/61 (77) 98 08/19/20 22:30 102.3 92 24 104/63 (77) 98 08/19/20 21:00 Room Air 08/19/20 20:00 99.6 72 22 99/59 (72) 96 08/19/20 20:00 70 08/19/20 16:47 99.7 08/19/20 16:00 102.3 92 20 125/93 (104) 95 08/19/20 16:00 100 08/19/20 11:58 91 08/19/20 11:57 100.0 89 20 115/83 (94) 96 08/19/20 11:22 125 120/94 08/19/20 09:00 Room Air 08/19/20 08:00 98.2 130 20 135/59 (84) 97 08/19/20 07:49 148 Intake and Output 08/20/20 08/21/20 19:00 07:00 Intake Total 2117.5 ml Output Total 350 ml Balance 1767.5 ml Free Water 300 ml IV Total 1267.5 ml Tube Feeding 550 ml Output Urine Total 350 ml # Voids 2 # Bowel Movements 1 Labs Test 08/18/20 06:57 08/19/20 10:00 08/19/20 23:50 08/20/20 06:13 White Blood Count 8.0 K/UL (4.8-10.8) 20.6 K/UL (4.8-10.8) 16.4 K/UL (4.8-10.8) Red Blood Count 4.37 M/UL (4.70-6.10) 4.29 M/UL (4.70-6.10) 4.42 M/UL (4.70-6.10) Hemoglobin 13.8 G/DL (14.2-18.0) 13.7 G/DL (14.2-18.0) 13.8 G/DL (14.2-18.0) Hematocrit 40.1 % (42.0-52.0) 40.0 % (42.0-52.0) 42.0 % (42.0-52.0) Mean Corpuscular Volume 92 FL (80-99) 93 FL (80-99) 95 FL (80-99) Mean Corpuscular Hemoglobin 31.5 PG (27.0-31.0) 32.0 PG (27.0-31.0) 31.3 PG (27.0-31.0) Mean Corpuscular Hemoglobin Concent 34.4 G/DL (32.0-36.0) 34.4 G/DL (32.0-36.0) 32.9 G/DL (32.0-36.0) Red Cell Distribution Width 12.0 % (11.6-14.8) 12.1 % (11.6-14.8) 12.9 % (11.6-14.8) Platelet Count 238 K/UL (150-450) 236 K/UL (150-450) 212 K/UL (150-450) Mean Platelet Volume 8.3 FL (6.5-10.1) 7.6 FL (6.5-10.1) 8.1 FL (6.5-10.1) Neutrophils (%) (Auto) 69.3 % (45.0-75.0) % (45.0-75.0) % (45.0-75.0) Lymphocytes (%) (Auto) 20.2 % (20.0-45.0) % (20.0-45.0) % (20.0-45.0) Monocytes (%) (Auto) 6.7 % (1.0-10.0) % (1.0-10.0) % (1.0-10.0) Eosinophils (%) (Auto) 3.0 % (0.0-3.0) % (0.0-3.0) % (0.0-3.0) Basophils (%) (Auto) 0.8 % (0.0-2.0) % (0.0-2.0) % (0.0-2.0) Sodium Level 133 MMOL/L (136-145) 140 MMOL/L (136-145) 137 MMOL/L (136-145) Potassium Level 3.1 MMOL/L (3.5-5.1) 3.5 MMOL/L (3.5-5.1) 3.6 MMOL/L (3.5-5.1) Chloride Level 97 MMOL/L (98-107) 104 MMOL/L (98-107) 101 MMOL/L (98-107) Carbon Dioxide Level 28 MMOL/L (21-32) 25 MMOL/L (21-32) 27 MMOL/L (21-32) Anion Gap 8 mmol/L (5-15) 11 mmol/L (5-15) 9 mmol/L (5-15) Blood Urea Nitrogen 10 mg/dL (7-18) 15 mg/dL (7-18) 31 mg/dL (7-18) Creatinine 0.8 MG/DL (0.55-1.30) 1.0 MG/DL (0.55-1.30) 1.7 MG/DL (0.55-1.30) Estimat Glomerular Filtration Rate > 60 mL/min (>60) > 60 mL/min (>60) 41.9 mL/min (>60) Glucose Level 98 MG/DL (74-106) 142 MG/DL (74-106) 107 MG/DL (74-106) Uric Acid 3.5 MG/DL (2.6-7.2) Calcium Level 8.9 MG/DL (8.5-10.1) 9.1 MG/DL (8.5-10.1) 9.0 MG/DL (8.5-10.1) Phosphorus Level 3.7 MG/DL (2.5-4.9) Magnesium Level 2.2 MG/DL (1.8-2.4) Total Bilirubin 0.6 MG/DL (0.2-1.0) Aspartate Amino Transf (AST/SGOT) 25 U/L (15-37) Alanine Aminotransferase (ALT/SGPT) 30 U/L (12-78) Alkaline Phosphatase 130 U/L (46-116) Total Protein 8.7 G/DL (6.4-8.2) Albumin 4.0 G/DL (3.4-5.0) Globulin 4.7 g/dL Albumin/Globulin Ratio 0.9 (1.0-2.7) Differential Total Cells Counted 100 100 Neutrophils % (Manual) 91 % (45-75) 94 % (45-75) Lymphocytes % (Manual) 2 % (20-45) 3 % (20-45) Monocytes % (Manual) 4 % (1-10) 3 % (1-10) Eosinophils % (Manual) 0 % (0-3) 0 % (0-3) Basophils % (Manual) 0 % (0-2) 0 % (0-2) Band Neutrophils 3 % (0-8) 0 % (0-8) Platelet Estimate Adequate Adequate Platelet Morphology Normal Normal Red Blood Cell Morphology Normal Normal Urine Color Yellow Urine Appearance Clear Urine pH 7 (4.5-8.0) Urine Specific Thomas 1.005 (1.005-1.035) Urine Protein 2+ (NEGATIVE) Urine Glucose (UA) Negative (NEGATIVE) Urine Ketones Negative (NEGATIVE) Urine Blood Negative (NEGATIVE) Urine Nitrite Positive (NEGATIVE) Urine Bilirubin Negative (NEGATIVE) Urine Urobilinogen Normal MG/DL (0.0-1.0) Urine Leukocyte Esterase 1+ (NEGATIVE) Urine RBC 0-2 /HPF (0 - 0) Urine WBC 0-2 /HPF (0 - 0) Urine Squamous Epithelial Cells None /LPF (NONE/OCC) Urine Bacteria None /HPF (NONE) Test 08/21/20 05:39 White Blood Count 8.6 K/UL (4.8-10.8) Red Blood Count 3.52 M/UL (4.70-6.10) Hemoglobin 11.2 G/DL (14.2-18.0) Hematocrit 33.4 % (42.0-52.0) Mean Corpuscular Volume 95 FL (80-99) Mean Corpuscular Hemoglobin 31.8 PG (27.0-31.0) Mean Corpuscular Hemoglobin Concent 33.6 G/DL (32.0-36.0) Red Cell Distribution Width 12.9 % (11.6-14.8) Platelet Count 140 K/UL (150-450) Mean Platelet Volume 8.3 FL (6.5-10.1) Neutrophils (%) (Auto) % (45.0-75.0) Lymphocytes (%) (Auto) % (20.0-45.0) Monocytes (%) (Auto) % (1.0-10.0) Eosinophils (%) (Auto) % (0.0-3.0) Basophils (%) (Auto) % (0.0-2.0) Micro Microbiology Date/Time Source Procedure Growth Status 08/21/20 00:10 Stool Clostridium difficile Toxin Assay - Final Complete Height (Feet): 5 Height (Inches): 10.00 Weight (Pounds): 154 Objective Physical Exam Vitals: noted General: no apparent distress, alert, Chronically Ill HEENT: bilateral eye PERRL, bilateral eye EOMI Respiratory: chest non-tender, lungs clear, normal breath sounds Cardiovascular: regular rate, rhythm, no murmur Gastrointestinal: normal bowel sounds ++gt Musculoskeletal: back normal, other - contracted Psychiatric: mood/affect normal Matthew Batista MD Aug 21, 2020 06:38
[2020-08-21 06:55] LABS: ALANINE AMINOTRANSFERASE 106 U/L (12-78); ALBUMIN 3.3 G/DL (3.4-5.0); ALBUMIN/GLOBULIN RATIO 0.8 (1.0-2.7); ALKALINE PHOSPHATASE 93 U/L (46-116); ANION GAP 8 mmol/L (5-15); ASPARTATE AMINO TRANSFERASE 82 U/L (15-37); BILIRUBIN,TOTAL 0.4 MG/DL (0.2-1.0); BLOOD UREA NITROGEN 15 mg/dL (7-18); CARBON DIOXIDE 27 MMOL/L (21-32); CHLORIDE 103 MMOL/L (98-107); CREATININE 0.9 MG/DL (0.55-1.30); PHOSPHORUS 1.4 MG/DL (2.5-4.9); POTASSIUM 3.7 MMOL/L (3.5-5.1); SODIUM 138 MMOL/L (136-145)
--- NOTE | 2020-08-21 07:42 | NUR ---
NURSE HAND-OFF REPORT: Important Events on Shift: Pt had 3 episodes of foul diarrhea, 3rd one was soft, c-diff stool sent; negative. Started on vanco for septic shock, cont zosyn. Patient Status: Diet: OSmolite 1.5@50cc/hr Pending Orders: Pending Results/Labs: Pending notification: Latest Vital Signs: Temperature 99.7 , Pulse 100 , B/P 125 /72 , Respiratory Rate 21 , O2 SAT 96 , Room Air, O2 Flow Rate . Vital Sign Comment: EKG Rhythm: Sinus Rhythm Rhythm change?: N Notified?: Y -Dr Nadia JOSHI Response: Message left await call Latest Palm Fall Score: 70 Fall Risk: High Risk Safety Measures: Call light Within Reach, Bed Alarm Zone 1, Side Rails Side Rails x3, Bed position Low and Locked. Fall Precautions: Yellow Socks Report given to .
[2020-08-21 08:00] VITALS: BP 142/66
[2020-08-21] MEDS: levETIRAcetam 500mg/5ml Liquid GT SCH ×2 (10:16→21:00)
[2020-08-21] MEDS: Heparin 5000 units/ml inj SUBQ SCH ×2 (10:18→21:02)
[2020-08-21] MEDS: Potassium Phosphate 15mm/250ml 250 ML IVPB SCH ×2 (10:23→15:29)
--- NOTE | 2020-08-21 11:12 | Surgery Progress Note ---
Surgery Progress Note Subjective Additional Comments febrile, wbc resolved tolerating diet trach capped and respiratory stable Objective Last 24 Hour Vital Signs Date Time Temp Pulse Resp B/P (MAP) Pulse Ox O2 Delivery O2 Flow Rate FiO2 08/21/20 08:00 101.7 83 20 142/66 (91) 94 08/21/20 04:00 100 08/21/20 04:00 99.7 100 21 125/72 (89) 96 08/21/20 00:00 99.5 94 20 137/84 (101) 95 08/21/20 00:00 94 08/20/20 21:00 Room Air 08/20/20 20:15 87 08/20/20 20:00 99.6 72 20 99/59 (72) 96 08/20/20 17:07 100.0 08/20/20 16:00 100.6 103 20 100/55 (70) 98 08/20/20 15:22 103 08/20/20 11:55 99.7 93 18 91/45 (60) 98 08/20/20 11:34 87 I&O Intake and Output 08/20/20 08/21/20 19:00 07:00 Intake Total 2117.5 ml 50 ml Output Total 350 ml 600 ml Balance 1767.5 ml -550 ml Free Water 300 ml IV Total 1267.5 ml Tube Feeding 550 ml 50 ml Output Urine Total 350 ml 600 ml # Voids 2 # Bowel Movements 1 3 Dressing: saturated Cardiovascular: RSR Respiratory: decreased breath sounds Abdomen: soft, flat, non-tender, present bowel sounds, non-distended Extremities: no edema, no tenderness, no cyanosis Laboratory Tests Test 08/21/20 05:39 White Blood Count 8.6 K/UL (4.8-10.8) Red Blood Count 3.52 M/UL (4.70-6.10) L Hemoglobin 11.2 G/DL (14.2-18.0) L Hematocrit 33.4 % (42.0-52.0) L Mean Corpuscular Volume 95 FL (80-99) Mean Corpuscular Hemoglobin 31.8 PG (27.0-31.0) H Mean Corpuscular Hemoglobin Concent 33.6 G/DL (32.0-36.0) Red Cell Distribution Width 12.9 % (11.6-14.8) Platelet Count 140 K/UL (150-450) L Mean Platelet Volume 8.3 FL (6.5-10.1) Neutrophils (%) (Auto) % (45.0-75.0) Lymphocytes (%) (Auto) % (20.0-45.0) Monocytes (%) (Auto) % (1.0-10.0) Eosinophils (%) (Auto) % (0.0-3.0) Basophils (%) (Auto) % (0.0-2.0) Differential Total Cells Counted 100 Neutrophils % (Manual) 84 % (45-75) H Lymphocytes % (Manual) 14 % (20-45) L Monocytes % (Manual) 2 % (1-10) Eosinophils % (Manual) 0 % (0-3) Basophils % (Manual) 0 % (0-2) Band Neutrophils 0 % (0-8) Platelet Estimate Decreased L Platelet Morphology Normal Red Blood Cell Morphology Normal Sodium Level 138 MMOL/L (136-145) Potassium Level 3.7 MMOL/L (3.5-5.1) Chloride Level 103 MMOL/L (98-107) Carbon Dioxide Level 27 MMOL/L (21-32) Anion Gap 8 mmol/L (5-15) Blood Urea Nitrogen 15 mg/dL (7-18) Creatinine 0.9 MG/DL (0.55-1.30) Estimat Glomerular Filtration Rate > 60 mL/min (>60) Glucose Level 137 MG/DL (74-106) H Uric Acid 1.4 MG/DL (2.6-7.2) L Calcium Level 9.0 MG/DL (8.5-10.1) Phosphorus Level 1.4 MG/DL (2.5-4.9) L Magnesium Level 2.3 MG/DL (1.8-2.4) Total Bilirubin 0.4 MG/DL (0.2-1.0) Aspartate Amino Transf (AST/SGOT) 82 U/L (15-37) H Alanine Aminotransferase (ALT/SGPT) 106 U/L (12-78) H Alkaline Phosphatase 93 U/L (46-116) Total Protein 7.3 G/DL (6.4-8.2) Albumin 3.3 G/DL (3.4-5.0) L Globulin 4.0 g/dL Albumin/Globulin Ratio 0.8 (1.0-2.7) L Plan Problems: (1) Trachea displaced Assessment & Plan: Lungs: Reduced lung volumes. Patchy atelectasis in the left lung base. Pleural space: Unremarkable. No pneumothorax. Heart: Unremarkable. No cardiomegaly. Mediastinum: Unremarkable. Bones/joints: No acute fracture. Tubes, lines and devices: Tracheostomy. IMPRESSION: Reduced lung volumes. Patchy atelectasis in the left lung base. trach remains stable cont cap as respiratory trial stable (2) Bradycardia (3) Hyponatremia (4) Elevated alkaline phosphatase level Assessment & Plan: abd us noted labs okay exam benign okay for diet trend labs no acute surgical intervention planned Liver: The liver measures 17 cm. No intrahepatic bile duct dilation. Gallbladder: No definite cholelithiasis. Suspect a mild bladder sludge. No gallbladder wall thickening or pericholecystic fluid. Common bile duct: Unremarkable as visualized. No stones. No dilation . Pancreas: Unremarkable as visualized. Kidneys: The right kidney measures 12.1 cm. The left kidney measures 8.8 cm. No stones. No hydronephrosis. Spleen: Nonvisualized spleen. Aorta: The aorta is measured at 2.3 cm. This is slightly over measured by the technologist. Inferior vena cava: Unremarkable. IMPRESSION: Mild gallbladder sludge. No ultrasound evidence of acute cholecystitis. Evaluation limited due to patient limitations. Nonvisualized spleen. DAILY ESTIMATED NEEDS: Needs based on pulmonary, 70kg 25-30 kcals/kg 2140-4035 total kcals 1-1.5 g protein/kg 70-105 g total protein 25-30 mL/kg 3798-9661 total fluid mLs NUTRITION DIAGNOSIS: Swallowing difficulty R/T respiratory status and dysphagia as evidenced by h/o trach and GT placement, pt on pureed texture diet w/ HTL and nocturnal GT feeds CONSTRUCTION CODE ADMINISTRATOR, NPO at this time CURRENT TF:Osmolite 1.5 @ 50ml/hr x 24 hrs PO DIET RECOMMENDATIONS: IF SAFE FOR ORAL DIET -> liberalized regular/ texture per IT ASSISTANT ENTERAL NUTRITION RECOMMENDATIONS: For continuous TF-> Osmolite 1.5 @ 50ml/hr x 24 hrs to provide 1200ml, 1800kcal, 94g prot, 914ml free water * For continuous TF, rec continue Osmolite 1.5 @ 50ml/hr x 24 hrs -> HOB over 30 degrees/ H2O flush 250ml q 6hrs ------ * Monitor IT ASSISTANT eval and rec, will provide nocturnal TF rec if appropriate ADDITIONAL RECOMMENDATIONS: * Per [facility]: HT=65" and QX=[id number] (08/05/20) * Monitor IT ASSISTANT rec: pt on pureed moist texture w/ HTL TID CONSTRUCTION CODE ADMINISTRATOR -> if not safe for oral diet, rec continuous TF rec as above * Monitor lytes, replete as needed Franky Carrizales Aug 21, 2020 11:12
[2020-08-21 12:00] VITALS: BP 92/51
--- NOTE | 2020-08-21 12:11 | Nephrology Progress Note ---
Assessment/Plan Problem List: (1) Hyponatremia (2) Bradycardia (3) Trachea displaced (4) TERRENCE (acute kidney injury) Assessment Hyponatremia: Etiology work-up ordered and in process Bradycardia Vent dependent PEG dependent BPH Plan August 21: Remains febrile. Serum creatinine normalized. Low phosphorus addressed. Continue to monitor renal parameters and electrolytes. Blood pressure improved. August 20: Patient febrile. Serum creatinine keith to 1.7. Blood pressure 90 systolic. Will give albumin and saline bolus and will start on IV hydration. Continue to monitor renal parameters. Per orders. August 19: Labs reviewed. Electrolytes improved. Will discontinue Lasix. Continue to monitor electrolytes. August 18: Labs reviewed. Serum sodium slightly higher. Potassium supplement given. Lasix and 3% saline to be continued aim to keep output more than intake. August 17: Trial of 3% saline and Lasix. Monitor serum sodium and electrolytes. Continue per consultants. Urine studies, urine spot sodium, urine osmolality shelter monitor Check TSH, uric acid, serum osmolality, lipid panel Further comments after above results Subjective ROS Limited/Unobtainable: No Constitutional: Reports: malaise Objective Objective Last 24 Hour Vital Signs Date Time Temp Pulse Resp B/P (MAP) Pulse Ox O2 Delivery O2 Flow Rate FiO2 08/21/20 09:00 Room Air 08/21/20 08:00 92 08/21/20 08:00 101.7 83 20 142/66 (91) 94 08/21/20 04:00 100 08/21/20 04:00 99.7 100 21 125/72 (89) 96 08/21/20 00:00 99.5 94 20 137/84 (101) 95 08/21/20 00:00 94 08/20/20 21:00 Room Air 08/20/20 20:15 87 08/20/20 20:00 99.6 72 20 99/59 (72) 96 08/20/20 17:07 100.0 08/20/20 16:00 100.6 103 20 100/55 (70) 98 08/20/20 15:22 103 Intake and Output 08/20/20 08/21/20 19:00 07:00 Intake Total 2117.5 ml 50 ml Output Total 350 ml 600 ml Balance 1767.5 ml -550 ml Free Water 300 ml IV Total 1267.5 ml Tube Feeding 550 ml 50 ml Output Urine Total 350 ml 600 ml # Voids 2 # Bowel Movements 1 3 Current Medications Medications (Trade) Dose Ordered Sig/Myesha Route PRN Reason Start Time Stop Time Status Last Admin Dose Admin Acetaminophen (Tylenol) 500 mg EVERY 4 HOURS PRN GT Temp >100.5 08/16/20 05:30 09/15/20 05:29 08/20/20 16:37 Clonidine HCl (Catapres Tab) 0.1 mg Q4H PRN GT For High Blood Pressure 08/16/20 05:30 11/14/20 05:29 Dextrose/Sodium Chloride 1,000 ml @ 75 mls/hr [id number] IV 08/20/20 15:30 09/19/20 15:29 08/20/20 17:09 Donepezil HCl (Aricept) 10 mg QHS GT 08/20/20 22:00 09/19/20 21:59 08/20/20 21:54 Famotidine (Pepcid) 20 mg BID GT 08/16/20 09:00 11/14/20 08:59 08/21/20 10:15 Fish Oil (Fish Oil) 1,000 mg BID ORAL 08/16/20 09:00 09/15/20 08:59 08/21/20 10:15 Heparin Sodium (Porcine) (Heparin 5000 units/ml) 5,000 units EVERY 12 HOURS SUBQ 08/16/20 09:00 09/30/20 08:59 08/21/20 10:18 Levetiracetam (Keppra) 1,000 mg Q12HR GT 08/16/20 09:00 09/30/20 08:59 08/21/20 10:16 Multivitamins (Multivitamins) 1 tab DAILY GT 08/16/20 09:00 09/15/20 08:59 08/21/20 10:15 Mupirocin (Bactroban Oint) 1 applic DAILY TOPIC 08/21/20 09:00 08/27/20 09:01 08/21/20 10:23 Piperacillin Sod/ Tazobactam Sod 3.375 gm/Sodium Chloride 110 ml @ 27.5 mls/hr Q8HR IVPB 08/19/20 22:00 08/26/20 21:59 08/21/20 05:25 Potassium Phosphate 250 ml @ 62.5 mls/hr Q4H IVPB 08/21/20 10:00 08/21/20 17:59 08/21/20 10:23 Potassium Chloride (K-Dur) 40 meq DAILY GT 08/20/20 09:00 11/16/20 10:29 08/21/20 10:15 Vancomycin HCl 1 gm/Dextrose 275 ml @ 184 mls/hr Q12HR IVPB 08/20/20 23:00 08/25/20 22:59 08/21/20 10:20 Laboratory Tests 08/21/20 05:39: White Blood Count 8.6, Red Blood Count 3.52L, Hemoglobin 11.2L, Hematocrit 33.4L , Mean Corpuscular Volume 95, Mean Corpuscular Hemoglobin 31.8H, Mean Corpuscular Hemoglobin Concent 33.6, Red Cell Distribution Width 12.9, Platelet Count 140L, Mean Platelet Volume 8.3, Neutrophils (%) (Auto) , Lymphocytes (%) (Auto) , Monocytes (%) (Auto) , Eosinophils (%) (Auto) , Basophils (%) (Auto) , Differential Total Cells Counted 100, Neutrophils % (Manual) 84H, Lymphocytes % (Manual) 14L, Monocytes % (Manual) 2, Eosinophils % (Manual) 0, Basophils % (Manual) 0, Band Neutrophils 0, Platelet Estimate DecreasedL, Platelet M orphology Normal, Red Blood Cell Morphology Normal, Sodium Level 138, Potassium Level 3.7, Chloride Level 103, Carbon Dioxide Level 27, Anion Gap 8, Blood Urea Nitrogen 15, Creatinine 0.9, Estimat Glomerular Filtration Rate > 60, Glucose Level 137H, Uric Acid 1.4L, Calcium Level 9.0, Phosphorus Level 1.4L, Magnesium Level 2.3, Total Bilirubin 0.4, Aspartate Amino Transf (AST/SGOT) 82H, Alanine Aminotransferase (ALT/SGPT) 106H, Alkaline Phosphatase 93, Total Protein 7.3, Albumin 3.3L, Globulin 4.0, Albumin/Globulin Ratio 0.8L Height (Feet): 5 Height (Inches): 10.00 Weight (Pounds): 154 General Appearance: no apparent distress, other - Febrile Cardiovascular: tachycardia Respiratory/Chest: decreased breath sounds Abdomen: distended Objective No change Chase Haynes MD Aug 21, 2020 12:10
[2020-08-21 15:52] VITALS: BP 108/63
[2020-08-21] MEDS ORDERED: Tubing IV Secondary IV ONE (17:21)
--- NOTE | 2020-08-21 19:49 | General Progress Note ---
Subjective Constitutional: Reports: no symptoms HEENT: Reports: no symptoms Cardiovascular: Reports: no symptoms Respiratory: Reports: no symptoms Gastrointestinal/Abdominal: Reports: no symptoms Genitourinary: Reports: no symptoms Neurologic/Psychiatric: Reports: no symptoms Endocrine: Reports: no symptoms Hematologic/Lymphatic: Reports: no symptoms Allergies: Coded Allergies: No Known Allergies (Unverified , 08/15/20) Objective Last 24 Hour Vital Signs Date Time Temp Pulse Resp B/P (MAP) Pulse Ox O2 Delivery O2 Flow Rate FiO2 08/21/20 16:00 95 08/21/20 15:52 100.2 83 19 108/63 (78) 95 08/21/20 12:00 100.8 80 18 92/51 (65) 95 08/21/20 12:00 80 08/21/20 09:00 Room Air 08/21/20 08:00 92 08/21/20 08:00 101.7 83 20 142/66 (91) 94 08/21/20 04:00 100 08/21/20 04:00 99.7 100 21 125/72 (89) 96 08/21/20 00:00 99.5 94 20 137/84 (101) 95 08/21/20 00:00 94 08/20/20 21:00 Room Air 08/20/20 20:15 87 08/20/20 20:00 99.6 72 20 99/59 (72) 96 Intake and Output 08/20/20 08/21/20 19:00 07:00 Intake Total 2117.5 ml 50 ml Output Total 350 ml 600 ml Balance 1767.5 ml -550 ml Free Water 300 ml IV Total 1267.5 ml Tube Feeding 550 ml 50 ml Output Urine Total 350 ml 600 ml # Voids 2 # Bowel Movements 1 3 Laboratory Tests 08/21/20 05:39: White Blood Count 8.6, Red Blood Count 3.52L, Hemoglobin 11.2L, Hematocrit 33.4L , Mean Corpuscular Volume 95, Mean Corpuscular Hemoglobin 31.8H, Mean Corpuscular Hemoglobin Concent 33.6, Red Cell Distribution Width 12.9, Platelet Count 140L, Mean Platelet Volume 8.3, Neutrophils (%) (Auto) , Lymphocytes (%) (Auto) , Monocytes (%) (Auto) , Eosinophils (%) (Auto) , Basophils (%) (Auto) , Differential Total Cells Counted 100, Neutrophils % (Manual) 84H, Lymphocytes % (Manual) 14L, Monocytes % (Manual) 2, Eosinophils % (Manual) 0, Basophils % (Manual) 0, Band Neutrophils 0, Platelet Estimate DecreasedL, Platelet Morphology Normal, Red Blood Cell Morphology Normal, Sodium Level 138, Potassium Level 3.7, Chloride Level 103, Carbon Dioxide Level 27, Anion Gap 8, Blood Urea Nitrogen 15, Creatinine 0.9, Estimat Glomerular Filtration Rate > 60, Glucose Level 137H, Uric Acid 1.4L, Calcium Level 9.0, Phosphorus Level 1.4L, Magnesium Level 2.3, Total Bilirubin 0.4, Aspartate Amino Transf (AST/SGOT) 82H, Alanine Aminotransferase (ALT/SGPT) 106H, Alkaline Phosphatase 93, Total Protein 7.3, Al bumin 3.3L, Globulin 4.0, Albumin/Globulin Ratio 0.8L Height (Feet): 5 Height (Inches): 10.00 Weight (Pounds): 154 General Appearance: WD/WN, alert EENT: normal ENT inspection Neck: supple Cardiovascular: normal rate, regular rhythm, no gallop/murmur, no JVD Respiratory/Chest: lungs clear, normal breath sounds, no respiratory distress, no accessory muscle use Abdomen: normal bowel sounds, non tender, soft, no organomegaly, no mass Extremities: non-tender Neurologic: alert, responsive Assessment/Plan Status Narrative Patient is awake alert with low-grade fever without tachycardia physical exam is unchanged his WBCs are normal laboratory tests are stable however we will continue with the penicillin 3.375 g IV piggyback every 6 vancomycin 1 g IV piggyback every 12 infectious disease consult will be called [place] consult will call as well to see if the patient can be extubated [place] laboratory tests will be done in a.m. as a Aime De Oliveira MD, MD Aug 21, 2020 19:49
[2020-08-21 20:15] VITALS: BP 103/55
[2020-08-21] MEDS: Donepezil 5mg Tab GT SCH (21:00)
--- NOTE | 2020-08-21 21:30 | NUR ---
Assumed pt's care at 1900, report given by MELIA Rajan. Pt is alert, verbal at times. No acute distress noted, respirations even & unlabored, satting 95% on room air. IVF cont @50cc/hr D5 1/2 NS. Peg tube patent and in placed, 10cc of residual. Cont IV vanco & zosyn for septic shock with no adv reactions. Condom cath intact. Seizure precautions in placed. Safety and comfort measures maintained, skin under soft restraints remains intact.
--- NOTE | 2020-08-21 21:34 | Cardiology Progress Note ---
Subjective DATE OF SERVICE: Aug 21, 2020 Sinus rhythm; no bradycardic episodes AND no recurrent AFib. No pauses. Still with fevers. No hypotensive episodes. Objective Last 24 Hour Vital Signs Date Time Temp Pulse Resp B/P (MAP) Pulse Ox O2 Delivery O2 Flow Rate FiO2 08/21/20 20:15 98.6 64 18 103/55 (71) 96 08/21/20 16:00 95 08/21/20 15:52 100.2 83 19 108/63 (78) 95 08/21/20 12:00 100.8 80 18 92/51 (65) 95 08/21/20 12:00 80 08/21/20 09:00 Room Air 08/21/20 08:00 92 08/21/20 08:00 101.7 83 20 142/66 (91) 94 08/21/20 04:00 100 08/21/20 04:00 99.7 100 21 125/72 (89) 96 08/21/20 00:00 99.5 94 20 137/84 (101) 95 08/21/20 00:00 94 HEENT: Thin Trach secretions RHYTHM: NSR, SB LUNGS: lungs clear bilaterally CARDIAC: regular rhythm, normal S1 and S2, bradycardia ABDOMEN: normal bowel sounds, non tender, soft, G-Tube intact EXTREMITIES: normal range of motion, non-tender, no calf tenderness, No edema Laboratory Tests Test 08/21/20 05:39 White Blood Count 8.6 K/UL (4.8-10.8) Red Blood Count 3.52 M/UL (4.70-6.10) L Hemoglobin 11.2 G/DL (14.2-18.0) L Hematocrit 33.4 % (42.0-52.0) L Mean Corpuscular Volume 95 FL (80-99) Mean Corpuscular Hemoglobin 31.8 PG (27.0-31.0) H Mean Corpuscular Hemoglobin Concent 33.6 G/DL (32.0-36.0) Red Cell Distribution Width 12.9 % (11.6-14.8) Platelet Count 140 K/UL (150-450) L Mean Platelet Volume 8.3 FL (6.5-10.1) Neutrophils (%) (Auto) % (45.0-75.0) Lymphocytes (%) (Auto) % (20.0-45.0) Monocytes (%) (Auto) % (1.0-10.0) Eosinophils (%) (Auto) % (0.0-3.0) Basophils (%) (Auto) % (0.0-2.0) Differential Total Cells Counted 100 Neutrophils % (Manual) 84 % (45-75) H Lymphocytes % (Manual) 14 % (20-45) L Monocytes % (Manual) 2 % (1-10) Eosinophils % (Manual) 0 % (0-3) Basophils % (Manual) 0 % (0-2) Band Neutrophils 0 % (0-8) Platelet Estimate Decreased L Platelet Morphology Normal Red Blood Cell Morphology Normal Sodium Level 138 MMOL/L (136-145) Potassium Level 3.7 MMOL/L (3.5-5.1) Chloride Level 103 MMOL/L (98-107) Carbon Dioxide Level 27 MMOL/L (21-32) Anion Gap 8 mmol/L (5-15) Blood Urea Nitrogen 15 mg/dL (7-18) Creatinine 0.9 MG/DL (0.55-1.30) Estimat Glomerular Filtration Rate > 60 mL/min (>60) Glucose Level 137 MG/DL (74-106) H Uric Acid 1.4 MG/DL (2.6-7.2) L Calcium Level 9.0 MG/DL (8.5-10.1) Phosphorus Level 1.4 MG/DL (2.5-4.9) L Magnesium Level 2.3 MG/DL (1.8-2.4) Total Bilirubin 0.4 MG/DL (0.2-1.0) Aspartate Amino Transf (AST/SGOT) 82 U/L (15-37) H Alanine Aminotransferase (ALT/SGPT) 106 U/L (12-78) H Alkaline Phosphatase 93 U/L (46-116) Total Protein 7.3 G/DL (6.4-8.2) Albumin 3.3 G/DL (3.4-5.0) L Globulin 4.0 g/dL Albumin/Globulin Ratio 0.8 (1.0-2.7) L Microbiology Date/Time Source Procedure Growth Status 08/21/20 00:10 Stool Clostridium difficile Toxin Assay - Final Complete Assessment/Plan Assessment/Plan Bradycardia Trach displacement Hypovolemia, mild Hyponatremia Mild hypothermia resolved Resp rx/vent Antimicrobials Continuous cardiac monitoring No current need for beta kristin rx Sin Zuniga MD Aug 21, 2020 21:34
[2020-08-22 00:30] VITALS: BP 128/68
[2020-08-22 04:50] VITALS: BP 108/54
[2020-08-22] MEDS: Piperacillin/Tazobactam 3.375 GM in NS 110 ML IVPB SCH ×3 (05:29→22:52)
--- NOTE | 2020-08-22 07:33 | NUR ---
NURSE HAND-OFF REPORT: Important Events on Shift: Patient remains stable, no seizures this shift. Restraints in placed, skin remains intact. Patient Status: Diet: Pending Orders: Pending Results/Labs: Pending MD notification: Latest Vital Signs: Temperature 98.6 , Pulse 54 , B/P 108 /54 , Respiratory Rate 20 , O2 SAT 96 , Room Air, O2 Flow Rate . Vital Sign Comment: EKG Rhythm: Sinus Bradycardia Rhythm change?: N MD Notified?: Y -Dr Nadia JOSHI Response: Message left await call Latest Palm Fall Score: 70 Fall Risk: High Risk Safety Measures: Call light Within Reach, Bed Alarm Zone 1, Side Rails Side Rails x3, Bed position Low and Locked. Fall Precautions: Yellow Socks Report given to .
[2020-08-22 08:00] VITALS: BP 130/61
[2020-08-22 08:26] LABS: BASOPHILS % (AUTO) 0.5 % (0.0-2.0); EOSINOPHILS % (AUTO) 2.1 % (0.0-3.0); HEMATOCRIT 32.9 % (42.0-52.0); HEMOGLOBIN 11.1 G/DL (14.2-18.0); LYMPHOCYTES % (AUTO) 20.8 % (20.0-45.0); MEAN CORPUSCULAR VOLUME 95 FL (80-99); MONOCYTES % (AUTO) 9.1 % (1.0-10.0); NEUTROPHILS % (AUTO) 67.6 % (45.0-75.0); PLATELET COUNT 126 K/UL (150-450); RED BLOOD COUNT 3.46 M/UL (4.70-6.10); RED CELL DISTRIBUTION WIDTH 12.8 % (11.6-14.8); WHITE BLOOD COUNT 7.9 K/UL (4.8-10.8)
--- NOTE | 2020-08-22 08:44 | Hematology/Onc Progress Note ---
Assessment/Plan Assessment/Plan Assessment and recs # Anemia likely related to chronic disease --> hgb currently stable --> anemia panel prn --> hgb 13.7-->11.2-->11 # Leukocytosis with a wbc 21 --> on abx zosyn-->zosyn/vanc --> smear is noted # Thrombocytopenia -> r/o infection -> plt 140->126 --> vital etiologies as needed --> trend as needed --> transfuse prn # Bradycardia -- meds reviewed --> ekg, tele monitoring --> as per cards recs --> meds noted --> atropine prn basis # Hyponatremia --> per renal care # Atelectasis # Resp failure/trach -> surg aware # Paraplegia # Dysphagia s/p peg # Dehydration DW Rn Subjective HEENT: Denies: no symptoms, eye pain, blurred vision, tearing, double vision, ear pain, ear discharge, nose pain, nose congestion, throat pain, throat swelling, mouth pain, mouth swelling, other Cardiovascular: Denies: no symptoms, chest pain, edema, irregular heart rate, lightheadedness, palpitations, syncope, other Gastrointestinal/Abdominal: Denies: no symptoms, abdomen distended, abdominal pain, black stools, tarry stools, blood in stool, constipated, diarrhea, difficulty swallowing, nausea, poor appetite, poor fluid intake, rectal bleeding, vomiting, other Genitourinary: Denies: no symptoms, burning, discharge, frequency, flank pain, hematuria, incontinence, pain, urgency, other Endocrine: Denies: no symptoms, excessive sweating, flushing, intolerance to cold, intolerance to heat, increased hunger, increased thirst, increased urine, unexplained weight gain, unexplained weight loss, other Hematologic/Lymphatic: Denies: no symptoms, anemia, easy bleeding, easy bruisi ng, adenopathy, other Allergies: Coded Allergies: No Known Allergies (Unverified , 08/15/20) Subjective 08/17 nv, labs reviewed, meds noted, covering im 08/18 nv, with gt, osmolite, no bleeding, labs reviewed 08/19 refusing medications, combative, no bleeding 08/20 on zosyn, is continuing, wbc is higher at 23k 08/21 on vanc/zosyn, labs noted, no bleeding 08/22 on abx, stable, with bradycardia, no bleeding, no fc Objective Objective Current Medications Medications (Trade) Dose Ordered Sig/Myesha Route PRN Reason Start Time Stop Time Status Last Admin Dose Admin Acetaminophen (Tylenol) 500 mg EVERY 4 HOURS PRN GT Temp >100.5 08/16/20 05:30 09/15/20 05:29 08/20/20 16:37 Clonidine HCl (Catapres Tab) 0.1 mg Q4H PRN GT For High Blood Pressure 08/16/20 05:30 11/14/20 05:29 Dextrose/Sodium Chloride 1,000 ml @ 50 mls/hr Q20H IV 08/20/20 15:30 09/19/20 15:29 08/21/20 21:09 Donepezil HCl (Aricept) 10 mg QHS GT 08/20/20 22:00 09/19/20 21:59 08/21/20 21:00 Famotidine (Pepcid) 20 mg BID GT 08/16/20 09:00 11/14/20 08:59 08/21/20 16:40 Fish Oil (Fish Oil) 1,000 mg BID ORAL 08/16/20 09:00 09/15/20 08:59 08/21/20 16:40 Heparin Sodium (Porcine) (Heparin 5000 units/ml) 5,000 units EVERY 12 HOURS SUBQ 08/16/20 09:00 09/30/20 08:59 08/21/20 21:02 Levetiracetam (Keppra) 1,000 mg Q12HR GT 08/16/20 09:00 09/30/20 08:59 08/21/20 21:00 Multivitamins (Multivitamins) 1 tab DAILY GT 08/16/20 09:00 09/15/20 08:59 08/21/20 10:15 Mupirocin (Bactroban Oint) 1 applic DAILY TOPIC 08/21/20 09:00 08/27/20 09:01 08/21/20 10:23 Piperacillin Sod/ Tazobactam Sod 3.375 gm/Sodium Chloride 110 ml @ 27.5 mls/hr Q8HR IVPB 08/19/20 22:00 08/26/20 21:59 08/22/20 05:29 Potassium Chloride (K-Dur) 40 meq DAILY GT 08/20/20 09:00 11/16/20 10:29 08/21/20 10:15 Vancomycin HCl 1 gm/Dextrose 275 ml @ 184 mls/hr Q12HR IVPB 08/20/20 23:00 08/25/20 22:59 08/21/20 21:00 Last 24 Hour Vital Signs Date Time Temp Pulse Resp B/P (MAP) Pulse Ox O2 Delivery O2 Flow Rate FiO2 08/22/20 08:00 99.9 75 19 130/61 (84) 95 08/22/20 04:50 98.6 54 20 108/54 (72) 96 08/22/20 04:20 79 08/22/20 00:30 98.9 81 20 128/68 (88) 94 08/21/20 23:43 Room Air 08/21/20 20:15 98.6 64 18 103/55 (71) 96 08/21/20 20:00 55 08/21/20 16:00 95 08/21/20 15:52 100.2 83 19 108/63 (78) 95 08/21/20 12:00 100.8 80 18 92/51 (65) 95 08/21/20 12:00 80 08/21/20 09:00 Room Air 08/21/20 08:00 92 08/21/20 08:00 101.7 83 20 142/66 (91) 94 08/21/20 04:00 100 08/21/20 04:00 99.7 100 21 125/72 (89) 96 08/21/20 00:00 99.5 94 20 137/84 (101) 95 08/21/20 00:00 94 08/20/20 21:00 Room Air 08/20/20 20:15 87 08/20/20 20:00 99.6 72 20 99/59 (72) 96 08/20/20 17:07 100.0 08/20/20 16:00 100.6 103 20 100/55 (70) 98 08/20/20 15:22 103 08/20/20 11:55 99.7 93 18 91/45 (60) 98 08/20/20 11:34 87 08/20/20 09:00 Room Air 08/20/20 08:45 100.6 Intake and Output 08/21/20 08/22/20 19:00 07:00 Intake Total 250 ml 200 ml Output Total 500 ml 600 ml Balance -250 ml -400 ml Free Water 200 ml 150 ml Tube Feeding 50 ml 50 ml Output Urine Total 500 ml 600 ml # Bowel Movements 1 Labs Test 08/19/20 10:00 08/19/20 23:50 08/20/20 06:13 08/21/20 05:39 White Blood Count 20.6 K/UL (4.8-10.8) 16.4 K/UL (4.8-10.8) 8.6 K/UL (4.8-10.8) Red Blood Count 4.29 M/UL (4.70-6.10) 4.42 M/UL (4.70-6.10) 3.52 M/UL (4.70-6.10) Hemoglobin 13.7 G/DL (14.2-18.0) 13.8 G/DL (14.2-18.0) 11.2 G/DL (14.2-18.0) Hematocrit 40.0 % (42.0-52.0) 42.0 % (42.0-52.0) 33.4 % (42.0-52.0) Mean Corpuscular Volume 93 FL (80-99) 95 FL (80-99) 95 FL (80-99) Mean Corpuscular Hemoglobin 32.0 PG (27.0-31.0) 31.3 PG (27.0-31.0) 31.8 PG (27.0-31.0) Mean Corpuscular Hemoglobin Concent 34.4 G/DL (32.0-36.0) 32.9 G/DL (32.0-36.0) 33.6 G/DL (32.0-36.0) Red Cell Distribution Width 12.1 % (11.6-14.8) 12.9 % (11.6-14.8) 12.9 % (11.6-14.8) Platelet Count 236 K/UL (150-450) 212 K/UL (150-450) 140 K/UL (150-450) Mean Platelet Volume 7.6 FL (6.5-10.1) 8.1 FL (6.5-10.1) 8.3 FL (6.5-10.1) Neutrophils (%) (Auto) % (45.0-75.0) % (45.0-75.0) % (45.0-75.0) Lymphocytes (%) (Auto) % (20.0-45.0) % (20.0-45.0) % (20.0-45.0) Monocytes (%) (Auto) % (1.0-10.0) % (1.0-10.0) % (1.0-10.0) Eosinophils (%) (Auto) % (0.0-3.0) % (0.0-3.0) % (0.0-3.0) Basophils (%) (Auto) % (0.0-2.0) % (0.0-2.0) % (0.0-2.0) Differential Total Cells Counted 100 100 100 Neutrophils % (Manual) 91 % (45-75) 94 % (45-75) 84 % (45-75) Lymphocytes % (Manual) 2 % (20-45) 3 % (20-45) 14 % (20-45) Monocytes % (Manual) 4 % (1-10) 3 % (1-10) 2 % (1-10) Eosinophils % (Manual) 0 % (0-3) 0 % (0-3) 0 % (0-3) Basophils % (Manual) 0 % (0-2) 0 % (0-2) 0 % (0-2) Band Neutrophils 3 % (0-8) 0 % (0-8) 0 % (0-8) Platelet Estimate Adequate Adequate Decreased Platelet Morphology Normal Normal Normal Red Blood Cell Morphology Normal Normal Normal Sodium Level 140 MMOL/L (136-145) 137 MMOL/L (136-145) 138 MMOL/L (136-145) Potassium Level 3.5 MMOL/L (3.5-5.1) 3.6 MMOL/L (3.5-5.1) 3.7 MMOL/L (3.5-5.1) Chloride Level 104 MMOL/L (98-107) 101 MMOL/L (98-107) 103 MMOL/L (98-107) Carbon Dioxide Level 25 MMOL/L (21-32) 27 MMOL/L (21-32) 27 MMOL/L (21-32) Anion Gap 11 mmol/L (5-15) 9 mmol/L (5-15) 8 mmol/L (5-15) Blood Urea Nitrogen 15 mg/dL (7-18) 31 mg/dL (7-18) 15 mg/dL (7-18) Creatinine 1.0 MG/DL (0.55-1.30) 1.7 MG/DL (0.55-1.30) 0.9 MG/DL (0.55-1.30) Estimat Glomerular Filtration Rate > 60 mL/min (>60) 41.9 mL/min (>60) > 60 mL/min (>60) Glucose Level 142 MG/DL (74-106) 107 MG/DL (74-106) 137 MG/DL (74-106) Calcium Level 9.1 MG/DL (8.5-10.1) 9.0 MG/DL (8.5-10.1) 9.0 MG/DL (8.5-10.1) Urine Color Yellow Urine Appearance Clear Urine pH 7 (4.5-8.0) Urine Specific [place] 1.005 (1.005-1.035) Urine Protein 2+ (NEGATIVE) Urine Glucose (UA) Negative (NEGATIVE) Urine Ketones Negative (NEGATIVE) Urine Blood Negative (NEGATIVE) Urine Nitrite Positive (NEGATIVE) Urine Bilirubin Negative (NEGATIVE) Urine Urobilinogen Normal MG/DL (0.0-1.0) Urine Leukocyte Esterase 1+ (NEGATIVE) Urine RBC 0-2 /HPF (0 - 0) Urine WBC 0-2 /HPF (0 - 0) Urine Squamous Epithelial Cells None /LPF (NONE/OCC) Urine Bacteria None /HPF (NONE) Uric Acid 1.4 MG/DL (2.6-7.2) Phosphorus Level 1.4 MG/DL (2.5-4.9) Magnesium Level 2.3 MG/DL (1.8-2.4) Total Bilirubin 0.4 MG/DL (0.2-1.0) Aspartate Amino Transf (AST/SGOT) 82 U/L (15-37) Alanine Aminotransferase (ALT/SGPT) 106 U/L (12-78) Alkaline Phosphatase 93 U/L (46-116) Total Protein 7.3 G/DL (6.4-8.2) Albumin 3.3 G/DL (3.4-5.0) Globulin 4.0 g/dL Albumin/Globulin Ratio 0.8 (1.0-2.7) Test 08/22/20 08:15 White Blood Count 7.9 K/UL (4.8-10.8) Red Blood Count 3.46 M/UL (4.70-6.10) Hemoglobin 11.1 G/DL (14.2-18.0) Hematocrit 32.9 % (42.0-52.0) Mean Corpuscular Volume 95 FL (80-99) Mean Corpuscular Hemoglobin 32.1 PG (27.0-31.0) Mean Corpuscular Hemoglobin Concent 33.7 G/DL (32.0-36.0) Red Cell Distribution Width 12.8 % (11.6-14.8) Platelet Count 126 K/UL (150-450) Mean Platelet Volume 9.3 FL (6.5-10.1) Neutrophils (%) (Auto) 67.6 % (45.0-75.0) Lymphocytes (%) (Auto) 20.8 % (20.0-45.0) Monocytes (%) (Auto) 9.1 % (1.0-10.0) Eosinophils (%) (Auto) 2.1 % (0.0-3.0) Basophils (%) (Auto) 0.5 % (0.0-2.0) Height (Feet): 5 Height (Inches): 10.00 Weight (Pounds): 154 Objective Physical Exam Vitals: noted General: no apparent distress, alert, Chronically Ill HEENT: bilateral eye PERRL, bilateral eye EOMI Respiratory: chest non-tender, lungs clear, normal breath sounds Cardiovascular: regular rate, rhythm, no murmur Gastrointestinal: normal bowel sounds ++gt Musculoskeletal: back normal, other - contracted Psychiatric: mood/affect normal Matthew Batista MD Aug 22, 2020 08:44
[2020-08-22 08:45] LABS: ALANINE AMINOTRANSFERASE 91 U/L (12-78); ALBUMIN 2.9 G/DL (3.4-5.0); ALBUMIN/GLOBULIN RATIO 0.7 (1.0-2.7); ALKALINE PHOSPHATASE 100 U/L (46-116); ANION GAP 10 mmol/L (5-15); ASPARTATE AMINO TRANSFERASE 62 U/L (15-37); BILIRUBIN,TOTAL 0.4 MG/DL (0.2-1.0); BLOOD UREA NITROGEN 19 mg/dL (7-18); CALCIUM 8.2 MG/DL (8.5-10.1); CARBON DIOXIDE 27 MMOL/L (21-32); CHLORIDE 107 MMOL/L (98-107); CREATININE 1.1 MG/DL (0.55-1.30); PHOSPHORUS 2.8 MG/DL (2.5-4.9); POTASSIUM 3.5 MMOL/L (3.5-5.1); SODIUM 144 MMOL/L (136-145)
[2020-08-22] MEDS: Heparin 5000 units/ml inj SUBQ SCH ×2 (09:00→20:35)
[2020-08-22] MEDS: Vancomycin 1 GM in D5W 275 ML IVPB SCH ×2 (10:02→20:50)
[2020-08-22] MEDS: levETIRAcetam 500mg/5ml Liquid GT SCH ×2 (10:03→20:50)
--- NOTE | 2020-08-22 10:31 | Nephrology Progress Note ---
Assessment/Plan Problem List: (1) Hyponatremia (2) Bradycardia (3) Trachea displaced (4) TERRENCE (acute kidney injury) Assessment Hyponatremia: Etiology work-up ordered and in process Bradycardia Vent dependent PEG dependent BPH Plan August 22. Low-grade temperature is still recorded. Labs reviewed. Renal parameters stable. Continue per consultants. August 21: Remains febrile. Serum creatinine normalized. Low phosphorus addr essed. Continue to monitor renal parameters and electrolytes. Blood pressure improved. August 20: Patient febrile. Serum creatinine keith to 1.7. Blood pressure 90 systolic. Will give albumin and saline bolus and will start on IV hydration. Continue to monitor renal parameters. Per orders. August 19: Labs reviewed. Electrolytes improved. Will discontinue Lasix. Continue to monitor electrolytes. August 18: Labs reviewed. Serum sodium slightly higher. Potassium supplement given. Lasix and 3% saline to be continued aim to keep output more than intake. August 17: Trial of 3% saline and Lasix. Monitor serum sodium and electrolytes. Continue per consultants. Urine studies, urine spot sodium, urine osmolality pulper Check TSH, uric acid, serum osmolality, lipid panel Further comments after above results Subjective ROS Limited/Unobtainable: No Constitutional: Reports: malaise Objective Objective Last 24 Hour Vital Signs Date Time Temp Pulse Resp B/P (MAP) Pulse Ox O2 Delivery O2 Flow Rate FiO2 08/22/20 08:00 99.9 75 19 130/61 (84) 95 08/22/20 04:50 98.6 54 20 108/54 (72) 96 08/22/20 04:20 79 08/22/20 00:30 98.9 81 20 128/68 (88) 94 08/21/20 23:43 Room Air 08/21/20 20:15 98.6 64 18 103/55 (71) 96 08/21/20 20:00 55 08/21/20 16:00 95 08/21/20 15:52 100.2 83 19 108/63 (78) 95 08/21/20 12:00 100.8 80 18 92/51 (65) 95 08/21/20 12:00 80 Intake and Output 08/21/20 08/22/20 19:00 07:00 Intake Total 250 ml 200 ml Output Total 500 ml 600 ml Balance -250 ml -400 ml Free Water 200 ml 150 ml Tube Feeding 50 ml 50 ml Output Urine Total 500 ml 600 ml # Bowel Movements 1 Current Medications Medications (Trade) Dose Ordered Sig/Myesha Route PRN Reason Start Time Stop Time Status Last Admin Dose Admin Acetaminophen (Tylenol) 500 mg EVERY 4 HOURS PRN GT Temp >100.5 08/16/20 05:30 09/15/20 05:29 08/20/20 16:37 Clonidine HCl (Catapres Tab) 0.1 mg Q4H PRN GT For High Blood Pressure 08/16/20 05:30 11/14/20 05:29 Dextrose/Sodium Chloride 1,000 ml @ 50 mls/hr Q20H IV 08/20/20 15:30 09/19/20 15:29 08/21/20 21:09 Donepezil HCl (Aricept) 10 mg QHS GT 08/20/20 22:00 09/19/20 21:59 08/21/20 21:00 Famotidine (Pepcid) 20 mg BID GT 08/16/20 09:00 11/14/20 08:59 08/22/20 10:03 Fish Oil (Fish Oil) 1,000 mg BID ORAL 08/16/20 09:00 09/15/20 08:59 08/22/20 10:03 Heparin Sodium (Porcine) (Heparin 5000 units/ml) 5,000 units EVERY 12 HOURS SUBQ 08/16/20 09:00 09/30/20 08:59 08/21/20 21:02 Levetiracetam (Keppra) 1,000 mg Q12HR GT 08/16/20 09:00 09/30/20 08:59 08/22/20 10:03 Multivitamins (Multivitamins) 1 tab DAILY GT 08/16/20 09:00 09/15/20 08:59 08/22/20 10:03 Mupirocin (Bactroban Oint) 1 applic DAILY TOPIC 08/21/20 09:00 08/27/20 09:01 08/22/20 10:03 Piperacillin Sod/ Tazobactam Sod 3.375 gm/Sodium Chloride 110 ml @ 27.5 mls/hr Q8HR IVPB 08/19/20 22:00 08/26/20 21:59 08/22/20 05:29 Potassium Chloride (K-Dur) 40 meq DAILY GT 08/20/20 09:00 5/23/21 10:29 08/22/20 10:03 Vancomycin HCl 1 gm/Dextrose 275 ml @ 184 mls/hr Q12HR IVPB 08/20/20 23:00 08/25/20 22:59 08/22/20 10:02 Laboratory Tests 08/22/20 08:15: White Blood Count 7.9, Red Blood Count 3.46L, Hemoglobin 11.1L, Hematocrit 32.9L , Mean Corpuscular Volume 95, Mean Corpuscular Hemoglobin 32.1H, Mean Corpuscular Hemoglobin Concent 33.7, Red Cell Distribution Width 12.8, Platelet Count 126L, Mean Platelet Volume 9.3, Neutrophils (%) (Auto) 67.6, Lymphocytes (%) (Auto) 20.8, Monocytes (%) (Auto) 9.1, Eosinophils (%) (Auto) 2.1, Basophils (%) (Auto) 0.5, Sodium Level 144, Potassium Level 3.5, Chloride Level 107, Carbon Dioxide Level 27, Anion Gap 10, Blood Urea Nitrogen 19H, Creatinine 1.1, Estimat Glomerular Filtration Rate > 60, Glucose Level 126H, Calcium Level 8.2L, Phosphorus Level 2.8, Magnesium Level 2.0, Total Bilirubin 0.4, Aspartate Amino Transf (AST/SGOT) 62H, Alanine Aminotransferase (ALT/SGPT) 91H, Alkaline Phosphatase 100, C-Reactive Protein, Quantitative 19.1H, Total Protein 7.1, Albumin 2.9L, Globulin 4.2, Albumin/Globulin Ratio 0.7L, Vancomycin Level Trough 13.2H Height (Feet): 5 Height (Inches): 10.00 Weight (Pounds): 154 General Appearance: no apparent distress Cardiovascular: tachycardia Respiratory/Chest: decreased breath sounds Abdomen: distended Objective No change Chase Haynes MD Aug 22, 2020 10:31
--- NOTE | 2020-08-22 11:12 | Surgery Progress Note ---
Surgery Progress Note Subjective Additional Comments afebrile, HD stable comfortable no n/v labs noted exam stable Objective Last 24 Hour Vital Signs Date Time Temp Pulse Resp B/P (MAP) Pulse Ox O2 Delivery O2 Flow Rate FiO2 08/22/20 08:00 99.9 75 19 130/61 (84) 95 08/22/20 04:50 98.6 54 20 108/54 (72) 96 08/22/20 04:20 79 08/22/20 00:30 98.9 81 20 128/68 (88) 94 08/21/20 23:43 Room Air 08/21/20 20:15 98.6 64 18 103/55 (71) 96 08/21/20 20:00 55 08/21/20 16:00 95 08/21/20 15:52 100.2 83 19 108/63 (78) 95 08/21/20 12:00 100.8 80 18 92/51 (65) 95 08/21/20 12:00 80 I&O Intake and Output 08/21/20 08/22/20 19:00 07:00 Intake Total 250 ml 200 ml Output Total 500 ml 600 ml Balance -250 ml -400 ml Free Water 200 ml 150 ml Tube Feeding 50 ml 50 ml Output Urine Total 500 ml 600 ml # Bowel Movements 1 Dressing: saturated Cardiovascular: RSR Respiratory: decreased breath sounds Abdomen: soft, flat, non-tender, present bowel sounds, non-distended Extremities: no edema, no tenderness, no cyanosis Laboratory Tests Test 08/22/20 08:15 White Blood Count 7.9 K/UL (4.8-10.8) Red Blood Count 3.46 M/UL (4.70-6.10) L Hemoglobin 11.1 G/DL (14.2-18.0) L Hematocrit 32.9 % (42.0-52.0) L Mean Corpuscular Volume 95 FL (80-99) Mean Corpuscular Hemoglobin 32.1 PG (27.0-31.0) H Mean Corpuscular Hemoglobin Concent 33.7 G/DL (32.0-36.0) Red Cell Distribution Width 12.8 % (11.6-14.8) Platelet Count 126 K/UL (150-450) L Mean Platelet Volume 9.3 FL (6.5-10.1) Neutrophils (%) (Auto) 67.6 % (45.0-75.0) Lymphocytes (%) (Auto) 20.8 % (20.0-45.0) Monocytes (%) (Auto) 9.1 % (1.0-10.0) Eosinophils (%) (Auto) 2.1 % (0.0-3.0) Basophils (%) (Auto) 0.5 % (0.0-2.0) Sodium Level 144 MMOL/L (136-145) Potassium Level 3.5 MMOL/L (3.5-5.1) Chloride Level 107 MMOL/L (98-107) Carbon Dioxide Level 27 MMOL/L (21-32) Anion Gap 10 mmol/L (5-15) Blood Urea Nitrogen 19 mg/dL (7-18) H Creatinine 1.1 MG/DL (0.55-1.30) Estimat Glomerular Filtration Rate > 60 mL/min (>60) Glucose Level 126 MG/DL (74-106) H Calcium Level 8.2 MG/DL (8.5-10.1) L Phosphorus Level 2.8 MG/DL (2.5-4.9) Magnesium Level 2.0 MG/DL (1.8-2.4) Total Bilirubin 0.4 MG/DL (0.2-1.0) Aspartate Amino Transf (AST/SGOT) 62 U/L (15-37) H Alanine Aminotransferase (ALT/SGPT) 91 U/L (12-78) H Alkaline Phosphatase 100 U/L (46-116) C-Reactive Protein, Quantitative 19.1 mg/dL (0.00-0.90) H Total Protein 7.1 G/DL (6.4-8.2) Albumin 2.9 G/DL (3.4-5.0) L Globulin 4.2 g/dL Albumin/Globulin Ratio 0.7 (1.0-2.7) L Vancomycin Level Trough 13.2 ug/mL (5.0-12.0) H Plan Problems: (1) Trachea displaced Assessment & Plan: Lungs: Reduced lung volumes. Patchy atelectasis in the left lung base. Pleural space: Unremarkable. No pneumothorax. Heart: Unremarkable. No cardiomegaly. Mediastinum: Unremarkable. Bones/joints: No acute fracture. Tubes, lines and devices: Tracheostomy. IMPRESSION: Reduced lung volumes. Patchy atelectasis in the left lung base. trach remains stable cont cap as respiratory trial stable (2) Bradycardia (3) Hyponatremia (4) Elevated alkaline phosphatase level Assessment & Plan: abd us noted labs okay exam benign okay for diet trend labs no acute surgical intervention planned Liver: The liver measures 17 cm. No intrahepatic bile duct dilation. Gallbladder: No definite cholelithiasis. Suspect a mild bladder sludge. No gallbladder wall thickening or pericholecystic fluid. Common bile duct: Unremarkable as visualized. No stones. No dilation . Pancreas: Unremarkable as visualized. Kidneys: The right kidney measures 12.1 cm. The left kidney measures 8.8 cm. No stones. No hydronephrosis. Spleen: Nonvisualized spleen. Aorta: The aorta is measured at 2.3 cm. This is slightly over measured by the technologist. Inferior vena cava: Unremarkable. IMPRESSION: Mild gallbladder sludge. No ultrasound evidence of acute cholecystitis. Evaluation limited due to patient limitations. Nonvisualized spleen. 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, NPO at this time CURRENT TF:Osmolite 1.5 @ 50ml/hr x 24 hrs PO DIET RECOMMENDATIONS: IF SAFE FOR ORAL DIET -> liberalized regular/ texture per MANAGER ACADEMIC ENTERAL NUTRITION RECOMMENDATIONS: For continuous TF-> Osmolite 1.5 @ 50ml/hr x 24 hrs to provide 1200ml, 1800kcal, 94g prot, 914ml free water * For continuous TF, rec continue Osmolite 1.5 @ 50ml/hr x 24 hrs -> HOB over 30 degrees/ H2O flush 250ml q 6hrs ------ * Monitor MANAGER ACADEMIC eval and rec, will provide nocturnal TF rec if appropriate ADDITIONAL RECOMMENDATIONS: * Per [facility]: HT=65" and FR=[id number] (08/05/20) * Monitor MANAGER ACADEMIC rec: pt on pureed moist texture w/ HTL TID STATUARY PAINTER -> if not safe for oral diet, rec continuous TF rec as above * Monitor lytes, replete as needed Franky Carrizales Aug 22, 2020 11:12
[2020-08-22 12:00] VITALS: BP 133/57
--- NOTE | 2020-08-22 14:07 | Cardiology Report ---
APPROVED REPORT EKG Measurement Heart [id number] <Conclusion> Sinus tachycardia Possible Inferior infarct, age undetermined ST & T wave abnormality, consider lateral ischemia Abnormal ECG
[2020-08-22 16:00] VITALS: BP 149/81
[2020-08-22] MEDS: D5NS 1,000 ML IV SCH (17:35)
--- NOTE | 2020-08-22 18:33 | General Progress Note ---
Subjective Constitutional: Reports: no symptoms HEENT: Reports: no symptoms Cardiovascular: Reports: no symptoms Respiratory: Reports: no symptoms Gastrointestinal/Abdominal: Reports: no symptoms Genitourinary: Reports: no symptoms Neurologic/Psychiatric: Reports: no symptoms Endocrine: Reports: no symptoms Hematologic/Lymphatic: Reports: no symptoms Allergies: Coded Allergies: No Known Allergies (Unverified , 08/15/20) Objective Last 24 Hour Vital Signs Date Time Temp Pulse Resp B/P (MAP) Pulse Ox O2 Delivery O2 Flow Rate FiO2 08/22/20 16:00 57 08/22/20 16:00 97.5 62 21 149/81 (103) 95 08/22/20 12:00 76 08/22/20 12:00 97.4 80 20 133/57 (82) 95 08/22/20 09:00 Room Air 08/22/20 08:00 99.9 75 19 130/61 (84) 95 08/22/20 08:00 75 08/22/20 04:50 98.6 54 20 108/54 (72) 96 08/22/20 04:20 79 08/22/20 00:30 98.9 81 20 128/68 (88) 94 08/21/20 23:43 Room Air 08/21/20 20:15 98.6 64 18 103/55 (71) 96 08/21/20 20:00 55 Intake and Output 08/21/20 08/22/20 19:00 07:00 Intake Total 250 ml 200 ml Output Total 500 ml 600 ml Balance -250 ml -400 ml Free Water 200 ml 150 ml Tube Feeding 50 ml 50 ml Output Urine Total 500 ml 600 ml # Bowel Movements 1 Laboratory Tests 08/22/20 08:15: White Blood Count 7.9, Red Blood Count 3.46L, Hemoglobin 11.1L, Hematocrit 32.9L , Mean Corpuscular Volume 95, Mean Corpuscular Hemoglobin 32.1H, Mean Corpuscular Hemoglobin Concent 33.7, Red Cell Distribution Width 12.8, Platelet Count 126L, Mean Platelet Volume 9.3, Neutrophils (%) (Auto) 67.6, Lymphocytes (%) (Auto) 20.8, Monocytes (%) (Auto) 9.1, Eosinophils (%) (Auto) 2.1, Basophils (%) (Auto) 0.5, Sodium Level 144, Potassium Level 3.5, Chloride Level 107, Carbon Dioxide Level 27, Anion Gap 10, Blood Urea Nitrogen 19H, Creatinine 1.1, Estimat Glomerular Filtration Rate > 60, Glucose Level 126H, Calcium Level 8.2L, Phosphorus Level 2.8, Magnesium Level 2.0, Total Bilirubin 0.4, Aspartate Amino Transf (AST/SGOT) 62H, Alanine Aminotransferase (ALT/SGPT) 91H, Alkaline Phosphatase 100, C-Reactive Protein, Quantitative 19.1H, Total Protein 7.1, Albumin 2.9L, Globulin 4.2, Albumin/Globulin Ratio 0.7L, Vancomycin Level Trough 13.2H Height (Feet): 5 Height (Inches): 10.00 Weight (Pounds): 154 General Appearance: WD/WN, no apparent distress, alert EENT: normal ENT inspection Neck: non-tender, supple Cardiovascular: normal rate, regular rhythm, no gallop/murmur, no JVD Respiratory/Chest: lungs clear, normal breath sounds, no respiratory distress, no accessory muscle use Abdomen: normal bowel sounds, non tender, soft, no organomegaly, no mass Extremities: non-tender Neurologic: alert, oriented x 3, aphasia Skin: warm/dry Assessment/Plan Status Narrative Patient is awake alert afebrile and hemodynamically stable his eyes there is eye contact there is no verbal response by there is normal attention span yesterday fever and leukocytosis resolved his tachycardia resolved he is now able afebrile hemodynamically stable and is normal leukocyte leukocytosis infectious disease consulted and pulmonary consult was called to assist in the management of this case the plan is to decannulate the patient safely in this hospital [facility] laboratory tests will be done in Aime De Leon MD, MD Aug 22, 2020 18:33
[2020-08-22 20:00] VITALS: BP 137/77
[2020-08-22] MEDS: Donepezil 5mg Tab GT SCH (20:50)
[2020-08-23] VITALS: BP 119/75
[2020-08-23 04:00] VITALS: BP 151/81
[2020-08-23] MEDS: Piperacillin/Tazobactam 3.375 GM in NS 110 ML IVPB SCH ×3 (05:08→22:50)
--- NOTE | 2020-08-23 07:36 | NUR ---
NURSE HAND-OFF REPORT: Important Events on Shift:[NA] Patient Status: [Stable] Diet: [Tube feeding as per doctor order] Pending Orders: [NA] Pending Results/Labs:[NA] Pending MD notification:[NA] Latest Vital Signs: Temperature 97.9 , Pulse 72 , B/P 151 /81 , Respiratory Rate 20 , O2 SAT 99 , Room Air, O2 Flow Rate . Vital Sign Comment: [stable] EKG Rhythm: Sinus Rhythm Rhythm change?: N MD Notified?: Y -Dr Nadia JOSHI Response: Message left await call Latest Palm Fall Score: 70 Fall Risk: High Risk Safety Measures: Call light Within Reach, Bed Alarm Zone 1, Side Rails Side Rails x3, Bed position Low and Locked. Fall Precautions: Yellow Socks Report given to [Mohini Bruce RN].
[2020-08-23 08:00] VITALS: BP 113/71
[2020-08-23 08:43] LABS: BASOPHILS % (AUTO) 0.8 % (0.0-2.0); EOSINOPHILS % (AUTO) 3.5 % (0.0-3.0); HEMATOCRIT 33.7 % (42.0-52.0); HEMOGLOBIN 11.3 G/DL (14.2-18.0); LYMPHOCYTES % (AUTO) 16.1 % (20.0-45.0); MEAN CORPUSCULAR VOLUME 95 FL (80-99); MONOCYTES % (AUTO) 6.8 % (1.0-10.0); NEUTROPHILS % (AUTO) 72.8 % (45.0-75.0); PLATELET COUNT 139 K/UL (150-450); RED BLOOD COUNT 3.54 M/UL (4.70-6.10); RED CELL DISTRIBUTION WIDTH 12.8 % (11.6-14.8); WHITE BLOOD COUNT 7.9 K/UL (4.8-10.8)
--- NOTE | 2020-08-23 09:01 | Surgery Progress Note ---
Surgery Progress Note Subjective Additional Comments discussed with PCP patient has been doing great with trach cap. likely ready for decannulation. will get pulm input and consideration prior to removal Objective Last 24 Hour Vital Signs Date Time Temp Pulse Resp B/P (MAP) Pulse Ox O2 Delivery O2 Flow Rate FiO2 08/23/20 04:00 97.9 74 20 151/81 (104) 99 08/23/20 04:00 72 08/23/20 00:00 98.7 68 20 119/75 (90) 97 08/23/20 00:00 83 08/22/20 21:00 Room Air 08/22/20 20:00 84 08/22/20 20:00 99.4 73 22 137/77 (97) 97 08/22/20 16:00 57 08/22/20 16:00 97.5 62 21 149/81 (103) 95 08/22/20 12:00 76 08/22/20 12:00 97.4 80 20 133/57 (82) 95 I&O Intake and Output 08/22/20 08/23/20 18:59 06:59 Intake Total 50 ml 1662.5 ml Output Total 650 ml Balance -600 ml 1662.5 ml IV Total 1012.5 ml Tube Feeding 50 ml 650 ml Output Urine Total 650 ml Dressing: dry Wound: clean Cardiovascular: RSR Respiratory: clear Abdomen: soft, flat, non-tender, present bowel sounds, non-distended Extremities: no edema, no tenderness, no cyanosis Laboratory Tests Test 08/23/20 08:30 White Blood Count 7.9 K/UL (4.8-10.8) Red Blood Count 3.54 M/UL (4.70-6.10) L Hemoglobin 11.3 G/DL (14.2-18.0) L Hematocrit 33.7 % (42.0-52.0) L Mean Corpuscular Volume 95 FL (80-99) Mean Corpuscular Hemoglobin 31.8 PG (27.0-31.0) H Mean Corpuscular Hemoglobin Concent 33.4 G/DL (32.0-36.0) Red Cell Distribution Width 12.8 % (11.6-14.8) Platelet Count 139 K/UL (150-450) L Mean Platelet Volume 7.9 FL (6.5-10.1) Neutrophils (%) (Auto) 72.8 % (45.0-75.0) Lymphocytes (%) (Auto) 16.1 % (20.0-45.0) L Monocytes (%) (Auto) 6.8 % (1.0-10.0) Eosinophils (%) (Auto) 3.5 % (0.0-3.0) H Basophils (%) (Auto) 0.8 % (0.0-2.0) Sodium Level Pending Potassium Level Pending Chloride Level Pending Carbon Dioxide Level Pending Blood Urea Nitrogen Pending Creatinine Pending Estimat Glomerular Filtration Rate Pending Glucose Level Pending Calcium Level Pending Total Bilirubin Pending Aspartate Amino Transf (AST/SGOT) Pending Alanine Aminotransferase (ALT/SGPT) Pending Alkaline Phosphatase Pending Total Protein Pending Albumin Pending Globulin Pending Plan Problems: (1) Trachea displaced Assessment & Plan: Lungs: Reduced lung volumes. Patchy atelectasis in the left lung base. Pleural space: Unremarkable. No pneumothorax. Heart: Unremarkable. No cardiomegaly. Mediastinum: Unremarkable. Bones/joints: No acute fracture. Tubes, lines and devices: Tracheostomy. IMPRESSION: Reduced lung volumes. Patchy atelectasis in the left lung base. trach remains stable cont cap as respiratory trial stable discussed with PCP patient has been doing great with trach cap. likely ready for decannulation. will get pulm input and consideration prior to removal (2) Bradycardia (3) Hyponatremia (4) Elevated alkaline phosphatase level Assessment & Plan: abd us noted labs okay exam benign okay for diet trend labs no acute surgical intervention planned Liver: The liver measures 17 cm. No intrahepatic bile duct dilation. Gallbladder: No definite cholelithiasis. Suspect a mild bladder sludge. No gallbladder wall thickening or pericholecystic fluid. Common bile duct: Unremarkable as visualized. No stones. No dilation . Pancreas: Unremarkable as visualized. Kidneys: The right kidney measures 12.1 cm. The left kidney measures 8.8 cm. No stones. No hydronephrosis. Spleen: Nonvisualized spleen. Aorta: The aorta is measured at 2.3 cm. This is slightly over measured by the technologist. Inferior vena cava: Unremarkable. IMPRESSION: Mild gallbladder sludge. No ultrasound evidence of acute cholecystitis. Evaluation limited due to patient limitations. Nonvisualized spleen. 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, NPO at this time CURRENT TF:Osmolite 1.5 @ 50ml/hr x 24 hrs PO DIET RECOMMENDATIONS: IF SAFE FOR ORAL DIET -> liberalized regular/ texture per DIRECTOR OF VITAL STATISTICS ENTERAL NUTRITION RECOMMENDATIONS: For continuous TF-> Osmolite 1.5 @ 50ml/hr x 24 hrs to provide 1200ml, 1800kcal, 94g prot, 914ml free water * For continuous TF, rec continue Osmolite 1.5 @ 50ml/hr x 24 hrs -> HOB over 30 degrees/ H2O flush 250ml q 6hrs ------ * Monitor DIRECTOR OF VITAL STATISTICS eval and rec, will provide nocturnal TF rec if appropriate ADDITIONAL RECOMMENDATIONS: * Per SNF: HT=65" and MU=306sfh (08/05/20) * Monitor DIRECTOR OF VITAL STATISTICS rec: pt on pureed moist texture w/ HTL TID MATCH MAKER -> if not safe for oral diet, rec continuous TF rec as above * Monitor lytes, replete as needed Franky Carrizales Aug 23, 2020 09:01
[2020-08-23 09:02] LABS: ALANINE AMINOTRANSFERASE 84 U/L (12-78); ALBUMIN 2.9 G/DL (3.4-5.0); ALBUMIN/GLOBULIN RATIO 0.7 (1.0-2.7); ALKALINE PHOSPHATASE 90 U/L (46-116); ANION GAP 7 mmol/L (5-15); ASPARTATE AMINO TRANSFERASE 52 U/L (15-37); BILIRUBIN,TOTAL 0.5 MG/DL (0.2-1.0); BLOOD UREA NITROGEN 22 mg/dL (7-18); CALCIUM 8.5 MG/DL (8.5-10.1); CARBON DIOXIDE 30 MMOL/L (21-32); CHLORIDE 111 MMOL/L (98-107); CREATININE 1.2 MG/DL (0.55-1.30); POTASSIUM 3.5 MMOL/L (3.5-5.1); SODIUM 148 MMOL/L (136-145)
--- NOTE | 2020-08-23 09:06 | Consultation ---
Consult Note Consult Note 54-year-old paraplegic with a tracheostomy and respiratory failure, was brought into the emergency room from his group home facility with hypoxemia now improved I was called to assess for removal of trach PAST MEDICAL HISTORY: Includes paraplegia, respiratory failure with tracheostomy, seizure disorder, schizophrenia, prostatic hypertrophy, dysphagia with G-tube. SOCIAL HISTORY: Negative for smoking or alcohol abuse. SNF patient ALLERGIES: None known. MEDICATIONS: Reviewed. REVIEW OF SYSTEMS: Unable PHYSICAL EXAMINATION: HEAD AND NECK: Trach site with no bleeding. LUNGS: Bilateral breath sounds. no wheeze rhonchi. CARDIAC: Regular rhythm. Slow rate. Normal S1, S2. No murmur. ABDOMEN: Soft. No focal tenderness. G-tube intact. EXTREMITIES: No edema. Muscle atrophy noted. reduced LOC Laboratory Tests 08/23/20 08:30: White Blood Count 7.9, Red Blood Count 3.54L, Hemoglobin 11.3L, Hematocrit 33.7L , Mean Corpuscular Volume 95, Mean Corpuscular Hemoglobin 31.8H, Mean Corpu scular Hemoglobin Concent 33.4, Red Cell Distribution Width 12.8, Platelet Count 139L, Mean Platelet Volume 7.9, Neutrophils (%) (Auto) 72.8, Lymphocytes (%) (Auto) 16.1L, Monocytes (%) (Auto) 6.8, Eosinophils (%) (Auto) 3.5H, Basophils (%) (Auto) 0.8, Sodium Level 148H, Potassium Level 3.5, Chloride Level 111H, Carbon Dioxide Level 30, Anion Gap 7, Blood Urea Nitrogen 22H, Creatinine 1.2, Estimat Glomerular Filtration Rate > 60, Glucose Level 109H, Calcium Level 8.5, Total Bilirubin 0.5, Aspartate Amino Transf (AST/SGOT) 52H, Alanine Aminotransferase (ALT/SGPT) 84H, Alkaline Phosphatase 90, Total Protein 7.3, Albumin 2.9L, Globulin 4.4, Albumin/Globulin Ratio 0.7L IMPRESSION: respiratory failure, trach; severe PCM; paraplegia anemia. atelectasis, UTI, chronic encephalopathy PLAN patient tolerating cap for several days care noted aspiration precautions ok to decannulate d/w surgery will follow impression, plan, and exam edited and reviewed in detail care discussed with Maximo Hearn MD Aug 23, 2020 09:06
[2020-08-23] MEDS: levETIRAcetam 500mg/5ml Liquid GT SCH ×3 (09:07→20:31)
[2020-08-23] MEDS: Vancomycin 1 GM in D5W 275 ML IVPB SCH ×2 (09:07→20:32)
[2020-08-23] MEDS: Heparin 5000 units/ml inj SUBQ SCH ×2 (09:08→20:45)
--- NOTE | 2020-08-23 09:30 | NUR ---
PATIENT SEEN ATTEMPTED MED PASS AND ASSESSMENT PATIENT AT TIME UNCOOPERATIVE USING RACIAL SLURS REFUSING CARE MEDICATIONS AND DRESSING CHANGES, ARBORER WINSTON MADE AWARE CHANGE IN CARE REQUESTED IF BEHAVIOR AND VERBAL ABUSE CONTINUES
--- NOTE | 2020-08-23 13:56 | Nephrology Progress Note ---
Assessment/Plan Problem List: (1) Hyponatremia (2) Bradycardia (3) Trachea displaced (4) TERRENCE (acute kidney injury) Assessment Hyponatremia: Etiology work-up ordered and in process Bradycardia Vent dependent PEG dependent BPH Plan August 23: Labs reviewed. Renal parameters stable. Medications list revi ewed. Continue per consultants. August 22. Low-grade temperature is still recorded. Labs reviewed. Renal parameters stable. Continue per consultants. August 21: Remains febrile. Serum creatinine normalized. Low phosphorus addressed. Continue to monitor renal parameters and electrolytes. Blood pressure improved. August 20: Patient febrile. Serum creatinine keith to 1.7. Blood pressure 90 systolic. Will give albumin and saline bolus and will start on IV hydration. Continue to monitor renal parameters. Per orders. August 19: Labs reviewed. Electrolytes improved. Will discontinue Lasix. Continue to monitor electrolytes. August 18: Labs reviewed. Serum sodium slightly higher. Potassium supplement given. Lasix and 3% saline to be continued aim to keep output more than intake. August 17: Trial of 3% saline and Lasix. Monitor serum sodium and electrolytes. Continue per consultants. Urine studies, urine spot sodium, urine osmolality engine monitor Check TSH, uric acid, serum osmolality, lipid panel Further comments after above results Subjective ROS Limited/Unobtainable: No Constitutional: Reports: malaise, weakness Objective Objective Last 24 Hour Vital Signs Date Time Temp Pulse Resp B/P (MAP) Pulse Ox O2 Delivery O2 Flow Rate FiO2 08/23/20 12:00 71 08/23/20 08:00 66 08/23/20 08:00 97.9 77 20 113/71 (85) 94 08/23/20 04:00 97.9 74 20 151/81 (104) 99 08/23/20 04:00 72 08/23/20 00:00 98.7 68 20 119/75 (90) 97 08/23/20 00:00 83 08/22/20 21:00 Room Air 08/22/20 20:00 84 08/22/20 20:00 99.4 73 22 137/77 (97) 97 08/22/20 16:00 57 08/22/20 16:00 97.5 62 21 149/81 (103) 95 Intake and Output 08/22/20 08/23/20 19:00 07:00 Intake Total 150 ml 1640.0 ml Output Total 650 ml Balance -500 ml 1640.0 ml IV Total 50 ml 1040.0 ml Tube Feeding 100 ml 600 ml Output Urine Total 650 ml Current Medications Medications (Trade) Dose Ordered Sig/Myesha Route PRN Reason Start Time Stop Time Status Last Admin Dose Admin Acetaminophen (Tylenol) 500 mg EVERY 4 HOURS PRN GT Temp >100.5 08/16/20 05:30 09/15/20 05:29 08/20/20 16:37 Clonidine HCl (Catapres Tab) 0.1 mg Q4H PRN GT For High Blood Pressure 08/16/20 05:30 11/14/20 05:29 Dextrose/Sodium Chloride 1,000 ml @ 50 mls/hr Q20H IV 08/20/20 15:30 09/19/20 15:29 08/22/20 17:35 Donepezil HCl (Aricept) 10 mg QHS GT 08/20/20 22:00 09/19/20 21:59 08/22/20 20:50 Famotidine (Pepcid) 20 mg BID GT 08/16/20 09:00 11/14/20 08:59 08/23/20 09:07 Fish Oil (Fish Oil) 1,000 mg BID ORAL 08/16/20 09:00 09/15/20 08:59 08/23/20 09:07 Heparin Sodium (Porcine) (Heparin 5000 units/ml) 5,000 units EVERY 12 HOURS SUBQ 08/16/20 09:00 09/30/20 08:59 08/23/20 09:08 Levetiracetam (Keppra) 1,000 mg Q12HR GT 08/16/20 09:00 09/30/20 08:59 08/23/20 09:07 Multivitamins (Multivitamins) 1 tab DAILY GT 08/16/20 09:00 09/15/20 08:59 08/23/20 09:07 Mupirocin (Bactroban Oint) 1 applic DAILY TOPIC 08/21/20 09:00 08/27/20 09:01 08/23/20 09:14 Piperacillin Sod/ Tazobactam Sod 3.375 gm/Sodium Chloride 110 ml @ 27.5 mls/hr Q8HR IVPB 08/19/20 22:00 08/26/20 21:59 08/23/20 05:08 Potassium Chloride (K-Dur) 40 meq DAILY GT 08/20/20 09:00 11/16/20 10:29 08/23/20 09:06 Vancomycin HCl 1 gm/Dextrose 275 ml @ 184 mls/hr Q12HR IVPB 08/20/20 23:00 08/25/20 22:59 08/23/20 09:07 Laboratory Tests 08/23/20 08:30: White Blood Count 7.9, Red Blood Count 3.54L, Hemoglobin 11.3L, Hematocrit 33.7L , Mean Corpuscular Volume 95, Mean Corpuscular Hemoglobin 31.8H, Mean Corpuscular Hemoglobin Concent 33.4, Red Cell Distribution Width 12.8, Platelet Count 139L, Mean Platelet Volume 7.9, Neutrophils (%) (Auto) 72.8, Lymphocytes (%) (Auto) 16.1L, Monocytes (%) (Auto) 6.8, Eosinophils (%) (Auto) 3.5H, Basophils (%) (Auto) 0.8, Sodium Level 148H, Potassium Level 3.5, Chloride Level 111H, Carbon Dioxide Level 30, Anion Gap 7, Blood Urea Nitrogen 22H, Creatinine 1.2, Estimat Glomerular Filtration Rate > 60, Glucose Level 109H, Calcium Level 8.5, Total Bilirubin 0.5, Aspartate Amino Transf (AST/SGOT) 52H, Alanine Aminotransferase (ALT/SGPT) 84H, Alkaline Phosphatase 90, Total Protein 7.3, Albumin 2.9L, Globulin 4.4, Albumin/Globulin Ratio 0.7L Height (Feet): 5 Height (Inches): 10.00 Weight (Pounds): 154 General Appearance: no apparent distress Cardiovascular: normal rate Respiratory/Chest: decreased breath sounds Abdomen: soft Objective No change Chase Haynes MD Aug 23, 2020 13:56
--- NOTE | 2020-08-23 14:16 | NUR ---
patient states, "no black women in my room" when this rn attempted to give abts hemodialysis charge nurse made aware
[2020-08-23] MEDS: D5NS 1,000 ML IV SCH (14:32)
[2020-08-23 14:53] VITALS: BP 105/63
[2020-08-23 16:00] VITALS: BP 133/71
--- NOTE | 2020-08-23 18:39 | Cardiology Progress Note ---
Subjective DATE OF SERVICE: Aug 22, 2020 (late entry due to computer malfxn) Sinus rhythm; no bradycardic episodes AND no recurrent AFib. No pauses. Still with low grade fevers. No hypotensive episodes. Objective Last 24 Hour Vital Signs reviewed HEENT: Thin Trach secretions RHYTHM: NSR, SB LUNGS: lungs clear bilaterally CARDIAC: regular rhythm, normal S1 and S2, bradycardia ABDOMEN: normal bowel sounds, non tender, soft, G-Tube intact EXTREMITIES: normal range of motion, non-tender, no calf tenderness, No edema Laboratory Tests Test 08/23/20 08:30 White Blood Count 7.9 K/UL (4.8-10.8) Red Blood Count 3.54 M/UL (4.70-6.10) L Hemoglobin 11.3 G/DL (14.2-18.0) L Hematocrit 33.7 % (42.0-52.0) L Mean Corpuscular Volume 95 FL (80-99) Mean Corpuscular Hemoglobin 31.8 PG (27.0-31.0) H Mean Corpuscular Hemoglobin Concent 33.4 G/DL (32.0-36.0) Red Cell Distribution Width 12.8 % (11.6-14.8) Platelet Count 139 K/UL (150-450) L Mean Platelet Volume 7.9 FL (6.5-10.1) Neutrophils (%) (Auto) 72.8 % (45.0-75.0) Lymphocytes (%) (Auto) 16.1 % (20.0-45.0) L Monocytes (%) (Auto) 6.8 % (1.0-10.0) Eosinophils (%) (Auto) 3.5 % (0.0-3.0) H Basophils (%) (Auto) 0.8 % (0.0-2.0) Sodium Level 148 MMOL/L (136-145) H Potassium Level 3.5 MMOL/L (3.5-5.1) Chloride Level 111 MMOL/L (98-107) H Carbon Dioxide Level 30 MMOL/L (21-32) Anion Gap 7 mmol/L (5-15) Blood Urea Nitrogen 22 mg/dL (7-18) H Creatinine 1.2 MG/DL (0.55-1.30) Estimat Glomerular Filtration Rate > 60 mL/min (>60) Glucose Level 109 MG/DL (74-106) H Calcium Level 8.5 MG/DL (8.5-10.1) Total Bilirubin 0.5 MG/DL (0.2-1.0) Aspartate Amino Transf (AST/SGOT) 52 U/L (15-37) H Alanine Aminotransferase (ALT/SGPT) 84 U/L (12-78) H Alkaline Phosphatase 90 U/L (46-116) Total Protein 7.3 G/DL (6.4-8.2) Albumin 2.9 G/DL (3.4-5.0) L Globulin 4.4 g/dL Albumin/Globulin Ratio 0.7 (1.0-2.7) L Microbiology Date/Time Source Procedure Growth Status 08/21/20 00:10 Stool Clostridium difficile Toxin Assay - Final Complete Assessment/Plan Assessment/Plan Bradycardia Trach displacement Hypovolemia, mild Hyponatremia Mild hypothermia resolved Resp rx/vent Antimicrobials Continuous cardiac monitoring No current need for beta kristin rx Sin Zuniga MD Aug 23, 2020 18:39
--- NOTE | 2020-08-23 18:40 | Cardiology Progress Note ---
Subjective DATE OF SERVICE: Aug 23, 2020 Sinus rhythm; no bradycardic episodes AND no recurrent AFib. No pauses. Still with low grade fevers. No hypotensive episodes. Objective Last 24 Hour Vital Signs Date Time Temp Pulse Resp B/P (MAP) Pulse Ox O2 Delivery O2 Flow Rate FiO2 08/23/20 16:00 68 08/23/20 16:00 98.3 74 20 133/71 (91) 93 08/23/20 14:53 98.1 73 20 105/63 (77) 93 08/23/20 12:00 71 08/23/20 11:00 Room Air 08/23/20 08:00 66 08/23/20 08:00 97.9 77 20 113/71 (85) 94 08/23/20 04:00 97.9 74 20 151/81 (104) 99 08/23/20 04:00 72 08/23/20 00:00 98.7 68 20 119/75 (90) 97 08/23/20 00:00 83 08/22/20 21:00 Room Air 08/22/20 20:00 84 08/22/20 20:00 99.4 73 22 137/77 (97) 97 HEENT: Thin Trach secretions RHYTHM: NSR, SB LUNGS: lungs clear bilaterally CARDIAC: regular rhythm, normal S1 and S2, bradycardia ABDOMEN: normal bowel sounds, non tender, soft, G-Tube intact EXTREMITIES: normal range of motion, non-tender, no calf tenderness, No edema Laboratory Tests Test 08/23/20 08:30 White Blood Count 7.9 K/UL (4.8-10.8) Red Blood Count 3.54 M/UL (4.70-6.10) L Hemoglobin 11.3 G/DL (14.2-18.0) L Hematocrit 33.7 % (42.0-52.0) L Mean Corpuscular Volume 95 FL (80-99) Mean Corpuscular Hemoglobin 31.8 PG (27.0-31.0) H Mean Corpuscular Hemoglobin Concent 33.4 G/DL (32.0-36.0) Red Cell Distribution Width 12.8 % (11.6-14.8) Platelet Count 139 K/UL (150-450) L Mean Platelet Volume 7.9 FL (6.5-10.1) Neutrophils (%) (Auto) 72.8 % (45.0-75.0) Lymphocytes (%) (Auto) 16.1 % (20.0-45.0) L Monocytes (%) (Auto) 6.8 % (1.0-10.0) Eosinophils (%) (Auto) 3.5 % (0.0-3.0) H Basophils (%) (Auto) 0.8 % (0.0-2.0) Sodium Level 148 MMOL/L (136-145) H Potassium Level 3.5 MMOL/L (3.5-5.1) Chloride Level 111 MMOL/L (98-107) H Carbon Dioxide Level 30 MMOL/L (21-32) Anion Gap 7 mmol/L (5-15) Blood Urea Nitrogen 22 mg/dL (7-18) H Creatinine 1.2 MG/DL (0.55-1.30) Estimat Glomerular Filtration Rate > 60 mL/min (>60) Glucose Level 109 MG/DL (74-106) H Calcium Level 8.5 MG/DL (8.5-10.1) Total Bilirubin 0.5 MG/DL (0.2-1.0) Aspartate Amino Transf (AST/SGOT) 52 U/L (15-37) H Alanine Aminotransferase (ALT/SGPT) 84 U/L (12-78) H Alkaline Phosphatase 90 U/L (46-116) Total Protein 7.3 G/DL (6.4-8.2) Albumin 2.9 G/DL (3.4-5.0) L Globulin 4.4 g/dL Albumin/Globulin Ratio 0.7 (1.0-2.7) L Microbiology Date/Time Source Procedure Growth Status 08/21/20 00:10 Stool Clostridium difficile Toxin Assay - Final Complete Assessment/Plan Assessment/Plan Bradycardia Trach displacement Hypovolemia, mild Hyponatremia Mild hypothermia resolved Dehydration/hypernatremia Resp rx/vent Antimicrobials Continuous cardiac monitoring No current need for beta kristin rx Free water replacement Sin Zuniga MD Aug 23, 2020 18:40
--- NOTE | 2020-08-23 19:21 | NUR ---
NURSE NOTES: The patient is alert and oriented x2 seen to have some level of anxiety and agitations. A calm environment was provided and he is in bilateral soft wrist restrained as indicated for safety and he doesn't appear to be in any active distress at this time. The patient is on Gtube feeding with HOB upright. Placement check was done and it is intact.The Resp is even and unlabored. will continue to monitor as indicated.The bed in lowest level and call lightwithin easy reach. will continue to monitor as indicated
[2020-08-23 20:00] VITALS: BP 137/80
[2020-08-23] MEDS: Donepezil 5mg Tab GT SCH (20:31)
[2020-08-24] VITALS: BP 140/81
[2020-08-24 04:00] VITALS: BP 146/69
[2020-08-24] MEDS: Piperacillin/Tazobactam 3.375 GM in NS 110 ML IVPB SCH ×2 (06:22→13:45)
--- NOTE | 2020-08-24 07:00 | NUR ---
NURSE NOTES: Received report from MELIA Galdamez. Patient observed to be awake, alert and oriented x2. Seen lying in bed with HOB elevated currently on room air, no s/sx of SOB/Distress. Patient with Gtube feeding osmolite 1.5 50cc/hr tolerating feeding well. IV site located on LFA 20 and RH [address], intact, and patent running d5w @ 75. Bed placed on lowest and locked, call light placed within reach and will continue to monitor for any changes in patient's condition.
--- NOTE | 2020-08-24 07:10 | NUR ---
NURSE HAND-OFF REPORT: Important Events on Shift:Renewed bilateral soft wrist restrain Patient Status: Diet: Pending Orders: Pending Results/Labs: Pending MD notification: Latest Vital Signs: Temperature 98.1 , Pulse 59 , B/P 146 /69 , Respiratory Rate 20 , O2 SAT 99 , Room Air, O2 Flow Rate . Vital Sign Comment: EKG Rhythm: Sinus Bradycardia Rhythm change?: N MD Notified?: Y -Dr Nadia JOSHI Response: Message left await call Latest Palm Fall Score: 70 Fall Risk: High Risk Safety Measures: Call light Within Reach, Bed Alarm Zone 1, Side Rails Side Rails x3, Bed position Low and Locked. Fall Precautions: Yellow Socks Report given to .
[2020-08-24 08:00] VITALS: BP 143/70
--- NOTE | 2020-08-24 08:44 | Pulmonology Progress Note ---
Subjective ROS Limited/Unobtainable: Yes Allergies: Coded Allergies: No Known Allergies (Unverified , 08/15/20) All Systems: reviewed and negative except above Subjective care noted stable no distress awake Objective Last 24 Hour Vital Signs Date Time Temp Pulse Resp B/P (MAP) Pulse Ox O2 Delivery O2 Flow Rate FiO2 08/24/20 08:00 98.2 66 20 143/70 (94) 96 08/24/20 06:00 59 08/24/20 04:00 98.1 59 20 146/69 (94) 99 08/24/20 04:00 59 08/24/20 00:00 98.2 67 21 140/81 (100) 97 08/24/20 00:00 70 08/23/20 21:00 Room Air 08/23/20 20:00 98.5 72 21 137/80 (99) 96 08/23/20 20:00 70 08/23/20 16:00 68 08/23/20 16:00 98.3 74 20 133/71 (91) 93 08/23/20 14:53 98.1 73 20 105/63 (77) 93 08/23/20 12:00 71 08/23/20 11:00 Room Air Intake and Output 08/23/20 08/24/20 19:00 07:00 Intake Total 75 ml 375 ml Output Total 1100 ml 1200 ml Balance -1025 ml -825 ml IV Total 75 ml 375 ml Output Urine Total 1100 ml 1200 ml # Bowel Movements 1 1 Objective WDWN NAD clear breath sounds bilaterally without rhonchi or wheeze [id number] without MRG NABS nontender no CCE nonfocal awake bed bound Current Medications Medications (Trade) Dose Ordered Sig/Myesha Route PRN Reason Start Time Stop Time Status Last Admin Dose Admin Acetaminophen (Tylenol) 500 mg EVERY 4 HOURS PRN GT Temp >100.5 08/16/20 05:30 09/15/20 05:29 08/20/20 16:37 Clonidine HCl (Catapres Tab) 0.1 mg Q4H PRN GT For High Blood Pressure 08/16/20 05:30 11/14/20 05:29 Dextrose 1,000 ml @ 75 mls/hr [id number] IV 08/23/20 18:45 09/22/20 18:44 08/23/20 19:33 Donepezil HCl (Aricept) 10 mg QHS GT 08/20/20 22:00 09/19/20 21:59 08/23/20 20:31 Famotidine (Pepcid) 20 mg BID GT 08/16/20 09:00 11/14/20 08:59 08/22/20 17:35 Fish Oil (Fish Oil) 1,000 mg BID ORAL 08/16/20 09:00 09/15/20 08:59 08/22/20 17:35 Heparin Sodium (Porcine) (Heparin 5000 units/ml) 5,000 units EVERY 12 HOURS SUBQ 08/16/20 09:00 09/30/20 08:59 08/23/20 20:45 Levetiracetam (Keppra) 1,000 mg Q12HR GT 08/16/20 09:00 09/30/20 08:59 08/23/20 20:31 Multivitamins (Multivitamins) 1 tab DAILY GT 08/16/20 09:00 09/15/20 08:59 08/22/20 10:03 Mupirocin (Bactroban Oint) 1 applic DAILY TOPIC 08/21/20 09:00 08/27/20 09:01 08/22/20 10:03 Piperacillin Sod/ Tazobactam Sod 3.375 gm/Sodium Chloride 110 ml @ 27.5 mls/hr Q8HR IVPB 08/19/20 22:00 08/26/20 21:59 08/24/20 06:22 Potassium Chloride (K-Dur) 40 meq DAILY GT 08/20/20 09:00 11/16/20 10:29 08/22/20 10:03 Vancomycin HCl 1 gm/Dextrose 275 ml @ 184 mls/hr Q12HR IVPB 08/20/20 23:00 08/25/20 22:59 08/23/20 20:32 Assessment/Plan Assessment/Plan IMPRESSION: respiratory failure, trach; severe PCM; paraplegia anemia. atelectasis, UTI, chronic encephalopathy PLAN patient tolerating cap for several days care noted aspiration precautions monitor airway d/w surgery will follow impression, plan, and exam edited and reviewed in detail care discussed with Maximo Hearn MD Aug 24, 2020 08:44
[2020-08-24] MEDS: Heparin 5000 units/ml inj SUBQ SCH ×2 (09:00→21:05)
[2020-08-24] MEDS: Vancomycin 1 GM in D5W 275 ML IVPB SCH ×2 (09:22→21:02)
[2020-08-24] MEDS: levETIRAcetam 500mg/5ml Liquid GT SCH ×2 (09:23→21:01)
--- NOTE | 2020-08-24 11:04 | Surgery Progress Note ---
Surgery Progress Note Subjective Additional Comments Patient exam bedside. Discussed pulmonology. Plan decannulation tomorrow. Objective Last 24 Hour Vital Signs Date Time Temp Pulse Resp B/P (MAP) Pulse Ox O2 Delivery O2 Flow Rate FiO2 08/24/20 09:00 Room Air 08/24/20 08:00 98.2 66 20 143/70 (94) 96 08/24/20 06:00 59 08/24/20 04:00 98.1 59 20 146/69 (94) 99 08/24/20 04:00 59 08/24/20 00:00 98.2 67 21 140/81 (100) 97 08/24/20 00:00 70 08/23/20 21:00 Room Air 08/23/20 20:00 98.5 72 21 137/80 (99) 96 08/23/20 20:00 70 08/23/20 16:00 68 08/23/20 16:00 98.3 74 20 133/71 (91) 93 08/23/20 14:53 98.1 73 20 105/63 (77) 93 08/23/20 12:00 71 I&O Intake and Output 08/23/20 08/24/20 19:00 07:00 Intake Total 75 ml 375 ml Output Total 1100 ml 1200 ml Balance -1025 ml -825 ml IV Total 75 ml 375 ml Output Urine Total 1100 ml 1200 ml # Bowel Movements 1 1 Dressing: saturated Cardiovascular: RSR Respiratory: decreased breath sounds Abdomen: soft, flat, non-tender, non-distended Extremities: no edema, no tenderness, no cyanosis Plan Problems: (1) Trachea displaced Assessment & Plan: Lungs: Reduced lung volumes. Patchy atelectasis in the left lung base. Pleural space: Unremarkable. No pneumothorax. Heart: Unremarkable. No cardiomegaly. Mediastinum: Unremarkable. Bones/joints: No acute fracture. Tubes, lines and devices: Tracheostomy. IMPRESSION: Reduced lung volumes. Patchy atelectasis in the left lung base. trach remains stable cont cap as respiratory trial stable discussed with PCP patient has been doing great with trach cap. likely ready for decannulation. will get pulm input and consideration prior to removal (2) Bradycardia (3) Hyponatremia (4) Elevated alkaline phosphatase level Assessment & Plan: abd us noted labs okay exam benign okay for diet trend labs no acute surgical intervention planned Liver: The liver measures 17 cm. No intrahepatic bile duct dilation. Gallbladder: No definite cholelithiasis. Suspect a mild bladder sludge. No gallbladder wall thickening or pericholecystic fluid. Common bile duct: Unremarkable as visualized. No stones. No dilation . Pancreas: Unremarkable as visualized. Kidneys: The right kidney measures 12.1 cm. The left kidney measures 8.8 cm. No stones. No hydronephrosis. Spleen: Nonvisualized spleen. Aorta: The aorta is measured at 2.3 cm. This is slightly over measured by the technologist. Inferior vena cava: Unremarkable. IMPRESSION: Mild gallbladder sludge. No ultrasound evidence of acute cholecystitis. Evaluation limited due to patient limitations. Nonvisualized spleen. 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 CURRENT TF:Osmolite 1.5 @ 50ml/hr x 24 hrs PO DIET RECOMMENDATIONS: IF SAFE FOR ORAL DIET -> liberalized regular/ texture per RELATIONSHIP MANAGEMENT LEAD ENTERAL NUTRITION RECOMMENDATIONS: For continuous TF-> Osmolite 1.5 @ 50ml/hr x 24 hrs to provide 1200ml, 1800kcal, 94g prot, 914ml free water * For continuous TF, rec continue Osmolite 1.5 @ 50ml/hr x 24 hrs -> HOB over 30 degrees/ H2O flush 250ml q 6hrs ------ * Monitor RELATIONSHIP MANAGEMENT LEAD eval and rec, will provide nocturnal TF rec if appropriate ADDITIONAL RECOMMENDATIONS: * Per SNF: HT=65" and LT=364jua (08/05/20) * Monitor RELATIONSHIP MANAGEMENT LEAD rec: pt on pureed moist texture w/ HTL TID 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
--- NOTE | 2020-08-24 11:33 | Hematology/Onc Progress Note ---
Assessment/Plan Assessment/Plan Assessment and recs # Anemia likely related to chronic disease --> hgb currently stable --> anemia panel prn --> hgb 13.7-->11.2-->11 # Leukocytosis with a wbc 21 --> on abx zosyn-->zosyn/vanc --> smear is noted # Thrombocytopenia -> r/o infection -> plt 140->126 --> vital etiologies as needed --> trend as needed --> transfuse prn # Bradycardia -- meds reviewed --> ekg, tele monitoring --> as per cards recs --> meds noted --> atropine prn basis # Hyponatremia --> per renal care # Atelectasis # Resp failure/trach -> surg aware # Paraplegia # Dysphagia s/p peg # Dehydration DW Rn Subjective Genitourinary: Denies: no symptoms, burning, discharge, frequency, flank pain, hematuria, incontinence, pain, urgency, other Allergies: Coded Allergies: No Known Allergies (Unverified , 08/15/20) All Systems: reviewed and negative except above Subjective 08/17 nv, labs reviewed, meds noted, covering im 08/18 nv, with gt, osmolite, no bleeding, labs reviewed 08/19 refusing medications, combative, no bleeding 08/20 on zosyn, is continuing, wbc is higher at 23k 08/21 on vanc/zosyn, labs noted, no bleeding 08/22 on abx, stable, with bradycardia, no bleeding, no fc 08/24 nv, on abx, soft restraints, gt feeds ongoing Objective Objective Current Medications Medications (Trade) Dose Ordered Sig/Myesha Route PRN Reason Start Time Stop Time Status Last Admin Dose Admin Acetaminophen (Tylenol) 500 mg EVERY 4 HOURS PRN GT Temp >100.5 08/16/20 05:30 09/15/20 05:29 08/20/20 16:37 Clonidine HCl (Catapres Tab) 0.1 mg Q4H PRN GT For High Blood Pressure 08/16/20 05:30 11/14/20 05:29 Dextrose 1,000 ml @ 75 mls/hr [id number] IV 08/23/20 18:45 09/22/20 18:44 08/24/20 09:22 Donepezil HCl (Aricept) 10 mg QHS GT 08/20/20 22:00 09/19/20 21:59 08/23/20 20:31 Famotidine (Pepcid) 20 mg BID GT 08/16/20 09:00 11/14/20 08:59 08/24/20 09:23 Fish Oil (Fish Oil) 1,000 mg BID ORAL 08/16/20 09:00 09/15/20 08:59 08/24/20 09:23 Heparin Sodium (Porcine) (Heparin 5000 units/ml) 5,000 units EVERY 12 HOURS SUBQ 08/16/20 09:00 09/30/20 08:59 08/23/20 20:45 Levetiracetam (Keppra) 1,000 mg Q12HR GT 08/16/20 09:00 09/30/20 08:59 08/24/20 09:23 Multivitamins (Multivitamins) 1 tab DAILY GT 08/16/20 09:00 09/15/20 08:59 08/24/20 09:23 Mupirocin (Bactroban Oint) 1 applic DAILY TOPIC 08/21/20 09:00 08/27/20 09:01 08/24/20 09:25 Piperacillin Sod/ Tazobactam Sod 3.375 gm/Sodium Chloride 110 ml @ 27.5 mls/hr Q8HR IVPB 08/19/20 22:00 08/26/20 21:59 08/24/20 06:22 Potassium Chloride (K-Dur) 40 meq DAILY GT 08/20/20 09:00 11/16/20 10:29 08/24/20 09:23 Vancomycin HCl 1 gm/Dextrose 275 ml @ 184 mls/hr Q12HR IVPB 08/20/20 23:00 08/25/20 22:59 08/24/20 09:22 Last 24 Hour Vital Signs Date Time Temp Pulse Resp B/P (MAP) Pulse Ox O2 Delivery O2 Flow Rate FiO2 08/24/20 09:00 Room Air 08/24/20 08:00 98.2 66 20 143/70 (94) 96 08/24/20 06:00 59 08/24/20 04:00 98.1 59 20 146/69 (94) 99 08/24/20 04:00 59 08/24/20 00:00 98.2 67 21 140/81 (100) 97 08/24/20 00:00 70 08/23/20 21:00 Room Air 08/23/20 20:00 98.5 72 21 137/80 (99) 96 08/23/20 20:00 70 08/23/20 16:00 68 08/23/20 16:00 98.3 74 20 133/71 (91) 93 08/23/20 14:53 98.1 73 20 105/63 (77) 93 08/23/20 12:00 71 08/23/20 11:00 Room Air 08/23/20 08:00 66 08/23/20 08:00 97.9 77 20 113/71 (85) 94 08/23/20 04:00 97.9 74 20 151/81 (104) 99 08/23/20 04:00 72 08/23/20 00:00 98.7 68 20 119/75 (90) 97 08/23/20 00:00 83 08/22/20 21:00 Room Air 08/22/20 20:00 84 08/22/20 20:00 99.4 73 22 137/77 (97) 97 08/22/20 16:00 57 08/22/20 16:00 97.5 62 21 149/81 (103) 95 08/22/20 12:00 76 08/22/20 12:00 97.4 80 20 133/57 (82) 95 Intake and Output 08/23/20 08/24/20 19:00 07:00 Intake Total 75 ml 375 ml Output Total 1100 ml 1200 ml Balance -1025 ml -825 ml IV Total 75 ml 375 ml Output Urine Total 1100 ml 1200 ml # Bowel Movements 1 1 Labs Test 08/22/20 08:15 08/23/20 08:30 White Blood Count 7.9 K/UL (4.8-10.8) 7.9 K/UL (4.8-10.8) Red Blood Count 3.46 M/UL (4.70-6.10) 3.54 M/UL (4.70-6.10) Hemoglobin 11.1 G/DL (14.2-18.0) 11.3 G/DL (14.2-18.0) Hematocrit 32.9 % (42.0-52.0) 33.7 % (42.0-52.0) Mean Corpuscular Volume 95 FL (80-99) 95 FL (80-99) Mean Corpuscular Hemoglobin 32.1 PG (27.0-31.0) 31.8 PG (27.0-31.0) Mean Corpuscular Hemoglobin Concent 33.7 G/DL (32.0-36.0) 33.4 G/DL (32.0-36.0) Red Cell Distribution Width 12.8 % (11.6-14.8) 12.8 % (11.6-14.8) Platelet Count 126 K/UL (150-450) 139 K/UL (150-450) Mean Platelet Volume 9.3 FL (6.5-10.1) 7.9 FL (6.5-10.1) Neutrophils (%) (Auto) 67.6 % (45.0-75.0) 72.8 % (45.0-75.0) Lymphocytes (%) (Auto) 20.8 % (20.0-45.0) 16.1 % (20.0-45.0) Monocytes (%) (Auto) 9.1 % (1.0-10.0) 6.8 % (1.0-10.0) Eosinophils (%) (Auto) 2.1 % (0.0-3.0) 3.5 % (0.0-3.0) Basophils (%) (Auto) 0.5 % (0.0-2.0) 0.8 % (0.0-2.0) Sodium Level 144 MMOL/L (136-145) 148 MMOL/L (136-145) Potassium Level 3.5 MMOL/L (3.5-5.1) 3.5 MMOL/L (3.5-5.1) Chloride Level 107 MMOL/L (98-107) 111 MMOL/L (98-107) Carbon Dioxide Level 27 MMOL/L (21-32) 30 MMOL/L (21-32) Anion Gap 10 mmol/L (5-15) 7 mmol/L (5-15) Blood Urea Nitrogen 19 mg/dL (7-18) 22 mg/dL (7-18) Creatinine 1.1 MG/DL (0.55-1.30) 1.2 MG/DL (0.55-1.30) Estimat Glomerular Filtration Rate > 60 mL/min (>60) > 60 mL/min (>60) Glucose Level 126 MG/DL (74-106) 109 MG/DL (74-106) Calcium Level 8.2 MG/DL (8.5-10.1) 8.5 MG/DL (8.5-10.1) Phosphorus Level 2.8 MG/DL (2.5-4.9) Magnesium Level 2.0 MG/DL (1.8-2.4) Total Bilirubin 0.4 MG/DL (0.2-1.0) 0.5 MG/DL (0.2-1.0) Aspartate Amino Transf (AST/SGOT) 62 U/L (15-37) 52 U/L (15-37) Alanine Aminotransferase (ALT/SGPT) 91 U/L (12-78) 84 U/L (12-78) Alkaline Phosphatase 100 U/L (46-116) 90 U/L (46-116) C-Reactive Protein, Quantitative 19.1 mg/dL (0.00-0.90) Total Protein 7.1 G/DL (6.4-8.2) 7.3 G/DL (6.4-8.2) Albumin 2.9 G/DL (3.4-5.0) 2.9 G/DL (3.4-5.0) Globulin 4.2 g/dL 4.4 g/dL Albumin/Globulin Ratio 0.7 (1.0-2.7) 0.7 (1.0-2.7) Vancomycin Level Trough 13.2 ug/mL (5.0-12.0) Height (Feet): 5 Height (Inches): 10.00 Weight (Pounds): 154 Objective Physical Exam Vitals: noted General: no apparent distress, alert, Chronically Ill HEENT: bilateral eye PERRL, bilateral eye EOMI Respiratory: chest non-tender, lungs clear, normal breath sounds Cardiovascular: regular rate, rhythm, no murmur Gastrointestinal: normal bowel sounds ++gt Musculoskeletal: back normal, other - contracted Psychiatric: mood/affect normal Matthew Batista MD Aug 24, 2020 11:33
[2020-08-24 12:00] VITALS: BP 131/74
--- NOTE | 2020-08-24 13:04 | Nephrology Progress Note ---
Assessment/Plan Problem List: (1) Hyponatremia (2) Bradycardia (3) Trachea displaced (4) TERRENCE (acute kidney injury) Assessment Hyponatremia: Etiology work-up ordered and in process Bradycardia Vent dependent PEG dependent BPH Plan August 24: No CHEM panel drawn today. Stable from renal standpoint of view. Will check lab tomorrow. Continue per consultants. August 23: Labs reviewed. Renal parameters stable. Medications list reviewed. Continue per consultants. August 22. Low-grade temperature is still recorded. Labs reviewed. Renal parameters stable. Continue per consultants. August 21: Remains febrile. Serum creatinine normalized. Low phosphorus addressed. Continue to monitor renal parameters and electrolytes. Blood pressure improved. August 20: Patient febrile. Serum creatinine keith to 1.7. Blood pressure 90 systolic. Will give albumin and saline bolus and will start on IV hydration. Continue to monitor renal parameters. Per orders. August 19: Labs reviewed. Electrolytes improved. Will discontinue Lasix. Continue to monitor electrolytes. August 18: Labs reviewed. Serum sodium slightly higher. Potassium supplement given. Lasix and 3% saline to be continued aim to keep output more than intake. August 17: Trial of 3% saline and Lasix. Monitor serum sodium and electrolytes. Continue per consultants. 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, uric acid, serum osmolality, lipid panel Further comments after above results Subjective ROS Limited/Unobtainable: No Objective Objective Last 24 Hour Vital Signs Date Time Temp Pulse Resp B/P (MAP) Pulse Ox O2 Delivery O2 Flow Rate FiO2 08/24/20 12:00 98.1 66 20 131/74 (93) 95 08/24/20 12:00 53 08/24/20 09:00 Room Air 08/24/20 08:00 98.2 66 20 143/70 (94) 96 08/24/20 06:00 59 08/24/20 04:00 98.1 59 20 146/69 (94) 99 08/24/20 04:00 59 08/24/20 00:00 98.2 67 21 140/81 (100) 97 08/24/20 00:00 70 08/23/20 21:00 Room Air 08/23/20 20:00 98.5 72 21 137/80 (99) 96 08/23/20 20:00 70 08/23/20 16:00 68 08/23/20 16:00 98.3 74 20 133/71 (91) 93 08/23/20 14:53 98.1 73 20 105/63 (77) 93 Intake and Output 08/23/20 08/24/20 19:00 07:00 Intake Total 75 ml 375 ml Output Total 1100 ml 1200 ml Balance -1025 ml -825 ml IV Total 75 ml 375 ml Output Urine Total 1100 ml 1200 ml # Bowel Movements 1 1 No labs drawn today Height (Feet): 5 Height (Inches): 10.00 Weight (Pounds): 154 General Appearance: no apparent distress Cardiovascular: normal rate Respiratory/Chest: decreased breath sounds Abdomen: distended Objective No change Chase Haynes MD Aug 24, 2020 13:04
[2020-08-24 16:00] VITALS: BP 139/62
--- NOTE | 2020-08-24 17:53 | Cardiology Progress Note ---
Subjective DATE OF SERVICE: Aug 24, 2020 Back in sinus rhythm with bradycardia. No recurrent AFib. Defervesced. Hypotonic IVF added yesterday for elevated Na level. No hypotensive episodes. Objective Last 24 Hour Vital Signs Date Time Temp Pulse Resp B/P (MAP) Pulse Ox O2 Delivery O2 Flow Rate FiO2 08/24/20 16:00 55 08/24/20 12:00 98.1 66 20 131/74 (93) 95 08/24/20 12:00 53 08/24/20 09:00 Room Air 08/24/20 08:00 98.2 66 20 143/70 (94) 96 08/24/20 06:00 59 08/24/20 04:00 98.1 59 20 146/69 (94) 99 08/24/20 04:00 59 08/24/20 00:00 98.2 67 21 140/81 (100) 97 08/24/20 00:00 70 08/23/20 21:00 Room Air 08/23/20 20:00 98.5 72 21 137/80 (99) 96 08/23/20 20:00 70 HEENT: Thin Trach secretions RHYTHM: NSR, SB LUNGS: lungs clear bilaterally CARDIAC: regular rhythm, normal S1 and S2, bradycardia ABDOMEN: normal bowel sounds, non tender, soft, G-Tube intact EXTREMITIES: normal range of motion, non-tender, no calf tenderness, No edema Assessment/Plan Assessment/Plan Bradycardia Trach displacement Hypovolemia, mild Hyponatremia Mild hypothermia resolved Dehydration/hypernatremia No indication for pacing Resp rx/vent Antimicrobials Continuous cardiac monitoring Avoid beta kristin rx Free water replacement Sin Zuniga MD Aug 24, 2020 17:53
[2020-08-24] MEDS ORDERED: HydrALAZINE 25mg tab ORAL PRN (18:00)
--- NOTE | 2020-08-24 18:37 | Consultation ---
History of Present Illness General Date patient seen: Aug 24, 2020 Chief Complaint: General Complaint Present Illness HPI 54 y/o M with hx of BPH, schizoaffective disorder, chronic resp failure sp trach, sp PEG, CVA w/ residual paraplegia, [facility] resident was admitted on 08/15 for bradycardia (HR 45-55) and one episode of hypoxia (SaO2 90%) Tested negative for COVID 19 on 08/14/20 at the [facility]. Allergies: Coded Allergies: No Known Allergies (Unverified , 08/15/20) Medication History Scheduled Carbidopa/Levodopa 25-100 Mg* (Sinemet 25-100 Mg Tablet*), 1 TAB GT THREE TIMES A DAY, (Reported) Chlorhexidine Gluconate (Chlorhexidine Gluconate), 15 ML PO BID, (Reported) Cholecalciferol (Vitamin D3) (Vitamin D3), 125 MCG GT DAILY, (Reported) Cran/Vitc/Mannose/Inulin/Brom (Uti-Stat Liquid), 30 ML GT TWICE A DAY, (Reported) Docusate Sodium* (Colace*), 100 MG GT QPM, (Reported) Fludrocortisone Acetate (Fludrocortisone Acetate), 0.1 MG GT DAILY, (Reported) Lamotrigine (Lamotrigine), 200 MG GT Q12HR, (Reported) Levetiracetam (Levetiracetam), 750 MG GT Q12HR, (Reported) Multivits W-Min/Ferrous Gluc (Centrum Multivit-Mineral Liq), 15 ML GT QPM, (Reported) Potassium Chloride (Potassium Chloride), 20 MEQ GT DAILY, (Reported) Pramipexole Dihydrochloride* (Mirapex*), 0.5 MG GT QID, (Reported) Sodium Chloride (Sodium Chloride), 2 GM GT BID, (Reported) Scheduled PRN Acetaminophen 160MG/5ML* (Acetaminophen*), 20 ML ORAL Q6HR PRN for Fever/Headache/Mild Pain, (Reported) Albuterol Sulfate (Proventil Hfa), 2 PUFF IH Q4HR PRN for Shortness of Breath, (Reported) Bisacodyl (Dulcolax), 10 MG RC DAILY PRN for Constipation, (Reported) Ibuprofen* (Motrin*), 600 MG GT Q6H PRN for Moderate Pain (Pain Scale 4-6), (Reported) Lorazepam* (Ativan*), 2 MG IV Q2H PRN for seizure, (Reported) Magnesium Hydroxide* (Milk Of Magnesia*), 30 ML GT DAILY PRN for bowel management, (Reported) Na Phos,M-B/Na Phos,Di-Ba* (Fleet Enema*), 133 ML RECTAL Q48H PRN for Constipation, (Reported) Discontinued Medications Lamotrigine* (Lamictal*), 200 MG ORAL TWICE A DAY, (Reported) Discontinued Reason: Prescription changed Levetiracetam (Levetiracetam), 100 MG ORAL TWICE A DAY, (Reported) Discontinued Reason: Prescription changed Polyethylene Glycol 3350* (Miralax*), 0.5 MG ORAL DAILY, (Reported) Discontinued Reason: Therapy completed Potassium Chloride* (K-Dur*), 15 ML ORAL DAILY, (Reported) Discontinued Reason: Prescription changed Sodium Chloride for inhalation* (Sodium Chloride Inhalation*), 1 GM IH TWICE A DAY, (Reported) Discontinued Reason: Prescription changed Vit D3 & K/Berberine Hcl/Hops (Ostera Tablet), 1 EACH PO, (Reported) Discontinued Reason: Prescription changed Patient History Healthcare decision maker Resuscitation status Advanced Directive on File Patient History Narrative PMhx: as above Shx: Negative for smoking or alcohol abuse. SNF patient Fhx: non contributory Physical Exam Physical Exam Narrative HEAD AND NECK: Trach site with no bleeding. Thin secretions. LUNGS: Bilateral breath sounds. Few rhonchi. CARDIAC: Regular rhythm. Slow rate. Normal S1, S2. No murmur. ABDOMEN: Soft. No focal tenderness. G-tube intact. EXTREMITIES: No edema. Muscle atrophy noted. Last 24 Hour Vital Signs Date Time Temp Pulse Resp B/P (MAP) Pulse Ox O2 Delivery O2 Flow Rate FiO2 08/24/20 16:00 55 08/24/20 16:00 97.8 64 20 139/62 (87) 95 08/24/20 12:00 98.1 66 20 131/74 (93) 95 08/24/20 12:00 53 08/24/20 09:00 Room Air 08/24/20 08:00 98.2 66 20 143/70 (94) 96 08/24/20 06:00 59 08/24/20 04:00 98.1 59 20 146/69 (94) 99 08/24/20 04:00 59 08/24/20 00:00 98.2 67 21 140/81 (100) 97 08/24/20 00:00 70 08/23/20 21:00 Room Air 08/23/20 20:00 98.5 72 21 137/80 (99) 96 08/23/20 20:00 70 Intake and Output 08/23/20 08/24/20 19:00 07:00 Intake Total 75 ml 375 ml Output Total 1100 ml 1200 ml Balance -1025 ml -825 ml IV Total 75 ml 375 ml Output Urine Total 1100 ml 1200 ml # Bowel Movements 1 1 Height (Feet): 5 Height (Inches): 10.00 Weight (Pounds): 154 Medications Current Medications Medications (Trade) Dose Ordered Sig/Myesha Route PRN Reason Start Time Stop Time Status Last Admin Dose Admin Acetaminophen (Tylenol) 500 mg EVERY 4 HOURS PRN GT Temp >100.5 08/16/20 05:30 09/15/20 05:29 08/20/20 16:37 Dextrose 1,000 ml @ 75 mls/hr [id number] IV 08/23/20 18:45 09/22/20 18:44 08/24/20 09:22 Donepezil HCl (Aricept) 10 mg QHS GT 08/20/20 22:00 09/19/20 21:59 08/23/20 20:31 Famotidine (Pepcid) 20 mg BID GT 08/16/20 09:00 11/14/20 08:59 08/24/20 17:24 Fish Oil (Fish Oil) 1,000 mg BID ORAL 08/16/20 09:00 09/15/20 08:59 08/24/20 17:24 Heparin Sodium (Porcine) (Heparin 5000 units/ml) 5,000 units EVERY 12 HOURS SUBQ 08/16/20 09:00 09/30/20 08:59 08/23/20 20:45 Hydralazine HCl (Apresoline) 25 mg Q6H PRN ORAL SBP above 150 08/24/20 18:00 11/22/20 17:59 Levetiracetam (Keppra) 1,000 mg Q12HR GT 08/16/20 09:00 09/30/20 08:59 08/24/20 09:23 Multivitamins (Multivitamins) 1 tab DAILY GT 08/16/20 09:00 09/15/20 08:59 08/24/20 09:23 Mupirocin (Bactroban Oint) 1 applic DAILY TOPIC 08/21/20 09:00 08/27/20 09:01 08/24/20 09:25 Piperacillin Sod/ Tazobactam Sod 3.375 gm/Sodium Chloride 110 ml @ 27.5 mls/hr Q8HR IVPB 08/19/20 22:00 08/26/20 21:59 08/24/20 13:45 Potassium Chloride (K-Dur) 40 meq DAILY GT 08/20/20 09:00 11/16/20 10:29 08/24/20 09:23 Vancomycin HCl 1 gm/Dextrose 275 ml @ 184 mls/hr Q12HR IVPB 08/20/20 23:00 08/25/20 22:59 08/24/20 09:22 Assessment/Plan Assessment/Plan: Abx: IV Vancomycin 08/20- Zosyn 08/19- Assessment: Sepsis UTI Fever, SP Leukocytosis -08/21 cdif neg -08/20 CXR: Left basilar atelectasis or scarring.Tracheostomy tube. No significant change from previous study. -08/17 u/a neg; ucx 50-60k P. stuarti (S Cefepime, Ertapenem, ZOsyn) -08/15 BCx NTD CXR: Reduced lung volumes. Patchy atelectasis in the left lung base. Bradycardia TERRENCE, improving Elevated LFts -Abd US: Mild gallbladder sludge. No ultrasound evidence of acute cholecystitis. Evaluation limited due to patient limitations. Nonvisualized spleen. BPH schizoaffective disorder chronic resp failure sp trach sp PEG CVA w/ residual paraplegia [facility] resident Plan: -Dc empiric IV Vancomycin #5 -Switch Zosyn #6/7-10 to Cefepime -f/u cx -Monitor CBC/CMP, temperatures -aspiration precautions Thank you for consulting [facility]. Will continue to follow along with you. Discussed wit Ivette Mcnair M.D. Aug 24, 2020 18:37
--- NOTE | 2020-08-24 19:21 | NUR ---
NURSE HAND-OFF REPORT: Important Events on Shift:N/A Patient Status: STABLE Diet: OSMOLITE 1.5 @ 50 Pending Orders: N/A Pending Results/Labs:N/A Pending MD notification:STABLE Latest Vital Signs: Temperature 97.8 , Pulse 64 , B/P 139 /62 , Respiratory Rate 20 , O2 SAT 95 , Room Air, O2 Flow Rate . Vital Sign Comment: STABLE EKG Rhythm: Sinus Bradycardia Rhythm change?: N MD Notified?: Y -Dr Nadia JOSHI Response: Latest Palm Fall Score: 70 Fall Risk: High Risk Safety Measures: Call light Within Reach, Bed Alarm Zone 1, Side Rails Side Rails x3, Bed position Low and Locked. Fall Precautions: Yellow Socks Report given to MELIA Rocha.
--- NOTE | 2020-08-24 19:24 | NUR ---
NURSE NOTES: Report received from MELIA Stanton. Patient is asleep in stable condition. conveyor monitor is in place, shows sinus rhythm. With tracheostomy to room air, saturating 95%. With g-tube, on Osmolite 1.5 @ 50cc/hour, flushing of 100cc every 6 hours. Patient is incontinent, condom catheter is in place. IV site is on left forearm g-20, running D5W @ 75cc/hour that is patent and intact. Bilateral soft wrist restraints are on, no swelling noted and peripheral pulses are present. Safety measures are in place, bed in lowest and locked position, side rails up x 2, will continue plan of care.
[2020-08-24 20:00] VITALS: BP 107/62
[2020-08-24] MEDS: Donepezil 5mg Tab GT SCH (21:01)
[2020-08-24] MEDS: Cefepime HCl 1 GM in D5W 55 ML IVPB SCH (21:02)
[2020-08-25] VITALS: BP 127/74
[2020-08-25 04:00] VITALS: BP 126/72
--- NOTE | 2020-08-25 06:18 | Hematology/Onc Progress Note ---
Assessment/Plan Assessment/Plan Assessment and recs # Anemia likely related to chronic disease --> hgb currently stable --> anemia panel prn --> hgb 13.7-->11.2-->11 # Leukocytosis with a wbc 21 --> on abx zosyn-->zosyn/vanc --> smear is noted # Thrombocytopenia -> r/o infection -> plt 140->126 --> vital etiologies as needed --> trend as needed --> transfuse prn # Bradycardia -- meds reviewed --> ekg, tele monitoring --> as per cards recs --> meds noted --> atropine prn basis # Hyponatremia --> per renal care # Atelectasis # Resp failure/trach -> surg aware # Paraplegia # Dysphagia s/p peg # Dehydration DW Rn Subjective Allergies: Coded Allergies: No Known Allergies (Unverified , 08/15/20) All Systems: reviewed and negative except above Subjective 08/17 nv, labs reviewed, meds noted, covering im 08/18 nv, with gt, osmolite, no bleeding, labs reviewed 08/19 refusing medications, combative, no bleeding 08/20 on zosyn, is continuing, wbc is higher at 23k 08/21 on vanc/zosyn, labs noted, no bleeding 08/22 on abx, stable, with bradycardia, no bleeding, no fc 08/24 nv, on abx, soft restraints, gt feeds ongoing 08/25 nv, trach to ra, meds noted, restraints, gt + Objective Objective Current Medications Medications (Trade) Dose Ordered Sig/Myesha Route PRN Reason Start Time Stop Time Status Last Admin Dose Admin Acetaminophen (Tylenol) 500 mg EVERY 4 HOURS PRN GT Temp >100.5 08/16/20 05:30 09/15/20 05:29 08/20/20 16:37 Cefepime HCl 1 gm/ Dextrose 55 ml @ 110 mls/hr EVERY 12 HOURS IVPB 08/24/20 21:00 08/31/20 20:59 08/24/20 21:02 Dextrose 1,000 ml @ 75 mls/hr [id number] IV 08/23/20 18:45 09/22/20 18:44 08/25/20 05:58 Donepezil HCl (Aricept) 10 mg QHS GT 08/20/20 22:00 09/19/20 21:59 08/24/20 21:01 Famotidine (Pepcid) 20 mg BID GT 08/16/20 09:00 11/14/20 08:59 08/24/20 17:24 Fish Oil (Fish Oil) 1,000 mg BID ORAL 08/16/20 09:00 09/15/20 08:59 08/24/20 17:24 Heparin Sodium (Porcine) (Heparin 5000 units/ml) 5,000 units EVERY 12 HOURS SUBQ 08/16/20 09:00 09/30/20 08:59 08/24/20 21:05 Hydralazine HCl (Apresoline) 25 mg Q6H PRN ORAL SBP above 150 08/24/20 18:00 11/22/20 17:59 Levetiracetam (Keppra) 1,000 mg Q12HR GT 08/16/20 09:00 09/30/20 08:59 08/24/20 21:01 Multivitamins (Multivitamins) 1 tab DAILY GT 08/16/20 09:00 09/15/20 08:59 08/24/20 09:23 Mupirocin (Bactroban Oint) 1 applic DAILY TOPIC 08/21/20 09:00 08/27/20 09:01 08/24/20 09:25 Potassium Chloride (K-Dur) 40 meq DAILY GT 08/20/20 09:00 11/16/20 10:29 08/24/20 09:23 Vancomycin HCl (Vanco pharmacy to dose) 1 ea DAILY PRN MISC Per rx protocol 08/24/20 18:30 09/23/20 18:29 Vancomycin HCl 1 gm/Dextrose 275 ml @ 184 mls/hr Q12HR IVPB 08/20/20 23:00 08/29/20 22:59 08/24/20 21:02 Last 24 Hour Vital Signs Date Time Temp Pulse Resp B/P (MAP) Pulse Ox O2 Delivery O2 Flow Rate FiO2 08/25/20 04:00 97.9 64 20 126/72 (90) 99 08/25/20 03:54 62 08/25/20 00:00 97.4 72 20 127/74 (91) 96 08/25/20 00:00 72 08/24/20 21:00 Room Air 2/28/21 20:00 97.8 56 20 107/62 (77) 97 08/24/20 20:00 60 08/24/20 16:00 55 08/24/20 16:00 97.8 64 20 139/62 (87) 95 08/24/20 12:00 98.1 66 20 131/74 (93) 95 08/24/20 12:00 53 08/24/20 09:00 Room Air 08/24/20 08:00 98.2 66 20 143/70 (94) 96 08/24/20 06:00 59 08/24/20 04:00 98.1 59 20 146/69 (94) 99 08/24/20 04:00 59 08/24/20 00:00 98.2 67 21 140/81 (100) 97 08/24/20 00:00 70 08/23/20 21:00 Room Air 08/23/20 20:00 98.5 72 21 137/80 (99) 96 08/23/20 20:00 70 08/23/20 16:00 68 08/23/20 16:00 98.3 74 20 133/71 (91) 93 08/23/20 14:53 98.1 73 20 105/63 (77) 93 08/23/20 12:00 71 08/23/20 11:00 Room Air 08/23/20 08:00 66 08/23/20 08:00 97.9 77 20 113/71 (85) 94 Intake and Output 08/24/20 08/25/20 19:00 07:00 Intake Total 125 ml 1200 ml Output Total 1300 ml 600 ml Balance -1175 ml 600 ml Free Water 200 ml IV Total 75 ml 600 ml Tube Feeding 50 ml 400 ml Output Urine Total 1300 ml 600 ml # Voids 1 # Bowel Movements 1 1 Labs Test 08/22/20 08:15 08/23/20 08:30 White Blood Count 7.9 K/UL (4.8-10.8) 7.9 K/UL (4.8-10.8) Red Blood Count 3.46 M/UL (4.70-6.10) 3.54 M/UL (4.70-6.10) Hemoglobin 11.1 G/DL (14.2-18.0) 11.3 G/DL (14.2-18.0) Hematocrit 32.9 % (42.0-52.0) 33.7 % (42.0-52.0) Mean Corpuscular Volume 95 FL (80-99) 95 FL (80-99) Mean Corpuscular Hemoglobin 32.1 PG (27.0-31.0) 31.8 PG (27.0-31.0) Mean Corpuscular Hemoglobin Concent 33.7 G/DL (32.0-36.0) 33.4 G/DL (32.0-36.0) Red Cell Distribution Width 12.8 % (11.6-14.8) 12.8 % (11.6-14.8) Platelet Count 126 K/UL (150-450) 139 K/UL (150-450) Mean Platelet Volume 9.3 FL (6.5-10.1) 7.9 FL (6.5-10.1) Neutrophils (%) (Auto) 67.6 % (45.0-75.0) 72.8 % (45.0-75.0) Lymphocytes (%) (Auto) 20.8 % (20.0-45.0) 16.1 % (20.0-45.0) Monocytes (%) (Auto) 9.1 % (1.0-10.0) 6.8 % (1.0-10.0) Eosinophils (%) (Auto) 2.1 % (0.0-3.0) 3.5 % (0.0-3.0) Basophils (%) (Auto) 0.5 % (0.0-2.0) 0.8 % (0.0-2.0) Sodium Level 144 MMOL/L (136-145) 148 MMOL/L (136-145) Potassium Level 3.5 MMOL/L (3.5-5.1) 3.5 MMOL/L (3.5-5.1) Chloride Level 107 MMOL/L (98-107) 111 MMOL/L (98-107) Carbon Dioxide Level 27 MMOL/L (21-32) 30 MMOL/L (21-32) Anion Gap 10 mmol/L (5-15) 7 mmol/L (5-15) Blood Urea Nitrogen 19 mg/dL (7-18) 22 mg/dL (7-18) Creatinine 1.1 MG/DL (0.55-1.30) 1.2 MG/DL (0.55-1.30) Estimat Glomerular Filtration Rate > 60 mL/min (>60) > 60 mL/min (>60) Glucose Level 126 MG/DL (74-106) 109 MG/DL (74-106) Calcium Level 8.2 MG/DL (8.5-10.1) 8.5 MG/DL (8.5-10.1) Phosphorus Level 2.8 MG/DL (2.5-4.9) Magnesium Level 2.0 MG/DL (1.8-2.4) Total Bilirubin 0.4 MG/DL (0.2-1.0) 0.5 MG/DL (0.2-1.0) Aspartate Amino Transf (AST/SGOT) 62 U/L (15-37) 52 U/L (15-37) Alanine Aminotransferase (ALT/SGPT) 91 U/L (12-78) 84 U/L (12-78) Alkaline Phosphatase 100 U/L (46-116) 90 U/L (46-116) C-Reactive Protein, Quantitative 19.1 mg/dL (0.00-0.90) Total Protein 7.1 G/DL (6.4-8.2) 7.3 G/DL (6.4-8.2) Albumin 2.9 G/DL (3.4-5.0) 2.9 G/DL (3.4-5.0) Globulin 4.2 g/dL 4.4 g/dL Albumin/Globulin Ratio 0.7 (1.0-2.7) 0.7 (1.0-2.7) Vancomycin Level Trough 13.2 ug/mL (5.0-12.0) Height (Feet): 5 Height (Inches): 10.00 Weight (Pounds): 154 Objective Physical Exam Vitals: noted General: no apparent distress, alert, Chronically Ill HEENT: bilateral eye PERRL, bilateral eye EOMI Respiratory: chest non-tender, lungs clear, normal breath sounds Cardiovascular: regular rate, rhythm, no murmur Gastrointestinal: normal bowel sounds ++gt Musculoskeletal: back normal, other - contracted Psychiatric: mood/affect normal Matthew Batista MD Aug 25, 2020 06:18
--- NOTE | 2020-08-25 07:53 | NUR ---
NURSE HAND-OFF REPORT: Important Events on Shift: Patient has been resting well the whole shift, no residual nor desatration noted Patient Status: Patient is awake on bed in stable condition, plan of care endorsed. Diet: Osmolite 1.5 @ 50 cc/hour Pending Orders: none Pending Results/Labs:AM labs Pending notification:none Latest Vital Signs: Temperature 97.9 , Pulse 64 , B/P 126 /72 , Respiratory Rate 20 , O2 SAT 99 , Room Air, O2 Flow Rate . Vital Sign Comment: stable EKG Rhythm: Sinus Rhythm Rhythm change?: N Notified?: Y -Dr Nadia JOSHI Response: Message left await call Latest Palm Fall Score: 70 Fall Risk: High Risk Safety Measures: Call light Within Reach, Bed Alarm Zone 1, Side Rails Side Rails x3, Bed position Low and Locked. Fall Precautions: Yellow Socks Report given to MELIA Rajan.
[2020-08-25 08:00] VITALS: BP 109/57
--- NOTE | 2020-08-25 08:31 | Pulmonology Progress Note ---
Subjective ROS Limited/Unobtainable: No Allergies: Coded Allergies: No Known Allergies (Unverified , 08/15/20) All Systems: reviewed and negative except above Subjective care noted stable no distress awake Objective Last 24 Hour Vital Signs Date Time Temp Pulse Resp B/P (MAP) Pulse Ox O2 Delivery O2 Flow Rate FiO2 08/25/20 04:00 97.9 64 20 126/72 (90) 99 08/25/20 03:54 62 08/25/20 00:00 97.4 72 20 127/74 (91) 96 08/25/20 00:00 72 08/24/20 21:00 Room Air 08/24/20 20:00 97.8 56 20 107/62 (77) 97 08/24/20 20:00 60 08/24/20 16:00 55 08/24/20 16:00 97.8 64 20 139/62 (87) 95 08/24/20 12:00 98.1 66 20 131/74 (93) 95 08/24/20 12:00 53 08/24/20 09:00 Room Air Intake and Output 08/24/20 08/25/20 19:00 07:00 Intake Total 125 ml 1200 ml Output Total 1300 ml 600 ml Balance -1175 ml 600 ml Free Water 200 ml IV Total 75 ml 600 ml Tube Feeding 50 ml 400 ml Output Urine Total 1300 ml 600 ml # Voids 1 # Bowel Movements 1 1 Objective WDWN NAD clear breath sounds bilaterally without rhonchi or wheeze [id number] without MRG NABS nontender no CCE nonfocal awake bed bound Current Medications Medications (Trade) Dose Ordered Sig/Myesha Route PRN Reason Start Time Stop Time Status Last Admin Dose Admin Acetaminophen (Tylenol) 500 mg EVERY 4 HOURS PRN GT Temp >100.5 08/16/20 05:30 09/15/20 05:29 08/20/20 16:37 Cefepime HCl 1 gm/ Dextrose 55 ml @ 110 mls/hr EVERY 12 HOURS IVPB 08/24/20 21:00 08/31/20 20:59 08/24/20 21:02 Dextrose 1,000 ml @ 75 mls/hr [id number] IV 08/23/20 18:45 09/22/20 18:44 08/25/20 05:58 Donepezil HCl (Aricept) 10 mg QHS GT 08/20/20 22:00 09/19/20 21:59 08/24/20 21:01 Famotidine (Pepcid) 20 mg BID GT 08/16/20 09:00 11/14/20 08:59 08/24/20 17:24 Fish Oil (Fish Oil) 1,000 mg BID ORAL 08/16/20 09:00 09/15/20 08:59 08/24/20 17:24 Heparin Sodium (Porcine) (Heparin 5000 units/ml) 5,000 units EVERY 12 HOURS SUBQ 08/16/20 09:00 09/30/20 08:59 08/24/20 21:05 Hydralazine HCl (Apresoline) 25 mg Q6H PRN ORAL SBP above 150 08/24/20 18:00 11/22/20 17:59 Levetiracetam (Keppra) 1,000 mg Q12HR GT 08/16/20 09:00 09/30/20 08:59 08/24/20 21:01 Multivitamins (Multivitamins) 1 tab DAILY GT 08/16/20 09:00 09/15/20 08:59 08/24/20 09:23 Mupirocin (Bactroban Oint) 1 applic DAILY TOPIC 08/21/20 09:00 08/27/20 09:01 08/24/20 09:25 Potassium Chloride (K-Dur) 40 meq DAILY GT 08/20/20 09:00 11/16/20 10:29 08/24/20 09:23 Vancomycin HCl (Vanco pharmacy to dose) 1 ea DAILY PRN MISC Per rx protocol 08/24/20 18:30 09/23/20 18:29 Vancomycin HCl 1 gm/Dextrose 275 ml @ 184 mls/hr Q12HR IVPB 08/20/20 23:00 08/29/20 22:59 08/24/20 21:02 Assessment/Plan Assessment/Plan IMPRESSION: respiratory failure, trach; severe PCM; paraplegia anemia. atelectasis, UTI, chronic encephalopathy PLAN patient tolerating cap for several days care noted aspiration precautions monitor airway d/w surgery will follow impression, plan, and exam edited and reviewed in detail care discussed with Maximo Hearn MD Aug 25, 2020 08:31
--- NOTE | 2020-08-25 08:53 | Infectious Diseases Prog Note ---
Assessment/Plan Abx: IV Vancomycin 08/20- Zosyn 08/19- Assessment: Sepsis UTI Fever, SP Leukocytosis -08/21 cdif neg -08/20 CXR: Left basilar atelectasis or scarring.Tracheostomy tube. No sig nificant change from previous study. -08/17 u/a neg; ucx 50-60k P. stuarti (S Cefepime, Ertapenem, ZOsyn) -08/15 BCx NTD CXR: Reduced lung volumes. Patchy atelectasis in the left lung base. Bradycardia TERRENCE, improving Elevated LFts -Abd US: Mild gallbladder sludge. No ultrasound evidence of acute cholecystitis. Evaluation limited due to patient limitations. Nonvisualized spleen. BPH schizoaffective disorder chronic resp failure sp trach sp PEG CVA w/ residual paraplegia [facility] resident Plan: - Continue Cefepime #1/4 08/23/20 SP Vancomycin #5 and Zosyn #6 -f/u cx -Monitor CBC/CMP, temperatures -aspiration precautions Thank you for consulting [facility]. Will continue to follow along with you. Shin lundberg RN. Subjective Allergies: Coded Allergies: No Known Allergies (Unverified , 08/15/20) Afebile Labs pending VERNELL Objective Last 24 Hour Vital Signs Date Time Temp Pulse Resp B/P (MAP) Pulse Ox O2 Delivery O2 Flow Rate FiO2 08/25/20 04:00 97.9 64 20 126/72 (90) 99 08/25/20 03:54 62 08/25/20 00:00 97.4 72 20 127/74 (91) 96 08/25/20 00:00 72 08/24/20 21:00 Room Air 08/24/20 20:00 97.8 56 20 107/62 (77) 97 08/24/20 20:00 60 08/24/20 16:00 55 08/24/20 16:00 97.8 64 20 139/62 (87) 95 08/24/20 12:00 98.1 66 20 131/74 (93) 95 08/24/20 12:00 53 08/24/20 09:00 Room Air Height (Feet): 5 Height (Inches): 10.00 Weight (Pounds): 154 GEN: NAD HEENT: NCAT, Trached LUNGS: RRR, Equal rise and fall B/L ABDOMEN: Soft. ND. G-tube intact. EXTREMITIES: No edema. Muscle atrophy noted. Current Medications Medications (Trade) Dose Ordered Sig/Myesha Route PRN Reason Start Time Stop Time Status Last Admin Dose Admin Acetaminophen (Tylenol) 500 mg EVERY 4 HOURS PRN GT Temp >100.5 08/16/20 05:30 09/15/20 05:29 08/20/20 16:37 Cefepime HCl 1 gm/ Dextrose 55 ml @ 110 mls/hr EVERY 12 HOURS IVPB 08/24/20 21:00 08/31/20 20:59 08/24/20 21:02 Dextrose 1,000 ml @ 75 mls/hr [id number] IV 08/23/20 18:45 09/22/20 18:44 08/25/20 05:58 Donepezil HCl (Aricept) 10 mg QHS GT 08/20/20 22:00 09/19/20 21:59 08/24/20 21:01 Famotidine (Pepcid) 20 mg BID GT 08/16/20 09:00 11/14/20 08:59 08/24/20 17:24 Fish Oil (Fish Oil) 1,000 mg BID ORAL 08/16/20 09:00 09/15/20 08:59 08/24/20 17:24 Heparin Sodium (Porcine) (Heparin 5000 units/ml) 5,000 units EVERY 12 HOURS SUBQ 08/16/20 09:00 09/30/20 08:59 08/24/20 21:05 Hydralazine HCl (Apresoline) 25 mg Q6H PRN ORAL SBP above 150 08/24/20 18:00 11/22/20 17:59 Levetiracetam (Keppra) 1,000 mg Q12HR GT 08/16/20 09:00 09/30/20 08:59 08/24/20 21:01 Multivitamins (Multivitamins) 1 tab DAILY GT 08/16/20 09:00 09/15/20 08:59 08/24/20 09:23 Mupirocin (Bactroban Oint) 1 applic DAILY TOPIC 08/21/20 09:00 08/27/20 09:01 08/24/20 09:25 Potassium Chloride (K-Dur) 40 meq DAILY GT 08/20/20 09:00 11/16/20 10:29 08/24/20 09:23 Vancomycin HCl (Vanco pharmacy to dose) 1 ea DAILY PRN MISC Per rx protocol 08/24/20 18:30 09/23/20 18:29 Vancomycin HCl 1 gm/Dextrose 275 ml @ 184 mls/hr Q12HR IVPB 08/20/20 23:00 08/29/20 22:59 08/24/20 21:02 Sin Mariee MD Aug 25, 2020 08:52
[2020-08-25 09:04] LABS: BASOPHILS % (AUTO) 0.9 % (0.0-2.0); EOSINOPHILS % (AUTO) 6.2 % (0.0-3.0); HEMATOCRIT 31.7 % (42.0-52.0); HEMOGLOBIN 10.7 G/DL (14.2-18.0); LYMPHOCYTES % (AUTO) 16.7 % (20.0-45.0); MEAN CORPUSCULAR VOLUME 94 FL (80-99); NEUTROPHILS % (AUTO) 66.3 % (45.0-75.0); PLATELET COUNT 194 K/UL (150-450); RED BLOOD COUNT 3.36 M/UL (4.70-6.10); RED CELL DISTRIBUTION WIDTH 12.5 % (11.6-14.8); WHITE BLOOD COUNT 7.4 K/UL (4.8-10.8)
[2020-08-25] MEDS: Cefepime HCl 1 GM in D5W 55 ML IVPB SCH ×2 (09:24→20:55)
[2020-08-25] MEDS: levETIRAcetam 500mg/5ml Liquid GT SCH ×2 (09:25→20:56)
[2020-08-25] MEDS: Heparin 5000 units/ml inj SUBQ SCH ×2 (09:28→20:57)
[2020-08-25 09:31] LABS: ALANINE AMINOTRANSFERASE 82 U/L (12-78); ALBUMIN/GLOBULIN RATIO 0.7 (1.0-2.7); ALKALINE PHOSPHATASE 95 U/L (46-116); ANION GAP 7 mmol/L (5-15); ASPARTATE AMINO TRANSFERASE 49 U/L (15-37); BILIRUBIN,TOTAL 0.5 MG/DL (0.2-1.0); BLOOD UREA NITROGEN 23 mg/dL (7-18); CALCIUM 8.5 MG/DL (8.5-10.1); CARBON DIOXIDE 31 MMOL/L (21-32); CHLORIDE 104 MMOL/L (98-107); CREATININE 1.1 MG/DL (0.55-1.30); PHOSPHORUS 3.8 MG/DL (2.5-4.9); SODIUM 142 MMOL/L (136-145)
[2020-08-25 12:00] VITALS: BP 125/75
--- NOTE | 2020-08-25 12:30 | NUR ---
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 CURRENT TF:Osmolite 1.5 @ 50ml/hr x 24 hrs PO DIET RECOMMENDATIONS: IF SAFE FOR ORAL DIET -> liberalized regular/ texture per SUPERVISOR URANIUM PROCESSING ENTERAL NUTRITION RECOMMENDATIONS: For continuous TF-> Osmolite 1.5 @ 50ml/hr x 24 hrs to provide 1200ml, 1800kcal, 94g prot, 914ml free water * For continuous TF, rec continue Osmolite 1.5 @ 50ml/hr x 24 hrs -> HOB over 30 degrees/ H2O flush 250ml q 6hrs ------ * Monitor SUPERVISOR URANIUM PROCESSING eval and rec, will provide nocturnal TF rec if appropriate ADDITIONAL RECOMMENDATIONS: * Per SNF: HT=65" and [id number] (08/05/20) * Monitor SUPERVISOR URANIUM PROCESSING rec: pt on pureed moist texture w/ HTL TID 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
--- NOTE | 2020-08-25 12:52 | Surgery Progress Note ---
Surgery Progress Note Objective Last 24 Hour Vital Signs Date Time Temp Pulse Resp B/P (MAP) Pulse Ox O2 Delivery O2 Flow Rate FiO2 08/25/20 09:00 Room Air 08/25/20 08:00 55 08/25/20 08:00 98.0 55 20 109/57 (74) 98 08/25/20 04:00 97.9 64 20 126/72 (90) 99 08/25/20 03:54 62 08/25/20 00:00 97.4 72 20 127/74 (91) 96 08/25/20 00:00 72 08/24/20 21:00 Room Air 08/24/20 20:00 97.8 56 20 107/62 (77) 97 08/24/20 20:00 60 08/24/20 16:00 55 08/24/20 16:00 97.8 64 20 139/62 (87) 95 I&O Intake and Output 08/24/20 08/25/20 19:00 07:00 Intake Total 125 ml 1200 ml Output Total 1300 ml 600 ml Balance -1175 ml 600 ml Free Water 200 ml IV Total 75 ml 600 ml Tube Feeding 50 ml 400 ml Output Urine Total 1300 ml 600 ml # Voids 1 # Bowel Movements 1 1 Laboratory Tests Test 08/25/20 08:05 White Blood Count 7.4 K/UL (4.8-10.8) Red Blood Count 3.36 M/UL (4.70-6.10) L Hemoglobin 10.7 G/DL (14.2-18.0) L Hematocrit 31.7 % (42.0-52.0) L Mean Corpuscular Volume 94 FL (80-99) Mean Corpuscular Hemoglobin 31.8 PG (27.0-31.0) H Mean Corpuscular Hemoglobin Concent 33.8 G/DL (32.0-36.0) Red Cell Distribution Width 12.5 % (11.6-14.8) Platelet Count 194 K/UL (150-450) Mean Platelet Volume 7.9 FL (6.5-10.1) Neutrophils (%) (Auto) 66.3 % (45.0-75.0) Lymphocytes (%) (Auto) 16.7 % (20.0-45.0) L Monocytes (%) (Auto) 10.0 % (1.0-10.0) Eosinophils (%) (Auto) 6.2 % (0.0-3.0) H Basophils (%) (Auto) 0.9 % (0.0-2.0) Sodium Level 142 MMOL/L (136-145) Potassium Level 3.0 MMOL/L (3.5-5.1) L Chloride Level 104 MMOL/L (98-107) Carbon Dioxide Level 31 MMOL/L (21-32) Anion Gap 7 mmol/L (5-15) Blood Urea Nitrogen 23 mg/dL (7-18) H Creatinine 1.1 MG/DL (0.55-1.30) Estimat Glomerular Filtration Rate > 60 mL/min (>60) Glucose Level 120 MG/DL (74-106) H Calcium Level 8.5 MG/DL (8.5-10.1) Phosphorus Level 3.8 MG/DL (2.5-4.9) Magnesium Level 2.5 MG/DL (1.8-2.4) H Total Bilirubin 0.5 MG/DL (0.2-1.0) Aspartate Amino Transf (AST/SGOT) 49 U/L (15-37) H Alanine Aminotransferase (ALT/SGPT) 82 U/L (12-78) H Alkaline Phosphatase 95 U/L (46-116) Total Protein 7.2 G/DL (6.4-8.2) Albumin 3.0 G/DL (3.4-5.0) L Globulin 4.2 g/dL Albumin/Globulin Ratio 0.7 (1.0-2.7) L Plan Problems: (1) Trachea displaced Assessment & Plan: Lungs: Reduced lung volumes. Patchy atelectasis in the left lung base. Pleural space: Unremarkable. No pneumothorax. Heart: Unremarkable. No cardiomegaly. Mediastinum: Unremarkable. Bones/joints: No acute fracture. Tubes, lines and devices: Tracheostomy. IMPRESSION: Reduced lung volumes. Patchy atelectasis in the left lung base. trach remains stable cont cap as respiratory trial stable discussed with PCP patient has been doing great with trach cap. likely ready for decannulation. will get pulm input and consideration prior to removal (2) Bradycardia (3) Hyponatremia (4) Elevated alkaline phosphatase level Assessment & Plan: abd us noted labs okay exam benign okay for diet trend labs no acute surgical intervention planned Liver: The liver measures 17 cm. No intrahepatic bile duct dilation. Gallbladder: No definite cholelithiasis. Suspect a mild bladder sludge. No gallbladder wall thickening or pericholecystic fluid. Common bile duct: Unremarkable as visualized. No stones. No dilation . Pancreas: Unremarkable as visualized. Kidneys: The right kidney measures 12.1 cm. The left kidney measures 8.8 cm. No stones. No hydronephrosis. Spleen: Nonvisualized spleen. Aorta: The aorta is measured at 2.3 cm. This is slightly over measured by the technologist. Inferior vena cava: Unremarkable. IMPRESSION: Mild gallbladder sludge. No ultrasound evidence of acute cholecystitis. Evaluation limited due to patient limitations. Nonvisualized spleen. 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 CURRENT TF:Osmolite 1.5 @ 50ml/hr x 24 hrs PO DIET RECOMMENDATIONS: IF SAFE FOR ORAL DIET -> liberalized regular/ texture per TONE REGULATOR ENTERAL NUTRITION RECOMMENDATIONS: For continuous TF-> Osmolite 1.5 @ 50ml/hr x 24 hrs to provide 1200ml, 1800kcal, 94g prot, 914ml free water * For continuous TF, rec continue Osmolite 1.5 @ 50ml/hr x 24 hrs -> HOB over 30 degrees/ H2O flush 250ml q 6hrs ------ * Monitor TONE REGULATOR eval and rec, will provide nocturnal TF rec if appropriate ADDITIONAL RECOMMENDATIONS: * Per SNF: HT=65" and FZ=[id number] (08/05/20) * Monitor TONE REGULATOR rec: pt on pureed moist texture w/ HTL TID 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
--- NOTE | 2020-08-25 13:13 | Nephrology Progress Note ---
Assessment/Plan Problem List: (1) Hyponatremia (2) Bradycardia (3) Trachea displaced (4) TERRENCE (acute kidney injury) Assessment Hyponatremia: Etiology work-up ordered and in process Bradycardia Vent dependent PEG dependent BPH Plan August 25: Labs reviewed. Low potassium addressed. IV fluid discontinued. C ontinue per consultants. Stable from renal standpoint of view. August 24: No CHEM panel drawn today. Stable from renal standpoint of view. Will check lab tomorrow. Continue per consultants. August 23: Labs reviewed. Renal parameters stable. Medications list reviewed. Continue per consultants. August 22. Low-grade temperature is still recorded. Labs reviewed. Renal parameters stable. Continue per consultants. August 21: Remains febrile. Serum creatinine normalized. Low phosphorus addressed. Continue to monitor renal parameters and electrolytes. Blood pressure improved. August 20: Patient febrile. Serum creatinine keith to 1.7. Blood pressure 90 systolic. Will give albumin and saline bolus and will start on IV hydration. Continue to monitor renal parameters. Per orders. August 19: Labs reviewed. Electrolytes improved. Will discontinue Lasix. Continue to monitor electrolytes. August 18: Labs reviewed. Serum sodium slightly higher. Potassium supplement given. Lasix and 3% saline to be continued aim to keep output more than intake. August 17: Trial of 3% saline and Lasix. Monitor serum sodium and electrolytes. Continue per consultants. Urine studies, urine spot sodium, urine osmolality panel monitor Check TSH, uric acid, serum osmolality, lipid panel Further comments after above results Subjective ROS Limited/Unobtainable: No Constitutional: Reports: malaise Objective Objective Last 24 Hour Vital Signs Date Time Temp Pulse Resp B/P (MAP) Pulse Ox O2 Delivery O2 Flow Rate FiO2 08/25/20 09:00 Room Air 08/25/20 08:00 55 08/25/20 08:00 98.0 55 20 109/57 (74) 98 08/25/20 04:00 97.9 64 20 126/72 (90) 99 08/25/20 03:54 62 08/25/20 00:00 97.4 72 20 127/74 (91) 96 08/25/20 00:00 72 08/24/20 21:00 Room Air 08/24/20 20:00 97.8 56 20 107/62 (77) 97 08/24/20 20:00 60 08/24/20 16:00 55 08/24/20 16:00 97.8 64 20 139/62 (87) 95 Intake and Output 08/24/20 08/25/20 19:00 07:00 Intake Total 125 ml 1200 ml Output Total 1300 ml 600 ml Balance -1175 ml 600 ml Free Water 200 ml IV Total 75 ml 600 ml Tube Feeding 50 ml 400 ml Output Urine Total 1300 ml 600 ml # Voids 1 # Bowel Movements 1 1 Current Medications Medications (Trade) Dose Ordered Sig/Myesha Route PRN Reason Start Time Stop Time Status Last Admin Dose Admin Acetaminophen (Tylenol) 500 mg EVERY 4 HOURS PRN GT Temp >100.5 08/16/20 05:30 09/15/20 05:29 08/20/20 16:37 Cefepime HCl 1 gm/ Dextrose 55 ml @ 110 mls/hr EVERY 12 HOURS IVPB 08/24/20 21:00 08/31/20 20:59 08/25/20 09:24 Dextrose 1,000 ml @ 75 mls/hr [id number] IV 08/23/20 18:45 09/22/20 18:44 08/25/20 05:58 Donepezil HCl (Aricept) 10 mg QHS GT 08/20/20 22:00 09/19/20 21:59 08/24/20 21:01 Famotidine (Pepcid) 20 mg BID GT 08/16/20 09:00 11/14/20 08:59 08/25/20 09:25 Fish Oil (Fish Oil) 1,000 mg BID ORAL 08/16/20 09:00 09/15/20 08:59 08/25/20 09:25 Heparin Sodium (Porcine) (Heparin 5000 units/ml) 5,000 units EVERY 12 HOURS SUBQ 08/16/20 09:00 09/30/20 08:59 08/25/20 09:28 Hydralazine HCl (Apresoline) 25 mg Q6H PRN ORAL SBP above 150 08/24/20 18:00 11/22/20 17:59 Levetiracetam (Keppra) 1,000 mg Q12HR GT 08/16/20 09:00 09/30/20 08:59 08/25/20 09:25 Multivitamins (Multivitamins) 1 tab DAILY GT 08/16/20 09:00 09/15/20 08:59 08/25/20 09:33 Mupirocin (Bactroban Oint) 1 applic DAILY TOPIC 08/21/20 09:00 08/27/20 09:01 08/25/20 09:25 Potassium Chloride (K-Dur) 40 meq DAILY GT 08/20/20 09:00 11/16/20 10:29 08/25/20 09:25 Laboratory Tests 08/25/20 08:05: White Blood Count 7.4, Red Blood Count 3.36L, Hemoglobin 10.7L, Hematocrit 31.7L , Mean Corpuscular Volume 94, Mean Corpuscular Hemoglobin 31.8H, Mean Corpuscular Hemoglobin Concent 33.8, Red Cell Distribution Width 12.5, Platelet Count 194, Mean Platelet Volume 7.9, Neutrophils (%) (Auto) 66.3, Lymphocytes (%) (Auto) 16.7L, Monocytes (%) (Auto) 10.0, Eosinophils (%) (Auto) 6.2H, Basophils (%) (Auto) 0.9, Sodium Level 142, Potassium Level 3.0L, Chloride Level 104, Carbon Dioxide Level 31, Anion Gap 7, Blood Urea Nitrogen 23H, Creatinine 1.1, Estimat Glomerular Filtration Rate > 60, Glucose Level 120H, Calcium Level 8.5, Phosphorus Level 3.8, Magnesium Level 2.5H, Total Bilirubin 0.5, Aspartate Amino Transf (AST/SGOT) 49H, Alanine Aminotransferase (ALT/SGPT) 82H, Alkaline Phosphatase 95, Total Protein 7.2, Albumin 3.0L, Globulin 4.2, Albumin/Globulin Ratio 0.7L Height (Feet): 5 Height (Inches): 10.00 Weight (Pounds): 154 General Appearance: no apparent distress Cardiovascular: normal rate Respiratory/Chest: decreased breath sounds Abdomen: distended Objective No change Chase Haynes MD Aug 25, 2020 13:13
[2020-08-25 16:00] VITALS: BP 139/85
--- NOTE | 2020-08-25 19:39 | Cardiology Progress Note ---
Subjective DATE OF SERVICE: Aug 25, 2020 Remains in sinus rhythm with asymptomatic sinus bradycardia. No recurrent AFib. On hypotonic IVF for elevated Na level. No hypotensive episodes. Objective Last 24 Hour Vital Signs Date Time Temp Pulse Resp B/P (MAP) Pulse Ox O2 Delivery O2 Flow Rate FiO2 08/25/20 16:00 97.9 64 20 139/85 (103) 99 08/25/20 16:00 68 08/25/20 12:00 98.6 68 20 125/75 (92) 98 08/25/20 12:00 58 08/25/20 09:00 Room Air 08/25/20 08:00 55 08/25/20 08:00 98.0 55 20 109/57 (74) 98 08/25/20 04:00 97.9 64 20 126/72 (90) 99 08/25/20 03:54 62 08/25/20 00:00 97.4 72 20 127/74 (91) 96 08/25/20 00:00 72 08/24/20 21:00 Room Air 08/24/20 20:00 97.8 56 20 107/62 (77) 97 08/24/20 20:00 60 HEENT: Thin Trach secretions RHYTHM: NSR, SB LUNGS: lungs clear bilaterally CARDIAC: regular rhythm, normal S1 and S2, bradycardia ABDOMEN: normal bowel sounds, non tender, soft, G-Tube intact EXTREMITIES: normal range of motion, non-tender, no calf tenderness, No edema Laboratory Tests Test 08/25/20 08:05 White Blood Count 7.4 K/UL (4.8-10.8) Red Blood Count 3.36 M/UL (4.70-6.10) L Hemoglobin 10.7 G/DL (14.2-18.0) L Hematocrit 31.7 % (42.0-52.0) L Mean Corpuscular Volume 94 FL (80-99) Mean Corpuscular Hemoglobin 31.8 PG (27.0-31.0) H Mean Corpuscular Hemoglobin Concent 33.8 G/DL (32.0-36.0) Red Cell Distribution Width 12.5 % (11.6-14.8) Platelet Count 194 K/UL (150-450) Mean Platelet Volume 7.9 FL (6.5-10.1) Neutrophils (%) (Auto) 66.3 % (45.0-75.0) Lymphocytes (%) (Auto) 16.7 % (20.0-45.0) L Monocytes (%) (Auto) 10.0 % (1.0-10.0) Eosinophils (%) (Auto) 6.2 % (0.0-3.0) H Basophils (%) (Auto) 0.9 % (0.0-2.0) Sodium Level 142 MMOL/L (136-145) Potassium Level 3.0 MMOL/L (3.5-5.1) L Chloride Level 104 MMOL/L (98-107) Carbon Dioxide Level 31 MMOL/L (21-32) Anion Gap 7 mmol/L (5-15) Blood Urea Nitrogen 23 mg/dL (7-18) H Creatinine 1.1 MG/DL (0.55-1.30) Estimat Glomerular Filtration Rate > 60 mL/min (>60) Glucose Level 120 MG/DL (74-106) H Calcium Level 8.5 MG/DL (8.5-10.1) Phosphorus Level 3.8 MG/DL (2.5-4.9) Magnesium Level 2.5 MG/DL (1.8-2.4) H Total Bilirubin 0.5 MG/DL (0.2-1.0) Aspartate Amino Transf (AST/SGOT) 49 U/L (15-37) H Alanine Aminotransferase (ALT/SGPT) 82 U/L (12-78) H Alkaline Phosphatase 95 U/L (46-116) Total Protein 7.2 G/DL (6.4-8.2) Albumin 3.0 G/DL (3.4-5.0) L Globulin 4.2 g/dL Albumin/Globulin Ratio 0.7 (1.0-2.7) L Assessment/Plan Assessment/Plan Bradycardia - asymptomatic Trach displacement Hypovolemia, mild Hyponatremia Mild hypothermia resolved Dehydration/hypernatremia improved No indication for pacing Resp rx/vent Antimicrobials Continuous cardiac monitoring Avoid beta kristin rx Free water replacement as needed - now iSn Multani MD Aug 25, 2020 19:39
--- NOTE | 2020-08-25 19:40 | NUR ---
NURSE NOTES: Report received from MELIA Rajan. Patient is asleep in stable condition. property assessment monitor is in place, shows sinus bradycardia. With tracheostomy portex 8 and it's capped, saturating 97%. With g-tube, running tube feeding of Osmolite 1.5 @ 50cc/hour, flushing of 100cc every 6 hours. Patient is incontinent, condom catheter is in place. With bilateral soft wrist restraints, no swelling noted. On seizure precaution, padded side rails and suction is set-up. IV site is on left hand g-22 running D5W @ 75cc/hour that is patent and intact. Safety measures are in place, bed in lowest and locked position, side rails up x 2, will continue plan of care.
[2020-08-25 20:00] VITALS: BP 131/74
[2020-08-25] MEDS: Donepezil 5mg Tab GT SCH (20:56)
--- NOTE | 2020-08-25 22:00 | NUR ---
NURSE NOTES: Patient is resting well at this time, no episode of pulling devices. Will remove his bilateral soft wrist restraints and will continue to monitor closely.
--- NOTE | 2020-08-25 23:33 | General Progress Note ---
Subjective Constitutional: Reports: no symptoms HEENT: Reports: no symptoms Cardiovascular: Reports: no symptoms Respiratory: Reports: no symptoms Gastrointestinal/Abdominal: Reports: no symptoms Genitourinary: Reports: no symptoms Neurologic/Psychiatric: Reports: no symptoms Endocrine: Reports: no symptoms Hematologic/Lymphatic: Reports: no symptoms Allergies: Coded Allergies: No Known Allergies (Unverified , 08/15/20) Objective Last 24 Hour Vital Signs Date Time Temp Pulse Resp B/P (MAP) Pulse Ox O2 Delivery O2 Flow Rate FiO2 08/25/20 21:00 Room Air 08/25/20 20:00 66 08/25/20 20:00 98.5 73 20 131/74 (93) 97 08/25/20 16:00 97.9 64 20 139/85 (103) 99 08/25/20 16:00 68 08/25/20 12:00 98.6 68 20 125/75 (92) 98 08/25/20 12:00 58 08/25/20 09:00 Room Air 08/25/20 08:00 55 08/25/20 08:00 98.0 55 20 109/57 (74) 98 08/25/20 04:00 97.9 64 20 126/72 (90) 99 08/25/20 03:54 62 08/25/20 00:00 97.4 72 20 127/74 (91) 96 08/25/20 00:00 72 Intake and Output 08/24/20 08/25/20 19:00 07:00 Intake Total 125 ml 1200 ml Output Total 1300 ml 600 ml Balance -1175 ml 600 ml Free Water 200 ml IV Total 75 ml 600 ml Tube Feeding 50 ml 400 ml Output Urine Total 1300 ml 600 ml # Voids 1 # Bowel Movements 1 1 Laboratory Tests 08/25/20 08:05: White Blood Count 7.4, Red Blood Count 3.36L, Hemoglobin 10.7L, Hematocrit 31.7L , Mean Corpuscular Volume 94, Mean Corpuscular Hemoglobin 31.8H, Mean Corpuscula r Hemoglobin Concent 33.8, Red Cell Distribution Width 12.5, Platelet Count 194, Mean Platelet Volume 7.9, Neutrophils (%) (Auto) 66.3, Lymphocytes (%) (Auto) 16.7L, Monocytes (%) (Auto) 10.0, Eosinophils (%) (Auto) 6.2H, Basophils (%) (Auto) 0.9, Sodium Level 142, Potassium Level 3.0L, Chloride Level 104, Carbon Dioxide Level 31, Anion Gap 7, Blood Urea Nitrogen 23H, Creatinine 1.1, Estimat Glomerular Filtration Rate > 60, Glucose Level 120H, Calcium Level 8.5, Phosphorus Level 3.8, Magnesium Level 2.5H, Total Bilirubin 0.5, Aspartate Amino Transf (AST/SGOT) 49H, Alanine Aminotransferase (ALT/SGPT) 82H, Alkaline Phosphatase 95, Total Protein 7.2, Albumin 3.0L, Globulin 4.2, Albumin/Globulin Ratio 0.7L Height (Feet): 5 Height (Inches): 10.00 Weight (Pounds): 154 General Appearance: WD/WN, no apparent distress, alert EENT: normal ENT inspection Neck: supple Cardiovascular: normal rate, regular rhythm, no gallop/murmur, no JVD Respiratory/Chest: lungs clear, no accessory muscle use Abdomen: normal bowel sounds, non tender, soft, no organomegaly, no mass Extremities: non-tender Neurologic: alert, oriented x 3, responsive Assessment/Plan Status Narrative Awake alert afebrile hemodynamically stable attentive no verbal response and no attempt to communicate this patient is a found the patient is a good candidate for decannulation. Has a trach For a long period of time though this is causing any distress or reduction in O2 saturation of 80 the patient can be decannulated in a.m. laboratory tests will be done in a.m. as well Aime De Leon MD, MD Aug 25, 2020 23:33
[2020-08-26] VITALS: BP 141/65
--- NOTE | 2020-08-26 02:35 | NUR ---
NURSE NOTES: Noted that patient is pulling his IV site, RN tried to explained not to touch his IV site and patient started to be combative and spit out his saliva and states "get out of my room". Initiate bilateral soft wrist restraints.
[2020-08-26 04:00] VITALS: BP 121/72
--- NOTE | 2020-08-26 04:20 | NUR ---
NURSE NOTES: Bed bath done, cleansed and applied optifoam on sacral and bilateral heels for skin protection. Oral care provided and repositioned on his left side. Vitals were stable, no desaturation noted.
--- NOTE | 2020-08-26 06:28 | Hematology/Onc Progress Note ---
Assessment/Plan Assessment/Plan # Anemia likely related to chronic disease --> hgb currently stable --> anemia panel prn --> hgb 13.7-->11.2-->11-->10.7 # Leukocytosis with a wbc 21 --> on abx zosyn-->zosyn/vanc-->cefepime --> smear is noted # Thrombocytopenia -> r/o infection -> plt 140->126-->194 --> vital etiologies as needed --> trend as needed --> transfuse prn # Bradycardia -- meds reviewed --> ekg, tele monitoring --> as per cards recs --> meds noted --> atropine prn basis # Hyponatremia --> per renal care # Atelectasis # Resp failure/trach -> surg aware # Paraplegia # Dysphagia s/p peg # Dehydration # Dvt ppx heparin sq DW Rn Subjective Constitutional: Denies: no symptoms, chills, fever, malaise, weakness, other HEENT: Denies: no symptoms, eye pain, blurred vision, tearing, double vision, ear pain, ear discharge, nose pain, nose congestion, throat pain, throat swelling, mouth pain, mouth swelling, other Cardiovascular: Denies: no symptoms, chest pain, edema, irregular heart rate, lightheadedness, palpitations, syncope, other Genitourinary: Denies: no symptoms, burning, discharge, frequency, flank pain, hematuria, incontinence, pain, urgency, other Neurologic/Psychiatric: Denies: no symptoms, anxiety, depressed, emotional p roblems, headache, numbness, paresthesia, pre-existing deficit, seizure, tingling, tremors, weakness, other Endocrine: Denies: no symptoms, excessive sweating, flushing, intolerance to cold, intolerance to heat, increased hunger, increased thirst, increased urine, unexplained weight gain, unexplained weight loss, other Hematologic/Lymphatic: Denies: no symptoms, anemia, easy bleeding, easy bruising, adenopathy, other Allergies: Coded Allergies: No Known Allergies (Unverified , 08/15/20) Subjective 08/17 nv, labs reviewed, meds noted, covering im 08/18 nv, with gt, osmolite, no bleeding, labs reviewed 08/19 refusing medications, combative, no bleeding 08/20 on zosyn, is continuing, wbc is higher at 23k 08/21 on vanc/zosyn, labs noted, no bleeding 08/22 on abx, stable, with bradycardia, no bleeding, no fc 08/24 nv, on abx, soft restraints, gt feeds ongoing 08/25 nv, trach to ra, meds noted, restraints, gt + 08/26 nv, meds noted, on trach, labs reviewed, gt+ Objective Objective Current Medications Medications (Trade) Dose Ordered Sig/Myesha Route PRN Reason Start Time Stop Time Status Last Admin Dose Admin Acetaminophen (Tylenol) 500 mg EVERY 4 HOURS PRN GT Temp >100.5 08/16/20 05:30 09/15/20 05:29 08/20/20 16:37 Cefepime HCl 1 gm/ Dextrose 55 ml @ 110 mls/hr EVERY 12 HOURS IVPB 08/24/20 21:00 08/31/20 20:59 08/25/20 20:55 Donepezil HCl (Aricept) 10 mg QHS GT 08/20/20 22:00 09/19/20 21:59 08/25/20 20:56 Famotidine (Pepcid) 20 mg BID GT 08/16/20 09:00 11/14/20 08:59 08/25/20 17:40 Fish Oil (Fish Oil) 1,000 mg BID ORAL 08/16/20 09:00 09/15/20 08:59 08/25/20 17:40 Heparin Sodium (Porcine) (Heparin 5000 units/ml) 5,000 units EVERY 12 HOURS SUBQ 08/16/20 09:00 09/30/20 08:59 08/25/20 20:57 Hydralazine HCl (Apresoline) 25 mg Q6H PRN ORAL SBP above 150 08/24/20 18:00 11/22/20 17:59 Levetiracetam (Keppra) 1,000 mg Q12HR GT 08/16/20 09:00 09/30/20 08:59 08/25/20 20:56 Multivitamins (Multivitamins) 1 tab DAILY GT 08/16/20 09:00 09/15/20 08:59 08/25/20 09:33 Mupirocin (Bactroban Oint) 1 applic DAILY TOPIC 08/21/20 09:00 08/27/20 09:01 08/25/20 09:25 Potassium Chloride (K-Dur) 40 meq BID GT 08/25/20 18:00 11/16/20 10:29 08/25/20 17:41 Last 24 Hour Vital Signs Date Time Temp Pulse Resp B/P (MAP) Pulse Ox O2 Delivery O2 Flow Rate FiO2 08/26/20 04:00 61 08/26/20 04:00 98.7 72 22 121/72 (88) 98 08/26/20 00:00 98.5 73 22 141/65 (90) 96 08/26/20 00:00 71 08/25/20 21:00 Room Air 08/25/20 20:00 66 08/25/20 20:00 98.5 73 20 131/74 (93) 97 08/25/20 16:00 97.9 64 20 139/85 (103) 99 08/25/20 16:00 68 08/25/20 12:00 98.6 68 20 125/75 (92) 98 08/25/20 12:00 58 08/25/20 09:00 Room Air 08/25/20 08:00 55 08/25/20 08:00 98.0 55 20 109/57 (74) 98 08/25/20 04:00 97.9 64 20 126/72 (90) 99 08/25/20 03:54 62 08/25/20 00:00 97.4 72 20 127/74 (91) 96 08/25/20 00:00 72 08/24/20 21:00 Room Air 08/24/20 20:00 97.8 56 20 107/62 (77) 97 08/24/20 20:00 60 08/24/20 16:00 55 08/24/20 16:00 97.8 64 20 139/62 (87) 95 08/24/20 12:00 98.1 66 20 131/74 (93) 95 08/24/20 12:00 53 08/24/20 09:00 Room Air 08/24/20 08:00 98.2 66 20 143/70 (94) 96 Intake and Output 08/25/20 08/26/20 19:00 07:00 Intake Total 50 ml 710 ml Output Total 500 ml Balance 50 ml 210 ml Free Water 200 ml Tube Feeding 50 ml 450 ml Other 60 ml Output Urine Total 500 ml # Bowel Movements 1 Labs Test 08/23/20 08:30 08/25/20 08:05 White Blood Count 7.9 K/UL (4.8-10.8) 7.4 K/UL (4.8-10.8) Red Blood Count 3.54 M/UL (4.70-6.10) 3.36 M/UL (4.70-6.10) Hemoglobin 11.3 G/DL (14.2-18.0) 10.7 G/DL (14.2-18.0) Hematocrit 33.7 % (42.0-52.0) 31.7 % (42.0-52.0) Mean Corpuscular Volume 95 FL (80-99) 94 FL (80-99) Mean Corpuscular Hemoglobin 31.8 PG (27.0-31.0) 31.8 PG (27.0-31.0) Mean Corpuscular Hemoglobin Concent 33.4 G/DL (32.0-36.0) 33.8 G/DL (32.0-36.0) Red Cell Distribution Width 12.8 % (11.6-14.8) 12.5 % (11.6-14.8) Platelet Count 139 K/UL (150-450) 194 K/UL (150-450) Mean Platelet Volume 7.9 FL (6.5-10.1) 7.9 FL (6.5-10.1) Neutrophils (%) (Auto) 72.8 % (45.0-75.0) 66.3 % (45.0-75.0) Lymphocytes (%) (Auto) 16.1 % (20.0-45.0) 16.7 % (20.0-45.0) Monocytes (%) (Auto) 6.8 % (1.0-10.0) 10.0 % (1.0-10.0) Eosinophils (%) (Auto) 3.5 % (0.0-3.0) 6.2 % (0.0-3.0) Basophils (%) (Auto) 0.8 % (0.0-2.0) 0.9 % (0.0-2.0) Sodium Level 148 MMOL/L (136-145) 142 MMOL/L (136-145) Potassium Level 3.5 MMOL/L (3.5-5.1) 3.0 MMOL/L (3.5-5.1) Chloride Level 111 MMOL/L (98-107) 104 MMOL/L (98-107) Carbon Dioxide Level 30 MMOL/L (21-32) 31 MMOL/L (21-32) Anion Gap 7 mmol/L (5-15) 7 mmol/L (5-15) Blood Urea Nitrogen 22 mg/dL (7-18) 23 mg/dL (7-18) Creatinine 1.2 MG/DL (0.55-1.30) 1.1 MG/DL (0.55-1.30) Estimat Glomerular Filtration Rate > 60 mL/min (>60) > 60 mL/min (>60) Glucose Level 109 MG/DL (74-106) 120 MG/DL (74-106) Calcium Level 8.5 MG/DL (8.5-10.1) 8.5 MG/DL (8.5-10.1) Total Bilirubin 0.5 MG/DL (0.2-1.0) 0.5 MG/DL (0.2-1.0) Aspartate Amino Transf (AST/SGOT) 52 U/L (15-37) 49 U/L (15-37) Alanine Aminotransferase (ALT/SGPT) 84 U/L (12-78) 82 U/L (12-78) Alkaline Phosphatase 90 U/L (46-116) 95 U/L (46-116) Total Protein 7.3 G/DL (6.4-8.2) 7.2 G/DL (6.4-8.2) Albumin 2.9 G/DL (3.4-5.0) 3.0 G/DL (3.4-5.0) Globulin 4.4 g/dL 4.2 g/dL Albumin/Globulin Ratio 0.7 (1.0-2.7) 0.7 (1.0-2.7) Phosphorus Level 3.8 MG/DL (2.5-4.9) Magnesium Level 2.5 MG/DL (1.8-2.4) Height (Feet): 5 Height (Inches): 10.00 Weight (Pounds): 154 Objective Physical Exam Vitals: noted General: no apparent distress, alert, Chronically Ill HEENT: bilateral eye PERRL, bilateral eye EOMI Respiratory: chest non-tender, lungs clear, normal breath sounds Cardiovascular: regular rate, rhythm, no murmur Gastrointestinal: normal bowel sounds ++gt Musculoskeletal: back normal, other - contracted Psychiatric: mood/affect normal Matthew Batista MD Aug 26, 2020 06:28
--- NOTE | 2020-08-26 07:34 | NUR ---
NURSE HAND-OFF REPORT: Important Events on Shift: Patient has been resting well the whole shift, no episode of desaturation nor hypotension noted. Patient Status: Patient is asleep in stable condition. Plan of care endorsed. Diet: Osmolite 1.5 50 ml Pending Orders: AM LABS Pending Results/Labs:AM LABS Pending MD notification:None Latest Vital Signs: Temperature 98.7 , Pulse 72 , B/P 121 /72 , Respiratory Rate 22 , O2 SAT 98 , Room Air, O2 Flow Rate . Vital Sign Comment: stable EKG Rhythm: Sinus Rhythm Rhythm change?: N Notified?: Y -Dr Nadia JOSHI Response: Message left await call Latest Palm Fall Score: 70 Fall Risk: High Risk Safety Measures: Call light Within Reach, Bed Alarm Zone 1, Side Rails Side Rails x3, Bed position Low and Locked. Fall Precautions: Yellow Socks Report given to MELIA Rajan.
[2020-08-26 08:00] VITALS: BP 125/68
--- NOTE | 2020-08-26 08:01 | Cardiology Report ---
APPROVED REPORT EXAM: Two-dimensional and M-mode echocardiogram with Doppler and color Doppler. M-Mode DIMENSIONS IVSd0.9 (0.7-1.1cm)Left Atrium (MM)3.5 (1.6-4.0cm) LVDd4.2 (3.5-5.6cm)Aortic Root2.4 (2.0-3.7cm) PWd0.7 (0.7-1.1cm) IVSs1.6 cm LVDs2.0 (2.5-4.0cm) PWs1.5 cm <Conclusion> Technically difficult and limited study due to poor acoustic windows. Study quality precludes accurate assessment of regional wall motion. Normal left ventricular chamber size, systolic function and wall motion to extent visualized. Left ventricular ejection fraction estimated to be 65 %. No evidence of left ventricular hypertrophy. Anterior Echo-free space, may be due to pericardial fat or effusion. All other cardiac chamber sizes are within normal limits. Focal aortic valve sclerosis with adequate cusp excursion. Thickened mitral valve leaflets with normal excursion. Mitral annulus and aortic root calcification. Pulmonic valve not well visualized. Normal tricuspid valve structure. IVC is normal in size with physiological collapse. A color flow and spectral Doppler study was performed and revealed: No aortic regurgitation. Trace mitral regurgitation. Mitral diastolic velocities suggest mild left ventricular diastolic dysfunction (Grade I). Trace tricuspid regurgitation. Tricuspid systolic velocities suggests peak right ventricular systolic pressure of 13 mmHg.
--- NOTE | 2020-08-26 08:02 | Infectious Diseases Prog Note ---
Assessment/Plan Abx: IV Vancomycin 08/20- Zosyn 08/19- Assessment: Sepsis UTI Fever, SP Leukocytosis -08/21 cdif neg -08/20 CXR: Left basilar atelectasis or scarring.Tracheostomy tube. No sig nificant change from previous study. -08/17 u/a neg; ucx 50-60k P. stuarti (S Cefepime, Ertapenem, ZOsyn) -08/15 BCx NTD CXR: Reduced lung volumes. Patchy atelectasis in the left lung base. Bradycardia TERRENCE, improving Elevated LFts -Abd US: Mild gallbladder sludge. No ultrasound evidence of acute cholecystitis. Evaluation limited due to patient limitations. Nonvisualized spleen. BPH schizoaffective disorder chronic resp failure sp trach sp PEG CVA w/ residual paraplegia NH resident Plan: - Continue Cefepime #2/4 08/23/20 SP Vancomycin #5 and Zosyn #6 -f/u cx -Monitor CBC/CMP, temperatures -aspiration precautions Thank you for consulting [facility]. Will continue to follow along with you. Shin lundberg RN. Subjective Allergies: Coded Allergies: No Known Allergies (Unverified , 08/15/20) Afebile No Leukocytosis VERNELL Objective Last 24 Hour Vital Signs Date Time Temp Pulse Resp B/P (MAP) Pulse Ox O2 Delivery O2 Flow Rate FiO2 08/26/20 04:00 61 08/26/20 04:00 98.7 72 22 121/72 (88) 98 08/26/20 00:00 98.5 73 22 141/65 (90) 96 08/26/20 00:00 71 08/25/20 21:00 Room Air 08/25/20 20:00 66 08/25/20 20:00 98.5 73 20 131/74 (93) 97 08/25/20 16:00 97.9 64 20 139/85 (103) 99 08/25/20 16:00 68 08/25/20 12:00 98.6 68 20 125/75 (92) 98 08/25/20 12:00 58 08/25/20 09:00 Room Air Height (Feet): 5 Height (Inches): 10.00 Weight (Pounds): 154 GEN: NAD Satting well HEENT: NCAT, Trached LUNGS: RRR, Equal rise and fall B/L ABDOMEN: Soft. ND. G-tube intact. EXTREMITIES: No edema. Muscle atrophy noted. Laboratory Tests Test 08/25/20 08:05 White Blood Count 7.4 K/UL (4.8-10.8) Red Blood Count 3.36 M/UL (4.70-6.10) L Hemoglobin 10.7 G/DL (14.2-18.0) L Hematocrit 31.7 % (42.0-52.0) L Mean Corpuscular Volume 94 FL (80-99) Mean Corpuscular Hemoglobin 31.8 PG (27.0-31.0) H Mean Corpuscular Hemoglobin Concent 33.8 G/DL (32.0-36.0) Red Cell Distribution Width 12.5 % (11.6-14.8) Platelet Count 194 K/UL (150-450) Mean Platelet Volume 7.9 FL (6.5-10.1) Neutrophils (%) (Auto) 66.3 % (45.0-75.0) Lymphocytes (%) (Auto) 16.7 % (20.0-45.0) L Monocytes (%) (Auto) 10.0 % (1.0-10.0) Eosinophils (%) (Auto) 6.2 % (0.0-3.0) H Basophils (%) (Auto) 0.9 % (0.0-2.0) Sodium Level 142 MMOL/L (136-145) Potassium Level 3.0 MMOL/L (3.5-5.1) L Chloride Level 104 MMOL/L (98-107) Carbon Dioxide Level 31 MMOL/L (21-32) Anion Gap 7 mmol/L (5-15) Blood Urea Nitrogen 23 mg/dL (7-18) H Creatinine 1.1 MG/DL (0.55-1.30) Estimat Glomerular Filtration Rate > 60 mL/min (>60) Glucose Level 120 MG/DL (74-106) H Calcium Level 8.5 MG/DL (8.5-10.1) Phosphorus Level 3.8 MG/DL (2.5-4.9) Magnesium Level 2.5 MG/DL (1.8-2.4) H Total Bilirubin 0.5 MG/DL (0.2-1.0) Aspartate Amino Transf (AST/SGOT) 49 U/L (15-37) H Alanine Aminotransferase (ALT/SGPT) 82 U/L (12-78) H Alkaline Phosphatase 95 U/L (46-116) Total Protein 7.2 G/DL (6.4-8.2) Albumin 3.0 G/DL (3.4-5.0) L Globulin 4.2 g/dL Albumin/Globulin Ratio 0.7 (1.0-2.7) L Current Medications Medications (Trade) Dose Ordered Sig/Myesha Route PRN Reason Start Time Stop Time Status Last Admin Dose Admin Acetaminophen (Tylenol) 500 mg EVERY 4 HOURS PRN GT Temp >100.5 08/16/20 05:30 09/15/20 05:29 08/20/20 16:37 Cefepime HCl 1 gm/ Dextrose 55 ml @ 110 mls/hr EVERY 12 HOURS IVPB 08/24/20 21:00 08/31/20 20:59 08/25/20 20:55 Donepezil HCl (Aricept) 10 mg QHS GT 08/20/20 22:00 09/19/20 21:59 08/25/20 20:56 Famotidine (Pepcid) 20 mg BID GT 08/16/20 09:00 11/14/20 08:59 08/25/20 17:40 Fish Oil (Fish Oil) 1,000 mg BID ORAL 08/16/20 09:00 09/15/20 08:59 08/25/20 17:40 Heparin Sodium (Porcine) (Heparin 5000 units/ml) 5,000 units EVERY 12 HOURS SUBQ 08/16/20 09:00 09/30/20 08:59 08/25/20 20:57 Hydralazine HCl (Apresoline) 25 mg Q6H PRN ORAL SBP above 150 08/24/20 18:00 11/22/20 17:59 Levetiracetam (Keppra) 1,000 mg Q12HR GT 08/16/20 09:00 09/30/20 08:59 08/25/20 20:56 Multivitamins (Multivitamins) 1 tab DAILY GT 08/16/20 09:00 09/15/20 08:59 08/25/20 09:33 Mupirocin (Bactroban Oint) 1 applic DAILY TOPIC 08/21/20 09:00 08/27/20 09:01 08/25/20 09:25 Potassium Chloride (K-Dur) 40 meq BID GT 08/25/20 18:00 11/16/20 10:29 08/25/20 17:41 Sin Mariee MD Aug 26, 2020 08:02
[2020-08-26] MEDS: Cefepime HCl 1 GM in D5W 55 ML IVPB SCH ×2 (08:05→21:01)
[2020-08-26] MEDS: levETIRAcetam 500mg/5ml Liquid GT SCH ×2 (08:05→21:00)
[2020-08-26] MEDS: Heparin 5000 units/ml inj SUBQ SCH ×2 (08:07→21:03)
--- NOTE | 2020-08-26 08:38 | Pulmonology Progress Note ---
Subjective ROS Limited/Unobtainable: No Allergies: Coded Allergies: No Known Allergies (Unverified , 08/15/20) All Systems: reviewed and negative except above Subjective care noted stable no distress awake Objective Last 24 Hour Vital Signs Date Time Temp Pulse Resp B/P (MAP) Pulse Ox O2 Delivery O2 Flow Rate FiO2 08/26/20 04:00 61 08/26/20 04:00 98.7 72 22 121/72 (88) 98 08/26/20 00:00 98.5 73 22 141/65 (90) 96 08/26/20 00:00 71 08/25/20 21:00 Room Air 08/25/20 20:00 66 08/25/20 20:00 98.5 73 20 131/74 (93) 97 08/25/20 16:00 97.9 64 20 139/85 (103) 99 08/25/20 16:00 68 08/25/20 12:00 98.6 68 20 125/75 (92) 98 08/25/20 12:00 58 08/25/20 09:00 Room Air Intake and Output 08/25/20 08/26/20 19:00 07:00 Intake Total 50 ml 710 ml Output Total 500 ml Balance 50 ml 210 ml Free Water 200 ml Tube Feeding 50 ml 450 ml Other 60 ml Output Urine Total 500 ml # Bowel Movements 1 Objective WDWN NAD clear breath sounds bilaterally without rhonchi or wheeze [id number] without MRG NABS nontender no CCE nonfocal awake bed bound Current Medications Medications (Trade) Dose Ordered Sig/Myesha Route PRN Reason Start Time Stop Time Status Last Admin Dose Admin Acetaminophen (Tylenol) 500 mg EVERY 4 HOURS PRN GT Temp >100.5 08/16/20 05:30 09/15/20 05:29 08/20/20 16:37 Cefepime HCl 1 gm/ Dextrose 55 ml @ 110 mls/hr EVERY 12 HOURS IVPB 08/24/20 21:00 08/31/20 20:59 08/26/20 08:05 Donepezil HCl (Aricept) 10 mg QHS GT 08/20/20 22:00 09/19/20 21:59 08/25/20 20:56 Famotidine (Pepcid) 20 mg BID GT 08/16/20 09:00 11/14/20 08:59 08/26/20 08:04 Fish Oil (Fish Oil) 1,000 mg BID ORAL 08/16/20 09:00 09/15/20 08:59 08/26/20 08:04 Heparin Sodium (Porcine) (Heparin 5000 units/ml) 5,000 units EVERY 12 HOURS SUBQ 08/16/20 09:00 09/30/20 08:59 08/26/20 08:07 Hydralazine HCl (Apresoline) 25 mg Q6H PRN ORAL SBP above 150 08/24/20 18:00 11/22/20 17:59 Levetiracetam (Keppra) 1,000 mg Q12HR GT 08/16/20 09:00 09/30/20 08:59 08/26/20 08:05 Multivitamins (Multivitamins) 1 tab DAILY GT 08/16/20 09:00 09/15/20 08:59 08/26/20 08:04 Mupirocin (Bactroban Oint) 1 applic DAILY TOPIC 08/21/20 09:00 08/27/20 09:01 08/26/20 08:09 Potassium Chloride (K-Dur) 40 meq BID GT 08/25/20 18:00 11/16/20 10:29 08/26/20 08:04 Assessment/Plan Assessment/Plan IMPRESSION: respiratory failure, trach; severe PCM; paraplegia anemia. atelectasis, UTI, chronic encephalopathy PLAN patient tolerating cap for several days care noted aspiration precautions monitor airway d/w surgery will follow impression, plan, and exam edited and reviewed in detail care discussed with Maximo Hearn MD Aug 26, 2020 08:38
--- NOTE | 2020-08-26 11:11 | NUR ---
patient decannulated by surgeon, patient in bed resting comfortably in no ss of resp distress noted resp evem unlabored will cont to monitr
--- NOTE | 2020-08-26 11:12 | Surgery Progress Note ---
Surgery Progress Note Subjective Additional Comments decannulated this AM doing well since no n/v more responsive dressings applied Objective Last 24 Hour Vital Signs Date Time Temp Pulse Resp B/P (MAP) Pulse Ox O2 Delivery O2 Flow Rate FiO2 08/26/20 08:00 97.9 79 20 125/68 (87) 96 08/26/20 08:00 69 08/26/20 04:00 61 08/26/20 04:00 98.7 72 22 121/72 (88) 98 08/26/20 00:00 98.5 73 22 141/65 (90) 96 08/26/20 00:00 71 08/25/20 21:00 Room Air 08/25/20 20:00 66 08/25/20 20:00 98.5 73 20 131/74 (93) 97 08/25/20 16:00 97.9 64 20 139/85 (103) 99 08/25/20 16:00 68 08/25/20 12:00 98.6 68 20 125/75 (92) 98 08/25/20 12:00 58 I&O Intake and Output 08/25/20 08/26/20 19:00 07:00 Intake Total 50 ml 710 ml Output Total 500 ml Balance 50 ml 210 ml Free Water 200 ml Tube Feeding 50 ml 450 ml Other 60 ml Output Urine Total 500 ml # Bowel Movements 1 Dressing: dry Wound: clean Cardiovascular: RSR Respiratory: clear, decreased breath sounds Abdomen: soft, non-tender, present bowel sounds, non-distended Extremities: no edema, no tenderness, no cyanosis Plan Problems: (1) Trachea displaced Assessment & Plan: Lungs: Reduced lung volumes. Patchy atelectasis in the left lung base. Pleural space: Unremarkable. No pneumothorax. Heart: Unremarkable. No cardiomegaly. Mediastinum: Unremarkable. Bones/joints: No acute fracture. Tubes, lines and devices: Tracheostomy. IMPRESSION: Reduced lung volumes. Patchy atelectasis in the left lung base. trach remains stable cont cap as respiratory trial stable discussed with PCP patient has been doing great with trach cap. likely ready for decannulation. will get pulm input and consideration prior to removal decannulated doing well dressings dailyt and prn (2) Bradycardia (3) Hyponatremia (4) Elevated alkaline phosphatase level Assessment & Plan: abd us noted labs okay exam benign okay for diet trend labs no acute surgical intervention planned Liver: The liver measures 17 cm. No intrahepatic bile duct dilation. Gallbladder: No definite cholelithiasis. Suspect a mild bladder sludge. No gallbladder wall thickening or pericholecystic fluid. Common bile duct: Unremarkable as visualized. No stones. No dilation . Pancreas: Unremarkable as visualized. Kidneys: The right kidney measures 12.1 cm. The left kidney measures 8.8 cm. No stones. No hydronephrosis. Spleen: Nonvisualized spleen. Aorta: The aorta is measured at 2.3 cm. This is slightly over measured by the technologist. Inferior vena cava: Unremarkable. IMPRESSION: Mild gallbladder sludge. No ultrasound evidence of acute cholecystitis. Evaluation limited due to patient limitations. Nonvisualized spleen. 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 at this time CURRENT TF:Osmolite 1.5 @ 50ml/hr x 24 hrs PO DIET RECOMMENDATIONS: IF SAFE FOR ORAL DIET -> liberalized regular/ texture per DEPENDENCY COUNSELOR ENTERAL NUTRITION RECOMMENDATIONS: For continuous TF-> Osmolite 1.5 @ 50ml/hr x 24 hrs to provide 1200ml, 1800 kcal, 94g prot, 914ml free water * For continuous TF, rec continue Osmolite 1.5 @ 50ml/hr x 24 hrs -> HOB over 30 degrees/ H2O flush 250ml q 6hrs ------ * Monitor DEPENDENCY COUNSELOR eval and rec, will provide nocturnal TF rec if appropriate ADDITIONAL RECOMMENDATIONS: * Per SNF: HT=65" and JQ=046qxg (08/05/20) * Monitor DEPENDENCY COUNSELOR rec: pt on pureed moist texture w/ HTL TID PERSONAL LOAN SPECIALIST -> if not safe for oral diet, rec continuous TF rec as above * Monitor lytes, replete as needed Franky Carrizales Aug 26, 2020 11:12
[2020-08-26 12:00] VITALS: BP 150/75
--- NOTE | 2020-08-26 14:22 | Nephrology Progress Note ---
Assessment/Plan Problem List: (1) Hyponatremia (2) Bradycardia (3) Trachea displaced (4) TERRENCE (acute kidney injury) Assessment Hyponatremia: Etiology work-up ordered and in process Bradycardia Vent dependent PEG dependent BPH Plan August 26: No CHEM panel drawn today. Medication list reviewed. Check lab to [place]. Continue per consultants. August 25: Labs reviewed. Low potassium addressed. IV fluid discontinued. Continue per consultants. Stable from renal standpoint of view. August 24: No CHEM panel drawn today. Stable from renal standpoint of view. Will check lab tomorrow. Continue per consultants. August 23: Labs reviewed. Renal parameters stable. Medications list revi ewed. Continue per consultants. August 22. Low-grade temperature is still recorded. Labs reviewed. Renal parameters stable. Continue per consultants. August 21: Remains febrile. Serum creatinine normalized. Low phosphorus addressed. Continue to monitor renal parameters and electrolytes. Blood pressure improved. August 20: Patient febrile. Serum creatinine keith to 1.7. Blood pressure 90 systolic. Will give albumin and saline bolus and will start on IV hydration. Continue to monitor renal parameters. Per orders. August 19: Labs reviewed. Electrolytes improved. Will discontinue Lasix. Continue to monitor electrolytes. August 18: Labs reviewed. Serum sodium slightly higher. Potassium supplement given. Lasix and 3% saline to be continued aim to keep output more than intake. August 17: Trial of 3% saline and Lasix. Monitor serum sodium and electrolytes. Continue per consultants. Urine studies, urine spot sodium, urine osmolality assistant portfolio manager Check TSH, uric acid, serum osmolality, lipid panel Further comments after above results Subjective ROS Limited/Unobtainable: Yes Objective Objective Last 24 Hour Vital Signs Date Time Temp Pulse Resp B/P (MAP) Pulse Ox O2 Delivery O2 Flow Rate FiO2 08/26/20 08:00 97.9 79 20 125/68 (87) 96 08/26/20 08:00 69 08/26/20 04:00 61 08/26/20 04:00 98.7 72 22 121/72 (88) 98 08/26/20 00:00 98.5 73 22 141/65 (90) 96 08/26/20 00:00 71 08/25/20 21:00 Room Air 08/25/20 20:00 66 08/25/20 20:00 98.5 73 20 131/74 (93) 97 08/25/20 16:00 97.9 64 20 139/85 (103) 99 08/25/20 16:00 68 Intake and Output 08/25/20 08/26/20 19:00 07:00 Intake Total 50 ml 710 ml Output Total 500 ml Balance 50 ml 210 ml Free Water 200 ml Tube Feeding 50 ml 450 ml Other 60 ml Output Urine Total 500 ml # Bowel Movements 1 Current Medications Medications (Trade) Dose Ordered Sig/Myesha Route PRN Reason Start Time Stop Time Status Last Admin Dose Admin Acetaminophen (Tylenol) 500 mg EVERY 4 HOURS PRN GT Temp >100.5 08/16/20 05:30 09/15/20 05:29 08/20/20 16:37 Cefepime HCl 1 gm/ Dextrose 55 ml @ 110 mls/hr EVERY 12 HOURS IVPB 08/24/20 21:00 08/31/20 20:59 08/26/20 08:05 Donepezil HCl (Aricept) 10 mg QHS GT 08/20/20 22:00 09/19/20 21:59 08/25/20 20:56 Famotidine (Pepcid) 20 mg BID GT 08/16/20 09:00 11/14/20 08:59 08/26/20 08:04 Fish Oil (Fish Oil) 1,000 mg BID ORAL 08/16/20 09:00 09/15/20 08:59 08/26/20 08:04 Heparin Sodium (Porcine) (Heparin 5000 units/ml) 5,000 units EVERY 12 HOURS SUBQ 08/16/20 09:00 09/30/20 08:59 08/26/20 08:07 Hydralazine HCl (Apresoline) 25 mg Q6H PRN ORAL SBP above 150 08/24/20 18:00 11/22/20 17:59 Levetiracetam (Keppra) 1,000 mg Q12HR GT 08/16/20 09:00 09/30/20 08:59 08/26/20 08:05 Multivitamins (Multivitamins) 1 tab DAILY GT 08/16/20 09:00 09/15/20 08:59 08/26/20 08:04 Mupirocin (Bactroban Oint) 1 applic DAILY TOPIC 08/21/20 09:00 08/27/20 09:01 08/26/20 08:09 Potassium Chloride (K-Dur) 40 meq BID GT 08/25/20 18:00 11/16/20 10:29 08/26/20 08:04 Height (Feet): 5 Height (Inches): 10.00 Weight (Pounds): 154 General Appearance: no apparent distress Cardiovascular: normal rate Respiratory/Chest: decreased breath sounds Abdomen: distended Objective No change Chase Haynes MD Aug 26, 2020 14:22
[2020-08-26 16:00] VITALS: BP 108/61
--- NOTE | 2020-08-26 16:19 | NUR ---
*-DISCHARGE PLANING*-* PATIENT HAS BEEN REFERRED BACK TO: [facility] P: [phone] S/W GINA, REQUESTING COVID RESULT FROM THE LAST 24-48 HOURS
--- NOTE | 2020-08-26 17:01 | NUR ---
*-*DISCHARGE PLANING*-* PATIENT HAS BEEN REFERRED BACK TO: [place] P: [phone] S/W G[facility], WILL DO A ROOM CHANGE, FOLLOW UP TOMORROW 08/27/20.
--- NOTE | 2020-08-26 17:45 | NUR ---
PATIENTS PEG TUBE REMAISN CLOGGED SEVERAL ATTEMPTS MADE TO CLEAR, FINALLY ABLE TO CONTACT PRIMARY MD- ORDERS RECEIVED FOR GI CONSULT VOICEMAIL LEFT FOR [facility] REGARDING CONSULT
[2020-08-26] MEDS: D5 1/2NS 1,000 ML IV SCH (18:28)
--- NOTE | 2020-08-26 18:31 | Cardiology Progress Note ---
Subjective DATE OF SERVICE: Aug 26, 2020 Remains in sinus rhythm with asymptomatic sinus bradycardia. No recurrent AFib. Off IVF No hypotensive episodes. Objective Last 24 Hour Vital Signs Date Time Temp Pulse Resp B/P (MAP) Pulse Ox O2 Delivery O2 Flow Rate FiO2 08/26/20 16:00 71 08/26/20 16:00 98.1 71 20 108/61 (77) 90 08/26/20 12:00 97.7 75 22 150/75 (100) 94 08/26/20 12:00 71 08/26/20 09:00 Room Air 08/26/20 08:00 97.9 79 20 125/68 (87) 96 08/26/20 08:00 69 08/26/20 04:00 61 08/26/20 04:00 98.7 72 22 121/72 (88) 98 08/26/20 00:00 98.5 73 22 141/65 (90) 96 08/26/20 00:00 71 08/25/20 21:00 Room Air 08/25/20 20:00 66 08/25/20 20:00 98.5 73 20 131/74 (93) 97 HEENT: Thin Trach secretions RHYTHM: NSR, SB LUNGS: lungs clear bilaterally CARDIAC: regular rhythm, normal S1 and S2, bradycardia ABDOMEN: normal bowel sounds, non tender, soft, G-Tube intact EXTREMITIES: normal range of motion, non-tender, no calf tenderness, No edema Assessment/Plan Assessment/Plan Bradycardia - asymptomatic Trach displacement corrected Hypovolemia, mild - resolved Hyponatremia corrected Mild hypothermia resolved Dehydration/hypernatremia improved Stable for SNF from cardiovascular standpoint. No indication for pacing Resp rx/vent Antimicrobials Continuous cardiac monitoring Avoid beta kristin rx Free water replacement as needed - now Sin Multani MD Aug 26, 2020 18:31
--- NOTE | 2020-08-26 18:58 | General Progress Note ---
Subjective Constitutional: Reports: no symptoms HEENT: Reports: no symptoms Cardiovascular: Reports: no symptoms Respiratory: Reports: no symptoms Gastrointestinal/Abdominal: Reports: no symptoms Genitourinary: Reports: no symptoms Neurologic/Psychiatric: Reports: no symptoms Endocrine: Reports: no symptoms Hematologic/Lymphatic: Reports: no symptoms Allergies: Coded Allergies: No Known Allergies (Unverified , 08/15/20) Objective Last 24 Hour Vital Signs Date Time Temp Pulse Resp B/P (MAP) Pulse Ox O2 Delivery O2 Flow Rate FiO2 08/26/20 16:00 71 08/26/20 16:00 98.1 71 20 108/61 (77) 90 08/26/20 12:00 97.7 75 22 150/75 (100) 94 08/26/20 12:00 71 08/26/20 09:00 Room Air 08/26/20 08:00 97.9 79 20 125/68 (87) 96 08/26/20 08:00 69 08/26/20 04:00 61 08/26/20 04:00 98.7 72 22 121/72 (88) 98 08/26/20 00:00 98.5 73 22 141/65 (90) 96 08/26/20 00:00 71 08/25/20 21:00 Room Air 08/25/20 20:00 66 08/25/20 20:00 98.5 73 20 131/74 (93) 97 Intake and Output 08/25/20 08/26/20 19:00 07:00 Intake Total 50 ml 710 ml Output Total 500 ml Balance 50 ml 210 ml Free Water 200 ml Tube Feeding 50 ml 450 ml Other 60 ml Output Urine Total 500 ml # Bowel Movements 1 Height (Feet): 5 Height (Inches): 10.00 Weight (Pounds): 154 General Appearance: WD/WN, no apparent distress, alert EENT: TMs normal Neck: supple Cardiovascular: normal rate, regular rhythm, no gallop/murmur, no JVD Respiratory/Chest: lungs clear, normal breath sounds, no accessory muscle use Abdomen: non tender, soft, no organomegaly, no mass Extremities: non-tender Neurologic: alert, oriented x 3, responsive Skin: warm/dry Assessment/Plan Status Narrative Patient is awake alert afebrile and hemodynamically stable he underwent decannulation today procedure was uneventful patient tolerated the procedure well his G-tube is clogged when asked when he can whether he can swallow by mouth the answer no is mild today which he did Now for many months in the meantime patient is on IV D5W half-normal saline 100 cc/h Zofran 4 mg IV push every 4 hours as needed is on neurologist and speech therapist will call to assist in the management of this case. Aime Wylie,Aime JOSHI Aug 26, 2020 18:58
--- NOTE | 2020-08-26 19:40 | NUR ---
NURSE NOTES: Report received from MELIA Rajan. Patient is awake on bed, in stable condition. panel monitor is in place, shows sinus rhythm. IV site is on right hand g-22, running D5 1/2 NS @ 100cc/hour that is patent and intact. With bilateral soft wrist restraints, no hematoma nor swelling noted. With condom catheter in place. Patient has g-tube but per morning RN it was clogged. Safety measures are in place, bed in lowest and locked position, side rails up x 2, on seizure precaution, padded side rails. Will continue plan of care.
[2020-08-26 20:00] VITALS: BP 151/79
[2020-08-26] MEDS ORDERED: Varibar Thin Liquid powder 148gm MC PRN (20:00)
[2020-08-26] MEDS ORDERED: Varibar Pudding 230ml MC PRN (20:00)
[2020-08-26] MEDS ORDERED: Varibar Nectar 240ml MC PRN (20:00)
[2020-08-26] MEDS ORDERED: Varibar Honey 250ml MC PRN (20:00)
[2020-08-26] MEDS: Donepezil 5mg Tab GT SCH (21:00)
--- NOTE | 2020-08-26 22:45 | NUR ---
NURSE NOTES: G-tube is still clogged, tried different ways to de-clogged it but unsuccessful. Will endorsed to morning RN.
[2020-08-27] VITALS: BP 142/77
[2020-08-27 04:00] VITALS: BP 132/79
--- NOTE | 2020-08-27 04:10 | NUR ---
NURSE NOTES: Patient is resting well at this time, no acute distress noted, vitals were stable, saturating 95-96% on room air, will continue to monitor.
[2020-08-27] MEDS: D5 1/2NS 1,000 ML IV SCH ×3 (05:26→23:20)
--- NOTE | 2020-08-27 06:38 | Hematology/Onc Progress Note ---
Assessment/Plan Assessment/Plan # Anemia likely related to chronic disease --> hgb currently stable --> anemia panel prn --> hgb 13.7-->11.2-->11-->10.7 # Leukocytosis with a wbc 21 --> on abx zosyn-->zosyn/vanc-->cefepime --> smear is noted # Thrombocytopenia -> r/o infection -> plt 140->126-->194 --> vital etiologies as needed --> trend as needed --> transfuse prn # Bradycardia -- meds reviewed --> ekg, tele monitoring --> as per cards recs --> meds noted --> atropine prn basis # Hyponatremia --> per renal care # Atelectasis # Resp failure/trach -> surg aware # Paraplegia # Dysphagia s/p peg # Dehydration # Dvt ppx heparin sq DW Rn Subjective Constitutional: Denies: no symptoms, chills, fever, malaise, weakness, other HEENT: Denies: no symptoms, eye pain, blurred vision, tearing, double vision, ear pain, ear discharge, nose pain, nose congestion, throat pain, throat swelling, mouth pain, mouth swelling, other Cardiovascular: Denies: no symptoms, chest pain, edema, irregular heart rate, lightheadedness, palpitations, syncope, other Gastrointestinal/Abdominal: Denies: no symptoms, abdomen distended, abdominal pain, black stools, tarry stools, blood in stool, constipated, diarrhea, difficulty swallowing, nausea, poor appetite, poor fluid intake, rectal bleeding, vomiting, other Genitourinary: Denies: no symptoms, burning, discharge, frequency, flank pain, hematuria, incontinence, pain, urgency, other Neurologic/Psychiatric: Denies: no symptoms, anxiety, depressed, emotional problems, headache, numbness, paresthesia, pre-existing deficit, seizure, tingling, tremors, weakness, other Endocrine: Denies: no symptoms, excessive sweating, flushing, intolerance to cold, intolerance to heat, increased hunger, increased thirst, increased urine, unexplained weight gain, unexplained weight loss, other Hematologic/Lymphatic: Denies: no symptoms, anemia, easy bleeding, easy bruising, adenopathy, other Allergies: Coded Allergies: No Known Allergies (Unverified , 08/15/20) Subjective 08/17 nv, labs reviewed, meds noted, covering im 08/18 nv, with gt, osmolite, no bleeding, labs reviewed 08/19 refusing medications, combative, no bleeding 08/20 on zosyn, is continuing, wbc is higher at 23k 08/21 on vanc/zosyn, labs noted, no bleeding 08/22 on abx, stable, with bradycardia, no bleeding, no fc 08/24 nv, on abx, soft restraints, gt feeds ongoing 08/25 nv, trach to ra, meds noted, restraints, gt + 08/26 nv, meds noted, on trach, labs reviewed, gt+ 08/27 nv, meds reviewed, labs reviewed, gt, hgb 10.7 Objective Objective Current Medications Medications (Trade) Dose Ordered Sig/Myesha Route PRN Reason Start Time Stop Time Status Last Admin Dose Admin Acetaminophen (Tylenol) 500 mg EVERY 4 HOURS PRN GT Temp >100.5 08/16/20 05:30 09/15/20 05:29 08/20/20 16:37 Barium Sulfate (Varibar Honey) 250 ml NOW PRN MC RAD 08/26/20 20:00 08/29/20 19:54 Barium Sulfate (Varibar [place]) 240 ml NOW PRN MC RAD 08/26/20 20:00 08/29/20 19:54 Barium Sulfate (Varibar Pudding) 230 ml NOW PRN MC RAD 08/26/20 20:00 08/29/20 19:54 Barium Sulfate (Varibar Thin Liquid powder) 148 gm NOW PRN MC RAD 08/26/20 20:00 08/29/20 19:54 Cefepime HCl 1 gm/ Dextrose 55 ml @ 110 mls/hr EVERY 12 HOURS IVPB 08/24/20 21:00 08/31/20 20:59 08/26/20 21:01 Dextrose/Sodium Chloride 1,000 ml @ 100 mls/hr Q10H IV 08/26/20 17:45 09/25/20 17:44 08/27/20 05:26 Donepezil HCl (Aricept) 10 mg QHS GT 08/20/20 22:00 09/19/20 21:59 08/25/20 20:56 Famotidine (Pepcid) 20 mg BID GT 08/16/20 09:00 11/14/20 08:59 08/26/20 08:04 Fish Oil (Fish Oil) 1,000 mg BID ORAL 08/16/20 09:00 09/15/20 08:59 08/26/20 08:04 Heparin Sodium (Porcine) (Heparin 5000 units/ml) 5,000 units EVERY 12 HOURS SUBQ 08/16/20 09:00 09/30/20 08:59 08/26/20 21:03 Hydralazine HCl (Apresoline) 25 mg Q6H PRN ORAL SBP above 150 08/24/20 18:00 11/22/20 17:59 Levetiracetam (Keppra) 1,000 mg Q12HR GT 08/16/20 09:00 09/30/20 08:59 08/26/20 08:05 Multivitamins (Multivitamins) 1 tab DAILY GT 08/16/20 09:00 09/15/20 08:59 08/26/20 08:04 Mupirocin (Bactroban Oint) 1 applic DAILY TOPIC 08/21/20 09:00 08/27/20 09:01 08/26/20 08:09 Potassium Chloride (K-Dur) 40 meq BID GT 08/25/20 18:00 11/16/20 10:29 08/26/20 08:04 Last 24 Hour Vital Signs Date Time Temp Pulse Resp B/P (MAP) Pulse Ox O2 Delivery O2 Flow Rate FiO2 08/27/20 04:00 97.7 62 20 132/79 (96) 100 08/27/20 04:00 51 08/27/20 00:00 98.4 64 20 142/77 (98) 100 08/27/20 00:00 67 08/26/20 21:00 Room Air 08/26/20 20:00 98.2 70 20 151/79 (103) 98 08/26/20 20:00 64 08/26/20 16:00 71 08/26/20 16:00 98.1 71 20 108/61 (77) 90 08/26/20 12:00 97.7 75 22 150/75 (100) 94 08/26/20 12:00 71 08/26/20 09:00 Room Air 08/26/20 08:00 97.9 79 20 125/68 (87) 96 08/26/20 08:00 69 08/26/20 04:00 61 08/26/20 04:00 98.7 72 22 121/72 (88) 98 08/26/20 00:00 98.5 73 22 141/65 (90) 96 08/26/20 00:00 71 08/25/20 21:00 Room Air 08/25/20 20:00 66 08/25/20 20:00 98.5 73 20 131/74 (93) 97 08/25/20 16:00 97.9 64 20 139/85 (103) 99 08/25/20 16:00 68 08/25/20 12:00 98.6 68 20 125/75 (92) 98 08/25/20 12:00 58 08/25/20 09:00 Room Air 08/25/20 08:00 55 08/25/20 08:00 98.0 55 20 109/57 (74) 98 Intake and Output 08/26/20 08/27/20 19:00 07:00 Intake Total 100 ml 1000 ml Output Total 300 ml 800 ml Balance -200 ml 200 ml IV Total 100 ml 1000 ml Output Urine Total 300 ml 800 ml # Voids 1 # Bowel Movements 1 Labs Test 08/25/20 08:05 08/27/20 05:20 White Blood Count 7.4 K/UL (4.8-10.8) Red Blood Count 3.36 M/UL (4.70-6.10) Hemoglobin 10.7 G/DL (14.2-18.0) Hematocrit 31.7 % (42.0-52.0) Mean Corpuscular Volume 94 FL (80-99) Mean Corpuscular Hemoglobin 31.8 PG (27.0-31.0) Mean Corpuscular Hemoglobin Concent 33.8 G/DL (32.0-36.0) Red Cell Distribution Width 12.5 % (11.6-14.8) Platelet Count 194 K/UL (150-450) Mean Platelet Volume 7.9 FL (6.5-10.1) Neutrophils (%) (Auto) 66.3 % (45.0-75.0) Lymphocytes (%) (Auto) 16.7 % (20.0-45.0) Monocytes (%) (Auto) 10.0 % (1.0-10.0) Eosinophils (%) (Auto) 6.2 % (0.0-3.0) Basophils (%) (Auto) 0.9 % (0.0-2.0) Sodium Level 142 MMOL/L (136-145) Potassium Level 3.0 MMOL/L (3.5-5.1) Chloride Level 104 MMOL/L (98-107) Carbon Dioxide Level 31 MMOL/L (21-32) Anion Gap 7 mmol/L (5-15) Blood Urea Nitrogen 23 mg/dL (7-18) Creatinine 1.1 MG/DL (0.55-1.30) Estimat Glomerular Filtration Rate > 60 mL/min (>60) Glucose Level 120 MG/DL (74-106) Calcium Level 8.5 MG/DL (8.5-10.1) Phosphorus Level 3.8 MG/DL (2.5-4.9) Magnesium Level 2.5 MG/DL (1.8-2.4) Total Bilirubin 0.5 MG/DL (0.2-1.0) Aspartate Amino Transf (AST/SGOT) 49 U/L (15-37) Alanine Aminotransferase (ALT/SGPT) 82 U/L (12-78) Alkaline Phosphatase 95 U/L (46-116) Total Protein 7.2 G/DL (6.4-8.2) Albumin 3.0 G/DL (3.4-5.0) Globulin 4.2 g/dL Albumin/Globulin Ratio 0.7 (1.0-2.7) Micro Microbiology Date/Time Source Procedure Growth Status 08/26/20 18:20 Nasopharynx SARS-CoV-2 Antigen (Rapid)(ANDREY) - Final Complete Height (Feet): 5 Height (Inches): 10.00 Weight (Pounds): 154 Objective Physical Exam Vitals: noted General: no apparent distress, alert, Chronically Ill HEENT: bilateral eye PERRL, bilateral eye EOMI Respiratory: chest non-tender, lungs clear, normal breath sounds Cardiovascular: regular rate, rhythm, no murmur Gastrointestinal: normal bowel sounds ++gt Musculoskeletal: back normal, other - contracted Psychiatric: mood/affect normal Matthew Batista MD Aug 27, 2020 06:38
[2020-08-27 06:51] LABS: BASOPHILS % (AUTO) 1.2 % (0.0-2.0); EOSINOPHILS % (AUTO) 7.9 % (0.0-3.0); HEMATOCRIT 38.1 % (42.0-52.0); HEMOGLOBIN 12.4 G/DL (14.2-18.0); MEAN CORPUSCULAR VOLUME 96 FL (80-99); MONOCYTES % (AUTO) 8.9 % (1.0-10.0); NEUTROPHILS % (AUTO) 59.9 % (45.0-75.0); PLATELET COUNT 272 K/UL (150-450); RED BLOOD COUNT 3.99 M/UL (4.70-6.10); RED CELL DISTRIBUTION WIDTH 12.2 % (11.6-14.8); WHITE BLOOD COUNT 7.4 K/UL (4.8-10.8)
[2020-08-27 06:54] LABS: ANION GAP 9 mmol/L (5-15); BLOOD UREA NITROGEN 19 mg/dL (7-18); CALCIUM 9.7 MG/DL (8.5-10.1); CARBON DIOXIDE 30 MMOL/L (21-32); CHLORIDE 101 MMOL/L (98-107); CREATININE 1.1 MG/DL (0.55-1.30); POTASSIUM 3.6 MMOL/L (3.5-5.1); SODIUM 139 MMOL/L (136-145)
--- NOTE | 2020-08-27 07:23 | NUR ---
NURSE HAND-OFF REPORT: Important Events on Shift:Patient has been resting well the whole shift, saturating 95-98% and removed his oxygen. Patient Status: Patient is asleep on bed in stable condition. Plan of care endorsed. Diet: Osmolite 1.5@ 50cc/hour but at this time, g-tube is cogged Pending Orders: none Pending Results/Labs:AM labs Pending MD notification:none Latest Vital Signs: Temperature 97.7 , Pulse 62 , B/P 132 /79 , Respiratory Rate 20 , O2 SAT 100 , Room Air, O2 Flow Rate . Vital Sign Comment: stable EKG Rhythm: Sinus Rhythm Rhythm change?: N Notified?: Y -Dr Nadia JOSHI Response: Message left await call Latest Palm Fall Score: 70 Fall Risk: High Risk Safety Measures: Call light Within Reach, Bed Alarm Zone 1, Side Rails Side Rails x3, Bed position Low and Locked. Fall Precautions: Yellow Socks Report given to MELIA Rajan.
[2020-08-27 07:50] LABS: ALANINE AMINOTRANSFERASE 81 U/L (12-78); ALBUMIN 3.7 G/DL (3.4-5.0); ALKALINE PHOSPHATASE 109 U/L (46-116); ASPARTATE AMINO TRANSFERASE 51 U/L (15-37); BILIRUBIN,DIRECT 0.2 MG/DL (0.0-0.3); BILIRUBIN,TOTAL 0.6 MG/DL (0.2-1.0); PHOSPHORUS 3.9 MG/DL (2.5-4.9)
[2020-08-27 08:00] VITALS: BP 120/66
[2020-08-27] MEDS: Cefepime HCl 1 GM in D5W 55 ML IVPB SCH ×2 (08:30→22:42)
[2020-08-27] MEDS: levETIRAcetam 500mg/5ml Liquid GT SCH ×2 (08:32→21:00)
[2020-08-27] MEDS: Heparin 5000 units/ml inj SUBQ SCH ×2 (08:32→21:00)
--- NOTE | 2020-08-27 08:53 | Infectious Diseases Prog Note ---
Assessment/Plan Abx: IV Vancomycin 08/20- Zosyn 08/19- Assessment: Sepsis UTI Fever, SP Leukocytosis -08/21 cdif neg -08/20 CXR: Left basilar atelectasis or scarring.Tracheostomy tube. No sig nificant change from previous study. -08/17 u/a neg; ucx 50-60k P. stuarti (S Cefepime, Ertapenem, ZOsyn) -08/15 BCx NTD CXR: Reduced lung volumes. Patchy atelectasis in the left lung base. Bradycardia TERRENCE, improving Elevated LFts -Abd US: Mild gallbladder sludge. No ultrasound evidence of acute cholecystitis. Evaluation limited due to patient limitations. Nonvisualized spleen. BPH schizoaffective disorder chronic resp failure sp trach sp PEG CVA w/ residual paraplegia [facility] resident Plan: - Continue Cefepime #3/4 08/23/20 SP Vancomycin #5 and Zosyn #6 -f/u cx -Monitor CBC/CMP, temperatures -aspiration precautions Thank you for consulting [facility]. Will continue to follow along with you. Shin lundberg RN. Subjective Allergies: Coded Allergies: No Known Allergies (Unverified , 08/15/20) Afebile No Leukocytosis Satting well on RA Objective Last 24 Hour Vital Signs Date Time Temp Pulse Resp B/P (MAP) Pulse Ox O2 Delivery O2 Flow Rate FiO2 08/27/20 08:00 97.5 54 20 120/66 (84) 98 08/27/20 08:00 56 08/27/20 04:00 97.7 62 20 132/79 (96) 100 08/27/20 04:00 51 08/27/20 00:00 98.4 64 20 142/77 (98) 100 08/27/20 00:00 67 08/26/20 21:00 Room Air 08/26/20 20:00 98.2 70 20 151/79 (103) 98 08/26/20 20:00 64 08/26/20 16:00 71 08/26/20 16:00 98.1 71 20 108/61 (77) 90 08/26/20 12:00 97.7 75 22 150/75 (100) 94 08/26/20 12:00 71 08/26/20 09:00 Room Air Height (Feet): 5 Height (Inches): 10.00 Weight (Pounds): 154 GEN: NAD HEENT: NCAT, Trached LUNGS: RRR, Equal rise and fall B/L ABDOMEN: Soft. ND. G-tube intact. NEURO: Awake not verbal Microbiology Date/Time Source Procedure Growth Status 08/26/20 18:20 Nasopharynx SARS-CoV-2 Antigen (Rapid)(ANDREY) - Final Complete Laboratory Tests Test 08/27/20 05:20 White Blood Count 7.4 K/UL (4.8-10.8) Red Blood Count 3.99 M/UL (4.70-6.10) L Hemoglobin 12.4 G/DL (14.2-18.0) L Hematocrit 38.1 % (42.0-52.0) L Mean Corpuscular Volume 96 FL (80-99) Mean Corpuscular Hemoglobin 31.2 PG (27.0-31.0) H Mean Corpuscular Hemoglobin Concent 32.6 G/DL (32.0-36.0) Red Cell Distribution Width 12.2 % (11.6-14.8) Platelet Count 272 K/UL (150-450) Mean Platelet Volume 6.6 FL (6.5-10.1) Neutrophils (%) (Auto) 59.9 % (45.0-75.0) Lymphocytes (%) (Auto) 22.0 % (20.0-45.0) Monocytes (%) (Auto) 8.9 % (1.0-10.0) Eosinophils (%) (Auto) 7.9 % (0.0-3.0) H Basophils (%) (Auto) 1.2 % (0.0-2.0) Sodium Level 139 MMOL/L (136-145) Potassium Level 3.6 MMOL/L (3.5-5.1) Chloride Level 101 MMOL/L (98-107) Carbon Dioxide Level 30 MMOL/L (21-32) Anion Gap 9 mmol/L (5-15) Blood Urea Nitrogen 19 mg/dL (7-18) H Creatinine 1.1 MG/DL (0.55-1.30) Estimat Glomerular Filtration Rate > 60 mL/min (>60) Glucose Level 87 MG/DL (74-106) Calcium Level 9.7 MG/DL (8.5-10.1) Phosphorus Level 3.9 MG/DL (2.5-4.9) Magnesium Level 2.6 MG/DL (1.8-2.4) H Total Bilirubin 0.6 MG/DL (0.2-1.0) Direct Bilirubin 0.2 MG/DL (0.0-0.3) Aspartate Amino Transf (AST/SGOT) 51 U/L (15-37) H Alanine Aminotransferase (ALT/SGPT) 81 U/L (12-78) H Alkaline Phosphatase 109 U/L (46-116) Total Protein 8.6 G/DL (6.4-8.2) H Albumin 3.7 G/DL (3.4-5.0) Current Medications Medications (Trade) Dose Ordered Sig/Myesha Route PRN Reason Start Time Stop Time Status Last Admin Dose Admin Acetaminophen (Tylenol) 500 mg EVERY 4 HOURS PRN GT Temp >100.5 08/16/20 05:30 09/15/20 05:29 08/20/20 16:37 Barium Sulfate (Varibar [place]) 250 ml NOW PRN MC RAD 08/26/20 20:00 08/29/20 19:54 Barium Sulfate (Varibar [place]) 240 ml NOW PRN MC RAD 08/26/20 20:00 08/29/20 19:54 Barium Sulfate (Varibar Pudding) 230 ml NOW PRN MC RAD 08/26/20 20:00 08/29/20 19:54 Barium Sulfate (Varibar Thin Liquid powder) 148 gm NOW PRN MC RAD 08/26/20 20:00 08/29/20 19:54 Cefepime HCl 1 gm/ Dextrose 55 ml @ 110 mls/hr EVERY 12 HOURS IVPB 08/24/20 21:00 08/31/20 20:59 08/27/20 08:30 Dextrose/Sodium Chloride 1,000 ml @ 100 mls/hr Q10H IV 08/26/20 17:45 09/25/20 17:44 08/27/20 05:26 Donepezil HCl (Aricept) 10 mg QHS GT 08/20/20 22:00 09/19/20 21:59 08/25/20 20:56 Famotidine (Pepcid) 20 mg BID GT 08/16/20 09:00 11/14/20 08:59 08/26/20 08:04 Fish Oil (Fish Oil) 1,000 mg BID ORAL 08/16/20 09:00 09/15/20 08:59 08/26/20 08:04 Heparin Sodium (Porcine) (Heparin 5000 units/ml) 5,000 units EVERY 12 HOURS SUBQ 08/16/20 09:00 09/30/20 08:59 08/27/20 08:32 Hydralazine HCl (Apresoline) 25 mg Q6H PRN ORAL SBP above 150 08/24/20 18:00 11/22/20 17:59 Levetiracetam (Keppra) 1,000 mg Q12HR GT 08/16/20 09:00 09/30/20 08:59 08/26/20 08:05 Multivitamins (Multivitamins) 1 tab DAILY GT 08/16/20 09:00 09/15/20 08:59 08/26/20 08:04 Mupirocin (Bactroban Oint) 1 applic DAILY TOPIC 08/21/20 09:00 08/27/20 09:01 08/27/20 08:29 Potassium Chloride (K-Dur) 40 meq BID GT 08/25/20 18:00 11/16/20 10:29 08/26/20 08:04 Sin Mariee MD Aug 27, 2020 08:53
--- NOTE | 2020-08-27 09:40 | NUR ---
RD ASSESSMENT & RECOMMENDATIONS SEE CARE ACTIVITY FOR COMPLETE ASSESSMENT DAILY ESTIMATED NEEDS: Needs based on pulmonary, 70kg 25-30 kcals/kg 1653-8417 total kcals 1-1.5 g protein/kg 70-105 g total protein 25-30 mL/kg 7424-1018 total fluid mLs NUTRITION DIAGNOSIS: Swallowing difficulty R/T respiratory status and dysphagia as evidenced by h/o trach and GT placement, pt on pureed texture diet w/ HTL and nocturnal GT feeds HAM PASSER, NPO at this time, on continuous GT feeds. CURRENT TF:Osmolite 1.5 @ 50ml/hr x 24 hrs- HELD FOR CLOGGED GT PO DIET RECOMMENDATIONS: IF SAFE FOR ORAL DIET -> liberalized regular/ texture per [employer] ENTERAL NUTRITION RECOMMENDATIONS: For continuous TF-> Osmolite 1.5 @ 50ml/hr x 24 hrs to provide 1200ml, 1800kcal, 94g prot, 914ml free water * For continuous TF, rec continue Osmolite 1.5 @ 50ml/hr x 24 hrs -> HOB over 30 degrees/ H2O flush 250ml q 6hrs ------ * Monitor [employer] eval and rec, will provide nocturnal TF rec if appropriate ADDITIONAL RECOMMENDATIONS: * Per SNF: HT=65" and VS=573nql (08/05/20) * Monitor [employer] rec: pt on pureed moist texture w/ HTL TID HAM PASSER -> if not safe for oral diet, rec continuous TF rec as above * Monitor lytes, replete as needed * DC Vit C + ZnSO4 if without wounds * Add probiotics for diarrhea * D5 IV while NPO
--- NOTE | 2020-08-27 10:37 | Pulmonology Progress Note ---
Subjective ROS Limited/Unobtainable: Yes Allergies: Coded Allergies: No Known Allergies (Unverified , 08/15/20) All Systems: reviewed and negative except above Subjective care noted stable no distress awake Objective Last 24 Hour Vital Signs Date Time Temp Pulse Resp B/P (MAP) Pulse Ox O2 Delivery O2 Flow Rate FiO2 08/27/20 08:00 97.5 54 20 120/66 (84) 98 08/27/20 08:00 56 08/27/20 04:00 97.7 62 20 132/79 (96) 100 08/27/20 04:00 51 08/27/20 00:00 98.4 64 20 142/77 (98) 100 08/27/20 00:00 67 08/26/20 21:00 Room Air 08/26/20 20:00 98.2 70 20 151/79 (103) 98 08/26/20 20:00 64 08/26/20 16:00 71 08/26/20 16:00 98.1 71 20 108/61 (77) 90 08/26/20 12:00 97.7 75 22 150/75 (100) 94 08/26/20 12:00 71 Intake and Output 08/26/20 08/27/20 19:00 07:00 Intake Total 100 ml 1000 ml Output Total 300 ml 800 ml Balance -200 ml 200 ml IV Total 100 ml 1000 ml Output Urine Total 300 ml 800 ml # Voids 1 # Bowel Movements 1 Objective WDWN NAD clear breath sounds bilaterally without rhonchi or wheeze [id number] without MRG NABS nontender no CCE nonfocal awake bed bound Microbiology Date/Time Source Procedure Growth Status 08/26/20 18:20 Nasopharynx SARS-CoV-2 Antigen (Rapid)(ANDREY) - Final Complete Laboratory Tests 08/27/20 05:20: White Blood Count 7.4, Red Blood Count 3.99L, Hemoglobin 12.4L, Hematocrit 38.1L , Mean Corpuscular Volume 96, Mean Corpuscular Hemoglobin 31.2H, Mean Corpuscular Hemoglobin Concent 32.6, Red Cell Distribution Width 12.2, Platelet Count 272, Mean Platelet Volume 6.6, Neutrophils (%) (Auto) 59.9, Lymphocytes (%) (Auto) 22.0, Monocytes (%) (Auto) 8.9, Eosinophils (%) (Auto) 7.9H, Basophils (%) (Auto) 1.2, Sodium Level 139, Potassium Level 3.6, Chloride Level 101, Carbon Dioxide Level 30, Anion Gap 9, Blood Urea Nitrogen 19H, Creatinine 1.1, Estimat Glomerular Filtration Rate > 60, Glucose Level 87, Calcium Level 9.7, Phosphorus Level 3.9, Magnesium Level 2.6H, Total Bilirubin 0.6, Direct Bilirubin 0.2, Aspartate Amino Transf (AST/SGOT) 51H, Alanine Aminotransferase (ALT/SGPT) 81H, Alkaline Phosphatase 109, Total Protein 8.6H, Albumin 3.7 Current Medications Medications (Trade) Dose Ordered Sig/Myesha Route PRN Reason Start Time Stop Time Status Last Admin Dose Admin Acetaminophen (Tylenol) 500 mg EVERY 4 HOURS PRN GT Temp >100.5 08/16/20 05:30 09/15/20 05:29 08/20/20 16:37 Barium Sulfate (Varibar [place]) 250 ml NOW PRN MC RAD 08/26/20 20:00 08/29/20 19:54 Barium Sulfate (Varibar [place]) 240 ml NOW PRN MC RAD 08/26/20 20:00 08/29/20 19:54 Barium Sulfate (Varibar Pudding) 230 ml NOW PRN MC RAD 08/26/20 20:00 08/29/20 19:54 Barium Sulfate (Varibar Thin Liquid powder) 148 gm NOW PRN MC RAD 08/26/20 20:00 08/29/20 19:54 Cefepime HCl 1 gm/ Dextrose 55 ml @ 110 mls/hr EVERY 12 HOURS IVPB 08/24/20 21:00 08/31/20 20:59 08/27/20 08:30 Dextrose/Sodium Chloride 1,000 ml @ 100 mls/hr Q10H IV 08/26/20 17:45 09/25/20 17:44 08/27/20 05:26 Donepezil HCl (Aricept) 10 mg QHS GT 08/20/20 22:00 09/19/20 21:59 08/25/20 20:56 Famotidine (Pepcid) 20 mg BID GT 08/16/20 09:00 11/14/20 08:59 08/26/20 08:04 Fish Oil (Fish Oil) 1,000 mg BID ORAL 08/16/20 09:00 09/15/20 08:59 08/26/20 08:04 Heparin Sodium (Porcine) (Heparin 5000 units/ml) 5,000 units EVERY 12 HOURS SUBQ 08/16/20 09:00 09/30/20 08:59 08/27/20 08:32 Hydralazine HCl (Apresoline) 25 mg Q6H PRN ORAL SBP above 150 08/24/20 18:00 11/22/20 17:59 Lansoprazole (Prevacid) 30 mg DAILY GT 08/28/20 09:00 09/27/20 08:59 Levetiracetam (Keppra) 1,000 mg Q12HR GT 08/16/20 09:00 09/30/20 08:59 08/26/20 08:05 Multivitamins (Multivitamins) 1 tab DAILY GT 08/16/20 09:00 09/15/20 08:59 08/26/20 08:04 Potassium Chloride (K-Dur) 40 meq BID GT 08/25/20 18:00 11/16/20 10:29 08/26/20 08:04 Assessment/Plan Assessment/Plan IMPRESSION: respiratory failure, trach; severe PCM; paraplegia anemia. atelectasis, UTI, chronic encephalopathy PLAN patient tolerating cap for several days care noted aspiration precautions monitor airway d/w surgery will follow impression, plan, and exam edited and reviewed in detail care discussed with Maximo Hearn MD Aug 27, 2020 10:37
--- NOTE | 2020-08-27 11:14 | Consultation ---
DATE OF CONSULTATION: 08/27/2020 CHIEF COMPLAINT: Malfunctioning G-tube. HISTORY OF PRESENT ILLNESS: Most of the history per chart. This is a 54-year-old [place] [facility] patient, paraplegic with tracheostomy and also G-tube, admitted to the hospital mainly for bradycardia. The patient had a clogged G-tube so GI consult requested for further evaluation. PAST MEDICAL HISTORY: 1. Paraplegia. 2. Respiratory failure with tracheostomy. 3. Seizure disorder. 4. Schizophrenia. 5. BPH. 6. Dysphagia with G-tube. PAST SURGICAL HISTORY: Tracheostomy. ALLERGIES: No known drug allergies. MEDICATIONS: Please see medication reconciliation list. SOCIAL HISTORY: Currently lives in a [place] [facility]. No recent history of tobacco, alcohol, or drug abuse. FAMILY HISTORY: Noncontributory. REVIEW OF SYSTEMS: Unable to obtain. PHYSICAL EXAMINATION: VITAL SIGNS: Temperature 97.5, pulse 54, respirations 20, blood pressure 120/66. HEENT: Normocephalic and atraumatic. Mild pale conjunctivae. NECK: Supple. No evidence of obvious lymphadenopathy. CARDIOVASCULAR: Regular rate and rhythm. Plus S1, S2. LUNGS: Decreased breath sounds bilaterally based on the supine exam. ABDOMEN: Soft and nontender. G-tube in place. No rebound. No guarding. No peritoneal sign. EXTREMITIES: No cyanosis, no clubbing, no edema. LABORATORY DATA: White count 7.4, hemoglobin 12, hematocrit 38, platelet count is 272. ASSESSMENT AND PLAN: This is a 54-year-old male with numerous medical problems as dictated above, here for bradycardia and malfunctioning G-tube. I change the G-tube at the bedside. A 20-[place] balloon type of G-tube was successfully placed. Flushing the G-tube showed no resistance. Plan will be to start the tube feeding today. In terms of mild transaminitis, abdominal ultrasound reviewed which showed gallbladder sludge. We will repeat labs for tomorrow. Order hepatitis panel. In terms of anemia, mild most probably chronic. Anemia workup ordered. Ronny Yang M.D. DR: Bijan JOB#: [id number] CC:
[2020-08-27 12:00] VITALS: BP 145/74
--- NOTE | 2020-08-27 13:20 | Surgery Progress Note ---
Surgery Progress Note Subjective Additional Comments doing well decannulated no n/v labs noted exam stable Objective Last 24 Hour Vital Signs Date Time Temp Pulse Resp B/P (MAP) Pulse Ox O2 Delivery O2 Flow Rate FiO2 08/27/20 12:00 97.5 65 20 145/74 (97) 96 08/27/20 09:00 Room Air 08/27/20 08:00 97.5 54 20 120/66 (84) 98 08/27/20 08:00 56 08/27/20 04:00 97.7 62 20 132/79 (96) 100 08/27/20 04:00 51 08/27/20 00:00 98.4 64 20 142/77 (98) 100 08/27/20 00:00 67 08/26/20 21:00 Room Air 08/26/20 20:00 98.2 70 20 151/79 (103) 98 08/26/20 20:00 64 08/26/20 16:00 71 08/26/20 16:00 98.1 71 20 108/61 (77) 90 I&O Intake and Output 08/26/20 08/27/20 19:00 07:00 Intake Total 100 ml 1000 ml Output Total 300 ml 800 ml Balance -200 ml 200 ml IV Total 100 ml 1000 ml Output Urine Total 300 ml 800 ml # Voids 1 # Bowel Movements 1 Dressing: dry Wound: clean Cardiovascular: RSR Respiratory: clear, decreased breath sounds Abdomen: soft, non-tender, present bowel sounds, non-distended Extremities: no edema, no tenderness, no cyanosis Laboratory Tests Test 08/27/20 05:20 White Blood Count 7.4 K/UL (4.8-10.8) Red Blood Count 3.99 M/UL (4.70-6.10) L Hemoglobin 12.4 G/DL (14.2-18.0) L Hematocrit 38.1 % (42.0-52.0) L Mean Corpuscular Volume 96 FL (80-99) Mean Corpuscular Hemoglobin 31.2 PG (27.0-31.0) H Mean Corpuscular Hemoglobin Concent 32.6 G/DL (32.0-36.0) Red Cell Distribution Width 12.2 % (11.6-14.8) Platelet Count 272 K/UL (150-450) Mean Platelet Volume 6.6 FL (6.5-10.1) Neutrophils (%) (Auto) 59.9 % (45.0-75.0) Lymphocytes (%) (Auto) 22.0 % (20.0-45.0) Monocytes (%) (Auto) 8.9 % (1.0-10.0) Eosinophils (%) (Auto) 7.9 % (0.0-3.0) H Basophils (%) (Auto) 1.2 % (0.0-2.0) Sodium Level 139 MMOL/L (136-145) Potassium Level 3.6 MMOL/L (3.5-5.1) Chloride Level 101 MMOL/L (98-107) Carbon Dioxide Level 30 MMOL/L (21-32) Anion Gap 9 mmol/L (5-15) Blood Urea Nitrogen 19 mg/dL (7-18) H Creatinine 1.1 MG/DL (0.55-1.30) Estimat Glomerular Filtration Rate > 60 mL/min (>60) Glucose Level 87 MG/DL (74-106) Calcium Level 9.7 MG/DL (8.5-10.1) Phosphorus Level 3.9 MG/DL (2.5-4.9) Magnesium Level 2.6 MG/DL (1.8-2.4) H Total Bilirubin 0.6 MG/DL (0.2-1.0) Direct Bilirubin 0.2 MG/DL (0.0-0.3) Aspartate Amino Transf (AST/SGOT) 51 U/L (15-37) H Alanine Aminotransferase (ALT/SGPT) 81 U/L (12-78) H Alkaline Phosphatase 109 U/L (46-116) Total Protein 8.6 G/DL (6.4-8.2) H Albumin 3.7 G/DL (3.4-5.0) Plan Problems: (1) Trachea displaced Assessment & Plan: Lungs: Reduced lung volumes. Patchy atelectasis in the left lung base. Pleural space: Unremarkable. No pneumothorax. Heart: Unremarkable. No cardiomegaly. Mediastinum: Unremarkable. Bones/joints: No acute fracture. Tubes, lines and devices: Tracheostomy. IMPRESSION: Reduced lung volumes. Patchy atelectasis in the left lung base. trach remains stable cont cap as respiratory trial stable discussed with PCP patient has been doing great with trach cap. likely ready for decannulation. will get pulm input and consideration prior to removal decannulated doing well dressings dailyt and prn (2) Bradycardia (3) Hyponatremia (4) Elevated alkaline phosphatase level Assessment & Plan: abd us noted labs okay exam benign okay for diet trend labs no acute surgical intervention planned Liver: The liver measures 17 cm. No intrahepatic bile duct dilation. Gallbladder: No definite cholelithiasis. Suspect a mild bladder sludge. No gallbladder wall thickening or pericholecystic fluid. Common bile duct: Unremarkable as visualized. No stones. No dilation . Pancreas: Unremarkable as visualized. Kidneys: The right kidney measures 12.1 cm. The left kidney measures 8.8 cm. No stones. No hydronephrosis. Spleen: Nonvisualized spleen. Aorta: The aorta is measured at 2.3 cm. This is slightly over measured by the technologist. Inferior vena cava: Unremarkable. IMPRESSION: Mild gallbladder sludge. No ultrasound evidence of acute cholecystitis. Evaluation limited due to patient limitations. Nonvisualized spleen. DAILY ESTIMATED NEEDS: Needs based on pulmonary, 70kg 25-30 kcals/kg 3566-3343 total kcals 1-1.5 g protein/kg 70-105 g total protein 25-30 mL/kg 6809-7923 total fluid mLs NUTRITION DIAGNOSIS: Swallowing difficulty R/T respiratory status and dysphagia as evidenced by h/o trach and GT placement, pt on pureed texture diet w/ HTL and nocturnal GT feeds STEELER, NPO at this time CURRENT TF:Osmolite 1.5 @ 50ml/hr x 24 hrs PO DIET RECOMMENDATIONS: IF SAFE FOR ORAL DIET -> liberalized regular/ texture per SHELLAC POLISHER ENTERAL NUTRITION RECOMMENDATIONS: For continuous TF-> Osmolite 1.5 @ 50ml/hr x 24 hrs to provide 1200ml, 1800kcal, 94g prot, 914ml free water * For continuous TF, rec continue Osmolite 1.5 @ 50ml/hr x 24 hrs -> HOB over 30 degrees/ H2O flush 250ml q 6hrs ------ * Monitor SHELLAC POLISHER eval and rec, will provide nocturnal TF rec if appropriate ADDITIONAL RECOMMENDATIONS: * Per SNF: HT=65" and BA=476cbf (08/05/20) * Monitor SHELLAC POLISHER rec: pt on pureed moist texture w/ HTL TID STEELER -> if not safe for oral diet, rec continuous TF rec as above * Monitor lytes, replete as needed Franky Carrizales Aug 27, 2020 13:20
--- NOTE | 2020-08-27 13:50 | Nephrology Progress Note ---
Assessment/Plan Problem List: (1) Hyponatremia (2) Bradycardia (3) Trachea displaced (4) TERRENCE (acute kidney injury) Assessment Hyponatremia: Etiology work-up ordered and in process Bradycardia Vent dependent PEG dependent BPH Plan August 27: Labs reviewed. Renal parameters and electrolytes stable. Continue per consultants. August 26: No CHEM panel drawn today. Medication list reviewed. Check lab tomorrow. Continue per consultants. August 25: Labs reviewed. Low potassium addressed. IV fluid discontinued. Continue per consultants. Stable from renal standpoint of view. August 24: No CHEM panel drawn today. Stable from renal standpoint of view. Will check lab tomorrow. Continue per consultants. August 23: Labs reviewed. Renal parameters stable. Medications list reviewed. Continue per consultants. August 22. Low-grade temperature is still recorded. Labs reviewed. Renal parameters stable. Continue per consultants. August 21: Remains febrile. Serum creatinine normalized. Low phosphorus addressed. Continue to monitor renal parameters and electrolytes. Blood pressure improved. August 20: Patient febrile. Serum creatinine keith to 1.7. Blood pressure 90 systolic. Will give albumin and saline bolus and will start on IV hydration. Continue to monitor renal parameters. Per orders. August 19: Labs reviewed. Electrolytes improved. Will discontinue Lasix. Continue to monitor electrolytes. August 18: Labs reviewed. Serum sodium slightly higher. Potassium supplement given. Lasix and 3% saline to be continued aim to keep output more than intake. August 17: Trial of 3% saline and Lasix. Monitor serum sodium and electrolytes. Continue per consultants. Urine studies, urine spot sodium, urine osmolality monitor worker Check TSH, uric acid, serum osmolality, lipid panel Further comments after above results Subjective ROS Limited/Unobtainable: No Constitutional: Reports: malaise Objective Objective Last 24 Hour Vital Signs Date Time Temp Pulse Resp B/P (MAP) Pulse Ox O2 Delivery O2 Flow Rate FiO2 08/27/20 12:00 97.5 65 20 145/74 (97) 96 08/27/20 09:00 Room Air 08/27/20 08:00 97.5 54 20 120/66 (84) 98 08/27/20 08:00 56 08/27/20 04:00 97.7 62 20 132/79 (96) 100 08/27/20 04:00 51 08/27/20 00:00 98.4 64 20 142/77 (98) 100 3/3/21 00:00 67 08/26/20 21:00 Room Air 08/26/20 20:00 98.2 70 20 151/79 (103) 98 08/26/20 20:00 64 08/26/20 16:00 71 08/26/20 16:00 98.1 71 20 108/61 (77) 90 Intake and Output 08/26/20 08/27/20 19:00 07:00 Intake Total 100 ml 1000 ml Output Total 300 ml 800 ml Balance -200 ml 200 ml IV Total 100 ml 1000 ml Output Urine Total 300 ml 800 ml # Voids 1 # Bowel Movements 1 Current Medications Medications (Trade) Dose Ordered Sig/Myesha Route PRN Reason Start Time Stop Time Status Last Admin Dose Admin Acetaminophen (Tylenol) 500 mg EVERY 4 HOURS PRN GT Temp >100.5 08/16/20 05:30 09/15/20 05:29 08/20/20 16:37 Barium Sulfate (Varibar Honey) 250 ml NOW PRN MC RAD 08/26/20 20:00 08/29/20 19:54 Barium Sulfate (Varibar [place]) 240 ml NOW PRN MC RAD 08/26/20 20:00 08/29/20 19:54 Barium Sulfate (Varibar Pudding) 230 ml NOW PRN MC RAD 08/26/20 20:00 08/29/20 19:54 Barium Sulfate (Varibar Thin Liquid powder) 148 gm NOW PRN MC RAD 08/26/20 20:00 08/29/20 19:54 Cefepime HCl 1 gm/ Dextrose 55 ml @ 110 mls/hr EVERY 12 HOURS IVPB 08/24/20 21:00 08/31/20 20:59 08/27/20 08:30 Dextrose/Sodium Chloride 1,000 ml @ 100 mls/hr Q10H IV 08/26/20 17:45 09/25/20 17:44 08/27/20 05:26 Donepezil HCl (Aricept) 10 mg QHS GT 08/20/20 22:00 09/19/20 21:59 08/25/20 20:56 Famotidine (Pepcid) 20 mg BID GT 08/16/20 09:00 11/14/20 08:59 08/26/20 08:04 Fish Oil (Fish Oil) 1,000 mg BID ORAL 08/16/20 09:00 09/15/20 08:59 08/26/20 08:04 Heparin Sodium (Porcine) (Heparin 5000 units/ml) 5,000 units EVERY 12 HOURS SUBQ 08/16/20 09:00 09/30/20 08:59 08/27/20 08:32 Hydralazine HCl (Apresoline) 25 mg Q6H PRN ORAL SBP above 150 08/24/20 18:00 11/22/20 17:59 Lansoprazole (Prevacid) 30 mg DAILY GT 08/28/20 09:00 09/27/20 08:59 Levetiracetam (Keppra) 1,000 mg Q12HR GT 08/16/20 09:00 09/30/20 08:59 08/26/20 08:05 Multivitamins (Multivitamins) 1 tab DAILY GT 08/16/20 09:00 09/15/20 08:59 08/26/20 08:04 Potassium Chloride (K-Dur) 40 meq BID GT 08/25/20 18:00 11/16/20 10:29 08/26/20 08:04 Laboratory Tests 08/27/20 05:20: White Blood Count 7.4, Red Blood Count 3.99L, Hemoglobin 12.4L, Hematocrit 38.1L , Mean Corpuscular Volume 96, Mean Corpuscular Hemoglobin 31.2H, Mean Corpuscular Hemoglobin Concent 32.6, Red Cell Distribution Width 12.2, Platelet Count 272, Mean Platelet Volume 6.6, Neutrophils (%) (Auto) 59.9, Lymphocytes (%) (Auto) 22.0, Monocytes (%) (Auto) 8.9, Eosinophils (%) (Auto) 7.9H, Basophils (%) (Auto) 1.2, Sodium Level 139, Potassium Level 3.6, Chloride Level 101, Carbon Dioxide Level 30, Anion Gap 9, Blood Urea Nitrogen 19H, Creatinine 1.1, Estimat Glomerular Filtration Rate > 60, Glucose Level 87, Calcium Level 9.7, Phosphorus Level 3.9, Magnesium Level 2.6H, Total Bilirubin 0.6, Direct Bilirubin 0.2, Aspartate Amino Transf (AST/SGOT) 51H, Alanine Aminotransferase (ALT/SGPT) 81H, Alkaline Phosphatase 109, Total Protein 8.6H, Albumin 3.7 Height (Feet): 5 Height (Inches): 10.00 Weight (Pounds): 154 General Appearance: no apparent distress Cardiovascular: normal rate Respiratory/Chest: decreased breath sounds Abdomen: distended Objective No change Chase Haynes MD Aug 27, 2020 13:50
--- NOTE | 2020-08-27 15:10 | NUR ---
*-*DISCHARGE PLANING*-* PATIENT HAS BEEN REFERRED BACK TO: [facility] P: [phone] S/W [facility], NO BEDS AVAILABLE, FOLLOW UP TOMORROW 08/28/20.
[2020-08-27 16:00] VITALS: BP 107/55
--- NOTE | 2020-08-27 16:05 | NUR ---
Speech Pathology Note (Bedside Dysphagia Re-Evaluation) I initially evaluated on 08/18/2020 during this hospitalization. At that time, he refused to have PO trial and kept him NPO at that time. During this hospital course he was decannulated (08/26/2020), and clogged PEG was fixed today. Pt has a mood changes depending how he feels. Today, I removed his restrain offered the food items that he might like. I offered mechoopda flavor ice cream. He stated " what's that?" and he showed interests. I assisted him feeding mechoopda ice cream, apple sauce and honey thick water. He tolerated all trials without overt s.s of aspiration. After he consumed 1/3 of ice cream, 3 bites of apple sauce and a sip of thick water, he stated " Thank you". He indicated me that he had enough PO at that time. I completed PO trial and impression, recommendation with nursing staff. Impression/Interpretation: 1. Underlying oropharyngeal dysphagia yet functional to have modified diet 2. Aspiration risk Plan: 1. Pureed and honey thick liquid diet 2. Aspiration precaution Marnie Patino
[2020-08-27 20:00] VITALS: BP 120/66
[2020-08-27] MEDS: Donepezil 5mg Tab GT SCH (21:00)
--- NOTE | 2020-08-27 23:16 | General Progress Note ---
Subjective Constitutional: Reports: no symptoms HEENT: Reports: no symptoms Cardiovascular: Reports: no symptoms Respiratory: Reports: no symptoms Gastrointestinal/Abdominal: Reports: no symptoms Genitourinary: Reports: no symptoms Neurologic/Psychiatric: Reports: no symptoms, other - For long time I have not seen this patient wave when I walked in smiles when I approach his bed to get by gesturethat what he did today Endocrine: Reports: no symptoms Hematologic/Lymphatic: Reports: no symptoms Allergies: Coded Allergies: No Known Allergies (Unverified , 08/15/20) Objective Last 24 Hour Vital Signs Date Time Temp Pulse Resp B/P (MAP) Pulse Ox O2 Delivery O2 Flow Rate FiO2 08/27/20 16:00 55 08/27/20 16:00 96.8 54 20 107/55 (72) 96 08/27/20 12:00 73 08/27/20 12:00 97.5 65 20 145/74 (97) 96 08/27/20 09:00 Room Air 08/27/20 08:00 97.5 54 20 120/66 (84) 98 08/27/20 08:00 56 08/27/20 04:00 97.7 62 20 132/79 (96) 100 08/27/20 04:00 51 08/27/20 00:00 98.4 64 20 142/77 (98) 100 08/27/20 00:00 67 Intake and Output 08/26/20 08/27/20 19:00 07:00 Intake Total 100 ml 1000 ml Output Total 300 ml 800 ml Balance -200 ml 200 ml IV Total 100 ml 1000 ml Output Urine Total 300 ml 800 ml # Voids 1 # Bowel Movements 1 Laboratory Tests 08/27/20 05:20: White Blood Count 7.4, Red Blood Count 3.99L, Hemoglobin 12.4L, Hematocrit 38.1L , Mean Corpuscular Volume 96, Mean Corpuscular Hemoglobin 31.2H, Mean Corpuscular Hemoglobin Concent 32.6, Red Cell Distribution Width 12.2, Platelet Count 272, Mean Platelet Volume 6.6, Neutrophils (%) (Auto) 59.9, Lymphocytes (%) (Auto) 22.0, Monocytes (%) (Auto) 8.9, Eosinophils (%) (Auto) 7.9H, Basophils (%) (Auto) 1.2, Sodium Level 139, Potassium Level 3.6, Chloride Level 101, Carbon Dioxide Level 30, Anion Gap 9, Blood Urea Nitrogen 19H, Creatinine 1.1, Estimat Glomerular Filtration Rate > 60, Glucose Level 87, Calcium Level 9.7, Phosphorus Level 3.9, Magnesium Level 2.6H, Total Bilirubin 0.6, Direct Bilirubin 0.2, Aspartate Amino Transf (AST/SGOT) 51H, Alanine Aminotransferase (ALT/SGPT) 81H, Alkaline Phosphatase 109, Total Protein 8.6H, Albumin 3.7 Height (Feet): 5 Height (Inches): 10.00 Weight (Pounds): 154 General Appearance: WD/WN, no apparent distress, alert EENT: normal ENT inspection Neck: normal alignment, supple Cardiovascular: normal rate, regular rhythm, no gallop/murmur, no JVD, bradycardia Respiratory/Chest: lungs clear, normal breath sounds, no respiratory distress, no accessory muscle use Abdomen: normal bowel sounds, non tender, soft, no organomegaly, no mass Extremities: non-tender Neurologic: alert, oriented x 3, responsive Skin: warm/dry Assessment/Plan Status Narrative Patient is awake alert afebrile hemodynamically stable denies any new symptom is intermittent bradycardia to the level between 55-60 pain asymptomatic he did pass today swallowing eval without restriction.but when he was giving food today he spat it it out. his G-tube replacement today and for the time being he is being fed by G-tube this patient is currently considered a psychiatric issue and it will be dealt with in the extended care facility Aime De Leon MD, MD Aug 27, 2020 23:16
[2020-08-28] VITALS: BP 123/78
--- NOTE | 2020-08-28 00:10 | NUR ---
NURSE NOTES: Patient is resting well at this time, no acute distress noted, vitals were stable, saturating 95-96% on room air, will continue to monitor.
--- NOTE | 2020-08-28 01:46 | Cardiology Progress Note ---
Subjective DATE OF SERVICE: Aug 27, 2020 Passed swallow eval; still on GT feeds due to non-compliance Remains in sinus rhythm with asymptomatic sinus bradycardia. No recurrent AFib. Off IVF No hypotensive episodes. Objective Last 24 Hour Vital Signs Date Time Temp Pulse Resp B/P (MAP) Pulse Ox O2 Delivery O2 Flow Rate FiO2 08/28/20 00:00 98.3 77 20 123/78 (93) 98 08/28/20 00:00 74 08/27/20 21:00 Room Air 08/27/20 20:00 70 08/27/20 20:00 97.2 54 20 120/66 (84) 98 08/27/20 16:00 55 08/27/20 16:00 96.8 54 20 107/55 (72) 96 08/27/20 12:00 73 08/27/20 12:00 97.5 65 20 145/74 (97) 96 08/27/20 09:00 Room Air 08/27/20 08:00 97.5 54 20 120/66 (84) 98 08/27/20 08:00 56 08/27/20 04:00 97.7 62 20 132/79 (96) 100 08/27/20 04:00 51 HEENT: Thin Trach secretions RHYTHM: NSR, SB LUNGS: lungs clear bilaterally CARDIAC: regular rhythm, normal S1 and S2, bradycardia ABDOMEN: normal bowel sounds, non tender, soft, G-Tube intact EXTREMITIES: normal range of motion, non-tender, no calf tenderness, No edema Laboratory Tests Test 08/27/20 05:20 White Blood Count 7.4 K/UL (4.8-10.8) Red Blood Count 3.99 M/UL (4.70-6.10) L Hemoglobin 12.4 G/DL (14.2-18.0) L Hematocrit 38.1 % (42.0-52.0) L Mean Corpuscular Volume 96 FL (80-99) Mean Corpuscular Hemoglobin 31.2 PG (27.0-31.0) H Mean Corpuscular Hemoglobin Concent 32.6 G/DL (32.0-36.0) Red Cell Distribution Width 12.2 % (11.6-14.8) Platelet Count 272 K/UL (150-450) Mean Platelet Volume 6.6 FL (6.5-10.1) Neutrophils (%) (Auto) 59.9 % (45.0-75.0) Lymphocytes (%) (Auto) 22.0 % (20.0-45.0) Monocytes (%) (Auto) 8.9 % (1.0-10.0) Eosinophils (%) (Auto) 7.9 % (0.0-3.0) H Basophils (%) (Auto) 1.2 % (0.0-2.0) Sodium Level 139 MMOL/L (136-145) Potassium Level 3.6 MMOL/L (3.5-5.1) Chloride Level 101 MMOL/L (98-107) Carbon Dioxide Level 30 MMOL/L (21-32) Anion Gap 9 mmol/L (5-15) Blood Urea Nitrogen 19 mg/dL (7-18) H Creatinine 1.1 MG/DL (0.55-1.30) Estimat Glomerular Filtration Rate > 60 mL/min (>60) Glucose Level 87 MG/DL (74-106) Calcium Level 9.7 MG/DL (8.5-10.1) Phosphorus Level 3.9 MG/DL (2.5-4.9) Magnesium Level 2.6 MG/DL (1.8-2.4) H Total Bilirubin 0.6 MG/DL (0.2-1.0) Direct Bilirubin 0.2 MG/DL (0.0-0.3) Aspartate Amino Transf (AST/SGOT) 51 U/L (15-37) H Alanine Aminotransferase (ALT/SGPT) 81 U/L (12-78) H Alkaline Phosphatase 109 U/L (46-116) Total Protein 8.6 G/DL (6.4-8.2) H Albumin 3.7 G/DL (3.4-5.0) Microbiology Date/Time Source Procedure Growth Status 08/26/20 18:20 Nasopharynx SARS-CoV-2 Antigen (Rapid)([facility]) - Final Complete Assessment/Plan Assessment/Plan Bradycardia - asymptomatic Trach displacement corrected Hypovolemia, mild - resolved Hyponatremia corrected Mild hypothermia resolved Dehydration/hypernatremia improved Dysphagia with GTube for adequate intake Stable for SNF from cardiovascular standpoint. No indication for pacing Resp rx/vent Antimicrobials Continuous cardiac monitoring Avoid beta kristin rx Free water replacement as needed - now Sin Multani MD Aug 28, 2020 01:46
[2020-08-28 04:00] VITALS: BP 147/77
[2020-08-28 06:15] LABS: BASOPHILS % (AUTO) 0.8 % (0.0-2.0); EOSINOPHILS % (AUTO) 6.3 % (0.0-3.0); HEMATOCRIT 37.1 % (42.0-52.0); HEMOGLOBIN 12.4 G/DL (14.2-18.0); LYMPHOCYTES % (AUTO) 21.5 % (20.0-45.0); MEAN CORPUSCULAR VOLUME 95 FL (80-99); MONOCYTES % (AUTO) 7.4 % (1.0-10.0); PLATELET COUNT 359 K/UL (150-450); RED BLOOD COUNT 3.91 M/UL (4.70-6.10); RED CELL DISTRIBUTION WIDTH 11.9 % (11.6-14.8); WHITE BLOOD COUNT 9.2 K/UL (4.8-10.8)
--- NOTE | 2020-08-28 06:20 | Hematology/Onc Progress Note ---
Assessment/Plan Assessment/Plan # Anemia likely related to chronic disease --> hgb currently stable --> anemia panel prn --> hgb 13.7-->11.2-->11-->10.7->12.4 # Leukocytosis with a wbc 21 --> on abx zosyn-->zosyn/vanc-->cefepime --> smear is noted # Thrombocytopenia -> r/o infection -> plt 140->126-->194 --> vital etiologies as needed --> trend as needed --> transfuse prn # Bradycardia -- meds reviewed --> ekg, tele monitoring --> as per cards recs --> meds noted --> atropine prn basis # Hyponatremia --> per renal care # Atelectasis # Resp failure/trach -> surg aware # Paraplegia # Dysphagia s/p peg # Dehydration # Dvt ppx heparin sq DW Rn Subjective Constitutional: Denies: no symptoms, chills, fever, malaise, weakness, other HEENT: Denies: no symptoms, eye pain, blurred vision, tearing, double vision, ear pain, ear discharge, nose pain, nose congestion, throat pain, throat swelling, mouth pain, mouth swelling, other Cardiovascular: Denies: no symptoms, chest pain, edema, irregular heart rate, lightheadedness, palpitations, syncope, other Respiratory: Denies: no symptoms, cough, shortness of breath, SOB with excertion, SOB at rest, sputum, wheezing, other Genitourinary: Denies: no symptoms, burning, discharge, frequency, flank pain, hematuria, incontinence, pain, urgency, other Neurologic/Psychiatric: Denies: no symptoms, anxiety, depressed, emotional problems, headache, numbness, paresthesia, pre-existing deficit, seizure, tingling, tremors, weakness, other Endocrine: Denies: no symptoms, excessive sweating, flushing, intolerance to cold, intolerance to heat, increased hunger, increased thirst, increased urine, unexplained weight gain, unexplained weight loss, other Allergies: Coded Allergies: No Known Allergies (Unverified , 08/15/20) Subjective 08/17 nv, labs reviewed, meds noted, covering im 08/18 nv, with gt, osmolite, no bleeding, labs reviewed 08/19 refusing medications, combative, no bleeding 08/20 on zosyn, is continuing, wbc is higher at 23k 08/21 on vanc/zosyn, labs noted, no bleeding 08/22 on abx, stable, with bradycardia, no bleeding, no fc 08/24 nv, on abx, soft restraints, gt feeds ongoing 08/25 nv, trach to ra, meds noted, restraints, gt + 08/26 nv, meds noted, on trach, labs reviewed, gt+ 08/27 nv, meds reviewed, labs reviewed, gt, hgb 10.7 08/28 nv, meds have been reviewed, still on gt feeds Objective Objective Current Medications Medications (Trade) Dose Ordered Sig/Myesha Route PRN Reason Start Time Stop Time Status Last Admin Dose Admin Acetaminophen (Tylenol) 500 mg EVERY 4 HOURS PRN GT Temp >100.5 08/16/20 05:30 09/15/20 05:29 08/20/20 16:37 Barium Sulfate (Varibar Honey) 250 ml NOW PRN MC RAD 08/26/20 20:00 08/29/20 19:54 Barium Sulfate (Varibar [place]) 240 ml NOW PRN MC RAD 08/26/20 20:00 08/29/20 19:54 Barium Sulfate (Varibar Pudding) 230 ml NOW PRN MC RAD 08/26/20 20:00 08/29/20 19:54 Barium Sulfate (Varibar Thin Liquid powder) 148 gm NOW PRN MC RAD 08/26/20 20:00 08/29/20 19:54 Cefepime HCl 1 gm/ Dextrose 55 ml @ 110 mls/hr EVERY 12 HOURS IVPB 08/24/20 21:00 08/31/20 20:59 08/27/20 22:42 Dextrose/Sodium Chloride 1,000 ml @ 100 mls/hr Q10H IV 08/26/20 17:45 09/25/20 17:44 08/27/20 23:20 Donepezil HCl (Aricept) 10 mg QHS GT 08/20/20 22:00 09/19/20 21:59 08/27/20 21:00 Famotidine (Pepcid) 20 mg BID GT 08/16/20 09:00 11/14/20 08:59 08/27/20 18:06 Fish Oil (Fish Oil) 1,000 mg BID ORAL 08/16/20 09:00 09/15/20 08:59 08/27/20 18:06 Heparin Sodium (Porcine) (Heparin 5000 units/ml) 5,000 units EVERY 12 HOURS SUBQ 08/16/20 09:00 09/30/20 08:59 08/27/20 21:00 Hydralazine HCl (Apresoline) 25 mg Q6H PRN ORAL SBP above 150 08/24/20 18:00 11/22/20 17:59 Lansoprazole (Prevacid) 30 mg DAILY GT 08/28/20 09:00 09/27/20 08:59 Levetiracetam (Keppra) 1,000 mg Q12HR GT 08/16/20 09:00 09/30/20 08:59 08/27/20 21:00 Multivitamins (Multivitamins) 1 tab DAILY GT 08/16/20 09:00 09/15/20 08:59 08/26/20 08:04 Potassium Chloride (K-Dur) 40 meq BID GT 08/25/20 18:00 11/16/20 10:29 08/27/20 18:06 Last 24 Hour Vital Signs Date Time Temp Pulse Resp B/P (MAP) Pulse Ox O2 Delivery O2 Flow Rate FiO2 08/28/20 04:00 98.4 71 20 147/77 (100) 98 08/28/20 04:00 71 08/28/20 00:00 98.3 77 20 123/78 (93) 98 08/28/20 00:00 74 08/27/20 21:00 Room Air 08/27/20 20:00 70 08/27/20 20:00 97.2 54 20 120/66 (84) 98 08/27/20 16:00 55 08/27/20 16:00 96.8 54 20 107/55 (72) 96 08/27/20 12:00 73 08/27/20 12:00 97.5 65 20 145/74 (97) 96 08/27/20 09:00 Room Air 08/27/20 08:00 97.5 54 20 120/66 (84) 98 08/27/20 08:00 56 08/27/20 04:00 97.7 62 20 132/79 (96) 100 08/27/20 04:00 51 08/27/20 00:00 98.4 64 20 142/77 (98) 100 08/27/20 00:00 67 08/26/20 21:00 Room Air 08/26/20 20:00 98.2 70 20 151/79 (103) 98 08/26/20 20:00 64 08/26/20 16:00 71 08/26/20 16:00 98.1 71 20 108/61 (77) 90 08/26/20 12:00 97.7 75 22 150/75 (100) 94 08/26/20 12:00 71 08/26/20 09:00 Room Air 08/26/20 08:00 97.9 79 20 125/68 (87) 96 08/26/20 08:00 69 Intake and Output 08/27/20 08/28/20 19:00 07:00 Output Total 850 ml 950 ml Balance -850 ml -950 ml Output Urine Total 850 ml 950 ml Labs Test 08/25/20 08:05 08/27/20 05:20 08/28/20 05:05 White Blood Count 7.4 K/UL (4.8-10.8) 7.4 K/UL (4.8-10.8) Red Blood Count 3.36 M/UL (4.70-6.10) 3.99 M/UL (4.70-6.10) Hemoglobin 10.7 G/DL (14.2-18.0) 12.4 G/DL (14.2-18.0) Hematocrit 31.7 % (42.0-52.0) 38.1 % (42.0-52.0) Mean Corpuscular Volume 94 FL (80-99) 96 FL (80-99) Mean Corpuscular Hemoglobin 31.8 PG (27.0-31.0) 31.2 PG (27.0-31.0) Mean Corpuscular Hemoglobin Concent 33.8 G/DL (32.0-36.0) 32.6 G/DL (32.0-36.0) Red Cell Distribution Width 12.5 % (11.6-14.8) 12.2 % (11.6-14.8) Platelet Count 194 K/UL (150-450) 272 K/UL (150-450) Mean Platelet Volume 7.9 FL (6.5-10.1) 6.6 FL (6.5-10.1) Neutrophils (%) (Auto) 66.3 % (45.0-75.0) 59.9 % (45.0-75.0) Lymphocytes (%) (Auto) 16.7 % (20.0-45.0) 22.0 % (20.0-45.0) Monocytes (%) (Auto) 10.0 % (1.0-10.0) 8.9 % (1.0-10.0) Eosinophils (%) (Auto) 6.2 % (0.0-3.0) 7.9 % (0.0-3.0) Basophils (%) (Auto) 0.9 % (0.0-2.0) 1.2 % (0.0-2.0) Sodium Level 142 MMOL/L (136-145) 139 MMOL/L (136-145) Potassium Level 3.0 MMOL/L (3.5-5.1) 3.6 MMOL/L (3.5-5.1) Chloride Level 104 MMOL/L (98-107) 101 MMOL/L (98-107) Carbon Dioxide Level 31 MMOL/L (21-32) 30 MMOL/L (21-32) Anion Gap 7 mmol/L (5-15) 9 mmol/L (5-15) Blood Urea Nitrogen 23 mg/dL (7-18) 19 mg/dL (7-18) Creatinine 1.1 MG/DL (0.55-1.30) 1.1 MG/DL (0.55-1.30) Estimat Glomerular Filtration Rate > 60 mL/min (>60) > 60 mL/min (>60) Glucose Level 120 MG/DL (74-106) 87 MG/DL (74-106) Calcium Level 8.5 MG/DL (8.5-10.1) 9.7 MG/DL (8.5-10.1) Phosphorus Level 3.8 MG/DL (2.5-4.9) 3.9 MG/DL (2.5-4.9) Magnesium Level 2.5 MG/DL (1.8-2.4) 2.6 MG/DL (1.8-2.4) Total Bilirubin 0.5 MG/DL (0.2-1.0) 0.6 MG/DL (0.2-1.0) Aspartate Amino Transf (AST/SGOT) 49 U/L (15-37) 51 U/L (15-37) Alanine Aminotransferase (ALT/SGPT) 82 U/L (12-78) 81 U/L (12-78) Alkaline Phosphatase 95 U/L (46-116) 109 U/L (46-116) Total Protein 7.2 G/DL (6.4-8.2) 8.6 G/DL (6.4-8.2) Albumin 3.0 G/DL (3.4-5.0) 3.7 G/DL (3.4-5.0) Globulin 4.2 g/dL Albumin/Globulin Ratio 0.7 (1.0-2.7) Direct Bilirubin 0.2 MG/DL (0.0-0.3) Height (Feet): 5 Height (Inches): 10.00 Weight (Pounds): 154 Objective Physical Exam Vitals: noted General: no apparent distress, alert, Chronically Ill HEENT: bilateral eye PERRL, bilateral eye EOMI Respiratory: chest non-tender, lungs clear, normal breath sounds Cardiovascular: regular rate, rhythm, no murmur Gastrointestinal: normal bowel sounds ++gt Musculoskeletal: back normal, other - contracted Psychiatric: mood/affect normal Matthew Batista MD Aug 28, 2020 06:20
[2020-08-28 06:41] LABS: ALANINE AMINOTRANSFERASE 139 U/L (12-78); ALBUMIN 3.5 G/DL (3.4-5.0); ALBUMIN/GLOBULIN RATIO 0.7 (1.0-2.7); ALKALINE PHOSPHATASE 122 U/L (46-116); ANION GAP 7 mmol/L (5-15); ASPARTATE AMINO TRANSFERASE 87 U/L (15-37); BILIRUBIN,TOTAL 0.3 MG/DL (0.2-1.0); BLOOD UREA NITROGEN 18 mg/dL (7-18); CALCIUM 9.4 MG/DL (8.5-10.1); CARBON DIOXIDE 31 MMOL/L (21-32); CHLORIDE 101 MMOL/L (98-107); CREATININE 1.1 MG/DL (0.55-1.30); POTASSIUM 4.1 MMOL/L (3.5-5.1); SODIUM 139 MMOL/L (136-145)
[2020-08-28 07:21] LABS: % IRON SATURATION 19 % (15-50); IRON 48 ug/dL (50-175); TOTAL IRON BINDING CAPACITY 255 ug/dL (250-450)
[2020-08-28 08:00] VITALS: BP 139/71
--- NOTE | 2020-08-28 08:46 | Pulmonology Progress Note ---
Subjective ROS Limited/Unobtainable: No Allergies: Coded Allergies: No Known Allergies (Unverified , 08/15/20) All Systems: reviewed and negative except above Subjective care noted stable no distress awake Objective Last 24 Hour Vital Signs Date Time Temp Pulse Resp B/P (MAP) Pulse Ox O2 Delivery O2 Flow Rate FiO2 08/28/20 08:00 98.6 86 18 139/71 (93) 98 08/28/20 04:00 98.4 71 20 147/77 (100) 98 08/28/20 04:00 71 08/28/20 00:00 98.3 77 20 123/78 (93) 98 08/28/20 00:00 74 08/27/20 21:00 Room Air 08/27/20 20:00 70 08/27/20 20:00 97.2 54 20 120/66 (84) 98 08/27/20 16:00 55 08/27/20 16:00 96.8 54 20 107/55 (72) 96 08/27/20 12:00 73 08/27/20 12:00 97.5 65 20 145/74 (97) 96 08/27/20 09:00 Room Air Intake and Output 08/27/20 08/28/20 19:00 07:00 Output Total 850 ml 950 ml Balance -850 ml -950 ml Output Urine Total 850 ml 950 ml Objective WDWN NAD clear breath sounds bilaterally without rhonchi or wheeze [id number] without MRG NABS nontender no CCE nonfocal awake bed bound Microbiology Date/Time Source Procedure Growth Status 08/26/20 18:20 Nasopharynx SARS-CoV-2 Antigen (Rapid)(ANDREY) - Final Complete Laboratory Tests 08/28/20 05:05: White Blood Count 9.2, Red Blood Count 3.91L, Hemoglobin 12.4L, Hematocrit 37.1L , Mean Corpuscular Volume 95, Mean Corpuscular Hemoglobin 31.6H, Mean Corpuscular Hemoglobin Concent 33.3, Red Cell Distribution Width 11.9, Platelet Count 359, Mean Platelet Volume 7.0, Neutrophils (%) (Auto) 64.0, Lymphocytes (%) (Auto) 21.5, Monocytes (%) (Auto) 7.4, Eosinophils (%) (Auto) 6.3H, Basophils (%) (Auto) 0.8, Sodium Level 139, Potassium Level 4.1, Chloride Level 101, Carbon Dioxide Level 31, Anion Gap 7, Blood Urea Nitrogen 18, Creatinine 1.1, Estimat Glomerular Filtration Rate > 60, Glucose Level 90, Calcium Level 9.4, Iron Level 48L, Total Iron Binding Capacity 255, Percent Iron Saturation 1 9, Unsaturated Iron Binding 207, Total Bilirubin 0.3, Aspartate Amino Transf (AST/SGOT) 87H, Alanine Aminotransferase (ALT/SGPT) 139H, Alkaline Phosphatase 122H, Total Protein 8.5H, Albumin 3.5, Globulin 5.0, Albumin/Globulin Ratio 0.7L , Vitamin B12 Level [Pending], Folate 19.4, Hepatitis A IgM Antibody [Pending], Hepatitis B Surface Antigen [Pending], Hepatitis B Core IgM Antibody [Pending], Hepatitis C Antibody [Pending] Current Medications Medications (Trade) Dose Ordered Sig/Myesha Route PRN Reason Start Time Stop Time Status Last Admin Dose Admin Acetaminophen (Tylenol) 500 mg EVERY 4 HOURS PRN GT Temp >100.5 08/16/20 05:30 09/15/20 05:29 08/20/20 16:37 Barium Sulfate (Varibar Honey) 250 ml NOW PRN MC RAD 08/26/20 20:00 08/29/20 19:54 Barium Sulfate (Varibar [employer]) 240 ml NOW PRN MC RAD 08/26/20 20:00 08/29/20 19:54 Barium Sulfate (Varibar Pudding) 230 ml NOW PRN MC RAD 08/26/20 20:00 08/29/20 19:54 Barium Sulfate (Varibar Thin Liquid powder) 148 gm NOW PRN MC RAD 08/26/20 20:00 08/29/20 19:54 Cefepime HCl 1 gm/ Dextrose 55 ml @ 110 mls/hr EVERY 12 HOURS IVPB 08/24/20 21:00 08/31/20 20:59 08/27/20 22:42 Dextrose/Sodium Chloride 1,000 ml @ 100 mls/hr Q10H IV 08/26/20 17:45 09/25/20 17:44 08/27/20 23:20 Donepezil HCl (Aricept) 10 mg QHS GT 08/20/20 22:00 09/19/20 21:59 08/27/20 21:00 Famotidine (Pepcid) 20 mg BID GT 08/16/20 09:00 11/14/20 08:59 08/27/20 18:06 Fish Oil (Fish Oil) 1,000 mg BID ORAL 08/16/20 09:00 09/15/20 08:59 08/27/20 18:06 Heparin Sodium (Porcine) (Heparin 5000 units/ml) 5,000 units EVERY 12 HOURS SUBQ 08/16/20 09:00 09/30/20 08:59 08/27/20 21:00 Hydralazine HCl (Apresoline) 25 mg Q6H PRN ORAL SBP above 150 08/24/20 18:00 11/22/20 17:59 Lansoprazole (Prevacid) 30 mg DAILY GT 08/28/20 09:00 09/27/20 08:59 Levetiracetam (Keppra) 1,000 mg Q12HR GT 08/16/20 09:00 09/30/20 08:59 08/27/20 21:00 Multivitamins (Multivitamins) 1 tab DAILY GT 08/16/20 09:00 09/15/20 08:59 08/26/20 08:04 Potassium Chloride (K-Dur) 40 meq BID GT 08/25/20 18:00 11/16/20 10:29 08/27/20 18:06 Assessment/Plan Assessment/Plan IMPRESSION: respiratory failure, trach; severe PCM; paraplegia anemia. atelectasis, UTI, chronic encephalopathy PLAN patient tolerating cap for several days care noted aspiration precautions monitor airway d/w surgery will follow impression, plan, and exam edited and reviewed in detail care discussed with Maximo Hearn MD Aug 28, 2020 08:46
[2020-08-28] MEDS: Cefepime HCl 1 GM in D5W 55 ML IVPB SCH (09:16)
[2020-08-28] MEDS: levETIRAcetam 500mg/5ml Liquid GT SCH (09:16)
[2020-08-28] MEDS: Heparin 5000 units/ml inj SUBQ SCH (09:19)
[2020-08-28] MEDS: D5 1/2NS 1,000 ML IV SCH (09:26)
--- NOTE | 2020-08-28 09:59 | Surgery Progress Note ---
Surgery Progress Note Subjective Additional Comments doing well decannulated no n/v comfortable labs noted exam stable trach site closing Objective Last 24 Hour Vital Signs Date Time Temp Pulse Resp B/P (MAP) Pulse Ox O2 Delivery O2 Flow Rate FiO2 08/28/20 08:00 98.6 86 18 139/71 (93) 98 08/28/20 04:00 98.4 71 20 147/77 (100) 98 08/28/20 04:00 71 08/28/20 00:00 98.3 77 20 123/78 (93) 98 08/28/20 00:00 74 08/27/20 21:00 Room Air 08/27/20 20:00 70 08/27/20 20:00 97.2 54 20 120/66 (84) 98 08/27/20 16:00 55 08/27/20 16:00 96.8 54 20 107/55 (72) 96 08/27/20 12:00 73 08/27/20 12:00 97.5 65 20 145/74 (97) 96 I&O Intake and Output 08/27/20 08/28/20 19:00 07:00 Output Total 850 ml 950 ml Balance -850 ml -950 ml Output Urine Total 850 ml 950 ml Dressing: dry Wound: clean Cardiovascular: RSR Respiratory: clear Abdomen: soft, flat, non-tender, present bowel sounds, non-distended Extremities: no edema, no tenderness, no cyanosis Laboratory Tests Test 08/28/20 05:05 White Blood Count 9.2 K/UL (4.8-10.8) Red Blood Count 3.91 M/UL (4.70-6.10) L Hemoglobin 12.4 G/DL (14.2-18.0) L Hematocrit 37.1 % (42.0-52.0) L Mean Corpuscular Volume 95 FL (80-99) Mean Corpuscular Hemoglobin 31.6 PG (27.0-31.0) H Mean Corpuscular Hemoglobin Concent 33.3 G/DL (32.0-36.0) Red Cell Distribution Width 11.9 % (11.6-14.8) Platelet Count 359 K/UL (150-450) Mean Platelet Volume 7.0 FL (6.5-10.1) Neutrophils (%) (Auto) 64.0 % (45.0-75.0) Lymphocytes (%) (Auto) 21.5 % (20.0-45.0) Monocytes (%) (Auto) 7.4 % (1.0-10.0) Eosinophils (%) (Auto) 6.3 % (0.0-3.0) H Basophils (%) (Auto) 0.8 % (0.0-2.0) Sodium Level 139 MMOL/L (136-145) Potassium Level 4.1 MMOL/L (3.5-5.1) Chloride Level 101 MMOL/L (98-107) Carbon Dioxide Level 31 MMOL/L (21-32) Anion Gap 7 mmol/L (5-15) Blood Urea Nitrogen 18 mg/dL (7-18) Creatinine 1.1 MG/DL (0.55-1.30) Estimat Glomerular Filtration Rate > 60 mL/min (>60) Glucose Level 90 MG/DL (74-106) Calcium Level 9.4 MG/DL (8.5-10.1) Iron Level 48 ug/dL (50-175) L Total Iron Binding Capacity 255 ug/dL (250-450) Percent Iron Saturation 19 % (15-50) Unsaturated Iron Binding 207 ug/dL (112-346) Total Bilirubin 0.3 MG/DL (0.2-1.0) Aspartate Amino Transf (AST/SGOT) 87 U/L (15-37) H Alanine Aminotransferase (ALT/SGPT) 139 U/L (12-78) H Alkaline Phosphatase 122 U/L (46-116) H Total Protein 8.5 G/DL (6.4-8.2) H Albumin 3.5 G/DL (3.4-5.0) Globulin 5.0 g/dL Albumin/Globulin Ratio 0.7 (1.0-2.7) L Vitamin B12 Level Pending Folate 19.4 NG/ML (8.6-58.9) Hepatitis A IgM Antibody Pending Hepatitis B Surface Antigen Pending Hepatitis B Core IgM Antibody Pending Hepatitis C Antibody Pending Plan Problems: (1) Trachea displaced Assessment & Plan: Lungs: Reduced lung volumes. Patchy atelectasis in the left lung base. Pleural space: Unremarkable. No pneumothorax. Heart: Unremarkable. No cardiomegaly. Mediastinum: Unremarkable. Bones/joints: No acute fracture. Tubes, lines and devices: Tracheostomy. IMPRESSION: Reduced lung volumes. Patchy atelectasis in the left lung base. trach remains stable cont cap as respiratory trial stable discussed with PCP patient has been doing great with trach cap. likely ready for decannulation. will get pulm input and consideration prior to removal decannulated doing well dressings dailyt and prn (2) Bradycardia (3) Hyponatremia (4) Elevated alkaline phosphatase level Assessment & Plan: abd us noted labs okay exam benign okay for diet trend labs no acute surgical intervention planned Liver: The liver measures 17 cm. No intrahepatic bile duct dilation. Gallbladder: No definite cholelithiasis. Suspect a mild bladder sludge. No gallbladder wall thickening or pericholecystic fluid. Common bile duct: Unremarkable as visualized. No stones. No dilation . Pancreas: Unremarkable as visualized. Kidneys: The right kidney measures 12.1 cm. The left kidney measures 8.8 cm. No stones. No hydronephrosis. Spleen: Nonvisualized spleen. Aorta: The aorta is measured at 2.3 cm. This is slightly over measured by the technologist. Inferior vena cava: Unremarkable. IMPRESSION: Mild gallbladder sludge. No ultrasound evidence of acute cholecystitis. Evaluation limited due to patient limitations. Nonvisualized spleen. 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 CURRENT TF:Osmolite 1.5 @ 50ml/hr x 24 hrs PO DIET RECOMMENDATIONS: IF SAFE FOR ORAL DIET -> liberalized regular/ texture per DIRECTOR PROCESS IMPROVEMENT ENTERAL NUTRITION RECOMMENDATIONS: For continuous TF-> Osmolite 1.5 @ 50ml/hr x 24 hrs to provide 1200ml, 1800kcal, 94g prot, 914ml free water * For continuous TF, rec continue Osmolite 1.5 @ 50ml/hr x 24 hrs -> HOB over 30 degrees/ H2O flush 250ml q 6hrs ------ * Monitor DIRECTOR PROCESS IMPROVEMENT eval and rec, will provide nocturnal TF rec if appropriate ADDITIONAL RECOMMENDATIONS: * Per SNF: HT=65" and BP=621kap (08/05/20) * Monitor DIRECTOR PROCESS IMPROVEMENT rec: pt on pureed moist texture w/ HTL TID 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
--- NOTE | 2020-08-28 11:49 | NUR ---
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 PT NOW REQUIRING SNF BEDS VS [facility]. INQUIRY FAXED TO [facility]. Addendum: 08/28/20 at 1514 by GATO RAMIREZ RN CM PT ACCEPTED BACK TO [facility] 59 BED A. NURSE TO CALL REPORT TO [phone]. [facility] TO TRANSPORT PT WITH AN ETA 1320.
[2020-08-28 12:14] VITALS: BP 119/64
--- NOTE | 2020-08-28 12:40 | Nephrology Progress Note ---
Assessment/Plan Problem List: (1) Hyponatremia (2) Bradycardia (3) Trachea displaced (4) TERRENCE (acute kidney injury) Assessment Hyponatremia: Etiology work-up ordered and in process Bradycardia Vent dependent PEG dependent BPH Plan August 28: Labs reviewed. Renal parameters stable. Medication list reviewed. Continue per consultants. August 27: Labs reviewed. Renal parameters and electrolytes stable. Continue per consultants. August 26: No CHEM panel drawn today. Medication list reviewed. Check lab tomorrow. Continue per consultants. August 25: Labs reviewed. Low potassium addressed. IV fluid discontinued. Continue per consultants. Stable from renal standpoint of view. August 24: No CHEM panel drawn today. Stable from renal standpoint of view. Will check lab tomorrow. Continue per consultants. August 23: Labs reviewed. Renal parameters stable. Medications list reviewed. Continue per consultants. August 22. Low-grade temperature is still recorded. Labs reviewed. Renal parameters stable. Continue per consultants. August 21: Remains febrile. Serum creatinine normalized. Low phosphorus addressed. Continue to monitor renal parameters and electrolytes. Blood pressure improved. August 20: Patient febrile. Serum creatinine keith to 1.7. Blood pressure 90 systolic. Will give albumin and saline bolus and will start on IV hydration. Continue to monitor renal parameters. Per orders. August 19: Labs reviewed. Electrolytes improved. Will discontinue Lasix. Continue to monitor electrolytes. August 18: Labs reviewed. Serum sodium slightly higher. Potassium supplement given. Lasix and 3% saline to be continued aim to keep output more than intake. August 17: Trial of 3% saline and Lasix. Monitor serum sodium and electrolytes. Continue per consultants. 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 TSH, uric acid, serum osmolality, lipid panel Further comments after above results Subjective ROS Limited/Unobtainable: No Objective Objective Last 24 Hour Vital Signs Date Time Temp Pulse Resp B/P (MAP) Pulse Ox O2 Delivery O2 Flow Rate FiO2 08/28/20 12:14 98.3 89 20 119/64 (82) 95 08/28/20 08:00 98.6 86 18 139/71 (93) 98 08/28/20 08:00 Room Air 08/28/20 08:00 82 08/28/20 04:00 98.4 71 20 147/77 (100) 98 08/28/20 04:00 71 08/28/20 00:00 98.3 77 20 123/78 (93) 98 08/28/20 00:00 74 08/27/20 21:00 Room Air 08/27/20 20:00 70 08/27/20 20:00 97.2 54 20 120/66 (84) 98 08/27/20 16:00 55 08/27/20 16:00 96.8 54 20 107/55 (72) 96 Intake and Output 08/27/20 08/28/20 19:00 07:00 Output Total 850 ml 950 ml Balance -850 ml -950 ml Output Urine Total 850 ml 950 ml Current Medications Medications (Trade) Dose Ordered Sig/Myesha Route PRN Reason Start Time Stop Time Status Last Admin Dose Admin Acetaminophen (Tylenol) 500 mg EVERY 4 HOURS PRN GT Temp >100.5 08/16/20 05:30 09/15/20 05:29 08/20/20 16:37 Barium Sulfate (Varibar Honey) 250 ml NOW PRN MC RAD 08/26/20 20:00 08/29/20 19:54 Barium Sulfate (Varibar [place]) 240 ml NOW PRN MC RAD 08/26/20 20:00 08/29/20 19:54 Barium Sulfate (Varibar Pudding) 230 ml NOW PRN MC RAD 08/26/20 20:00 08/29/20 19:54 Barium Sulfate (Varibar Thin Liquid powder) 148 gm NOW PRN MC RAD 08/26/20 20:00 08/29/20 19:54 Cefepime HCl 1 gm/ Dextrose 55 ml @ 110 mls/hr EVERY 12 HOURS IVPB 08/24/20 21:00 08/31/20 20:59 08/28/20 09:16 Dextrose/Sodium Chloride 1,000 ml @ 100 mls/hr Q10H IV 08/26/20 17:45 09/25/20 17:44 08/28/20 09:26 Donepezil HCl (Aricept) 10 mg QHS GT 08/20/20 22:00 09/19/20 21:59 08/27/20 21:00 Famotidine (Pepcid) 20 mg BID GT 08/16/20 09:00 11/14/20 08:59 08/28/20 09:17 Fish Oil (Fish Oil) 1,000 mg BID ORAL 08/16/20 09:00 09/15/20 08:59 08/28/20 09:17 Heparin Sodium (Porcine) (Heparin 5000 units/ml) 5,000 units EVERY 12 HOURS SUBQ 08/16/20 09:00 09/30/20 08:59 08/28/20 09:19 Hydralazine HCl (Apresoline) 25 mg Q6H PRN ORAL SBP above 150 08/24/20 18:00 11/22/20 17:59 Lansoprazole (Prevacid) 30 mg DAILY GT 08/28/20 09:00 09/27/20 08:59 08/28/20 09:16 Levetiracetam (Keppra) 1,000 mg Q12HR GT 08/16/20 09:00 09/30/20 08:59 08/28/20 09:16 Multivitamins (Multivitamins) 1 tab DAILY GT 08/16/20 09:00 09/15/20 08:59 08/28/20 09:17 Potassium Chloride (K-Dur) 40 meq BID GT 08/25/20 18:00 11/16/20 10:29 08/28/20 09:17 Laboratory Tests 08/28/20 05:05: White Blood Count 9.2, Red Blood Count 3.91L, Hemoglobin 12.4L, Hematocrit 37.1L , Mean Corpuscular Volume 95, Mean Corpuscular Hemoglobin 31.6H, Mean Corpuscular Hemoglobin Concent 33.3, Red Cell Distribution Width 11.9, Platelet Count 359, Mean Platelet Volume 7.0, Neutrophils (%) (Auto) 64.0, Lymphocytes (%) (Auto) 21.5, Monocytes (%) (Auto) 7.4, Eosinophils (%) (Auto) 6.3H, Basophils (%) (Auto) 0.8, Sodium Level 139, Potassium Level 4.1, Chloride Level 101, Carbon Dioxide Level 31, Anion Gap 7, Blood Urea Nitrogen 18, Creatinine 1.1, Estimat Glomerular Filtration Rate > 60, Glucose Level 90, Calcium Level 9.4, Iron Level 48L, Total Iron Binding Capacity 255, Percent Iron Saturation 19, Unsaturated Iron Binding 207, Total Bilirubin 0.3, Aspartate Amino Transf (AST/SGOT) 87H, Alanine Aminotransferase (ALT/SGPT) 139H, Alkaline Phosphatase 122H, Total Protein 8.5H, Albumin 3.5, Globulin 5.0, Albumin/Globulin Ratio 0.7L , Vitamin B12 Level 1089H, Folate 19.4, Hepatitis A IgM Antibody [Pending], Hepatitis B Surface Antigen [Pending], Hepatitis B Core IgM Antibody [Pending], Hepatitis C Antibody [Pending] Height (Feet): 5 Height (Inches): 10.00 Weight (Pounds): 154 General Appearance: no apparent distress Cardiovascular: normal rate Respiratory/Chest: decreased breath sounds Abdomen: soft Objective No change Chase Haynes MD Aug 28, 2020 12:40
--- NOTE | 2020-08-28 12:44 | Infectious Diseases Prog Note ---
Assessment/Plan Abx: IV Vancomycin 08/20- Zosyn 08/19- Assessment: Sepsis UTI Fever, SP Leukocytosis -08/21 cdif neg -08/20 CXR: Left basilar atelectasis or scarring.Tracheostomy tube. No sig nificant change from previous study. -08/17 u/a neg; ucx 50-60k P. stuarti (S Cefepime, Ertapenem, ZOsyn) -08/15 BCx NTD CXR: Reduced lung volumes. Patchy atelectasis in the left lung base. Bradycardia TERRENCE, improving Elevated LFts -Abd US: Mild gallbladder sludge. No ultrasound evidence of acute cholecystitis. Evaluation limited due to patient limitations. Nonvisualized spleen. BPH schizoaffective disorder chronic resp failure sp trach sp PEG CVA w/ residual paraplegia [facility] resident Plan: - Continue Cefepime #4/4 08/23/20 SP Vancomycin #5 and Zosyn #6 -f/u cx -Monitor CBC/CMP, temperatures -aspiration precautions Thank you for consulting [facility]. Will continue to follow along with you. Shin lundberg RN. Subjective Allergies: Coded Allergies: No Known Allergies (Unverified , 08/15/20) Afebile No Leukocytosis VERNELL Objective Last 24 Hour Vital Signs Date Time Temp Pulse Resp B/P (MAP) Pulse Ox O2 Delivery O2 Flow Rate FiO2 08/28/20 12:14 98.3 89 20 119/64 (82) 95 08/28/20 08:00 98.6 86 18 139/71 (93) 98 08/28/20 08:00 Room Air 08/28/20 08:00 82 08/28/20 04:00 98.4 71 20 147/77 (100) 98 08/28/20 04:00 71 08/28/20 00:00 98.3 77 20 123/78 (93) 98 08/28/20 00:00 74 08/27/20 21:00 Room Air 08/27/20 20:00 70 08/27/20 20:00 97.2 54 20 120/66 (84) 98 08/27/20 16:00 55 08/27/20 16:00 96.8 54 20 107/55 (72) 96 Height (Feet): 5 Height (Inches): 10.00 Weight (Pounds): 154 GEN: NAD on RA HEENT: NCAT, Trached LUNGS: RRR, Equal rise and fall B/L ABDOMEN: Soft. ND. G-tube intact. NEURO: Awake not verbal Microbiology Date/Time Source Procedure Growth Status 08/26/20 18:20 Nasopharynx SARS-CoV-2 Antigen (Rapid)(ANDREY) - Final Complete Laboratory Tests Test 08/28/20 05:05 White Blood Count 9.2 K/UL (4.8-10.8) Red Blood Count 3.91 M/UL (4.70-6.10) L Hemoglobin 12.4 G/DL (14.2-18.0) L Hematocrit 37.1 % (42.0-52.0) L Mean Corpuscular Volume 95 FL (80-99) Mean Corpuscular Hemoglobin 31.6 PG (27.0-31.0) H Mean Corpuscular Hemoglobin Concent 33.3 G/DL (32.0-36.0) Red Cell Distribution Width 11.9 % (11.6-14.8) Platelet Count 359 K/UL (150-450) Mean Platelet Volume 7.0 FL (6.5-10.1) Neutrophils (%) (Auto) 64.0 % (45.0-75.0) Lymphocytes (%) (Auto) 21.5 % (20.0-45.0) Monocytes (%) (Auto) 7.4 % (1.0-10.0) Eosinophils (%) (Auto) 6.3 % (0.0-3.0) H Basophils (%) (Auto) 0.8 % (0.0-2.0) Sodium Level 139 MMOL/L (136-145) Potassium Level 4.1 MMOL/L (3.5-5.1) Chloride Level 101 MMOL/L (98-107) Carbon Dioxide Level 31 MMOL/L (21-32) Anion Gap 7 mmol/L (5-15) Blood Urea Nitrogen 18 mg/dL (7-18) Creatinine 1.1 MG/DL (0.55-1.30) Estimat Glomerular Filtration Rate > 60 mL/min (>60) Glucose Level 90 MG/DL (74-106) Calcium Level 9.4 MG/DL (8.5-10.1) Iron Level 48 ug/dL (50-175) L Total Iron Binding Capacity 255 ug/dL (250-450) Percent Iron Saturation 19 % (15-50) Unsaturated Iron Binding 207 ug/dL (112-346) Total Bilirubin 0.3 MG/DL (0.2-1.0) Aspartate Amino Transf (AST/SGOT) 87 U/L (15-37) H Alanine Aminotransferase (ALT/SGPT) 139 U/L (12-78) H Alkaline Phosphatase 122 U/L (46-116) H Total Protein 8.5 G/DL (6.4-8.2) H Albumin 3.5 G/DL (3.4-5.0) Globulin 5.0 g/dL Albumin/Globulin Ratio 0.7 (1.0-2.7) L Vitamin B12 Level 1089 PG/ML (193-986) H Folate 19.4 NG/ML (8.6-58.9) Hepatitis A IgM Antibody Pending Hepatitis B Surface Antigen Pending Hepatitis B Core IgM Antibody Pending Hepatitis C Antibody Pending Current Medications Medications (Trade) Dose Ordered Sig/Myesha Route PRN Reason Start Time Stop Time Status Last Admin Dose Admin Acetaminophen (Tylenol) 500 mg EVERY 4 HOURS PRN GT Temp >100.5 08/16/20 05:30 09/15/20 05:29 08/20/20 16:37 Barium Sulfate (Varibar Honey) 250 ml NOW PRN MC RAD 08/26/20 20:00 08/29/20 19:54 Barium Sulfate (Varibar [place]) 240 ml NOW PRN MC RAD 08/26/20 20:00 08/29/20 19:54 Barium Sulfate (Varibar Pudding) 230 ml NOW PRN MC RAD 08/26/20 20:00 08/29/20 19:54 Barium Sulfate (Varibar Thin Liquid powder) 148 gm NOW PRN MC RAD 08/26/20 20:00 08/29/20 19:54 Cefepime HCl 1 gm/ Dextrose 55 ml @ 110 mls/hr EVERY 12 HOURS IVPB 08/24/20 21:00 08/31/20 20:59 08/28/20 09:16 Dextrose/Sodium Chloride 1,000 ml @ 100 mls/hr Q10H IV 08/26/20 17:45 09/25/20 17:44 08/28/20 09:26 Donepezil HCl (Aricept) 10 mg QHS GT 08/20/20 22:00 09/19/20 21:59 08/27/20 21:00 Famotidine (Pepcid) 20 mg BID GT 08/16/20 09:00 11/14/20 08:59 08/28/20 09:17 Fish Oil (Fish Oil) 1,000 mg BID ORAL 08/16/20 09:00 09/15/20 08:59 08/28/20 09:17 Heparin Sodium (Porcine) (Heparin 5000 units/ml) 5,000 units EVERY 12 HOURS SUBQ 08/16/20 09:00 09/30/20 08:59 08/28/20 09:19 Hydralazine HCl (Apresoline) 25 mg Q6H PRN ORAL SBP above 150 08/24/20 18:00 11/22/20 17:59 Lansoprazole (Prevacid) 30 mg DAILY GT 08/28/20 09:00 09/27/20 08:59 08/28/20 09:16 Levetiracetam (Keppra) 1,000 mg Q12HR GT 08/16/20 09:00 09/30/20 08:59 08/28/20 09:16 Multivitamins (Multivitamins) 1 tab DAILY GT 08/16/20 09:00 09/15/20 08:59 08/28/20 09:17 Potassium Chloride (K-Dur) 40 meq BID GT 08/25/20 18:00 11/16/20 10:29 08/28/20 09:17 Sin Mariee MD Aug 28, 2020 12:44
--- NOTE | 2020-08-28 14:04 | General Progress Note ---
Subjective ROS Limited/Unobtainable: No Allergies: Coded Allergies: No Known Allergies (Unverified , 08/15/20) Objective Last 24 Hour Vital Signs Date Time Temp Pulse Resp B/P (MAP) Pulse Ox O2 Delivery O2 Flow Rate FiO2 08/28/20 12:14 98.3 89 20 119/64 (82) 95 08/28/20 08:00 98.6 86 18 139/71 (93) 98 08/28/20 08:00 Room Air 08/28/20 08:00 82 08/28/20 04:00 98.4 71 20 147/77 (100) 98 08/28/20 04:00 71 08/28/20 00:00 98.3 77 20 123/78 (93) 98 08/28/20 00:00 74 08/27/20 21:00 Room Air 08/27/20 20:00 70 08/27/20 20:00 97.2 54 20 120/66 (84) 98 08/27/20 16:00 55 08/27/20 16:00 96.8 54 20 107/55 (72) 96 Intake and Output 08/27/20 08/28/20 19:00 07:00 Output Total 850 ml 950 ml Balance -850 ml -950 ml Output Urine Total 850 ml 950 ml Laboratory Tests 08/28/20 05:05: White Blood Count 9.2, Red Blood Count 3.91L, Hemoglobin 12.4L, Hematocrit 37.1L , Mean Corpuscular Volume 95, Mean Corpuscular Hemoglobin 31.6H, Mean Corpuscular Hemoglobin Concent 33.3, Red Cell Distribution Width 11.9, Platelet Count 359, Mean Platelet Volume 7.0, Neutrophils (%) (Auto) 64.0, Lymphocytes (%) (Auto) 21.5, Monocytes (%) (Auto) 7.4, Eosinophils (%) (Auto) 6.3H, Basophils (%) (Auto) 0.8, Sodium Level 139, Potassium Level 4.1, Chloride Level 101, Carbon Dioxide Level 31, Anion Gap 7, Blood Urea Nitrogen 18, Creatinine 1. 1, Estimat Glomerular Filtration Rate > 60, Glucose Level 90, Calcium Level 9.4, Iron Level 48L, Total Iron Binding Capacity 255, Percent Iron Saturation 19, Unsaturated Iron Binding 207, Total Bilirubin 0.3, Aspartate Amino Transf (AST/SGOT) 87H, Alanine Aminotransferase (ALT/SGPT) 139H, Alkaline Phosphatase 122H, Total Protein 8.5H, Albumin 3.5, Globulin 5.0, Albumin/Globulin Ratio 0.7L , Vitamin B12 Level 1089H, Folate 19.4, Hepatitis A IgM Antibody [Pending], Hepatitis B Surface Antigen [Pending], Hepatitis B Core IgM Antibody [Pending], Hepatitis C Antibody [Pending] Height (Feet): 5 Height (Inches): 10.00 Weight (Pounds): 154 General Appearance: no apparent distress EENT: normal ENT inspection Neck: supple Cardiovascular: normal rate Respiratory/Chest: decreased breath sounds Abdomen: normal bowel sounds, non tender, soft Extremities: non-tender Assessment/Plan Assessment/Plan: 1. Paraplegia. 2. Respiratory failure with tracheostomy. 3. Seizure disorder. 4. Schizophrenia. 5. BPH. 6. Dysphagia with G-tube. 7. anemia 8. elevated LFTS GTF fu H&H fu lfts fu hepatitis panel Ronny Yang MD Aug 28, 2020 14:04
--- NOTE | 2020-08-28 15:23 | NUR ---
report called to Sariah at [place]
[2020-08-28 16:00] VITALS: BP 127/73
--- NOTE | 2020-08-28 16:15 | NUR ---
complete bath and shaggy care provided barrier cream applied to areas of redness to thighs and buttocks
--- NOTE | 2020-08-28 21:54 | Cardiology Progress Note ---
Subjective DATE OF SERVICE: Aug 28, 2020 Passed swallow eval; still on GT feeds due to non-compliance with diet at times. Remains in sinus rhythm with asymptomatic episodes of sinus bradycardia. No recurrent AFib. Off IVF No hypotensive episodes. DC plan noted. Objective Last 24 Hour Vital Signs Date Time Temp Pulse Resp B/P (MAP) Pulse Ox O2 Delivery O2 Flow Rate FiO2 08/28/20 16:00 80 08/28/20 16:00 98.7 77 20 127/73 (91) 97 08/28/20 12:14 98.3 89 20 119/64 (82) 95 08/28/20 12:00 82 08/28/20 08:00 98.6 86 18 139/71 (93) 98 08/28/20 08:00 Room Air 08/28/20 08:00 82 08/28/20 04:00 98.4 71 20 147/77 (100) 98 08/28/20 04:00 71 08/28/20 00:00 98.3 77 20 123/78 (93) 98 08/28/20 00:00 74 HEENT: Thin Trach secretions RHYTHM: NSR, SB LUNGS: lungs clear bilaterally CARDIAC: regular rhythm, normal S1 and S2, bradycardia ABDOMEN: normal bowel sounds, non tender, soft, G-Tube intact EXTREMITIES: normal range of motion, non-tender, no calf tenderness, No edema Laboratory Tests Test 08/28/20 05:05 White Blood Count 9.2 K/UL (4.8-10.8) Red Blood Count 3.91 M/UL (4.70-6.10) L Hemoglobin 12.4 G/DL (14.2-18.0) L Hematocrit 37.1 % (42.0-52.0) L Mean Corpuscular Volume 95 FL (80-99) Mean Corpuscular Hemoglobin 31.6 PG (27.0-31.0) H Mean Corpuscular Hemoglobin Concent 33.3 G/DL (32.0-36.0) Red Cell Distribution Width 11.9 % (11.6-14.8) Platelet Count 359 K/UL (150-450) Mean Platelet Volume 7.0 FL (6.5-10.1) Neutrophils (%) (Auto) 64.0 % (45.0-75.0) Lymphocytes (%) (Auto) 21.5 % (20.0-45.0) Monocytes (%) (Auto) 7.4 % (1.0-10.0) Eosinophils (%) (Auto) 6.3 % (0.0-3.0) H Basophils (%) (Auto) 0.8 % (0.0-2.0) Sodium Level 139 MMOL/L (136-145) Potassium Level 4.1 MMOL/L (3.5-5.1) Chloride Level 101 MMOL/L (98-107) Carbon Dioxide Level 31 MMOL/L (21-32) Anion Gap 7 mmol/L (5-15) Blood Urea Nitrogen 18 mg/dL (7-18) Creatinine 1.1 MG/DL (0.55-1.30) Estimat Glomerular Filtration Rate > 60 mL/min (>60) Glucose Level 90 MG/DL (74-106) Calcium Level 9.4 MG/DL (8.5-10.1) Iron Level 48 ug/dL (50-175) L Total Iron Binding Capacity 255 ug/dL (250-450) Percent Iron Saturation 19 % (15-50) Unsaturated Iron Binding 207 ug/dL (112-346) Total Bilirubin 0.3 MG/DL (0.2-1.0) Aspartate Amino Transf (AST/SGOT) 87 U/L (15-37) H Alanine Aminotransferase (ALT/SGPT) 139 U/L (12-78) H Alkaline Phosphatase 122 U/L (46-116) H Total Protein 8.5 G/DL (6.4-8.2) H Albumin 3.5 G/DL (3.4-5.0) Globulin 5.0 g/dL Albumin/Globulin Ratio 0.7 (1.0-2.7) L Vitamin B12 Level 1089 PG/ML (193-986) H Folate 19.4 NG/ML (8.6-58.9) Hepatitis A IgM Antibody Pending Hepatitis B Surface Antigen Pending Hepatitis B Core IgM Antibody Pending Hepatitis C Antibody Pending Microbiology Date/Time Source Procedure Growth Status 08/26/20 18:20 Nasopharynx SARS-CoV-2 Antigen (Rapid)(ANDREY) - Final Complete Assessment/Plan Assessment/Plan Bradycardia - asymptomatic and of no clinical consequence at present. Trach displacement corrected Hypovolemia, mild - resolved Hyponatremia corrected Mild hypothermia resolved Dehydration/hypernatremia improved Dysphagia with GTube for adequate intake Stable for SNF from cardiovascular standpoint. No indication for pacing Resp rx/vent Avoid beta kristin rx Sin Zuniga MD Aug 28, 2020 21:54
--- NOTE | 2020-08-29 13:59 | Discharge Summary ---
Discharge Summary Discharge Summary _ Date of admission: 08/16/2020 Date of discharge: 08/28/[address] Wylie History of Present Illness and Brief Hospital Course Mr. Gonzalez is a 54-year-old male with past medical history of BPH, paraplegia, tracheostomy, and chronic G-tube dependence, who was sent to ED from [facility] for evaluation of bradycardia with heart rate between 45 and 55. EKG showed sinus bradycardia. X-ray showed atelectasis but was otherwise clear from acute cardiopulmonary process. Patient was admitted to the hospital for further management and work-up. Patient remained asymptomatic with bradycardia. However, patient suddenly developed fever and leukocytosis. Patient was started on antibiotics. A follow-up urine culture showed growth of procidentia stuartii. Patient's fever and leukocytosis improved subsequently. Patient was awake, alert and hemodynamically stable. Patient was able to be decannulated. Patient passed the swallow evaluation. However, patient was noncompliant with diet at times. Diet was continued on G-tube feeding. Patient also had elevated LFTs. Abdominal ultrasound revealed mild gallbladder sludge but no evidence of acute cholecystitis. No acute surgical intervention was indicated. Throughout his hospitalization, patient was treated for UTI and was worked up for asymptomatic bradycardia. He was also decannulized and was stable on room air. Patient was medically stable for discharge and was discharged on 08/28/2020 back to his facility. Consultants: Cardiology Dr. Zuniga Gastroenterology Dr. Yang Infectious disease Dr. Mariee Pulmonology Dr. Moran Nephrology Dr. Galaviz Surgery Dr. Carrizales Discharge Condition Improved and stable Discharge Activity Bedrest Discharge Diet Tube feeding Final diagnoses Bradycardia Hypokalemia, mild Hyponatremia Hypothermia, mild Dehydration/hypernatremia Dysphagia s/p PEG anemia likely related to chronic disease Leukocytosis Thrombocytopenia Atelectasis Paraplegia Seizure disorder BPH Chronic encephalopathy Elevated alkaline phosphatase I have been assigned to dictate discharge summary for this account. I was not involved in the patient's management Magno Hoffmann Aug 29, 2020 13:59
== END 2020-08-28 18:28 | DRG 308 ==
LOC: EDBD 22:59 → EMR 23:25 → 2E 08-16 01:00 → EDBEDREQ 08-16 01:15
PROC: 0BP1XFZ Removal of Tracheostomy Device from Trachea, External Approach (ICD-10-PCS; principal; 2020-08-26)
DX: R00.1 Bradycardia, unspecified (principal); A41.9 Sepsis, unspecified organism; R65.21 Severe sepsis with septic shock; E43 Unspecified severe protein-calorie malnutrition; G93.49 Other encephalopathy; E87.1 Hypo-osmolality and hyponatremia; J98.11 Atelectasis; G82.20 Paraplegia, unspecified; J96.10 Chronic respiratory failure, unspecified whether with hypoxia or hypercapnia; N39.0 Urinary tract infection, site not specified; Z43.1 Encounter for attention to gastrostomy; I69.398 Other sequelae of cerebral infarction; J39.8 Other specified diseases of upper respiratory tract; E87.6 Hypokalemia; E86.0 Dehydration; D63.8 Anemia in other chronic diseases classified elsewhere; R13.10 Dysphagia, unspecified; D69.6 Thrombocytopenia, unspecified; G40.909 Epilepsy, unspecified, not intractable, without status epilepticus; Z43.0 Encounter for attention to tracheostomy; N40.0 Benign prostatic hyperplasia without lower urinary tract symptoms; F25.9 Schizoaffective disorder, unspecified; I48.91 Unspecified atrial fibrillation; R68.0 Hypothermia, not associated with low environmental temperature
CPT/HCPCS: 36415; 71045; 76700; 80048; 80053; 80061; 80076; 80202; 81001; 82150; 82607; 82746; 83540; 83550; 83605; 83690; 83735; 83880; 83930; 83935; 84100; 84300; 84443; 84484; 84550; 85007; 85025; 85610; 85730; 86140; 86705; 86709; 86803; 87040; 87081; 87086; 87181; 87324; 87340; 93005; 93306; 99285; J7030; J8499